=== PATIENT | female | born 1975 ===

== ENCOUNTER 2020-10-01 10:12 | Outpatient (REF) | payer OTHER, SELFPAY | END 2020-10-01 10:13 | disposition home or self-care (01) | LOC: HO.WFDLDS 10:12 | PROVIDERS: Visit Provider Internal Medicine | DX: Z20.828 Contact with and (suspected) exposure to other viral communicable diseases (principal) | CPT/HCPCS: C9803; U0003 ==

== ENCOUNTER 2021-05-14 11:57 | Outpatient (REF) | payer OTHER, SELFPAY ==
[2021-05-14 13:23] LABS: MANUAL DIFF FLAG NO
[2021-05-14 13:28] LABS: Basophils Percent Auto 0.4 % (0-2); Eosinophils Absolute Auto 0.3 X10*3/uL (0.0-0.4); Eosinophils Percent Auto 4.8 % (0-4); Hematocrit 35.1 % (37-47); Hemoglobin 10.9 g/dl (12.0-16.0); Imm Gran Abs Auto 0.02 X10*3/uL (0.00-0.03); Imm Gran Pct Auto 0.3 % (0.0-0.4); Lymphocytes Absolute Auto 1.6 X10*3/uL (1.2-4.9); Lymphocytes Percent Auto 23.1 % (20-40); Mean Corpuscular HGB Conc 31.1 g/dl (31.0-35.0); Mean Corpuscular Volume 80.5 fL (80-98); Monocytes Absolute Auto 0.6 X10*3/uL (0.1-1.2); Monocytes Percent Auto 8.6 % (2-11); Neutrophils Absolute Auto 4.3 X10*3/uL (2.0-8.3); Neutrophils Percent Auto 62.8 % (45-73); Platelet Count 307 X10*3/uL (160-400); Red Blood Count 4.36 X10*6/uL (4.20-5.50); White Blood Count 6.9 X10*3/uL (4.8-10.8)
[2021-05-14 13:56] LABS: Alanine Aminotransferase 11 U/L (0-31); Albumin Level 4.2 g/dL (3.5-5.0); Alkaline Phosphatase 82 U/L (39-117); Anion Gap 11 (12-20); Aspartate Amino Transferase 15 U/L (5-31); Bilirubin Total 0.9 mg/dL (0.0-1.0); Blood Urea Nitrogen 8 mg/dL (9-16); Calcium 9.6 mg/dL (8.4-10.2); Chloride 107 mmol/L (96-108); Cholesterol 176 mg/dL; Estimated Glomerular Filt Rate > 60; Glucose Fasting 98 mg/dL (60-99); HDL Cholesterol 42 mg/dL; LDL Cholesterol Calculated 112 mg/dl; Potassium 4.3 mmol/L (3.3-5.1); Sodium 140 mmol/L (135-145); Total Protein 7.5 g/dL (6.5-8.0); Triglycerides 111 mg/dL
[2021-05-14 14:06] LABS: Carbon Dioxide 26 mmol/L (22-29)
== END 2021-05-14 11:58 | disposition home or self-care (01) ==
LOC: HO.WFDLDS 11:57
PROVIDERS: Visit Provider Family Medicine
DX: Z12.31 Encounter for screening mammogram for malignant neoplasm of breast (principal)
CPT/HCPCS: 36415; 80053; 80061; 84443; 85025

== ENCOUNTER 2021-07-16 10:00 | Outpatient (REF) | payer OTHER, SELFPAY ==
[2021-07-20 12:12] LABS: TS Negative Control Passed; TS Panel A 2; TS Panel B 1; TS Positive Control Passed; TSpotTB Negative (SeeBelow)
== END 2021-07-16 10:01 | disposition home or self-care (01) ==
LOC: HO.WFDLDS 10:00
PROVIDERS: Visit Provider Family Medicine
DX: Z11.1 Encounter for screening for respiratory tuberculosis (principal)
CPT/HCPCS: 36415; 86481

== ENCOUNTER 2021-08-27 09:53 | Outpatient (REF) | payer OTHER, SELFPAY ==
[2021-08-27 11:37] LABS: MANUAL DIFF FLAG NO
[2021-08-27 11:51] LABS: Basophils Percent Auto 0.5 % (0-2); Eosinophils Absolute Auto 0.5 X10*3/uL (0.0-0.4); Eosinophils Percent Auto 5.8 % (0-4); Hematocrit 37.8 % (37-47); Hemoglobin 11.8 g/dl (12.0-16.0); Imm Gran Abs Auto 0.02 X10*3/uL (0.00-0.03); Imm Gran Pct Auto 0.2 % (0.0-0.4); Lymphocytes Absolute Auto 1.8 X10*3/uL (1.2-4.9); Lymphocytes Percent Auto 20.6 % (20-40); Mean Corpuscular HGB Conc 31.2 g/dl (31.0-35.0); Mean Corpuscular Volume 80.1 fL (80-98); Mean Platelet Volume 11.1 fL (9.4-12.3); Monocytes Absolute Auto 0.6 X10*3/uL (0.1-1.2); Monocytes Percent Auto 7.4 % (2-11); Neutrophils Absolute Auto 5.6 X10*3/uL (2.0-8.3); Neutrophils Percent Auto 65.5 % (45-73); Platelet Count 281 X10*3/uL (160-400); Red Blood Count 4.72 X10*6/uL (4.20-5.50); Red Cell Distribution Width 14.6 % (11.0-16.0); White Blood Count 8.5 X10*3/uL (4.8-10.8)
== END 2021-08-27 09:54 | disposition home or self-care (01) ==
LOC: HO.WFDLDS 09:53
PROVIDERS: Visit Provider Family Medicine
DX: Z00.00 Encounter for general adult medical examination without abnormal findings (principal)
CPT/HCPCS: 36415; 85025

== ENCOUNTER 2022-07-23 11:22 | Outpatient (REF) | payer OTHER, SELFPAY ==
[2022-07-23 14:33] LABS: Hematocrit 38.1 % (37.0-47.0); Hemoglobin 12.1 g/dl (12.0-16.0); Mean Corpuscular HGB Conc 31.8 g/dl (31.0-35.0); Mean Corpuscular Hemoglobin 26.3 pg (27.0-33.0); Mean Corpuscular Volume 82.8 fL (80.0-98.0); Mean Platelet Volume 11.2 fL (9.4-12.3); Platelet Count 283 X10*3/uL (160-400); Red Cell Distribution Width 15.6 % (11.0-16.0)
[2022-07-23 14:46] LABS: Alanine Aminotransferase 12 U/L (0-31); Albumin Level 4.2 g/dL (3.5-5.0); Alkaline Phosphatase 74 U/L (39-117); Anion Gap 13 (12-20); Aspartate Amino Transferase 16 U/L (5-31); Bilirubin Total 0.4 mg/dL (0.0-1.0); Blood Urea Nitrogen 9 mg/dL (9-16); Calcium 9.7 mg/dL (8.4-10.2); Carbon Dioxide 27 mmol/L (22-29); Chloride 106 mmol/L (96-108); Cholesterol 183 mg/dL; Estimated Glomerular Filt Rate > 60; Glucose Fasting 93 mg/dL (60-99); HDL Cholesterol 45 mg/dL; LDL Cholesterol Calculated 116 mg/dl; Potassium 4.7 mmol/L (3.3-5.1); Sodium 141 mmol/L (135-145); Total Protein 7.6 g/dL (6.5-8.0); Triglycerides 110 mg/dL
[2022-07-23 15:08] LABS: TSH reflex Free T4 1.16 uIU/mL (0.32-4.0)
== END 2022-07-23 11:23 | disposition home or self-care (01) ==
LOC: HO.WFDLDS 11:22
PROVIDERS: Visit Provider Hospitalist
DX: Z00.00 Encounter for general adult medical examination without abnormal findings (principal)
CPT/HCPCS: 36415; 80053; 80061; 84443; 85027

== ENCOUNTER 2023-03-04 10:46 | Outpatient (REF) | payer OTHER, SELFPAY ==
--- NOTE | ~2023-03-04 | MM_ITS ---
EXAMINATION: MM SCREENING DIGITAL BREAST TOMOSYNTHESIS, BILATERAL CLINICAL INFORMATION: Screening. Asymptomatic. The lifetime risk of breast cancer based on the Tyrer-Cuzick Model is 8%. COMPARISON: Mammography: None TECHNIQUE: Digital breast tomosynthesis is performed in both the craniocaudal and mediolateral oblique views along with computer-aided detection (CAD). Synthesized 2D images are generated from the tomosynthesis. FINDINGS: The breasts are heterogeneously dense, which may obscure small masses (ACR BI-RADS breast composition Category c). There are no significant masses, abnormal calcifications, or other abnormalities. MM/MM tomosynthesis screening BI IMPRESSION: No mammographic evidence of malignancy. ASSESSMENT: BI-RADS 1: Negative RECOMMENDATION: Routine annual mammography screening. This patient's information was entered into a reminder system with a target due date for their next mammogram.
[2023-03-04 12:12] LABS: Hematocrit 35.6 % (37.0-47.0); Mean Corpuscular HGB Conc 30.9 g/dl (31.0-35.0); Mean Corpuscular Hemoglobin 24.4 pg (27.0-33.0); Mean Corpuscular Volume 78.9 fL (80.0-98.0); Mean Platelet Volume 10.8 fL (9.4-12.3); Platelet Count 305 X10*3/uL (160-400); Red Blood Count 4.51 X10*6/uL (4.20-5.50); Red Cell Distribution Width 13.3 % (11.0-16.0); White Blood Count 7.4 X10*3/uL (4.8-10.8)
[2023-03-04 12:52] LABS: Appearance Urine Cloudy; Color Urine Yellow; Glucose Urine UA Negative (Negative); Leukocyte Esterase Urine Negative (Negative); Nitrite Urine Negative (Negative); Specific Gravity - Urine >= 1.030 (1.005-1.025); UMIC TRIGGER UA YES; Urine Blood Negative (Negative); Urine Ketones Trace mg/dL (Negative); Urine Protein 30 (1+) mg/dL (Neg-Trace)
[2023-03-04 13:00] LABS: Bacteria Urine None Seen (None Seen); Hyaline Casts Urine 0-2 /LPF (0-2); Squamous Epithelial Cell Urine >20 /HPF (0-2); WBC Urine 0-5 /HPF (0-5)
[2023-03-04 13:18] LABS: Alanine Aminotransferase 9 U/L (0-31); Alkaline Phosphatase 67 U/L (39-117); Anion Gap 11 (12-20); Aspartate Amino Transferase 14 U/L (5-31); Bilirubin Total 0.7 mg/dL (0.0-1.0); Blood Urea Nitrogen 13 mg/dL (9-16); Calcium 9.3 mg/dL (8.4-10.2); Carbon Dioxide 28 mmol/L (22-29); Chloride 107 mmol/L (96-108); Cholesterol 169 mg/dL; Estimated Glomerular Filt Rate > 60; Glucose Fasting 88 mg/dL (60-99); HDL Cholesterol 40 mg/dL; LDL Cholesterol Calculated 113 mg/dl; Potassium 4.5 mmol/L (3.3-5.1); Sodium 141 mmol/L (135-145); Total Protein 6.9 g/dL (6.5-8.0); Triglycerides 80 mg/dL
[2023-03-04 13:34] LABS: TSH reflex Free T4 1.84 uIU/mL (0.32-4.0)
== END 2023-03-04 10:47 | disposition home or self-care (01) ==
LOC: HO.MAMMO 10:46
PROVIDERS: PCP Hospitalist; Visit Provider Hospitalist
DX: Z12.31 Encounter for screening mammogram for malignant neoplasm of breast (principal); Z00.00 Encounter for general adult medical examination without abnormal findings
CPT/HCPCS: 36415; 77063; 77067; 80053; 80061; 81001; 84443; 85027

== ENCOUNTER 2023-03-05 11:36 | Outpatient (REF) | payer OTHER, SELFPAY ==
[2023-03-05 12:02] LABS: Appearance Urine Cloudy; Color Urine Yellow; Glucose Urine UA Negative (Negative); Leukocyte Esterase Urine Trace (Negative); Nitrite Urine Negative (Negative); Specific Gravity - Urine 1.025 (1.005-1.025); UMIC TRIGGER UA YES; Urine Blood Negative (Negative); Urine Ketones Trace mg/dL (Negative); Urine Protein Trace mg/dL (Neg-Trace)
[2023-03-05 13:09] LABS: Iron 27 mcg/dL (30-160); Percent Iron Saturation 9 % (15-50); Total Iron Binding Capacity 289 mcg/dL (228-428); Unsaturated Iron Binding 262 ug/dL
[2023-03-05 13:16] LABS: Bacteria Urine 1+ (None Seen); Hyaline Casts Urine 0-2 /LPF (0-2); Squamous Epithelial Cell Urine >20 /HPF (0-2); WBC Urine 0-5 /HPF (0-5)
[2023-03-05 13:22] LABS: Folate 15.6 ng/mL (> or = 4.0); Vitamin B12 460 pg/mL (200-900)
== END 2023-03-05 11:37 | disposition home or self-care (01) ==
LOC: HO.LAB 11:36
PROVIDERS: PCP Hospitalist; Visit Provider Hospitalist
DX: D64.9 Anemia, unspecified (principal)
CPT/HCPCS: 36415; 81001; 81003; 82607; 82746; 83540

== ENCOUNTER 2023-04-07 09:29 | Outpatient (REF) | payer OTHER, SELFPAY ==
[2023-04-07 11:20] LABS: MANUAL DIFF FLAG NO
[2023-04-07 11:40] LABS: Basophils Percent Auto 0.6 % (0-2); Eosinophils Absolute Auto 0.4 X10*3/uL (0.0-0.4); Eosinophils Percent Auto 5.2 % (0-4); Hematocrit 36.6 % (37.0-47.0); Hemoglobin 11.2 g/dl (12.0-16.0); Imm Gran Abs Auto 0.02 X10*3/uL (0.00-0.03); Imm Gran Pct Auto 0.3 % (0.0-0.4); Lymphocytes Absolute Auto 1.6 X10*3/uL (1.2-4.9); Lymphocytes Percent Auto 22.8 % (20-40); Mean Corpuscular HGB Conc 30.6 g/dl (31.0-35.0); Mean Corpuscular Hemoglobin 24.3 pg (27.0-33.0); Mean Corpuscular Volume 79.6 fL (80.0-98.0); Mean Platelet Volume 11.4 fL (9.4-12.3); Monocytes Absolute Auto 0.5 X10*3/uL (0.1-1.2); Monocytes Percent Auto 7.6 % (2-11); Neutrophils Absolute Auto 4.5 x10*3/uL (2.0-8.3); Neutrophils Percent Auto 63.5 % (45-73); Platelet Count 282 X10*3/uL (160-400); Red Cell Distribution Width 14.8 % (11.0-16.0); White Blood Count 7.1 X10*3/uL (4.8-10.8)
[2023-04-07 11:48] LABS: Iron 15 mcg/dL (30-160); Percent Iron Saturation 5 % (15-50); Total Iron Binding Capacity 294 mcg/dL (228-428); Unsaturated Iron Binding 279 ug/dL
[2023-04-10 02:03] LABS: TS Negative Control Passed; TS Panel A 12; TS Panel B 9; TS Positive Control Passed; TSpotTB Positive (Negative)
== END 2023-04-07 09:30 | disposition home or self-care (01) ==
LOC: HO.WFDLDS 09:29
PROVIDERS: Visit Provider Family Medicine
DX: Z00.00 Encounter for general adult medical examination without abnormal findings (principal); D64.9 Anemia, unspecified; Z11.1 Encounter for screening for respiratory tuberculosis
CPT/HCPCS: 36415; 83540; 85025; 86481

== ENCOUNTER 2023-04-16 11:22 | Outpatient (REF) | payer OTHER, SELFPAY ==
--- NOTE | ~2023-04-16 | XR_ITS ---
EXAMINATION: XR CHEST CLINICAL INFORMATION: Nonspecific reaction to tuberculin skin test. COMPARISON: None available. TECHNIQUE: 2 views of the chest were obtained. FINDINGS: No significant abnormality is noted involving the heart, lungs, mediastinum, bony thorax or soft tissues. XR/XR chest 2V IMPRESSION: Unremarkable chest examination.
== END 2023-04-16 11:23 | disposition home or self-care (01) ==
LOC: HO.XRAY 11:22
PROVIDERS: PCP Family Medicine; Visit Provider Family Medicine
DX: R76.11 Nonspecific reaction to tuberculin skin test without active tuberculosis (principal)
CPT/HCPCS: 71046

== ENCOUNTER 2023-04-28 14:29 | Outpatient (REF) | payer OTHER, SELFPAY ==
[2023-04-30 05:10] LABS: Syphilis Screen Nonreactive (Nonreactive)
[2023-04-30 05:53] LABS: HBS Num1 5.42 mIU/mL (0-7.99); HBsAGNum1 0.46 S/CO (0.00-0.99); HIV AB/AG Nonreactive (Nonreactive); HIV Num 1 0.08 S/CO (0.00-0.99); Hepatitis B Surface Antigen Negative (Negative); ~Hepatitis B Surface Antibody NONREACTIVE (Nonreactive); ~Hepatitis C Antibody Nonreactive (Nonreactive)
[2023-05-01 01:58] LABS: TS Negative Control Passed; TS Panel A 1; TS Panel B 2; TS Positive Control Passed; TSpotTB Negative (Negative)
== END 2023-04-28 14:30 | disposition home or self-care (01) ==
LOC: HO.LAB 14:29
PROVIDERS: PCP Family Medicine; Visit Provider Internal Medicine
DX: Z11.4 Encounter for screening for human immunodeficiency virus [HIV] (principal); R76.11 Nonspecific reaction to tuberculin skin test without active tuberculosis
CPT/HCPCS: 36415; 86481; 86706; 86780; 86803; 87340; 87389; 99202

== ENCOUNTER 2023-07-01 13:04 | Outpatient (REF) | payer OTHER, SELFPAY ==
[2023-07-01 13:24] LABS: MANUAL DIFF FLAG NO
[2023-07-01 13:56] LABS: Basophils Absolute Auto 0.1 X10*3/uL (0.0-0.2); Basophils Percent Auto 0.5 % (0-2); Eosinophils Absolute Auto 0.4 X10*3/uL (0.0-0.4); Hematocrit 36.5 % (37.0-47.0); Hemoglobin 11.4 g/dl (12.0-16.0); Imm Gran Abs Auto 0.03 X10*3/uL (0.00-0.03); Imm Gran Pct Auto 0.3 % (0.0-0.4); Lymphocytes Absolute Auto 1.9 X10*3/uL (1.2-4.9); Lymphocytes Percent Auto 20.3 % (20-40); Mean Corpuscular HGB Conc 31.2 g/dl (31.0-35.0); Mean Corpuscular Hemoglobin 24.5 pg (27.0-33.0); Mean Corpuscular Volume 78.3 fL (80.0-98.0); Mean Platelet Volume 10.7 fL (9.4-12.3); Monocytes Absolute Auto 0.7 X10*3/uL (0.1-1.2); Monocytes Percent Auto 7.4 % (2-11); Neutrophils Absolute Auto 6.3 x10*3/uL (2.0-8.3); Neutrophils Percent Auto 67.5 % (45-73); Platelet Count 315 X10*3/uL (160-400); Red Blood Count 4.66 X10*6/uL (4.20-5.50); Red Cell Distribution Width 14.5 % (11.0-16.0); White Blood Count 9.3 X10*3/uL (4.8-10.8)
[2023-07-01 15:17] LABS: Anion Gap 9 (12-20); Blood Urea Nitrogen 7 mg/dL (9-16); Calcium 9.9 mg/dL (8.4-10.2); Carbon Dioxide 25 mmol/L (22-29); Chloride 109 mmol/L (96-108); Estimated Glomerular Filt Rate > 60; Glucose Random 92 mg/dL (60-115); Iron 77 mcg/dL (30-160); Percent Iron Saturation 25 % (15-50); Potassium 4.6 mmol/L (3.3-5.1); Sodium 138 mmol/L (135-145); Total Iron Binding Capacity 309 mcg/dL (228-428); Unsaturated Iron Binding 232 ug/dL
== END 2023-07-01 13:05 | disposition home or self-care (01) ==
LOC: HO.LAB 13:04
PROVIDERS: PCP Family Medicine; Visit Provider Family Medicine
DX: Z00.00 Encounter for general adult medical examination without abnormal findings (principal); D64.9 Anemia, unspecified
CPT/HCPCS: 36415; 80048; 83540; 85025

== ENCOUNTER 2023-07-21 13:32 | Outpatient (AMB) | payer OTHER, SELFPAY ==
--- NOTE | 2023-07-21 13:43 | MHC.PC.OV ---
Vital Signs 07/21/23 13:44 Height 5 ft 3 in Weight 132 lb BMI 23.4 BP 106/64 Blood Pressure Location Rt brachial Position Sitting Respiration 14 Pulse 86 Pulse Source Pulse Oximeter Temp 97.8 F Temp Source Temporal Artery Scan Pulse Oximetry (%) 99 Oxygen Delivery Method Room Air Intake Visit Reasons: sinus pressure, headache, weakness Intake Note: Patient reports she has had sinus pressure, headache, and weakness for about 10-14 days. Patient reports she has tried many OTC medications and nothing has provided relief. Patient reports she believes she has a deviated septum and wonders if that correlates with her having so many sinus infections. 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 Accompanied by: Self / Same As Patient Allergies Seasonal Allergies Allergy (Mild, Verified 07/21/23 14:03) Itchy Eyes Medication List - Last Reconciled 07/21/23 by Sayra Taylor CNP cetirizine (Zyrtec) 10 mg PO DAILY PRN 90 days clindamycin phosphate 1% topical ferrous sulfate 325 mg PO DAILY 90 days fluticasone propionate 50 mcg/actuation 2 sprays intranasal DAILY 30 days metronidazole 0.75% 1 appl topical BID olopatadine 0.2% (Pataday Once Daily Relief) 1 drp ophthalmic (eye) DAILY PRN 30 days spironolactone 50 mg PO DAILY tretinoin 0.025% 1 appl topical BEDTIME Tobacco use date assessed: 02/24/23 Dental Screening Dental Screen Date: 07/21/23 Did you have a dental visit in the last 12 months?: Yes Did you have a dental problem in the last 6 months where you did not have access to dental care?: No Was dental information given to patient?: Patient has dentist HPI HPI Comments History of Present Illness Details 48-year-old female presents with complaints of sinus pressure, generalized headache, body aches and fatigue for the past 10-14 days. Her symptoms have been refractory to prescription [id number] regimen. She reports chills and subjective x 2 days last week. No current fever, chills, or weakness. She denies sick contacts. She thinks she may have left deviated septum from a fall on her nose at childhood. She has concerned that deviated septum may explain why she keeps having recurring sinus infections. [facility] Medical History Allergic sinusitis Bunion, left foot Bunion, right foot Mild anemia Surgical History History of bunionectomy No pertinent past surgical history Social History Housing: House Patient Tobacco Use Status: Never used Tobacco e-Cigarette/Vaping Use: Never Used service: No Current occupational status: employed Cognitive needs: No Hearing needs: No Vision needs: No Questionnaire Thrive Questionnaire Date Thrive assessed: 09/03/21 VIKTORIA-7 AMB Questionnaire VIKTORIA-7 Date VIKTORIA - 7 assessed: 09/03/21 Source: Developed by Drs. Randall Grant, Valencia Villareal, Richmond Farfan and colleagues, with an educational monika from [employer]. Review of Systems Const Details: Const Denies chills, Reports fatigue, Denies fever(s), Reports headache(s) and Denies weakness ENT Reports as per HPI Card Denies chest pain, Denies lightheadedness, Denies dyspnea and Denies other (Palpitations) Resp Denies cough, Denies dyspnea, Denies wheezing and Denies other ( shortness of breath) GI Denies abdominal pain, Denies melena, Denies hematochezia, Denies change in bowel habits, Denies dyspepsia and Denies nausea Denies hematuria and Denies dysuria Musc Denies abnormal gait, Denies myalgias, Denies arthralgias, Denies numbness and Denies tingling Skin/Breast Denies rash, Denies unusual bruising and Denies wounds Neuro Denies abnormal gait, Denies dizziness, Denies headache(s), Denies memory loss, Denies numbness, Denies Sensory deficit (Neuro), Denies tingling and Denies weakness Psych Denies anxiety, Denies depression, Denies memory loss Endo Denies cold intolerance, Reports fatigue, Denies heat intolerance, Denies polydipsia and Denies polyuria Aller/Immun Denies wheezing Physical exam (Primary Care) Vital Signs: Last Vital Signs Temp 97.8 F 07/21/23 13:44 Pulse 86 07/21/23 13:44 Resp 14 07/21/23 13:44 BP 106/64 07/21/23 13:44 Pulse Ox 99 07/21/23 13:44 Oxygen Delivery Method Room Air 07/21/23 13:44 BMI result Body Mass Index 23.4 Tobacco/Smoking Status: Tobacco use Status Tobacco use date assessed 02/24/23 07/21/23 13:50 Patient Tobacco Use Status Never used Tobacco 07/21/23 13:50 e-Cigarette/Vaping Use Never Used 07/21/23 13:50 Thrive Assessment: Date of Thrive Assessment Date Thrive assessed 09/03/21 07/21/23 13:50 Const Other: General: no acute distress and well developed Nutritional Appearance: well nourished Orientation/consciousness: patient oriented x3 HENMT Head is normocephalic Bilateral ear canal and TM are normal Nasal turbinates with moderate erythema Oropharynx is pink and moist Sinuses are tender to palpation No auricular or cervical lymphadenopathy Eyes General: appearance normal, both eyes and all related structures Pupils: Equal, round and reactive pupils present EOM: EOMs intact bilaterally Resp Effort & Inspection: normal respiratory effort Auscultation: clear to auscultation bilaterally Cardio Rate: regular rate Rhythm: regular rhythm Heart sounds: S1 normal heart sound present, S2 normal heart sound present, no gallops, no murmurs and no rubs GI Palpation (GI): No Abdominal aortic bruit present, Soft to palpation, nontender, No hepatosplenomegaly present and No Rebound tenderness present Auscultation: normal bowel sounds General: Yes no CVA tenderness Back/Spine/Pelvis Back: no CVA tenderness Cervical Spine: cervical ROM normal and No Cervical spine tenderness Thoracic/Lumbar Spine: thoraco-lumbar ROM normal, No pain with thoraco-lumbar ROM, No thoracic spinal tenderness and No lumbar spinal tenderness Extrem General: Yes normal to inspection, No edema and No calf tenderness Skin General: warm and dry. Normal skin color. Normal skin turgor Lesions: no lesions Rashes: no rashes Trauma: no lacerations or abrasions Wounds: no wounds Nails: normal Neuro General: patient oriented x3, gait normal and no focal neuro deficit Cranial nerves: Yes Equal, round and reactive pupils present Cognition (Neuro): normal cognition Gait exam (Neuro): Normal gait present Sensory Exam: No Sensory deficit (Neuro) Psych Appearance: grossly normal Affect: normal affect Attitude: cooperative Thought process: Normal thought process present Assessment and Plan Assessment & Plan (1) Acute sinus infection: Code(s): J01.90 - Acute sinusitis, unspecified Qualifiers: Sinusitis location: maxillary Recurrence: recurrent Qualified Code(s): J01.01 - Acute recurrent maxillary sinusitis Plan: 48-year-old female presents with complaints of sinus pressure, generalized headache, body aches and fatigue for the past 10-14 days. Frontal and maxillary sinuses tenderness to palpation Nasal turbinates with moderate erythema Vistaril and amoxicillin ordered. Take as prescribed Continue to use Flonase as prescribed Adequate hydration encouraged Referred to ENT Follow-up with worsening or new symptoms Verbalized understanding and agreed with treatment plan Orders: Referrals Ear/Nose/Throat Referral J01.90 - Acute sinusitis, unspecified Medications: New hydroxyzine pamoate (Vistaril) 25 mg PO BEDTIME 30 days 30 caps 0RF amoxicillin 875 mg PO Q12H 7 days 14 tabs 0RF Coding Level of Care Code Est Pt Level 3 (80048) Diagnoses Acute recurrent maxillary sinusitis J01.01 Sinusitis location: maxillary Recurrence: recurrent
[2023-07-21 13:44] VITALS: BP 106/64; PULSE 86; RESP 14; TEMP 36.6; O2SAT 99; BMI 23.4
== END 2023-07-21 14:20 | disposition home or self-care (01) ==
PROVIDERS: PCP Family Medicine; Visit Provider Nurse Practitioner Family
DX: J01.01 Acute recurrent maxillary sinusitis (principal)
CPT/HCPCS: 99213

== ENCOUNTER 2024-04-10 11:27 | Outpatient (AMB) | payer OTHER, SELFPAY ==
--- NOTE | 2024-04-10 11:52 | MHC.PC.OV ---
Vital Signs 04/10/24 12:01 Height 5 ft 3 in Weight 147 lb 6 oz BMI 26.1 BP 110/68 Blood Pressure Location Lt brachial Position Sitting Pulse 84 Pulse Source Pulse Oximeter Temp 98.8 F Temp Source Oral Pulse Oximetry (%) 99 Oxygen Delivery Method Room Air Intake Visit Reasons: CPE-NEEDS PHQ9 Intake Note: Physical. Allergies Seasonal Allergies Allergy (Mild, Verified 04/10/24 12:18) Itchy Eyes Medication List - Last Reconciled 04/10/24 by JASBIR Rodríguez-ELIAS azelastine intranasal cetirizine (Zyrtec) 10 mg PO DAILY PRN 90 days ferrous sulfate 325 mg PO DAILY 90 days fluticasone propionate 50 mcg/actuation 2 sprays intranasal DAILY 90 days olopatadine 0.2% (Pataday Once Daily Relief) 1 drp ophthalmic (eye) DAILY PRN 30 days tretinoin 0.025% 1 appl topical BEDTIME Tobacco use date assessed: 04/10/24 Dental Screening Dental Screen Date: 04/10/24 Did you have a dental visit in the last 12 months?: Yes Did you have a dental problem in the last 6 months where you did not have access to dental care?: No Was dental information given to patient?: Patient has dentist HPI HPI Comments History of Present Illness Details 49-year-old female with anemia, allergic rhinitis 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 Ok w/ cologaurd. Order placed Pap - overdue. Referred to [facility] [place] [facility]CONOMICS PROFESSOR DEXA - n/a still getting periods. Specialists: ENT Here today for CPE Never started hydroxyzine, was not sure what it was for. She admits trouble sleeping d/t sinus issues in the past This is now resolved s/p repair 02/2024 No longer needed Family stressors. Declines counseling. Declines meds. new onset sz and dog, too. Latent TB dx - false +. 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 1. Little interest or pleasure in doing things: several days 2. Feeling down, depressed, or hopeless: several days 3. Trouble falling or staying asleep, or sleeping too much: not at all 4. Feeling tired or having little energy: several days 5. Poor appetite or overeating: not at all 6. Feeling bad about yourself - or that you are a failure or have let yourself or your family down: not at all 7. Trouble concentrating on things, such as reading the newspaper or watching television: not at all 8. Moving or speaking so slowly that other people could have noticed. Or the opposite - being so fidgety or restless that you have been moving around a lot more than usual: not at all 9. Thoughts that you would be better off or of hurting yourself in some way: not at all Total score: 3 Depression Screening Interpretation: Negative Depression Screening Done: Yes 53768 - PHQ-9 Billing: Yes Source: Developed by Drs. Randall Grant, Valencia Villareal, Richmond Farfan and colleagues, with an educational monika from [employer]. Thrive Questionnaire Date Thrive assessed: 04/10/24 I am a: Patient What is your living situation today?: I have a steady place to live Within the past 12 months, did the food you bought not last and you didn't have the money to get more?: Never true Within the past 12 months, did you worry whether your food would run out before you got money to buy more?: Never true Do you have trouble paying for medicines?: No Do you have trouble getting transportation to medical appointments?: No Do you have trouble paying your heating and electricity bill?: No Do you have trouble taking care of your child, family member or friend?: No Do you have trouble with day-to-day activities such as bathing, preparing meals, shopping, managing finances, etc.?: No Are you currently unemployed and looking for a job?: No Please select the resources that you would like help with: None THRIVE Score: 0 AUDIT C Alcohol Use Questionnaire (AUDIT-C) 1. How often do you have a drink containing alcohol?: Never 3. How often do you have six or more drinks on one occasion?: Never Total Score: 0 Score Reviewed/Action Taken: Yes VIKTORIA-7 AMB Questionnaire VIKTORIA-7 Date VIKTORIA - 7 assessed: 04/10/24 Feeling nervous, anxious, or on edge: 0 = Not at all Not being able to stop or control worryin = Not at all Worrying too much about different things: 0 = Not at all Trouble relaxin = Several days Being so restless that it is hard to sit still: 0 = Not at all Becoming easily annoyed or irritable: 0 = Not at all Feeling afraid as if something awful might happen: 0 = Not at all Total VIKTORIA-7 score (0-4 normal; 5-9 mild; 10-14 moderate; 15-21 severe): 1 Source: Developed by Drs. Randall Grant, Valencia Villareal, Richmond Farfan and colleagues, with an educational monika from [employer]. VIKTORIA-7 Assessment Billing VIKTORIA-7 Assessment Tool: VIKTORIA-7 Assessment 74166 Review of Systems Const Details: Constitutional: Denies fever. Skin: Denies rash. Eye: Denies eye pain. ENMT: Denies sore throat and nasal congestion. Respiratory: Denies shortness of breath and cough. Gastrointestinal: Denies nausea, vomiting or abdominal pain. Cardiovascular: Denies chest pain and syncope. Genitourinary: Denies dysuria. Musculoskeletal: Denies back pain and extremity pain. Neurologic: Denies headaches, confusion, and weakness. Psychiatric: Denies suicidal thoughts and substance abuse. Allergy/ Immunologic: Denies impaired immunity. Physical exam (Primary Care) Vital Signs: Last Vital Signs Temp 98.8 F 04/10/24 12:01 Pulse 84 04/10/24 12:01 BP 110/68 04/10/24 12:01 Pulse Ox 99 04/10/24 12:01 Oxygen Delivery Method Room Air 04/10/24 12:01 BMI result Body Mass Index 26.1 BMI Assessment/Plan discussion: High BMI High, discussed plan: lifestyle Tobacco/Smoking Status: Tobacco use Status Tobacco use date assessed 04/10/24 04/10/24 12:03 Patient Tobacco Use Status Never used Tobacco 04/10/24 12:03 e-Cigarette/Vaping Use Never Used 04/10/24 12:03 PHQ-9: PHQ-9 Score PHQ-9: Total score 3 04/10/24 12:10 Depression Screening Interpretation: Negative Thrive Assessment: Date of Thrive Assessment Date Thrive assessed 04/10/24 04/10/24 12:10 Advance Care Planning discussion: Exists, not on file Date of discussion: 04/10/24 Who was present: Self Forms completed: Health Care Proxy and MOLST Actual minutes spent: 1 Const Other: General: Well developed, well nourished, in no acute distress. Appears stated age. Head: Normocephalic, atraumatic. Eyes: Pupils are equal, round and reactive to light and accommodation. Conjunctivae are clear. Vision grossly normal. Ears: TMs clear AU, EACS WNL Nose: Patent, without discharge. Mouth: There are no ulcers or lesions noted. No inflammation, no post nasal drip, no plaques nor exudates. Neck: Supple, no adenopathy or thyromegaly. Lungs: Clear to auscultation bilaterally. No rales, rhonchi or wheeze noted. Good air flow in all rooney. Heart: Regular rate and rhythm. No murmurs, click, rubs or gallops are noted. Abdomen: Bowel sounds present in all quadrants. The abdomen is soft, nontender, with no masses or organomegaly noted. No hernias are noted. Musculoskeletal: Joints are nontender, without swelling, redness, or effusions. Range of motion is observed to be normal. Pulses: Peripheral pulses are equal and palpable bilaterally. Extremities: No clubbing, cyanosis nor edema is noted. Neurologic: Gait and station normal. Cranial Nerves 2-12 intact. Motor strength grossly symmetrical and intact. No sensory loss. Balance normal. Skin: No rashes, ulcers, or lesions noted. Turgor is good. Skin color is good. Hair and nails are without abnormalities. Psych: Normal eye contact, affect and mood appropriate, and normal interactions. Patient is alert and appropriate to context. Assessment and Plan Assessment & Plan (1) Encounter for general adult medical examination without abnormal findings: Code(s): Z00.00 - Encounter for general adult medical examination without abnormal findings (2) Screening for cervical cancer: Comment: Refer to assembly machine tool setter for Pap smear. Code(s): Z12.4 - Encounter for screening for malignant neoplasm of cervix (3) Colonoscopy refused: Comment: Ordered Cologuard today. Code(s): Z53.20 - Procedure and treatment not carried out because of patient's decision for unspecified reasons (4) Anemia: Comment: Was on iron in the past. We will update labs today and restart only if needed. Code(s): D64.9 - Anemia, unspecified Qualifiers: Anemia type: iron deficiency Iron deficiency anemia type: inadequate dietary iron intake Qualified Code(s): D50.8 - Other iron deficiency anemias Orders: Orders Comprehensive Met. Panel Today Z00.00 - Encounter for general adult medical examination without abnormal findings IRON PROFILE Today Z00.00 - Encounter for general adult medical examination without abnormal findings LDL Cholesterol Direct Today Z00.00 - Encounter for general adult medical examination without abnormal findings TSH reflex Free T4 Today Z00.00 - Encounter for general adult medical examination without abnormal findings Vitamin D 1,25 dihydroxy Today Z00.00 - Encounter for general adult medical examination without abnormal findings Microalbumin, Random (w Creat) Today Z00.00 - Encounter for general adult medical examination without abnormal findings Vitamin B12 Today Z00.00 - Encounter for general adult medical examination without abnormal findings Hemoglobin A1c Today Z00.00 - Encounter for general adult medical examination without abnormal findings Complete Blood Count no Diff Today Z00.00 - Encounter for general adult medical examination without abnormal findings Referrals Cologuard Test Z12.11 - Encounter for screening for malignant neoplasm of colon, Z12.12 - Encounter for screening for malignant neoplasm of rectum DIRECTOR BUSINESS DEVELOPMENT Referral Z12.4 - Encounter for screening for malignant neoplasm of cervix Patient Instructions: Return to office in 1 year for complete physical exam, sooner as needed. Health screenings for women You should visit your health care provider from time to time, even if you are healthy. The purpose of these visits is to: Screen for medical issues Assess your risk for future medical problems Encourage a healthy lifestyle Update vaccinations and other preventive care services Help you get to know your provider in case of an illness Information Even if you feel fine, you should still see your provider for regular checkups. These visits can help you avoid problems in the future. For example, the only way to find out if you have high blood pressure is to have it checked regularly. High blood sugar and high cholesterol levels also may not have any symptoms in the early stages. A simple blood test can check for these conditions. There are specific times when you should see your provider or receive specific health screenings. The [place] Preventive Services Task Force publishes a list of recommended screenings. Below are screening guidelines for women ages 18 to 39. BLOOD PRESSURE SCREENING Your blood pressure should be checked at least once every 3 to 5 years if: Your blood pressure is in the normal range (top number less than 120 mm Hg and bottom number less than 80 mm Hg) You don't have risk factors for high blood pressure Ask your provider if you need your blood pressure checked more often if: The top number is 120 to 129 mm Hg or the bottom number is 70 to 79 mm Hg You have diabetes, heart disease, kidney problems, are overweight, or have certain other health conditions You have a first-degree relative with high blood pressure You are Black You had high blood pressure during a If the top number is 130 mm Hg or greater or the bottom number is 80 mm Hg or greater, this is considered stage 1 hypertension. Schedule an appointment with your provider to learn how you can reduce your blood pressure. Watch for blood pressure screenings in your area. Ask your provider if you can stop in to have your blood pressure checked. BREAST CANCER SCREENING Experts do not agree about the benefits of breast self-exams in finding breast cancer or saving lives. Talk to your provider about what is best for you. A screening mammogram is not recommended for most women under age 40. Your provider may discuss and recommend mammograms, MRI scans, or ultrasounds if you have an increased risk for breast cancer, such as: A mother or sister who had breast cancer at a young age (most often starting screening earlier than the age the close relative was diagnosed) You carry a high-risk genetic marker CERVICAL CANCER SCREENING Cervical cancer screening should start at age 21 years unless your provider advises otherwise. After the first test: Women ages 21 through 29 should have a Pap test every 3 years. Exoprts do not agree on whether HPV testing is recommended for this age group. Women ages 30 through 65 should be screened with either a Pap test every 3 years or the HPV test every 5 years or both tests every 5 years (called cotesting ). Women who have been treated for precancer (cervical dysplasia) should continue to have Pap tests for 20 years after treatment or until age 65, whichever is longer. If you have had your uterus and cervix removed (total hysterectomy), and you have not been diagnosed with cervical cancer or precancer (high grade cervical neoplasia), you do not need cervical cancer screening. CHOLESTEROL SCREENING Cholesterol screening should begin at: Age 45 for women with no known risk factors for coronary heart disease Age 20 for women with known risk factors for coronary heart disease Repeat cholesterol screening should take place: Every 5 years for women with normal cholesterol levels More often if changes occur in lifestyle (including weight gain and diet) More often if you have diabetes, heart disease, kidney problems, or certain other conditions DIABETES SCREENING You should be screened for diabetes starting at age 35 and then repeated every 3 years if you have no risk factors for diabetes. Screening may need to start earlier and be repeated more often if you have other risk factors for diabetes, such as: You have a first degree relative with diabetes. You are overweight or have obesity. You have high blood pressure, prediabetes, or a history of heart disease. Screening for diabetes should be done if you are planning to become and you are overweight and have other risk factors such as high blood pressure. DENTAL EXAM Go to the dentist once or twice every year for an exam and cleaning. Your dentist will evaluate if you need more frequent visits. EYE EXAM Have an eye exam every 5 to 10 years before age 40. If you have vision problems, have an eye exam every 2 years or more often if recommended by your provider. You should have an eye exam that includes an examination of your retina (back of your eye) at least every year if you have diabetes. IMMUNIZATIONS Commonly needed vaccines include: Flu shot: get one every year. COVID-19 vaccine: ask your provider what is best for you. Tetanus-diphtheria and acellular pertussis (Tdap) vaccine: have one at or after age 19 as one of your tetanus-diphtheria vaccines if you did not receive it as an adolescent. Tetanus-diphtheria: have a booster (or Tdap) every 10 years. Varicella vaccine: receive 2 doses if you never had chickenpox or the varicella vaccine. Hepatitis B vaccine: receive 2, 3, or 4 doses, depending on your exact circumstances. Measles, mumps, and rubella (MMR) vaccine: receive 1 to 2 doses if you are not already immune to MMR. Your provider can tell you if you are immune. Ask your provider about the human papillomavirus (HPV) vaccine if: You have not received the HPV vaccine in the past You have not completed the full vaccine series (you should catch up on this shot) Ask your provider if you should receive other immunizations if you have certain health problems that increase your risk for some diseases such as pneumonia. INFECTIOUS DISEASE SCREENING Women who are sexually active should be screened for chlamydia and gonorrhea up until age 25. Women 25 years and older should be screened for chlamydia and gonorrhea if at high risk. Screening for hepatitis C: All adults ages 18 to 79 should get a one-time test for hepatitis C. people should be screened at every . Screening for human immunodeficiency virus (HIV): All people ages 15 to 65 should get a one-time test for HIV. Depending on your lifestyle and medical history, you may also need to be screened for infections such as syphilis and HIV, as well as other infections. PHYSICAL EXAM All adults should visit their provider from time to time, even if they are healthy. The purpose of these visits is to: Screen for disease Assess your risk of future medical problems Encourage a healthy lifestyle Update your vaccinations and other preventive care services Maintain a relationship with a provider in case of an illness Your height, weight, and BMI should be checked at every exam. During your exam, your provider may ask you about: Depression and anxiety Diet and exercise Alcohol and tobacco use Safety issues, such as using seat belts, smoke detectors, and intimate partner violence Your medicines and risk for interactions SKIN SELF-EXAM Your provider may check your skin for signs of skin cancer, especially if you're at high risk, such as if you: Have had skin cancer before Have close relatives with skin cancer Have a weakened immune system OTHER SCREENING Talk with your provider about colon cancer screening if you have a strong family history of colon cancer or polyps, or if you have had inflammatory bowel disease or polyps yourself. Routine bone density screening of women under 40 is not recommended. Review Patient declined Mammogram: 04/10/24 Patient declined Colonoscopy: 04/10/24 Coding Level of Care Code Est Pt Prev Care 40-64y(11377) Diagnoses Encounter for general adult medical examination without abnormal findings Z00.00 Screening for cervical cancer Z12.4 Colonoscopy refused Z53.20 Iron deficiency anemia secondary to inadequate dietary iron intake D50.8 Anemia type: iron deficiency Iron deficiency anemia type: inadequate dietary iron intake Additional Codes VIKTORIA-7 Assessment Billing - VIKTORIA-7 Assessment Tool: VIKTORIA-7 Assessment 99355 ([id number]) Vital Signs *Quality* - Advance Care Planning discussion: Exists, not on file ([id number])
[2024-04-10 12:01] VITALS: BP 110/68; PULSE 84; TEMP 37.1; O2SAT 99; BMI 26.1
== END 2024-04-10 13:37 | disposition home or self-care (01) ==
PROVIDERS: PCP Family Medicine; Visit Provider Nurse Practitioner Family
DX: Z00.00 Encounter for general adult medical examination without abnormal findings (principal); Z12.4 Encounter for screening for malignant neoplasm of cervix; Z53.20 Procedure and treatment not carried out because of patient's decision for unspecified reasons; D50.8 Other iron deficiency anemias
CPT/HCPCS: 1123F; 99396

== ENCOUNTER 2024-04-10 12:34 | Outpatient (REF) | payer OTHER, SELFPAY ==
[2024-04-10 14:59] LABS: Hematocrit 29.6 % (37.0-47.0); Hemoglobin 8.6 g/dl (12.0-16.0); Mean Corpuscular HGB Conc 29.1 g/dl (31.0-35.0); Mean Corpuscular Hemoglobin 19.5 pg (27.0-33.0); Mean Corpuscular Volume 67.1 fL (80.0-98.0); Mean Platelet Volume 10.5 fL (9.4-12.3); Platelet Count 335 X10*3/uL (160-400); Red Blood Count 4.41 X10*6/uL (4.20-5.50); Red Cell Distribution Width 17.7 % (11.0-16.0); White Blood Count 7.5 X10*3/uL (4.8-10.8)
[2024-04-10 15:11] LABS: Estimated Average Glucose 111 mg/dL; Hemoglobin A1c % 5.5 % (<6.0)
[2024-04-10 15:15] LABS: Creatinine Urine 41.62 mg/dL; Microalbumin Urine < 5.0 mg/L
[2024-04-10 15:21] LABS: Alanine Aminotransferase 11 U/L (0-31); Albumin Level 4.1 g/dL (3.5-5.0); Alkaline Phosphatase 87 U/L (39-117); Anion Gap 11 (12-20); Aspartate Amino Transferase 16 U/L (5-31); Bilirubin Total 0.4 mg/dL (0.0-1.0); Blood Urea Nitrogen 6 mg/dL (9-16); Calcium 9.9 mg/dL (8.4-10.2); Carbon Dioxide 24 mmol/L (22-29); Chloride 108 mmol/L (96-108); Estimated Glomerular Filt Rate > 60; Glucose Random 88 mg/dL (60-115); Iron 12 mcg/dL (30-160); Percent Iron Saturation 4 % (15-50); Potassium 3.6 mmol/L (3.3-5.1); Sodium 139 mmol/L (135-145); Total Iron Binding Capacity 340 mcg/dL (228-428); Total Protein 7.8 g/dL (6.5-8.0); Unsaturated Iron Binding 328 ug/dL
[2024-04-10 15:34] LABS: Vitamin B12 396 pg/mL (200-900)
[2024-04-12 03:23] LABS: LDL Cholesterol Direct 101 mg/dL (<100)
[2024-04-15 17:34] LABS: VITAMIN D (1,25 OH) D3 60 pg/mL; Vit D (1,25-Dihydroxy) Total 60 pg/mL (18-72); Vitamin D (1,25 OH) D2 <8 pg/mL
== END 2024-04-10 12:35 | disposition home or self-care (01) ==
LOC: HO.WFDLDS 12:34
PROVIDERS: Visit Provider Nurse Practitioner Family
DX: Z00.00 Encounter for general adult medical examination without abnormal findings (principal)
CPT/HCPCS: 36415; 80053; 82043; 82570; 82607; 82652; 83036; 83540; 83721; 84443; 85027

== ENCOUNTER 2024-10-02 14:17 | Outpatient (AMB) | payer OTHER, SELFPAY ==
[2024-10-02 15:34] VITALS: BP 142/100; PULSE 60; O2SAT 100
--- NOTE | 2024-10-02 15:34 | MHC.OFFWIV ---
Intake Vital Signs 10/02/24 15:34 Weight 151 lb BP 142/100 H Blood Pressure Location Lt brachial Position Sitting Pulse 60 Pulse Source Pulse Oximeter Pulse Oximetry (%) 100 Oxygen Delivery Method Room Air Intake Visit Reasons: EP RT Knee/Side, headache, nausea Intake Note: Patient here because she [place] and [place] on her right knee and wrist, she now has back pain, headaches and nausea Patient Tobacco Use Status: Never used Tobacco Allergies Seasonal Allergies Allergy (Mild, Verified 04/10/24 12:18) Itchy Eyes HPI HPI Comments History of Present Illness Details This is a 49-year-old female with a past medical history of iron deficiency anemia presenting for evaluation of injuries sustained in a fall on Wednesday at an airport in [place]. Patient states that she slipped on liquid that was on the floor and fell forward onto her right knee and hands. Patient denies any head injury or loss of consciousness as a result however was seen in the emergency department down in [place] following her fall and states her imaging was not significant for any fractures or other acute findings. Patient was prescribed Naprosyn however she has not been taking this medication, ?because I do not like taking pills.? Patient states that she has pain in her right hand and right knee. Patient states that she will intermittently feel nauseous with a mild headache. Patient has not taken any additional medication for treatment of her symptoms and she denies having any visual changes, neck pain, vomiting, chest pain, shortness of breath or syncope since the time of her fall last Wednesday. 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 Current occupational exposures/hazards: No Cognitive needs: No Hearing needs: No Vision needs: No Review of Systems Const All systems reviewed & are unremarkable except as noted in HPI and below Reports headache(s) and Reports weakness Eyes Reports no additional complaints ENT Reports no additional complaints and Reports headache(s) Card Reports no additional complaints Resp Reports no additional complaints GI Reports no additional complaints, Reports nausea and Denies vomiting Reports no additional complaints Musc Reports arthralgias (right knee) and Reports other (right hand pain) Skin/Breast Reports system reviewed and no additional complaints, except as documented Neuro Reports no additional complaints, Reports headache(s) and Reports weakness Psych Reports no additional complaints Endo Reports no additional complaints Attila/Lymph Reports no additional complaints Physical Exam Const Other: Teary, anxious General: cooperative, healthy appearing, comfortable, no acute distress, well developed, alert, awake, anxious and well groomed; No lethargic Nutritional Appearance: average body habitus Orientation/consciousness: patient oriented x3 and No lethargic Limitations: no limitations HEENT Head: Yes normal to inspection and Yes normocephalic Ears: hearing grossly normal bilaterally and external ears normal General nose exam: Normal external nose present Face and sinus: Yes normal facial exam Mouth: Normal oral and palatal mucosa present Teeth and gingiva: dentition normal Throat: Yes posterior oropharynx normal Eyes General: appearance normal, both eyes and all related structures Visual Bruner: normal visual bruner by confrontation Alignment and Position: alignment normal Pupils: Equal, round and reactive pupils present EOM: EOMs intact bilaterally Direct Ophthalmoscopy: no photophobia Cardio Rate: regular rate Rhythm: regular rhythm Skin Other: No ecchymosis, edema, erythema or warmth to touch upon evaluation of the right knee or right hand, no C.spine tenderness of the vertebral bodies or paraspinal musculature Neuro General: patient oriented x3 Cranial nerves: Yes Equal, round and reactive pupils present Extrem Right upper extremity: Extremity exam: right hand (pain to palpation on the palmar surface of the right thenar eminence) Details: other (5/5 strength flexion/extension right 1st digit) Right lower extremity: normal to inspection, full ROM (passive ROM right knee intact) and knee Details: tenderness (right superior knee, no posterior knee pain), normal ROM and knee ligament exam normal; no swelling Psych Appearance: grossly normal Mental Status: mental status grossly normal Insight: Good insight present (Psych) Judgement: Good judgement present (Psych) Assessment & Plan Assessment & Plan (1) Right hand pain: Comment: Imaging reportedly negative in [place]; no further imaging warranted. Code(s): M79.641 - Pain in right hand Plan: Naprosyn BID as previously prescribed x 7-10 days. (2) Contusion of right knee: Comment: Work note given through 10.05.2024. Code(s): S80.01XA - Contusion of right knee, initial encounter Qualifiers: Encounter type: initial encounter Qualified Code(s): S80.01XA - Contusion of right knee, initial encounter Plan: Naprosyn BID as previously prescribed x 7-10 days. Follow-up with PCP within 10-14 days for further evaluation and care. Coding Level of Care Code Est Pt Level 3 (01441) Diagnoses Right hand pain M79.641 Contusion of right knee, initial encounter S80.01XA Encounter type: initial encounter Time Spent (min) 20
== END 2024-10-02 16:06 | disposition home or self-care (01) ==
PROVIDERS: PCP Family Medicine; Visit Provider Physician Assistant
DX: M79.641 Pain in right hand (principal); S80.01XA Contusion of right knee, initial encounter

== ENCOUNTER → 2024-10-02 14:17 | Outpatient (BNVA) | payer OTHER, SELFPAY | PROVIDERS: PCP Family Medicine; Visit Provider Physician Assistant | DX: M79.641 Pain in right hand (principal); S80.01XA Contusion of right knee, initial encounter | CPT/HCPCS: 99212 ==

== ENCOUNTER 2024-10-05 15:31 | Emergency (ER) | payer OTHER, SELFPAY ==
--- NOTE | ~2024-10-05 | CT_ITS ---
EXAMINATION: CT angio chest PE protocol CLINICAL INFORMATION: recent travel, cp, tachycardia, r/o PE COMPARISON: None TECHNIQUE: Prior to contrast administration, noncontrast localization images were obtained. Subsequently, multidetector volumetric imaging was performed from the thoracic inlet to below the diaphragms following the administration of 65 mL of Omnipaque 350 intravenous contrast. This was followed by multidetector acquisition of the abdomen and pelvis. No contrast reaction reported Sagittal, coronal, and MIP oblique sagittal reformatted images were obtained on the CT workstation, uploaded to PACS, and reviewed. Total exam dose-length product of 241 mGy-cm FINDINGS: QUALITY OF STUDY/CONTRAST BOLUS: Satisfactory. CHEST: CHEST WALL: Unremarkable. AXILLA: No lymphadenopathy. PULMONARY ARTERIES: No pulmonary embolism. MEDIASTINUM: Heart is normal in size. No mediastinal lymphadenopathy. No hilar lymphadenopathy. CORONARY ARTERY CALCIFICATION: No significant coronary artery calcification appreciated on this exam. PLEURA: There is no pleural effusion. LUNGS: No suspicious pulmonary nodule. UPPER ABDOMEN: Status post cholecystectomy. OSSEOUS STRUCTURES: Unremarkable. CT/CT angio chest PE protocol IMPRESSION: No evidence of pulmonary embolism. VTE: negative. Electronically signed by: Randall Triplett MD 10/05/2024 07:31 PM EST
--- NOTE | ~2024-10-05 | XR_ITS ---
EXAMINATION: XR HAND/WRIST, RIGHT CLINICAL INFORMATION: fall on 09/29, pain distal radius COMPARISON: None available. TECHNIQUE: PA, lateral, and oblique views of the right hand and wrist. FINDINGS: Severe degenerative changes of the first CMC joint. Mild degenerative changes of the remaining CMC joints. Degenerative changes at the first interphalangeal joint. Soft tissues are unremarkable. XR/XR hand wrist RT IMPRESSION: 1. No acute fracture or dislocation. 2. 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 Electronically signed by: Ryan Grant MD 10/05/2024 04:33 PM THANG
--- NOTE | ~2024-10-05 | XR_ITS ---
EXAMINATION: XR LUMBOSACRAL SPINE CLINICAL INFORMATION: Fall. Midline lumbar tenderness. COMPARISON: None available. TECHNIQUE: Three views of the lumbosacral spine. FINDINGS: Normal vertebral body alignment. The lumbar lordosis is maintained. No acute fracture or subluxation. No loss of vertebral body height. Mild multilevel loss of intervertebral disc. Tiny endplate osteophytes. No concerning lytic or blastic osseous lesion. Right upper quadrant surgical clips and left upper quadrant surgical sutures. XR/XR lumbar spine 2-3V IMPRESSION: 1. No acute fracture or subluxation. 2. Mild multilevel degenerative disc disease. Electronically signed by: Kevon Gonzalez MD 10/05/2024 04:57 PM EST
--- NOTE | ~2024-10-05 | CT_ITS ---
EXAMINATION: NONCONTRAST HEAD CT INDICATION INFORMATION: Fall with head strike COMPARISON: None TECHNIQUE: Noncontrast CT examinations of the head was performed. Coronal and sagittal images were created for each examination at the technologist workstation. This CT examination was performed using dose optimization techniques as appropriate, variously including the following: *Automated exposure control *Adjustment of mA and/or kV according to patient size (this includes techniques or standardized protocols for targeted exams where dose is matched to indication/reason for exam; i.e. extremities or head) *Use of iterative reconstruction technique DLP: 102 mGy-cm FINDINGS: Head: There is no evidence of acute intracranial hemorrhage or territorial infarction. No abnormal mass effect or midline shift is seen. Owen to white matter differentiation is well preserved. No extra-axial fluid collections are identified. No hydrocephalus. No significant volume loss. There is no abnormal attenuation within the brain parenchyma. No acute osseous or soft tissue abnormality. Small mucous retention cyst in the left maxillary sinus and right sphenoid sinus. CT/CT head/brain wo IV con IMPRESSION: No acute intracranial pathology. Electronically signed by: Randall Triplett MD 10/05/2024 07:26 PM EST
[2024-10-05 15:33] VITALS: BP 123/83; PULSE 103; RESP 18; TEMP 36.5; O2SAT 98; BMI 26.9
--- NOTE | 2024-10-05 15:33 | ED_ITS ---
HPI - General Adult General Chief complaint: Fall Stated complaint: fell 09/29 c/o headache dizziness,body pain Time Seen by Provider: 10/05/24 16:01 Source: patient Mode of arrival: ambulatory Limitations: no limitations History of Present Illness ED Provider: ROSA REINOSO PA-C HPI narrative: 49 year old female with pmhx significant for iron deficiency anemia presents tot he ED today for evaluation of injuries sustained [place]6 days ago). She was walking through the airport in [place] when she went to turn and fell to the ground. She states she does not recall falling however when she looked at the floor, she saw a spilled milkshake and believes she slipped on this. She is unsure if she struck her head. She is not on anticoagulation. Shortly after the fall, she began to have right knee pain, right wrist pain, low back pain, myalgias, headache, dizziness, nausea without vomiting. She also endorses chest heaviness, radiating down her right upper extremity. She does state that she recently returned from a long cruise and flew home from [place] that day. States she was evaluated that day at an ED in [place] with a unremarkable x-ray of her right knee and pelvis. She was discharged home with naproxen which she has been taking without relief. She has also since followed up with her primary care provider 3 days ago with unremarkable workup. She states that she was offered a muscle relaxer however she declined at that time. Is wondering this could help her symptoms. Denies known sick contacts. No hx of VTE. Denies fever, chills, palpitations, cough, hemoptysis, calf pain/ swelling. No recent tick or insect bites. Related Data Home Medications ?Medication ?Instructions ?Recorded ?Confirmed tretinoin 0.025 % topical cream 1 appl topical BEDTIME 09/03/21 04/10/24 azelastine 137 mcg (0.1 %) nasal intranasal 04/10/24 04/10/24 spray Previous Rx's ?Medication ?Instructions ?Recorded olopatadine 0.2 % eye drops 1 drp ophthalmic (eye) DAILY PRN 04/07/23 (Pataday Once Daily Relief) itching 30 days #2.5 mL ferrous sulfate 325 mg (65 mg 325 mg PO BID 90 days #180 tabs 04/10/24 iron) tablet cetirizine 10 mg tablet (Zyrtec) 10 mg PO DAILY PRN allergy 07/17/24 symptoms 90 days #90 tabs fluticasone propionate 50 2 spray intranasal DAILY 90 days 07/17/24 mcg/actuation nasal #16 grams spray,suspension cyclobenzaprine 5 mg tablet 5 mg PO Q8H PRN muscle pain #7 tabs 10/05/24 Allergies Allergy/AdvReac Type Severity Reaction Status Date / Time Seasonal Allergies Allergy Mild Itchy Eyes Verified 10/05/24 15:35 Review of Systems 2 Review of Systems: Constitutional: No fever, chills, fatigue, night sweats, weight changes ENT/Mouth: No ear pain, hearing loss, nasal congestion, sinus pain, rhinorrhea, sore throat Eyes: No eye pain, swelling, redness, vision changes, discharge Cardio: No chest pain, palpitations, LANZA, orthopnea, peripheral edema Pulm: No SOB, cough, sputum, wheezing, dyspnea, hemoptysis GI: No nausea, vomiting, hematemesis, abdominal pain, diarrhea, constipation, hematochezia, melena : No irregular bleeding, dysuria, frequency, urgency, hesitancy, hematuria, flank pain, urinary flow changes, urinary incontinence or retention MSK: No neck pain, joint pain, +right hand pain, +low back pain, +myalgias Skin: No lesions, rashes Neuro: No weakness, numbness, paresthesias, LOC, dizziness, +headache Psych: No anxiety/panic, depression, SI/HI, AH/VH All other systems reviewed and are negative. [facility] Past Medical History Attestation statement: The following information was validated with the patient. Source: old records reviewed and nursing notes reviewed Medical History Positive TB test Foot pain, bilateral Bunion, left foot Bunion, right foot Mild anemia Allergic sinusitis Surgical History History of bunionectomy No pertinent past surgical history Social History Social History Housing: House Patient Tobacco Use Status: Never used Tobacco Smoked in Last 30 Days: No e-Cigarette/Vaping Use: Never Used Use of substances other than those prescribed or required for medical reasons: No Advance Directives: No Advance Directives Information Provided: Yes Patient : No service: No Current occupational status: employed 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 Skin: Warm, dry, intact. No rashes or lesions. Head: Normocephalic, atraumatic. EENT: Hearing is intact b/l. Conjunctiva clear. PERRLA. EOM intact. Moist mucous membranes.? Neck: Supple without LAD Cardiac: Chest wall symmetric. RRR Lungs: Normal respiratory effort without accessory muscle use. CTA bilaterally Abdomen: Soft, non-tender, non-distended. No rebound tenderness or guarding. Positive BS x4. Back: +Tender to palpation along midline lumbar spine without step-off deformity. No lumbar paraspinal muscle tenderness. Ext: Upper and lower extremities atraumatic, without tenderness, deformity, swelling or erythema. Full ROM throughout. no calf tenderness b/l. Neuro: AOx3. Normal speech. Strength 5/5 intact throughout. No saddle anesthesia. Sensation intact to light touch. NV intact distally. Ambulating with steady gait. Psych: Appropriate mood and affect. Responds appropriately to questions. Course Course Course Narrative: This is a rapid medical exam performed by Mouna Zaman NP: Additional HPI, ROS, PE not included below will be deferred to primary provider. Patient is a 49-year-old female complaining of right knee pain, headache, burning sensation all over my body, nausea, right wrist pain. Unsure of head strike or LOC. Not anticoagulated. Fall occurred on 09/29 in [place]. Already evaluated in an ED in [place] after the fall. Plan: CT head, xray hand/wrist, will attempt to obtain records from ED in [place] Reevaluation(s) Reevaluation #1: 1710 -- CBC without leukocytosis or left shift. Normocytic anemia, H and H stable and improved when compared to priors. Chemistry without acute electrolyte abnormality requiring intervention. No SERGIO. Random glucose 134. Normal liver function. Troponin undetectable. ACS unlikely. EKG showing normal sinus rhythm with a rate of 76 beats per minute, QT 382, QTC 429, no acute ischemic changes or ST elevations. X-ray right hand/wrist without fracture. X-ray lumbar spine without fracture or subluxation, there is mild multilevel degenerative disc disease. UA without infection. > CT scans pending > viral swabs pending 2039 -- Patient tested negative for COVID, flu, RSV. CT head/brain without bleed or mass. No skull fracture. CT angio chest without evidence of pulmonary embolism, pneumonia, effusion. I discussed all workup results. She reports partial improvement in pain after receiving Toradol, Benadryl and Reglan. She is curious about trialing a muscle relaxer which I feel is reasonable. Will give a dose of Flexeril in ED and send her home with this. Advised to follow up with her PCP this week. She denies any known tick or insect bites and does not wish to be tested for Lyme disease today. Patient has remained stable throughout ED visit today. Discussed worrisome signs and symptoms and when to return to the ED. All questions answered at this time. Patient is agreeable with disposition and stable for discharge. Medications Administered Discontinued Medications Generic Name Dose Route Start Last Admin Trade Name Jose Juanq PRN Reason Stop Dose Admin Cyclobenzaprine HCl 5 mg 10/05/24 20:01 10/05/24 20:24 Cyclobenzaprine Hcl 5 Mg Tablet PO 10/05/24 20:02 5 mg ONCE ONE Administration Diphenhydramine HCl 50 mg 10/05/24 16:23 10/05/24 16:40 Diphenhydramine Hcl 50 Mg/Ml Vial IVPUSH 10/05/24 16:24 50 mg ONCE ONE Administration Ketorolac Tromethamine 15 mg 10/05/24 16:23 10/05/24 16:40 Ketorolac Tromethamine 15 Mg/Ml Vial IVPUSH 10/05/24 16:24 15 mg ONCE ONE Administration Metoclopramide HCl 10 mg 10/05/24 16:23 10/05/24 16:40 Metoclopramide Hcl 10 Mg/2 Ml Vial IVPUSH 10/05/24 16:24 10 mg ONCE ONE Administration Medical Decision Making Medical Decision Making [facility] Narrative: 49 year old female with pmhx significant for iron deficiency anemia presents tot he ED today for evaluation of injuries sustained during mechanical [place] fall [place] the airport [place] 09[place]24 (6 days ago). Patient tachycardic to 103, vitals otherwise WNL. Afebrile. Exam is nonfocal. PERRLA. Head is normocephalic, atraumatic. Cerebellum is intact. No midline cervical spinous tenderness to palpation. There is tenderness over thoracic spine without step-off deformity. Skin is warm, dry, intact. RRR. Lungs are clear to auscultation bilaterally. There is no tripoding or signs of respiratory distress. No calf tenderness bilaterally. No joint swelling, overlying erythema or edema. History without high risk features (not substernal, no exertional component, not relieved with rest).? Exam without evidence of volume overload. EKG without signs of active ischemia.? Given the timing of pain to ED presentation, plan to send single troponin to evaluate for NSTEMI. Plan to obtain CT head/brain to rule out mass/ bleed. Obtain CT angio chest to r/o PE given recent travel (PER[place]). Labs to check for anemia, electrolyte abnormality, dehydration. CPK to check for rhabdo. Urine to check for urinary tract infection, . Viral serology to check for viral infection. Patient declining Lyme testing at this time. Presentation not consistent with pneumothorax, thoracic aortic dissection, cardiac effusion or tamponade. Exam not consistent with CVA/TIA, cerebellar stroke. Differential Diagnosis Differential Diagnoses: The differential diagnosis associated with the presentation includes as above. Admission/Observation Consideration of admission/observation: Escalation of care including admission/observation considered Admission considered on presentation Lab Data [facility] Lab Attestation statement: I reviewed the patient's lab results. as above. 10/05/24 16:42 10/05/24 16:42 Labs: Lab Results 10/05/24 Range/Units 16:42 WBC 9.5 (4.8-10.8) X10*3/uL RBC 4.09 L (4.20-5.50) X10*6/uL Hgb 11.1 L D (12.0-16.0) g/dl Hct 33.2 L (37.0-47.0) % MCV 81.2 (80.0-98.0) fL MCH 27.1 (27.0-33.0) pg MCHC 33.4 (31.0-35.0) g/dl RDW 13.1 (11.0-16.0) % Plt Count 315 (160-400) X10*3/uL MPV 9.9 (9.4-12.3) fL Immature Gran % (Auto) 0.2 (0.0-0.4) % Neut % (Auto) 76.3 H (45-73) % Lymph % (Auto) 15.9 L (20-40) % Callahan % (Auto) 5.1 (2-11) % Eos % (Auto) 2.1 (0-4) % Baso % (Auto) 0.4 (0-2) % Lymph # (Auto) 1.5 (1.2-4.9) X10*3/uL Callahan # (Auto) 0.5 (0.1-1.2) X10*3/uL Eos # (Auto) 0.2 (0.0-0.4) X10*3/uL Baso # (Auto) 0.0 (0.0-0.2) X10*3/uL Abs Immat Gran (auto) 0.02 (0.00-0.03) X10*3/uL Absolute Neuts (auto) 7.3 (2.0-8.3) x10*3/uL Absolute Nucleated RBC 0.000 (0.0-0.012) X10*3/uL Nucleated RBC % (auto) 0.0 (0.0-0.2) /100WBC Sodium 140 (135-145) mmol/L Potassium 3.8 (3.3-5.1) mmol/L Chloride 106 (96-108) mmol/L Carbon Dioxide 23 (22-29) mmol/L Anion Gap 15 (12-20) BUN 12 (9-16) mg/dL Creatinine 0.78 (0.5-1.4) mg/dL Estim Creat Clear Calc 79.4 Estimated GFR > 60 Random Glucose 134 H (60-115) mg/dL Calcium 9.1 D (8.4-10.2) mg/dL Magnesium 1.8 (1.6-2.6) mg/dL Total Bilirubin 0.4 (0.0-1.0) mg/dL AST 22 (5-31) U/L ALT 23 (0-31) U/L Alkaline Phosphatase 97 (39-117) U/L Total Creatine Kinase 59 (26-140) U/L Troponin I High Sens < 2.7 (<3.5-17.0) ng/L Total Protein 7.5 (6.5-8.0) g/dL Albumin 3.9 (3.5-5.0) g/dL Urine Color Yellow Urine Appearance Clear Urine pH 6.0 (5.0-9.0) Ur Specific [place] >= 1.030 H (1.005-1.025) Urine Protein Negative (Neg-Trace) mg/dL Urine Glucose (UA) Negative (Negative) mg/dL Urine Ketones Negative (Negative) mg/dL Urine Blood Negative (Negative) Urine Nitrite Negative (Negative) Ur Leukocyte Esterase Negative (Negative) Urine Test NEGATIVE (NEGATIVE) Influenza Type A (PCR) NEGATIVE (Negative) Influenza Type B (PCR) NEGATIVE (Negative) RSV RNA Qual (PCR) NEGATIVE (Negative) SARS-CoV-2 RNA (RT-PCR) NEGATIVE (Negative) Independent Interpretation I performed an independent interpretation of an: EKG, Plain X-Ray and CT Scan Interpretation: CT head/brain without bleed or mass CT angio chest without VTE XR right hand/wrist without fracture EKG showing normal sinus rhythm with a rate of 76 beats per minute, QT 382, QTC 429, no acute ischemic changes or ST elevations Radiology Impression Discussion of test interpretation with radiology: I have reviewed the radiologist's reading. Radiologist Impression: EXAMINATION: NONCONTRAST HEAD CT INDICATION INFORMATION: Fall with head strike COMPARISON: None TECHNIQUE: Noncontrast CT examinations of the head was performed. Coronal and sagittal images were created for each examination at the technologist workstation. This CT examination was performed using dose optimization techniques as appropriate, variously including the following: *Automated exposure control *Adjustment of mA and/or kV according to patient size (this includes techniques or standardized protocols for targeted exams where dose is matched to indication/reason for exam; i.e. extremities or head) *Use of iterative reconstruction technique DLP: 102 mGy-cm FINDINGS: Head: There is no evidence of acute intracranial hemorrhage or territorial infarction. No abnormal mass effect or midline shift is seen. Owen to white matter differentiation is well preserved. No extra-axial fluid collections are identified. No hydrocephalus. No significant volume loss. There is no abnormal attenuation within the brain parenchyma. No acute osseous or soft tissue abnormality. Small mucous retention cyst in the left maxillary sinus and right sphenoid sinus. CT/CT head/brain wo IV con IMPRESSION: No acute intracranial pathology. Electronically signed by: Randall Triplett MD 10/05/2024 07:26 PM EST RP EXAMINATION: XR LUMBOSACRAL SPINE CLINICAL INFORMATION: Fall. Midline lumbar tenderness. COMPARISON: None available. TECHNIQUE: Three views of the lumbosacral spine. FINDINGS: Normal vertebral body alignment. The lumbar lordosis is maintained. No acute fracture or subluxation. No loss of vertebral body height. Mild multilevel loss of intervertebral disc. Tiny endplate osteophytes. No concerning lytic or blastic osseous lesion. Right upper quadrant surgical clips and left upper quadrant surgical sutures. XR/XR lumbar spine 2-3V IMPRESSION: 1. No acute fracture or subluxation. 2. Mild multilevel degenerative disc disease. Electronically signed by: Kevon Gonzalez MD 10/05/2024 04:57 PM EST RP EXAMINATION: CT angio chest PE protocol CLINICAL INFORMATION: recent travel, cp, tachycardia, r/o PE COMPARISON: None TECHNIQUE: Prior to contrast administration, noncontrast localization images were obtained. Subsequently, multidetector volumetric imaging was performed from the thoracic inlet to below the diaphragms following the administration of 65 mL of Omnipaque 350 intravenous contrast. This was followed by multidetector acquisition of the abdomen and pelvis. No contrast reaction reported Sagittal, coronal, and MIP oblique sagittal reformatted images were obtained on the CT workstation, uploaded to PACS, and reviewed. Total exam dose-length product of 241 mGy-cm FINDINGS: QUALITY OF STUDY/CONTRAST BOLUS: Satisfactory. CHEST: CHEST WALL: Unremarkable. AXILLA: No lymphadenopathy. PULMONARY ARTERIES: No pulmonary embolism. MEDIASTINUM: Heart is normal in size. No mediastinal lymphadenopathy. No hilar lymphadenopathy. CORONARY ARTERY CALCIFICATION: No significant coronary artery calcification appreciated on this exam. PLEURA: There is no pleural effusion. LUNGS: No suspicious pulmonary nodule. UPPER ABDOMEN: Status post cholecystectomy. OSSEOUS STRUCTURES: Unremarkable. CT/CT angio chest PE protocol IMPRESSION: No evidence of pulmonary embolism. VTE: negative. Electronically signed by: Randall Triplett MD 10/05/2024 07:31 PM EST RP EXAMINATION: XR HAND/WRIST, RIGHT CLINICAL INFORMATION: fall on 09/29, pain distal radius COMPARISON: None available. TECHNIQUE: PA, lateral, and oblique views of the right hand and wrist. FINDINGS: Severe degenerative changes of the first CMC joint. Mild degenerative changes of the remaining CMC joints. Degenerative changes at the first interphalangeal joint. Soft tissues are unremarkable. XR/XR hand wrist RT IMPRESSION: 1. No acute fracture or dislocation. 2. 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 Electronically signed by: Ryan Grant MD 10/05/2024 04:33 PM EST RP Independent Historian Clinical information obtained from an independent historian. History obtained from or confirmed by: Spouse External Record Review External record reviewed: Inpatient record Prescription Management I considered prescription management with: Other (flexeril) Social Determinants Patient?s care significantly limited by Social Determinants of Health including: Other Social Determinant of Health Critical Care Time Critical Care Time Critical Care Time: No Discharge Plan Discharge Clinical Impression: Headache, Myalgia Patient Disposition: Home, Self-Care Instructions: Musculoskeletal Pain (ED), General Headache (ED) Additional Instructions: Your workup today is reassuring. Your heart enzyme is normal. You tested negative for COVID, flu, RSV. Your urine is negative for infection. The CT scan of your chest does not demonstrate pneumonia, fluid or clot. The CT scan of your head does not demonstrate mass or bleed. The x-rays of your low back in your right hand are normal. Flexeril as a muscle relaxer that has been sent to your pharmacy for you to take as needed for muscle pain. You may also take Tylenol and ibuprofen at home as needed. As discussed, please follow-up with your primary care provider this week. Return with new or worsening symptoms. In the case of an emergency call 911. Prescriptions: New cyclobenzaprine 5 mg tablet 5 mg PO Q8H PRN (Reason: muscle pain) Qty: 7 0RF No Action ferrous sulfate 325 mg (65 mg iron) tablet 325 mg PO BID 90 Days Qty: 180 2RF cetirizine [Zyrtec] 10 mg tablet 10 mg PO DAILY PRN (Reason: allergy symptoms) 90 Days Qty: 90 0RF fluticasone propionate 50 mcg/actuation spray,suspension 2 spray intranasal DAILY 90 Days Qty: 16 0RF Rx Instructions: administer into each nostril tretinoin 0.025 % cream 1 appl topical BEDTIME olopatadine [Pataday Once Daily Relief] 0.2 % drops 1 drp ophthalmic (eye) DAILY PRN (Reason: itching) 30 Days Qty: 2.5 2RF azelastine 137 mcg (0.1 %) aerosol,spray intranasal Referrals: Johan Lane MD [Primary Care Provider] - Print Language: Romanian
--- NOTE | 2024-10-05 15:56 | PC.NURSE ---
xray being completed at this time.
--- NOTE | 2024-10-05 16:23 | ECG_ITS ---
Test Reason : CHEST PRESSURE Blood Pressure : / mmHG Vent. Rate : 076 BPM Atrial Rate : 076 BPM P-R Int : 162 ms QRS Dur : 092 ms QT Int : 382 ms P-R-T Axes : 058 072 037 degrees QTc Int : 429 ms Normal sinus rhythm Nonspecific ST abnormality Abnormal ECG No previous ECGs available Referred By: Lady Escobedo Electronically Signed By:DAVID VELA
[2024-10-05] MEDS: diphenhydrAMINE HCL 50 MG/ML VIAL IVPUSH (16:40)
[2024-10-05] MEDS: Metoclopramide HCl 10 MG/2 ML VIAL IVPUSH (16:40)
[2024-10-05] MEDS: Ketorolac Tromethamine 15 MG/ML VIAL IVPUSH (16:40)
--- NOTE | 2024-10-05 16:45 | PC.NURSE ---
20gIV placed to the left AC - labs obtained/sent to lab. 1:1 assist to ambulate to the restroom - UA obtained/sent to lab. ekg performed by tech. medication administered per provider order - effectiveness pending. pt to CT at this time. plan of care ongoing.
[2024-10-05 16:48] LABS: MANUAL DIFF FLAG NO
[2024-10-05 16:50] LABS: Appearance Urine Clear; Color Urine Yellow; Glucose Urine UA Negative (Negative); Leukocyte Esterase Urine Negative (Negative); Nitrite Urine Negative (Negative); Specific Gravity - Urine >= 1.030 (1.005-1.025); Urine Blood Negative (Negative); Urine Ketones Negative (Negative); Urine Protein Negative (Neg-Trace)
[2024-10-05 16:52] LABS: Basophils Percent Auto 0.4 % (0-2); Eosinophils Absolute Auto 0.2 X10*3/uL (0.0-0.4); Eosinophils Percent Auto 2.1 % (0-4); Hematocrit 33.2 % (37.0-47.0); Hemoglobin 11.1 g/dl (12.0-16.0); Imm Gran Abs Auto 0.02 X10*3/uL (0.00-0.03); Imm Gran Pct Auto 0.2 % (0.0-0.4); Lymphocytes Absolute Auto 1.5 X10*3/uL (1.2-4.9); Lymphocytes Percent Auto 15.9 % (20-40); Mean Corpuscular HGB Conc 33.4 g/dl (31.0-35.0); Mean Corpuscular Hemoglobin 27.1 pg (27.0-33.0); Mean Corpuscular Volume 81.2 fL (80.0-98.0); Mean Platelet Volume 9.9 fL (9.4-12.3); Monocytes Absolute Auto 0.5 X10*3/uL (0.1-1.2); Monocytes Percent Auto 5.1 % (2-11); Neutrophils Absolute Auto 7.3 x10*3/uL (2.0-8.3); Neutrophils Percent Auto 76.3 % (45-73); Platelet Count 315 X10*3/uL (160-400); Red Blood Count 4.09 X10*6/uL (4.20-5.50); Red Cell Distribution Width 13.1 % (11.0-16.0); White Blood Count 9.5 X10*3/uL (4.8-10.8)
[2024-10-05 17:02] LABS: Alanine Aminotransferase 23 U/L (0-31); Albumin Level 3.9 g/dL (3.5-5.0); Alkaline Phosphatase 97 U/L (39-117); Anion Gap 15 (12-20); Aspartate Amino Transferase 22 U/L (5-31); Bilirubin Total 0.4 mg/dL (0.0-1.0); Blood Urea Nitrogen 12 mg/dL (9-16); Calcium 9.1 mg/dL (8.4-10.2); Carbon Dioxide 23 mmol/L (22-29); Chloride 106 mmol/L (96-108); Creatinine Clr Calc Pharmacy 79.4; Estimated Glomerular Filt Rate > 60; Glucose Random 134 mg/dL (60-115); Magnesium 1.8 mg/dL (1.6-2.6); Potassium 3.8 mmol/L (3.3-5.1); Sodium 140 mmol/L (135-145); Total Protein 7.5 g/dL (6.5-8.0)
[2024-10-05 17:09] LABS: Troponin-I High Sensitivity < 2.7 ng/L (<3.5-17.0)
[2024-10-05 17:24] LABS: Influenza A PCR NEGATIVE (Negative); Influenza B PCR NEGATIVE (Negative); Resp Syncy Virus RNA Qual PCR NEGATIVE (Negative); SARS COV2 PCR INHOUSE NEGATIVE (Negative)
[2024-10-05 18:12] LABS: UPreg QC Valid YES; Urine Pregnancy NEGATIVE (NEGATIVE)
--- NOTE | 2024-10-05 18:13 | PC.NURSE ---
pt to CT at this time.
[2024-10-05 18:29] VITALS: BP 125/63; PULSE 73; RESP 16; TEMP 36.8; O2SAT 100
[2024-10-05 20:24] VITALS: BP 108/63; PULSE 67; RESP 14; TEMP 36.9; O2SAT 99
[2024-10-05] MEDS: Cyclobenzaprine HCl 5 MG TABLET PO (20:24)
[2024-10-05 21:04] VITALS: BP 129/69; PULSE 68; RESP 18; TEMP 36.7; O2SAT 100
== END 2024-10-05 21:04 | disposition home or self-care (01) ==
PROVIDERS: Physician Assistant Medical; Emergency Provider Emergency Medicine; PCP Family Medicine
DX: R51.9 Headache, unspecified (principal); M79.18 Myalgia, other site; R00.0 Tachycardia, unspecified; M25.531 Pain in right wrist; M25.561 Pain in right knee; Z91.81 History of falling; Z03.818 Encounter for observation for suspected exposure to other biological agents ruled out
CPT/HCPCS: 0241U; 70450; 71275; 72100; 73110; 73130; 80053; 81003; 81025; 82550; 83735; 84484; 85025; 93005; 96374; 96375; 99284; 99285; J1200; J1885; J2765

== ENCOUNTER → 2024-10-05 16:23 | Outpatient (BNV) | payer OTHER, SELFPAY | PROVIDERS: Emergency Provider Emergency Medicine; PCP Family Medicine; Visit Provider Internal Medicine | DX: R94.31 Abnormal electrocardiogram [ECG] [EKG] (principal) | CPT/HCPCS: 93010 ==

== ENCOUNTER 2024-12-19 15:33 | Outpatient (AMB) | payer OTHER, SELFPAY ==
--- NOTE | 2024-12-19 15:21 | MHC.PC.OV ---
Vital Signs 12/19/24 15:42 Height 5 ft 1.1 in Weight 150 lb 2 oz BMI 28.3 BP 124/76 Blood Pressure Location Rt brachial Position Sitting Respiration 12 Pulse 73 Pulse Source Pulse Oximeter Pulse Oximetry (%) 98 Oxygen Delivery Method Room Air Intake Visit Reasons: Est Care /headaches Intake Note: New patient visit Wet Washer Machine Required: No Allergies Seasonal Allergies Allergy (Mild, Verified 12/19/24 15:56) Itchy Eyes Medication List - Last Reconciled 12/19/24 by Khadijah John, [employer]- azelastine intranasal cetirizine (Zyrtec) 10 mg PO DAILY PRN 90 days cyclobenzaprine 5 mg PO Q8H PRN fluticasone propionate 50 mcg/actuation 2 sprays intranasal DAILY 90 days olopatadine 0.2% (Pataday Once Daily Relief) 1 drp ophthalmic (eye) DAILY PRN 30 days tretinoin 0.025% 1 appl topical BEDTIME Tobacco use date assessed: 12/19/24 Dental Screening Dental Screen Date: 12/19/24 Did you have a dental visit in the last 12 months?: Yes Did you have a dental problem in the last 6 months where you did not have access to dental care?: No Was dental information given to patient?: Patient has dentist HPI HPI Comments History of Present Illness Details 49-year-old female with anemia, allergic rhinitis s/p bunion surgery 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 Referred to [facility] [place] [place] [facility] - n/a still getting periods. Tdap Flu Specialists: ENT Neuro The patient is a 49-year-old female presenting with persistent headaches. The onset of the headaches followed a jvxk-ake-[id number] incident on September 29 2024. Since the fall, the patient has experienced severe headaches, described as pressure sensations particularly affecting the back of the head and extending behind the eyes, accompanied by occasional tenderness. These headaches are exacerbated by exposure to light and noise, which is consistent with photophobia and phonophobia, respectively. The patient also reports a constant ringing sensation in the ears (tinnitus) and postnasal drip, which she initially feared could be related to cerebrospinal fluid leakage. The headaches have been persistent, and mild nausea accompanies them. The patient's condition has forced her to reduce her working hours to part-time due to the severity of the symptoms, particularly the headaches and discomfort during the evening, which feels like her head is being squeezed tightly. The patient visited the emergency department where a CT scan and a CTA were performed on October 05, returning normal results. Despite these reassurances, the patient reported difficulty in securing timely follow-up appointments and experienced frustration with her previous care providers.. A referral to a neurologist @ [facility] was made, but appointments are unavailable until April. Meanwhile, the patient has expressed significant concern about mood changes, impaired sleep, and is undergoing physical therapy due to additional back and shoulder pain. Social History - Employment: Patient works in [employer] and is currently working part-time due to health reasons. - Family: with children; patient is the primary income earner due to her 's medical condition. - Lifestyle: Reports social withdrawal due to health issues, often stays in bed on days off. - Support: Limited due to family health dynamics. Physical Exam Awake alert NAD TM intact, clouding bilat R>L, hearing grossly normal nares, turbinates wnl PERRLA, EOMI, no photophobia Neck FROM WAGNER x 4 Other than slightly slow Alt rapid finger movements bilat, grossly normal neuro exam Mood flat, appropriate Results - Imaging: CT scan and CTA of the head on October 05 showed normal results. Discussion Notes During the visit, I discussed with the patient the likely diagnosis of post-concussion syndrome, which can cause significant symptoms like headaches, tinnitus, and light sensitivity owing to a form of neurological over-stimulation post-injury. I explained the role of brain rest and stress reduction in symptom management. Medications like trazodone were discussed, which might aid in managing mood disturbances and improving sleep without causing excessive sedation. I reassured the patient about using the smallest dose and the option to use it as needed. For headache pain control, long-acting anti-inflammatory medications such as meloxicam were recommended. We discussed the limited immediate availability of neurology appointments and options for further evaluation and management of symptoms, including the consideration of physiatry and possible additional imaging if indicated by a neurologist. Recommend eye exam. Plan For the management of post-concussion syndrome and associated symptoms, I am recommending the initiation of low-dose trazodone to assist with sleep and mood stabilization without causing significant daytime sedation. The patient is advised to trial this medication on non-working days initially to monitor for any adverse effects. For headache management, I have suggested starting meloxicam, a long-acting NSAID, to address both headache and musculoskeletal pain, particularly affecting the neck and back, with attention to avoid gastrointestinal side effects. Referral to a neurologist has been initiated, and we will attempt to expedite this if possible. Additionally, consideration of supplemental care through a rail car painter/sandblaster is suggested to help manage the post-concussive symptoms and associated functional limitations. Continued monitoring of symptoms and ongoing adherence to physical therapy is also advised for comprehensive symptom management and overall health maintenance. She has optho in [facility]. advised to call. if referral needed, send message on portal. Patient was informed and verbally consented to the use of an ambient scribe for clinic note documentation during this visit. Total time spent caring for the patient today was 45 minutes. This includes time spent before the visit reviewing the chart, time spent during the visit, and time spent after the visit on documentation, reviewing laboratory results, diagnostic imaging, medications, performing a medically necessary evaluation, counseling on diagnoses, care coordination, ordering appropriate tests, ordering appropriate medications, review of tests performed by other providers, reporting test results with the patient, communication with other healthcare providers. [facility] Medical History (Updated 12/19/24 @ 16:03 by [facility]) Allergic sinusitis Bunion, left foot Bunion, right foot Deviated septum Foot pain, bilateral Mild anemia Positive TB test Surgical History History of bunionectomy No pertinent past surgical history Social History (Updated 12/19/24 @ 15:41 by Tiffanie Grande CMA) Housing: House Alcohol intake: current Patient Tobacco Use Status: Never used Tobacco e-Cigarette/Vaping Use: Never Used Second Hand Smoke Exposure: No Use of substances other than those prescribed or required for medical reasons: No service: No Current occupational status: employed 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 Randall L. Valencia Grant, Richmond Farfan and colleagues, with an educational monika from [employer]. Physical exam (Primary Care) Vital Signs: Last Vital Signs Pulse 73 12/19/24 15:42 Resp 12 12/19/24 15:42 BP 124/76 12/19/24 15:42 Pulse Ox 98 12/19/24 15:42 Oxygen Delivery Method Room Air 12/19/24 15:42 BMI result Body Mass Index 28.3 Tobacco/Smoking Status: Tobacco use Status Tobacco use date assessed 12/19/24 12/19/24 15:44 Patient Tobacco Use Status Never used Tobacco 12/19/24 15:41 e-Cigarette/Vaping Use Never Used 12/19/24 15:41 Thrive Assessment: Date of Thrive Assessment Date Thrive assessed 04/10/24 12/19/24 15:23 Coding Level of Care Code Est Pt Level 5 (76026) Complex EM visit Add On G2211 Diagnoses Post concussion syndrome F07.81 Headaches due to old head injury G44.309; S09.90XS Assessment & Plan Assessment & Plan (1) Post concussion syndrome: Code(s): F07.81 - Postconcussional syndrome Category: Medical (2) Headaches due to old head injury: Code(s): G44.309 - Post-traumatic headache, unspecified, not intractable; S09.90XS - Unspecified injury of head, sequela Category: Medical Plan . Orders: Referrals Neurology Referral F07.81 - Postconcussional syndrome, G44.309 - Post-traumatic headache, unspecified, not intractable, S09.90XS - Unspecified injury of head, sequela Medications: New trazodone 25 mg (1/2 x 50 mg) PO BEDTIME PRN 45 tabs 0RF insomnia meloxicam 7.5 mg PO DAILY PRN 30 tabs 0RF pain Patient Instructions: Patient Instructions - Take prescribed medications as directed, using trazodone for mood and sleep aid, starting with a low dosage. - Use anti-inflammatory medication, meloxicam, once daily as needed for headache control. - Engage in brain rest activities such as lying down with eyes closed in a quiet environment when symptoms worsen. - Follow up with the neurological referral and consider additional specialists like a rail car painter/sandblaster for further management and support. Schedule optho appt. - Consult the typing office worker if additional assistance with appointments or care coordination is needed. - Sign up for portal to communicate w/ office
[2024-12-19 15:42] VITALS: BP 124/76; PULSE 73; RESP 12; O2SAT 98; BMI 28.3
--- OUTSIDE RECORDS SUMMARY | 2024-12-19 16:09 | XMS_ITS | Continuity of Care Document ---
Author Organization [place] [facility], Allergy Address [address] [address] Care Team Providers Care Load Out Person Name Role Phone HILARIO CAI Primary Care Provider Assessment Encounter Date Assessment Date Assessment LastModified by Organization Details LastModified Time 12/12/2024 12/12/2024 Visit With: Toyin Gurrola Use of Antihistamine s: No If yes: Vial Test Change in medications: No If yes ? ? ? Increase in asthma symptoms If yes, inhaler use: Reaction to last injections: No If yes: ? ? ? Allergy Symptoms: Other: ? ? ? Missed: 1 week Dose Repeated Aware of Vial Test Notes:? ? ? [email or web address] Not available 12/12/2024 13:28:16 Plan of Treatment Reminders Order Date Submit Date Provider Last Modified By Organization Details Last Modified Time Details Appointments [facility]- Allergy f-up 6mon 2024 02:30P M KYMBERLY BUSTAMANTE MD Not available Not available Not available Lab None recorded . Referral None recorded . Procedures None recorded . Surgeries None recorded . Imaging None recorded . Medication Orders None recorded . Patient TargetsNo targets recorded. Patient InstructionsNo instructions recorded. Reason for Referral None Reported. Results Created Date Observation Date Name Description Value Unit Range Abnormal Flag Note LastModifiedBy Organization Detail LastModifiedTime 12/01/1911/28/2024 MRI, brain + brain stem, w/wo contr ast [facility] [place] Access ion Number : [id number] Maddy jones Name: Bhargavi Frostbouchra jones Medica l Record Number : [id number] Date of : 1974 Date of Exam: 2024 Referr ing Physic devon: Meaghan Pastrana [facility] [place] [address], [address] [facility] [place] [facility] [place] [address] Exam: MR Brain (C-/C+ ) CPT 16217 Room Descri ption: [facility] 3.0T MRI of the brain withou t and with contra st. HISTOR Y: Headac hes. Extrem ity weakne ss. Bilate ral tinnit us. Nausea . Compar olinda: CT of head on 2023. FINDIN GS: The ventri cles, cister ns and sulci are normal . No hydroc ephalu s. There is no acute intrac ranial hemorr sarita, tumor or infarc t. Multip le puncta te areas of hyperi ntense T2/fla ir signal s are seen in the white matter s bilate rally, mostly in the fronta l white matter s. No abnorm al enhanc ement is seen after contra st. The findin gs are nonspe cific. Differ ential diagno sis are extens césar includ ing demyel inatin g diseas e, migrai deborah, vascul itis, chroni c small vessel ischem ic diseas e, infect ious or inflam matory proces ses or posttr aumati c change s. Please correl ate clinic ally. No abnorm al enhanc ement. No CP angle tumor is seen. Bilate ral 7th and 8th nerve comple xes are normal in calibe r and signal intens ities. No abnorm al enhanc ement is noted. There are normal flow-v oids within major intrac ranial vessel s. There is mild mucosa l thicke love within ethmoi d and spheno id sinuse s. A small mucus retent ion cyst is seen in the right maxill mook sinus and the right spheno id sinus. IMPRES JOELLE: No acute pathol ogy or abnorm al enhanc ement is seen in the brain. Mild bilate ral white matter diseas e is nonspe cific. Differ ential diagno sis is extens césar. Please correl ate clinic ally. Electr onical ly Signed By: Lavell Dickens MD [facility] ([facility]) [address], [place], [address], 12/01/2024 13:39:10 12/01/19 25 11/28/2024 MRI, brain , w/wo contr ast No observ ation record ed. nimesh Saavedra [facility]ri At [facility] [address] [place], [address], 12/01/2024 10:04:40 Result Notes None recorded. Problems Name Problem SNOMED Code Status Onset Date Resolution Date Notes Provider Name and Address Organization Details Recorded Time Hypertrop hy of nasal turbinate s 46875635 Active 2023 Hypertroph y of nasal turbinates ; Note: Date Diagnosed: 01/03/2016 8:40 AM (J34.3) Not Available [facility] 4 02:13:50 Chronic rhinitis 65990641 Active 2023 Chronic rhinitis; Note: Date Diagnosed: 11/22/2023 2:34 PM (J31.0) Not Available [facility] 4 02:13:06 Deviated nasal septum 939147986 Active 2023 Deviated nasal septum; Note: Date Diagnosed: 01/03/2016 8:40 AM (J34.2) Not Available [facility] 4 02:13:23 Disorder of smell 201691983 Active 2023 Other disturbanc es of smell and taste; Note: Date Diagnosed: 11/22/2023 2:34 PM (R43.8) Not Available [facility] 4 02:14:24 Disorder of taste 359439006 Active 2023 Other disturbanc es of smell and taste; Note: Date Diagnosed: 11/22/2023 2:34 PM (R43.8) Not Available [facility] 4 02:14:24 Perennial allergic rhinitis 055874215 Active 2023 ROSA ALDANA [facility] [address] [address], [facility] [place], [address] , [facility] - [facility] 4 16:17:43 Allergic rhinitis 79853122 Active 2023 KYMBERLY MCKEON MD [address], [place], [address] , [place] [facility] [place] 4 14:34:26 Chronic sinusitis 66469156 Active 2023 KYMBERLY MCKEON MD [address], [place], [address] , [place] [facility] [place] 4 14:35:04 Mild intermitt ent asthma 346040861 Active 2023 KYMBERLY MCKEON MD [address], [place], [address] , [place] [facility] [place] 4 14:13:34 Follow-up visit Active 2023 Encounter for follow-up examinatio n after completed treatment for conditions other than malignant neoplasm; Note: Date Diagnosed: 03/03/2024 11:19 AM (Z09) Not Available [facility] 4 02:14:15 Headache 12677296 Active 2023 Headache, unspecifie d; Note: Date Diagnosed: 03/20/2024 11:48 AM (R51.9) Not Available [facility] 4 02:14:40 Posterior rhinorrhe a 76987699 Active 2024 MEAGHAN PHILIPPE PA-C [address], [place], [address] , [facility] - [facility] 5 14:11:56 Paresthes ia 60948655 Active 2024 MEAGHAN PHILIPPE PA-C [address], [place], [address] , [place] - [facility] [place] 5 14:12:02 Problem Notes None recorded. Procedures Surgical History Date Name Laterality Status Provider Name and Address Organization Details Recorded Time 12/12/19 25 Allergy Immunotherapy Injections completed DENICE RIVERA [address], [place], [address], [place] [facility] [place] 12/12/2024 13:28:07 11/30/19 25 Allergy Immunotherapy Injections completed ROSA RAFATC, RMA [address], [place], [address], [place] [facility] [place] 11/30/2024 14:28:33 11/22/19 25 Allergy Immunotherapy Injections completed ROSA GUZMANZEC, RMA [address], [place], [address], [place] [facility] [place] 11/22/2024 13:40:26 11/15/19 25 Allergy Immunotherapy Injections completed ROSA GUZMANZEC, RMA [address], [place], [address], [place] [facility] [place] 11/15/2024 13:45:46 11/10/19 25 Allergy Immunotherapy Injections completed TOYIN GURROLA, RMA [address], [place], [address], [place] [facility] [place] 11/10/2024 15:15:34 11/02/20 24 Allergy Immunotherapy Injections completed MAVERICK TERRAZAS RN [address] [facility], [place], [address], [place] [facility] [place] 11/02/2024 10:42:32 10/25/20 24 Allergy Immunotherapy Injections completed MAVERICK TERRAZAS RN [address] [place] [address], [address], [place] [facility] [place] 10/25/2024 14:09:21 10/17/20 24 Allergy Immunotherapy Injections completed ROSA ALDANA, RMA [address], [place], [address], [place] [facility] [place] 10/17/2024 13:44:09 10/03/20 24 Allergy Immunotherapy Injections completed DENICE RIVERA [address], [place], [address], [place] [facility] [place] 10/03/2024 13:20:05 09/21/20 24 Allergy Immunotherapy Injections completed MAVERICK TERRAZAS RN [address], [place], [address], [place] [facility] [place] 09/21/2024 12:01:33 09/12/20 24 Allergy Immunotherapy Injections completed ROSA ALDANA, RMA [address], [place], [address], [place] [facility] [place] 09/12/2024 14:05:49 09/06/20 24 Allergy Immunotherapy Injections completed DENICE RIVERA [address], [place], [address], [place] [facility] [place] 09/06/2024 14:48:49 09/06/20 24 JMSNasal/Sinus Endoscopy-PRIOR surgical cavities completed KYMBERLY GARCIA MD [address] [facility], [place], [address], [place] [facility] [place] 09/06/2024 15:05:59 08/29/20 24 Allergy Immunotherapy Injections completed DENICE RIVERA [address] [place] [address], [address], [place] [facility] [place] 08/29/2024 14:50:02 08/23/20 24 Allergy Immunotherapy Injections completed MAVERICK TERRAZAS RN [address] [place],[address] [place] [address], [address], [place] [facility] [place] 08/23/2024 15:21:09 08/15/20 24 Allergy Immunotherapy Injections completed MAVERICK TERRAZAS RN [address] [place] [address], [address], [place] [facility] [place] 08/15/2024 14:14:05 08/10/20 24 Allergy Immunotherapy Injections completed DENICE RIVERA [address] [facility], [place], [address], [place] [facility] [place] 08/10/2024 14:00:51 08/04/20 24 Allergy Immunotherapy Injections completed DENICE RIVERA [address], [place], [address], [place] [facility] [place] 08/04/2024 15:31:25 07/25/20 24 Allergy Immunotherapy Injections completed ROSA ALDANA RMA [address], [place], [address], [place] [facility] [place] 07/25/2024 14:33:52 07/19/20 24 Allergy Immunotherapy Injections completed MAVERICK TERARZAS RN [address] [place] [address], [address], [place] [facility] [place] 07/19/2024 16:18:04 07/11/20 24 Allergy Immunotherapy Injections completed ROSA ALDANA, RMA [address], [place], [address], [place] [facility] [place] 07/11/2024 14:32:17 07/04/20 24 Allergy Immunotherapy Injections completed DENICE RIVERA [address] [place] [address], [address], [place] [facility] [place] 07/04/2024 14:03:37 06/28/20 24 Allergy Immunotherapy Injections completed MAVERICK TERRAZAS RN [address] [place],[address] [place] [address], [address], [place] [facility] [place] 06/28/2024 14:26:26 06/20/20 24 Allergy Immunotherapy Injections completed ROSA ALDANA A [address] [place] [address], [address], [place] [facility] [place] 06/20/2024 13:05:25 06/13/20 24 Allergy Immunotherapy Injections completed DENICE RIVERA [address] [place] [address], [address], [place] [facility] [place] 06/13/2024 15:52:47 06/06/20 24 Allergy Immunotherapy Injections completed MAVERICK TERRAZAS RN [address] [place] [address], [address], [place] [facility] [place] 06/06/2024 15:10:37 06/06/20 24 JMSNasal/Sinus Endoscopy-PRIOR surgical cavities completed KYMBERLY GARCIA MD [address] [place] [address], [address], [place] [facility] [place] 06/06/2024 14:10:04 06/01/20 24 Allergy Immunotherapy Injections completed MAVERICK TERRAZAS RN [address], [place], [address], [place] [facility] [place] 06/01/2024 15:38:20 05/23/20 24 Allergy Immunotherapy Injections completed DENICE RIVERA [address], [place], [address], [place] [facility] [place] 05/23/2024 14:44:44 05/17/20 24 Allergy Immunotherapy Injections completed ROSA ALDANA RMA [address], [place], [address], [place] [facility] [place] 05/17/2024 16:10:00 05/09/20 24 Allergy Immunotherapy Injections completed MAVERICK TERRAZAS RN [address] [place] [address], [address], [place] [facility] [place] 05/09/2024 15:06:52 05/02/20 24 Allergy Immunotherapy Injections completed DENICE RIVERA [address] [place] [address], [address], [place] [facility] [place] 05/02/2024 13:34:36 04/25/20 24 Allergy Immunotherapy Injections completed DENICE RIVERA [address] [place] [address], [address], [place] [facility] [place] 04/25/2024 14:45:44 04/21/20 24 Allergy Immunotherapy Injections completed DENICE RIVERA [address] [place] [address], [address], [place] [facility] [place] 04/21/2024 14:00:37 04/12/20 24 Allergy Immunotherapy Injections completed ROSA ALDANA RMA [address], [place], [address], [place] [facility] [place] 04/12/2024 16:04:03 04/05/20 24 JMSNasal/Sinus Endoscopy-PRIOR surgical cavities completed KYMBERLY GARCIA MD [address], [place], [address], [place] [facility] [place] 04/05/2024 14:34:46 04/05/20 24 Allergy Immunotherapy Injections completed DENICE RIVERA [address], [place], [address], [place] [facility] [place] 04/05/2024 13:35:01 03/29/20 24 Allergy Immunotherapy Injections completed ROSA ALDANA, RMA [address], [place], [address], [place] [facility] [place] 03/29/2024 16:18:09 02/29/20 24 functional endoscopic sinus surgery completed KYMBERLY GARCIA MD [address], [place], [address], [place] [facility] [place] 04/05/2024 14:33:51 02/29/20 24 Repair of nasal septum completed KYMBERLY GARCIA MD [address],[facility] [address], [place], [address], [place] [facility] [place] 04/05/2024 14:34:03 cholecystectomy completed Shyanne Escalante [place] - [facility] 11/15/2024 13:38:47 section completed Shyanne Escalante [place] [facility] 11/15/2024 13:38:52 Imaging Results None recorded. Procedure Notes None recorded. Medical Equipment None Reported. Allergies No known drug allergies Medications Name Sig Start Date Stop Date Status Note LastModified by Organization Details LastModified Time doxycycli ne hyclate 100 mg capsule by mouth 09/06 completed Medicati on ID: [id number] D uration Value: 10 Brand Name: doxycycl ine hyclate Send Method: E-Prescr ibed Sub s Allowed: subs OK Speci al Instruct ion: Take 1 po BID X 10 days Med icationG enericNa me: doxycycl ine hyclate Not Available Not Available Not Available Saline Mist 0.65 % nasal spray aerosol 2023 active Medicati on ID: [id number] D uration Value: 10 Brand Name: Saline Mist Sen d Method: E-Prescr ibed Sub s Allowed: subs OK Speci al Instruct ion: 2 sprays in both nostrils 4-6 times daily as needed M edicatio nGeneric Name: Saline Mist Not Available Not Available Not Available cetirizin e 10 mg tablet 11/22 completed Medicati on ID: [id number] B rand Name: cetirizi ne Send Method: E-Prescr ibed Sub s Allowed: subs OK Medic ationGen ericName : cetirizi ne Not Available Not Available Not Available acetamino phen 500 mg tablet Take 2 tablet by mouth every six hours 2023 active Medicati on ID: [id number] D uration Value: 10 Brand Name: acetamin ophen Se nd Method: E-Prescr ibed Sub s Allowed: subs OK Medic ationGen ericName : acetamin ophen Not Available Not Available Not Available azelastin e 137 mcg (0.1 %) nasal spray USE 2 SPRAYS NASALLY TWICE A DAY DIRECTED 2024 active Not Available Not Available Not Avai lable epinephri ne 0.3 mg/0.3 mL injection , auto-inje ctor Inject 1 pen injector single dose as needed 2023 active Medicati on ID: [id number] D uration Value: 180 Brand Name: epinephr ine Send Method: E-Prescr ibed Sub s Allowed: subs OK Medic ationGen ericName : epinephr ine Not Available Not Available Not Available ibuprofen 600 mg tablet Take 1 tablet by mouth every six hours 2023 active Medicati on ID: [id number] D uration Value: 10 Brand Name: ibuprofe n Send Method: E-Prescr ibed Sub s Allowed: subs OK Medic ationGen ericName : ibuprofe n Not Available Not Available Not Available albuterol sulfate HFA 90 mcg/actua tion aerosol inhaler Inhale 2 puffs every 6 hours by inhalati on route as needed. 2023 active Not Available Not Available Not Avai lable fluticaso ne propionat e 50 mcg/actua tion nasal spray,theresa pension active Medicati on ID: [id number] B rand Name: fluticas one propiona te Send Method: E-Prescr ibed Sub s Allowed: subs OK Medic ationGen ericName : fluticas one propiona te Not Available Not Available Not Available ipratropi um bromide 21 mcg (0.03 %) nasal spray 2 sprays each nostril 1-3 times daily 2024 active Not Available Not Available Not Avai lable Alaway 0.025 % (0.035 %) eye drops INSTILL 1 DROP INTO AFFECTED EYE(S) TWICE A DAY 2023 active Not Available Not Available Not Avai lable Astepro Allergy 205.5 mcg (0.15 %) nasal spray SPRAY 1 SPRAY BY INTRANAS AL ROUTE TWICE A DAY 2023 active Not Available Not Available Not Avai lable Vitals None Recorded Social History None recorded. Functional Status None recorded. Mental Status None recorded. Family History Nothing Reported. Medical History Condition Response Nasal or Sinus Problems Y Allergies/Hayfever Y Gynecological HistoryNo gynecological history recorded. Obstetrics History GPAL:G 0 P 0 0 0 0 Past Encounters Encounter ID Performer Location Encounter Start Date Encounter Closed Date Diagnosis/Indication Diagnosis SNOMED-CT Code Diagnosis ICD10 Code Diagnosis Note [id number] KYMBERLY MCKEON MD [facility] [address] [address] 11/15/2024 13:20:55 11/15/2024 14:02:44 Headache 25708651 R51.9 Posterior rhinorrhea 758 72413 R09.82 Paresthesia 98541398 R20 .2 [id number] [facility] [address] [place] [address] 11/15/2024 13:20:30 11/15/2024 13:46:31 Perennial allergic rhinitis 595411226 J30.89 [id number] [facility] [address] [place] [address] 11/22/2024 13:05:27 11/22/2024 13:40:57 Perennial allergic rhinitis 965533210 J30.89 [id number] [facility] [address] [place] [address] 11/30/2024 14:18:17 11/30/2024 14:28:59 Perennial allergic rhinitis 256442044 J30.89 [id number] TOYIN [address]UR[address]OLA [address] [address] 12/12/2024 13:07:57 12/12/2024 13:28:31 Perennial allergic rhinitis 357740899 J30.89 Health Concerns Section Related Observation LastModified by Organization Detai ls LastModified Time None Recorded Concern Status LastModified by Organization Details LastModified Time None Recorded Payers Encounter Date Sequence Insurance Name Policy Number Policy Maya Covered Member ID Maya Member ID Guarantor Name 12/12/2024 1 [facility] NET PLAN (MEDICAID HMO) YESENIA Hoffmann [id number] Naina Hoffmann OBGyn Episode No OBEpisode recorded.
--- OUTSIDE RECORDS SUMMARY | 2024-12-19 16:11 | XMS_ITS | Data Portability ---
Author Organization [place] - [facility], Allergy Address [address] [address] Care Team Providers Care Nanny/Household Manager Name Role Phone HILARIO CAI Primary Care Provider Assessment Encounter Date Assessment Date Assessment LastModified by Organization Details LastModified Time 11/15/2024 11/15/2024 49-year-old female presents for evaluation of headache and nasal drainage since a fall in September. Cranial nerves are grossly intact and normal shoulder shrug and hand strength. Extraocular muscles intact as well. Negative reservoir test. Low suspicion for CSF leak but if she feels there is enough to collect for sampling she will call and this will be arranged. She has not receiving benefit from Flonase and azelastine. Recommended a trial of Atrovent for postnasal drip. More than likely her persistent headaches are related to postconcussive syndrome. However, given arm and hand numbness would recommend an MRI and referral to neurology. This will be arranged. Follow-up here as needed. [email or web address] Not available 11/15/2024 14:12:21 11/15/2024 11/15/2024 Visit With: Amarilys Gurrola Use of Antihistamines: No If yes: Vial Test Change in medications: No If yes ?? Increase in asthma symptoms If yes, inhaler use: Reaction to last injections: No If yes: ?? Allergy Symptoms: Other: ?? Missed: Dose Aware of Vial Test Notes:?? [email or web address] Not available 11/15/2024 13:46:10 11/22/2024 11/22/2024 Visit With: DENICE Kee Use of Antihistamines: No If yes: Vial Test Change in medications: No If yes ?? Increase in asthma symptoms If yes, inhaler use: Reaction to last injections: No If yes: ?? Allergy Symptoms: Other: ?? Missed: Dose Aware of Vial Test Notes:?? [email or web address] Not available 11/22/2024 13:40:40 11/30/2024 11/30/2024 Visit With: DENICE Kee Use of Antihistamines: No If yes: Vial Test Change in medications: No If yes ?? Increase in asthma symptoms If yes, inhaler use: Reaction to last injections: No If yes: ?? Allergy Symptoms: Other: ?? Missed: Dose Aware of Vial Test Notes:?? brandon Not available 11/30/2024 14:28:39 12/12/2024 12/12/2024 Visit With: Amarilys Gurrola Use of Antihistamines: No If yes: Vial Test Change in medications: No If yes ?? Increase in asthma symptoms If yes, inhaler use: Reaction to last injections: No If yes: ?? Allergy Symptoms: Other: ?? Missed: 1 week Dose Repeated Aware of Vial Test Notes:?? [email or web address] Not available 12/12/2024 13:28:16 Plan of Treatment Reminders Order Date Submit Date Provider Last Modified By Organization Details Last Modified Time Details Appointments Establish ed- Allergy f-up 6mon 2024 02:30P M KYMBERLY BUSTAMANTE MD Not available Not available Not available Lab None recorded. Referral neurologi st referral 2024 025 [email or web address] [facility] Neurology Scheduling, [address] [place], [address], 12/14/2024 14:56:30 Procedures None recorded. Surgeries None recorded. Imaging MRI, brain, w/wo contrast 2024 025 [email or web address] [facility] ([facility]), [address] [place], [address], 12/12/2024 14:09:47 Medication Orders ipratropi um bromide 21 mcg (0.03 %) nasal spray 2024 025 [facility] #[id number], [address] [place], [address], 11/15/2024 14:12:43 Patient TargetsNo targets recorded. Patient InstructionsNo instructions recorded. Reason for Referral Neurologist Referral for Par esthesia Referring Physician: Meaghan Reeves, Otolaryngology, Encounter Date: 11/15/2024 Results Created Date Observation Date Name Description Value Unit Range Abnormal Flag Note LastModifiedBy Organization Detail LastModifiedTime 12/01/1911/28/2024 MRI, brain + brain stem, w/wo contr ast [facility] Access ion Number : [id number] [address] t Name: Brigid Frosta vince Record Number : [id number] Date of : 1974 Date of Exam: 2024 Referr ing Physic devon: Meaghan Pastrana [facility] d [address], [address] [facility], [place] [facility] [address] Exam: MR Brain (C-/C+ ) [facility] [address] Room Descri ption: [facility] Verio 3.0T MRI of the brain withou t [...] onical ly Signed By: Lavell Dickens MD [facility] ([facility]) [address] [facility], [place], [address], 12/01/2024 13:39:10 12/01/19 25 11/28/2024 MRI, brain , w/wo contr ast No observ ation record ed. [email or web address] [facility] [address] [facility], [place], [address], 12/01/2024 10:04:40 Result Notes None recorded. Problems Name Problem SNOMED Code Status Onset Date Resolution Date Notes Provider Name and Address Organization Details Recorded Time Hypertrop hy of nasal turbinate s 45233073 Active 2023 Hypertroph y of nasal turbinates ; Note: Date Diagnosed: 01/03/2016 8:40 AM (J34.3) Not Available [facility] 4 02:13:50 Chronic rhinitis 04464433 Active 2023 Chronic rhinitis; Note: Date Diagnosed: 11/22/2023 2:34 PM (J31.0) Not Available [facility] 4 02:13:06 Deviated nasal septum 946352700 Active 2023 Deviated nasal septum; Note: Date Diagnosed: 01/03/2016 8:40 AM (J34.2) Not Available [facility] 4 02:13:23 Disorder of smell 899223555 Active 2023 Other disturbanc es of smell and taste; Note: Date Diagnosed: 11/22/2023 2:34 PM (R43.8) Not Available [facility] 4 02:14:24 Disorder of taste 229423711 Active 2023 Other disturbanc es of smell and taste; Note: Date Diagnosed: 11/22/2023 2:34 PM (R43.8) Not Available [facility] 4 02:14:24 Perennial allergic rhinitis 979919425 Active 2023 ROSA DOUGLASS, [facility] [address], [place], [address] , [place] [facility] 4 16:17:43 Allergic rhinitis 85490942 Active 2023 KYMBERLY MCKEON MD [address], [place], [address] , [place] [facility] 4 14:34:26 Chronic sinusitis 97779203 Active 2023 KYMBERLY MCKEON MD [address], [place], [address] , [place] [facility] 4 14:35:04 Mild intermitt ent asthma 153392908 Active 2023 KYMBERLY MCKEON MD [address], [place], [address] , [place] [facility] 4 14:13:34 Follow-up visit Active 2023 Encounter for follow-up examinatio n after completed treatment for conditions other than malignant neoplasm; Note: Date Diagnosed: 03/03/2024 11:19 AM (Z09) Not Available [facility] 4 02:14:15 Headache 69409868 Active 2023 Headache, unspecifie d; Note: Date Diagnosed: 03/20/2024 11:48 AM (R51.9) Not Available [facility] 4 02:14:40 Posterior rhinorrhe a 77287405 Active 2024 MEAGHAN REEVES PA-C [address], [place], [address] , [place] [facility] 14:11:56 Parmaryam la 35693538 Active 2024 MEAGHAN REEVES PA-C [address], [place], [address] , [place] [facility] 14:12:02 Problem Notes None recorded. Procedures Surgical History Date Name Laterality Status Provider Name and Address Organization Details Recorded Time 12/12/19 25 Allergy Immunotherapy Injections completed MAKAYLA GURROLA RMA [address], [place], [address], [place] [facility] 12/12/2024 13:28:07 11/30/19 25 Allergy Immunotherapy Injections completed ROSA ALDANA, RMA [address] [facility], [place], [address], [place] [facility] 11/30/2024 14:28:33 11/22/19 25 Allergy Immunotherapy Injections completed ROSA DOUGLASSC, RMA [address] [facility], [place], [address], [place] [facility] 11/22/2024 13:40:26 11/15/19 25 Allergy Immunotherapy Injections completed ROSA ALDANA, RMA [address], [place], [address], [place] [facility] 11/15/2024 13:45:46 11/10/19 25 Allergy Immunotherapy Injections completed MAKAYLA GURROLA RMA [address], [place], [address], [place] [facility] 11/10/2024 15:15:34 11/02/20 24 Allergy Immunotherapy Injections completed MAVERICK TERRAZAS RN [address] [place] [address], [address], [place] [facility] 11/02/2024 10:42:32 10/25/20 24 Allergy Immunotherapy Injections completed MAVERICK TERRAZAS RN [address], [place], [address], [place] [facility] 10/25/2024 14:09:21 10/17/20 24 Allergy Immunotherapy Injections completed DENICE KEE [address] [place] [address], [address], [place] [facility] 10/17/2024 13:44:09 10/03/20 24 Allergy Immunotherapy Injections completed DENICE RIVERA [address] [place] [address], [address], [place] [facility] 10/03/2024 13:20:05 09/21/20 24 Allergy Immunotherapy Injections completed MAVERICK TERRAZAS RN 100 [facility],[address] [place] [address], [address], [place] [facility] 09/21/2024 12:01:33 09/12/20 24 Allergy Immunotherapy Injections completed ROSA ALDANA RMReji [address] [place] [address], [address], [place] [facility] 09/12/2024 14:05:49 09/06/20 24 Allergy Immunotherapy Injections completed DENICE RIVERA [address] [place] [address], [address], [place] [facility] 09/06/2024 14:48:49 09/06/20 24 JMSNasal/Sinus Endoscopy-PRIOR surgical cavities completed KYMBERLY GARCIA MD [address] [facility],[address], [address], [place] [facility] 09/06/2024 15:05:59 08/29/20 24 Allergy Immunotherapy Injections completed DENICE RIVERA [address] [place] [address], [address], [place] [facility] 08/29/2024 14:50:02 08/23/20 24 Allergy Immunotherapy Injections completed MAVERICK TERRAZAS RN [address] [place] [address], [address], [place] [facility] 08/23/2024 15:21:09 08/15/20 24 Allergy Immunotherapy Injections completed MAVERICK TERRAZAS RN [address], [place], [address], [place] [facility] 08/15/2024 14:14:05 08/10/20 24 Allergy Immunotherapy Injections completed DENICE RIVERA [address], [place], [address], [place] [facility] 08/10/2024 14:00:51 08/04/20 24 Allergy Immunotherapy Injections completed DENICE RIVERA [address], [place], [address], [place] [facility] 08/04/2024 15:31:25 07/25/20 24 Allergy Immunotherapy Injections completed DENICE KEE [address] [facility],[address] [place] [address], [address], [place] [facility] 07/25/2024 14:33:52 07/19/20 24 Allergy Immunotherapy Injections completed MAVERICK TERRAZAS RN 100 [facility],[address] [place] [address], [address], [place] [facility] 07/19/2024 16:18:04 07/11/20 24 Allergy Immunotherapy Injections completed DENICE KEE [address] [place] [address], [address], [place] [facility] 07/11/2024 14:32:17 07/04/20 24 Allergy Immunotherapy Injections completed DENICE RIVERA [address] [facility],[address] [place] [address], [address], [place] [facility] 07/04/2024 14:03:37 06/28/20 24 Allergy Immunotherapy Injections completed MAVERICK TERRAZAS RN [address] [place] [address], [address], [place] [facility] 06/28/2024 14:26:26 06/20/20 24 Allergy Immunotherapy Injections completed DENICE KEE [address], [place], [address], [place] [facility] 06/20/2024 13:05:25 06/13/20 24 Allergy Immunotherapy Injections completed DENICE RIVERA [address] [place] [address], [address], [place] [facility] 06/13/2024 15:52:47 06/06/20 24 Allergy Immunotherapy Injections completed MAVERICK TERRAZAS RN [address] [place] [address], [address], [place] [facility] 06/06/2024 15:10:37 06/06/20 24 JMSNasal/Sinus Endoscopy-PRIOR surgical cavities completed KYMBERLY GARCIA MD 100 [facility],[place] [place] [address], [address], [place] [facility] 06/06/2024 14:10:04 06/01/20 24 Allergy Immunotherapy Injections completed MAVERICK TERRAZAS RN 100 [facility],[place] [address] [place] [address], [address], [place] [facility] 06/01/2024 15:38:20 05/23/20 24 Allergy Immunotherapy Injections completed DENICE RIVERA [address] [facility],[place] [place] [address], [address], [place] [facility] 05/23/2024 14:44:44 05/17/20 24 Allergy Immunotherapy Injections completed DENICE KEE [address] [facility],[address] [place] [address], [address], [place] [facility] 05/17/2024 16:10:00 05/09/20 24 Allergy Immunotherapy Injections completed MAVERICK TERRAZAS RN 100 [facility],[address], [address], [place] [facility] 05/09/2024 15:06:52 05/02/20 24 Allergy Immunotherapy Injections completed DENICE RIVERA [address] [facility],[address] [place] [address], [address], [place] [facility] 05/02/2024 13:34:36 04/25/20 24 Allergy Immunotherapy Injections completed DENICE RIVERA [address] [facility],[place] [place] [address], [address], [place] [facility] 04/25/2024 14:45:44 04/21/20 24 Allergy Immunotherapy Injections completed DENICE RIVERA [address] [facility], [place], [address], [place] [facility] 04/21/2024 14:00:37 04/12/20 24 Allergy Immunotherapy Injections completed ROSA ALDANA, RMA [address], [place], [address], [place] [facility] 04/12/2024 16:04:03 04/05/20 24 JMSNasal/Sinus Endoscopy-PRIOR surgical cavities completed KYMBERLY GARCIA MD [address] [facility], [place], [address], [place] [facility] 04/05/2024 14:34:46 04/05/20 24 Allergy Immunotherapy Injections completed DENICE RIVERA [address] [facility],[address] [facility], [place], [address], [place] [facility] 04/05/2024 13:35:01 03/29/20 24 Allergy Immunotherapy Injections completed ROSA ALDANA A [address], [place], [address], [place] [facility] 03/29/2024 16:18:09 02/29/20 24 functional endoscopic sinus surgery completed KYMBERLY GARCIA MD [address] [facility], [place], [address], [place] [facility] 04/05/2024 14:33:51 02/29/20 24 Repair of nasal septum completed KYMBERLY GARCIA MD [address] [facility], [place], [address], [place] [facility] 04/05/2024 14:34:03 cholecystectomy completed Shyanne Escalante [place] - [facility] 11/15/2024 13:38:47 section completed Shyanne Escalante [place] - [facility] 11/15/2024 13:38:52 Imaging Results Imaging Date Name Status LastModified by Organiz ation Details LastModified Time 11/28/2024 MRI, brain + brain stem, w/wo contrast completed [email or web address] [facility] ([facility]) [address], [place], [address], 12/01/2024 13:39:10 11/28/2024 MRI, brain, w/wo contrast completed [address] [facility] [address] [place], [address], 12/01/2024 10:04:40 Procedure Notes None recorded. Medical Equipment None Reported. Allergies No known drug allergies Medications Name Sig Start Date Stop Date Status Note LastModified by Organization Details LastModified Time doxycycli ne hyclate 100 mg capsule by mouth 09/06 completed Medicati on ID: [id number] D uration Value: 10 Brand Name: doxycycl ine hyclate Send Method: E-Prescr ibed Sub s Allowed: subs OK Speci al Instruct ion: Take 1 po BID X 10 days Med icationG enericNa me: doxycycl ine hyclate Not Available Not Available Not Available Saline Mist 0.65 % nasal spray aerosol 2023 active Medicati on ID: [id number] D uration Value: 10 Brand Name: Saline Mist Sen d Method: E-Prescr ibed Sub s Allowed: subs OK Speci al Instruct ion: 2 sprays in both nostrils 4-6 times daily as needed M edicatio nGeneric Name: Saline Mist Not Available Not Available Not Available cetirizin e 10 mg tablet 11/22 completed Medicati on ID: [id number] B rand Name: cetirizi ne Send Method: E-Prescr ibed Sub s Allowed: subs OK Medic ationGen ericName : cetirizi ne Not Available Not Available Not Available acetamino phen 500 mg tablet Take 2 tablet by mouth every six hours 2023 active Medicati on ID: [id number] D uration Value: 10 Brand Name: acetamin [...] as needed 2023 active Medicati on ID: [id number] D uration Value: 180 Brand Name: epinephr ine Send Method: E-Prescr ibed Sub s Allowed: subs OK Medic ationGen ericName : epinephr ine Not Available Not Available Not Available ibuprofen 600 mg tablet Take 1 tablet by mouth every six hours 2023 active Medicati on ID: [id number] D uration Value: 10 Brand Name: ibuprofe [...] nasal spray,theresa pension active Medicati on ID: [id number] B rand Name: fluticas one propiona te [...] Available Not Available Not Avai lable Vitals Date Recorded Body height Body weight Provider Name and Address Organization Details Last Updated DateTime 11/15/2024 157.48 cm 04666.63 g Shyanne Escalante [place] - [facility] 11/15/2024 13:38:01 Social History None recorded. Functional Status None recorded. Mental Status None recorded. Family History Nothing Reported. Medical History Condition Response Nasal or Sinus Problems Y Allergies/Hayfever Y Gynecological HistoryNo gynecological history recorded. Obstetrics History GPAL:G 0 P 0 0 0 0 Past Encounters Encounter ID Performer Location Encounter Start Date Encounter Closed Date Diagnosis/Indication Diagnosis SNOMED-CT Code Diagnosis ICD10 Code Diagnosis Note [id number] KYMBERLY MCKEON MD Allergy [address] [place] [address],[place] [address] [facility] [place] [address] 03/29/2024 15:44:26 03/29/2024 16:42:23 Perennial allergic rhinitis 478213516 J30.89 [id number] MAKAYLA GURROLA [facility] Allergy [address] [place] [address], [address] [place] [address] 04/05/2024 13:34:19 04/05/2024 15:04:24 Perennial allergic rhinitis 332894216 J30.89 [id number] KYMBERLY MCKEON MD [facility] [address] [place] [address] 04/05/2024 14:08:28 04/05/2024 14:37:29 Allergic rhinitis 80244912 J30.9 Chronic sinusitis 334511 00 J32.8 [id number] [facility], [facility] Allergy [address] [place] [address], [address] [place] [address] 04/12/2024 15:55:43 04/12/2024 16:05:09 Perennial allergic rhinitis 968610596 J30.89 [id number] MAKAYLA GURROLA A Allergy [address] [place] [address],[address] [place] [address] 04/21/2024 13:59:32 04/21/2024 15:24:17 Perennial allergic rhinitis 484656916 J30.89 [id number] MAKAYLA GURROLA A Allergy [address] [place] [address],[address] [place] [address] 04/25/2024 14:32:30 04/25/2024 14:54:24 Perennial allergic rhinitis 123517799 J30.89 [id number] MAKAYLA GURROLA A Allergy 100 [facility],[place] [address] [place] [address] 05/02/2024 13:33:44 05/02/2024 14:50:02 Perennial allergic rhinitis 881458460 J30.89 [id number] MAVERICK TERRAZAS RN Allergy [address] [place] [address], [place] [address] 05/09/2024 14:14:28 05/09/2024 15:11:12 Perennial allergic rhinitis 362094781 J30.89 [id number] [facility], [facility] Allergy [address] [place] [address], [place] [address] 05/17/2024 15:44:53 05/17/2024 16:19:07 Perennial allergic rhinitis 307640184 J30.89 [id number] MAKAYLA GURROLA [facility] Allergy [address] [place] [address], [place] [address] 05/23/2024 11:44:15 05/24/2024 13:06:20 Perennial allergic rhinitis 670892064 J30.89 [id number] MAVERICK TERRAZAS RN Allergy [address] [place] [address], [place] [address] 06/01/2024 15:27:09 06/01/2024 15:39:04 Perennial allergic rhinitis 594602297 J30.89 [id number] KYMBERLY MCKEON MD [facility] [address] [place] [address] 06/06/2024 12:56:12 06/06/2024 14:19:47 Mild intermittent asthma 566364769 J45.20 Allergic rhinitis 829371 04 J30.9 History of neoplasm 2759 28081 Z86.018 no recurrent polyps [id number] MAVERICK TERRAZAS RN Allergy [address] [place], [place] [address] [address] [place] [address], [place] [address] 06/06/2024 12:56:12 06/06/2024 14:19:47 Perennial allergic rhinitis [id number] J30.89 [id number] MAKAYLA GURROLA [facility] Allergy [address] [place], [place] [address] 100 [facility] [place] [address] 06/13/2024 14:52:19 06/13/2024 16:15:52 Perennial allergic rhinitis [id number] J30.89 [id number] [facility], RMA Allergy 100 [facility],[place] [place] [address] 06/20/2024 12:36:44 06/20/2024 14:51:01 Perennial allergic rhinitis [id number] J30.89 [id number] MAVERICK TERRAZAS fender finisher [address] [place] [address],[place] [place] [address] 06/28/2024 14:13:13 06/28/2024 14:27:01 Perennial allergic rhinitis [id number] J30.89 [id number] MAKAYLA GURROLA, [facility] Allergy [address] [place] [address],[address] [place] [address] 07/04/2024 13:38:01 07/04/2024 15:01:06 Perennial allergic rhinitis [id number] J30.89 [id number] [facility], A Allergy [address] [place] [address],[place] [place] [address] 07/11/2024 14:17:18 07/11/2024 15:03:52 Perennial allergic rhinitis [id number] J30.89 [id number] MAVERICK TERRAZAS RN Allergy [address] [place] [address],[address] [place] [address] 07/19/2024 16:17:22 07/19/2024 16:18:41 Perennial allergic rhinitis 411456466 J30.89 [id number] [facility], A Allergy 100 [facility],[place] [place] [address] 07/25/2024 14:15:32 07/25/2024 14:34:25 Perennial allergic rhinitis [id number] J30.89 [id number] MAKAYLA GURROLA A Allergy [address] [place] [address],[address] [place] [address] 08/04/2024 15:30:21 08/14/2024 18:40:41 Perennial allergic rhinitis [id number] J30.89 [id number] MAKAYLA GURROLA A Allergy 100 [facility],[place] [address] [place] [address] 08/10/2024 13:46:10 08/10/2024 14:54:08 Perennial allergic rhinitis 855749890 J30.89 [id number] MAVERICK TERRAZAS RN Allergy [address] [place] [address],[place] [place] [address] 08/15/2024 14:05:14 08/15/2024 14:33:28 Perennial allergic rhinitis [id number] J30.89 [id number] MAVERICK TERRAZAS RN Allergy [address] [place] [address], [address] [place] [address] 08/23/2024 14:54:58 08/23/2024 15:21:41 Perennial allergic rhinitis [id number] J30.89 [id number] MAKAYLA GURROLA [facility] [address] [place] [address], [address] [facility] [place] [address] 08/29/2024 14:25:52 08/29/2024 14:50:37 Perennial allergic rhinitis [id number] J30.89 [id number] KYMEBRLY MCKEON MD [facility] [address] [place] [address] 09/06/2024 14:38:29 09/06/2024 15:10:27 Allergic rhinitis [id number] J30.9 continue SCIT She will use Astepro 1 spray each nostril twice daily and fluticason e 1 spray each nostril twice daily Headache [id number] R51.9 Chronic sinusitis [id number] J32.8 51283 DENICE RIVERA [facility] [address] [place] [address], [address] [facility] [place] [address] 09/06/2024 14:39:04 09/06/2024 15:03:17 Perennial allergic rhinitis [id number] J30.89 [id number] [facility] Allergy [address] [place] [address], [address] [place] [address] 09/12/2024 13:57:30 09/12/2024 14:06:16 Perennial allergic rhinitis [id number] J30.89 [id number] MAVERICK TERRAZAS RN Allergy [address] [place] [address],[place] [address] [place] [address] 09/21/2024 11:00:05 09/21/2024 12:02:02 Perennial allergic rhinitis [id number] J30.89 [id number] DENICE RIVERA Allergy 100 [facility],[place] [address] [place] [address] 10/03/2024 12:48:54 10/03/2024 13:25:49 Perennial allergic rhinitis [id number] J30.89 [id number] ROSA DOUGLASS, RMA Allergy 100 [facility],[place] [address] [place] [address] 10/17/2024 12:45:37 10/17/2024 13:44:38 Perennial allergic rhinitis [id number] J30.89 83849 MAVERICK TERRAZAS RN Allergy [address] [place] [address],[place] [place] [address] 10/25/2024 14:08:37 10/25/2024 14:09:51 Perennial allergic rhinitis [id number] J30.89 [id number] MAVERICK TERRAZAS RN Allergy [address] [place] [address], [address] [place] [address] 11/02/2024 10:36:26 11/02/2024 10:42:57 Perennial allergic rhinitis [id number] J30.89 16057 MAKAYLA GALILEO A Allergy [address] [place] [address],[place] [place] [address] 11/10/2024 10:31:04 11/10/2024 15:18:31 Perennial allergic rhinitis [id number] J30.89 [id number] KYMBERLY MCKEON MD [facility] [place] 100 [facility] [place] [address] 11/15/2024 13:20:55 11/15/2024 14:02:44 Headache [id number] R51.9 Posterior rhinorrhea [id number] R09.82 Paresthesia [id number] R20 .2 [id number] ROSA DOUGLASS, A Allergy 100 [facility],[address] [address] [place] [address] 11/15/2024 13:20:30 11/15/2024 13:46:31 Perennial allergic rhinitis [id number] J30.89 [id number] ROSA DOUGLASS, A Allergy 100 [facility],[address] [place] [address] 11/22/2024 13:05:27 11/22/2024 13:40:57 Perennial allergic rhinitis [id number] J30.89 [id number] ROSA ALDANA, RMA Allergy 100 [facility],[place] [place] [address] 11/30/2024 14:18:17 11/30/2024 14:28:59 Perennial allergic rhinitis [id number] J30.89 87788 MAKAYLA GURROLA A Allergy 100 [facility],[address] [place] [address] 12/12/2024 13:07:57 12/12/2024 13:28:31 Perennial allergic rhinitis [id number] J30.89 Health Concerns Section Related Observation LastModified by Organization Detai ls LastModified Time None Recorded Concern Status LastModified by Organization Details LastModified Time None Recorded Advance Directives Directive None Recorded Payers Encounter Date Sequence Insurance Name Policy Number Policy Maya Covered Member ID Maya Member ID Guarantor Name 11/15/2024 1 [facility] NET PLAN (MEDICAID HMO) YESENIA Hoffmann [id number] Naina Hoffmann 11/15/2024 1 [facility] PLAN (MEDICAID HMO) YESENIA Hoffmann [id number] Naina Hoffmann 11/22/2024 1 [facility] NET PLAN (MEDICAID HMO) YESENIA Hoffmann [id number] Naina Hoffmann 11/30/2024 1 [facility] PLAN (MEDICAID HMO) YESENIA Hoffmann [id number] Naina Hoffmann 12/12/2024 1 [facility] PLAN (MEDICAID HMO) YESENIA Hoffmann [id number] Naina Hoffmann Notes Date Note Type Note Provider Name and Address Organization Details Recorded Time 11/15/2024 text/html 49-year-old female presents for evaluation of headaches and nasal drainage since she had a fall. The fall occurred in September. She was initially evaluated at the ER and has been several times since for persistent headache. Has had imaging negative for stroke and brain bleed. She describes the headaches as pressure in the back of her head that radiates down her arm and causes some numbness in her fingers. She also has dripping from her nose that is somewhat positional. Has seasonal allergies and gets allergy shots weekly. Currently taking Flonase and azelastine. KYMBERLY GARCIA MD [address] [place] [address], [place], [address], [facility] 11/15/2024 17:00:17 OBGyn Episode No OBEpisode recorded.
--- OUTSIDE RECORDS SUMMARY | 2024-12-19 16:11 | XMS_ITS | Continuity of Care Document ---
Author Organization [facility] [place] [address] [facility], [address] [place] [address]- Care Team Providers Care Mother Baby Rn Name Role Phone Johan Lane MD Primary Care Physician Encounter 11/30/24 - 12/07/24 [facility] [place] [address] [facility], [address] [place] [address]- Attending Physician: Dejan Barfield Jr, DO Admitting Physician: Dejan Barfield Jr, DO Referring Physician: Dejan Barfield Jr, DO Encounter Type: OutPatient One Time Allergies, Adverse Reactions, Alerts No Known Allergies Immunizations Given and Recorded Vaccine Date Status Refusal Reason tetanus/diphtheria/pertussis, acel(Tdap) 1 04/22/12 Given 1Admin Note: VIS given 12/01/2011 Medications Astepro Allergy 205.5 mcg/inh (0.15%) nasal spray 2 sprays, Nares, Both, 2 times a day, 0 Refills, Maintenance, 02/24/24 5:28:00 PM EDT, Partial fill upon patient request if the prescription is for a schedule II opioid drug. Start Date: 02/24/24 Status: Ordered Repeat number: 1 Ativan 0.5 mg oral tablet 1 tablet = 0.5 mg, By Mouth, 2 times a day, PRN for anxiety, # 12 tablet, 0 Refills, Maintenance, 11/04/24 8:08:00 PM EST, Tablet, [id number], Partial fill upon patient request if the prescription is for a schedule II opioid drug., 160, cm, 11/04/24 17:01:00 EST, Height, 68.1, kg, 11/04/24 1 7:01:00 EST, Dry Weight Start Date: 11/04/24 Status: Ordered Quantity: 12.0 Unit: tablet Repeat number: 1 Cetirizine = 10 mg, By Mouth, Daily, PRN Other, for allergies, 0 Refills, Maintenance, 02/24/24 5:23:00 PM EDT,Partial fill upon patient request if the prescription is for a schedule II opioid drug. Start Date: 02/24/24 Status: Ordered Repeat number: 1 Flonase 1 spray, Nares, Both, 2 times a day, 0 Refills, Maintenance, 02/24/24 5:25:00 PM EDT, Partial fill upon patient request if the prescription is for a schedule II opioid drug. Start Date: 02/24/24 Status: Ordered Repeat number: 1 ibuprofen 600 mg oral tablet 600 mg, 1, tablet, By Mouth, Every 6 hours, not to exceed 3200 mg/day with food or milk, # 30 tablet, Refills 0, Tot. Refills 0, Maintenance, 11/04/24 8:08:00 PM EST, Route to Pharmacy Electronically, [facility]/pharmacy #[id number], Partial fill upon patient request if the prescription is for a schedule II opioid drug., 160, cm, 11/04/24 17:01:00 EST, Height, 68.1, kg, 11/04/24 17:01:00 EST, Dry Weight Start Date: 11/04/24 Status: Ordered Quantity: 30.0 Unit: tablet Repeat number: 1 Problem List Condition Confirmation Course Effective Dates Status [facility] Informant heart disorder Confirmed Active Confirmed Active Results Radiology Reports * Exam Date Time Procedure Performing Provider Status 11/30/24 10:41 AM Cervical Spine 4 or 5 Views Adelfo Tam; Auth (Verified) Notes: (Cervical Spine 4 or 5 Views) Reason For Exam: radiculopathy RESULT: Cervical Spine 4 or 5 Views Cervical Spine 4 or 5 Views Reason: radiculopathy COMPARISON: CT 11/04/2024 FINDINGS: No bone lesions or fractures. Normal odontoid and C1/2 relationship. Unchanged moderate to severe degenerative disc space narrowing and marginal hypertrophy. Bilateral moderate bony foraminal stenosis at C6-7 secondary to uncovertebral hypertrophy. Normal prevertebral soft tissues and clear lung apices. IMPRESSION: Degenerative changes and bilateral C6-7 bony foraminal stenosis. WSN: [id number] Ordering Physician: Dejan Barfield Jr Dictated By: Rick John MD Dictated Date/Time: 11/30/24 11:22 a Reviewed By: Rick John MD Signed By: Rick John MD Signed Date/Time: 11/30/24 11:22 am Transcribed By: SARA Transcribed Date/Time: 11/30/24 11:18 am Patient Care team information Care Team Personnel Name: Johan Lane MD Position: [facility] Outreach Member Role: PCP Address: [address] [place] [address] Telecom: Care Team Related Persons Name: KINA DE LA CRUZ Name: BRAYDON HUNTER Insurance Providers Guarantor name: FRANCOISE SPARKS Health Plan Information #: 1 Payer: [employer] Member Number: [id number] Policy Number: NA Group Number: HELENE Health Plan Information #: 2 Payer: [employer] Member Number: [id number] Policy Number: NA Group Number: NA
--- OUTSIDE RECORDS SUMMARY | 2024-12-19 16:11 | XMS_ITS | Continuity of Care Document ---
Author Organization [facility] ter Address [address] [place] [address]- Care Team Providers [facility] Name Role Phone Ariana MCRAE, Johan Green Primary Care Physician [phone] Encounter 11/28/24 - 11/29/[address] [address]- Attending Physician: Not on Staff, Attending MD Referring Physician: Not on Staff, Referring MD Encounter Type: [facility] Allergies, Adverse Reactions, Alerts No Known Allergies [...] Refills, Maintenance, 11/04/24 8:08:00 PM EST, Tablet, [facility]/pharmacy #[id number], Partial fill upon patient request if the [...] 8:08:00 PM EST, Route to Pharmacy Electronically, [facility]/pharmacy #[id number], Partial fill upon patient request if the prescription is for a schedule II opioid drug., 160, cm, 11/04/24 17:01:00 EST, Height, 68.1, kg, 11/04/24 17:01:00 EST, Dry Weight Start Date: 11/04/24 Status: Ordered Quantity: 30.0 Unit: tablet Repeat number: 1 Problem List Condition Confirmation Course Effective Dates Status [facility] atus Informant heart disorder Confirmed Active Confirmed Active Patient Care team information Care Team Personnel Name: Johan Lane MD Position: S Outreach Member Role: PCP Address: [address] [place] [address] Telecom: Care Team Related Persons Name: KINA DE LA CRUZ Name: BRAYDON HUNTER Insurance Providers Guarantor name: HELENE Health Plan Information #: 1 Payer: [employer] Member Number: HELENE Policy Number: HELENE Group Number: [id number]
== END 2024-12-19 16:31 | disposition home or self-care (01) ==
PROVIDERS: PCP Nurse Practitioner Family; Visit Provider Nurse Practitioner Family
DX: G44.309 Post-traumatic headache, unspecified, not intractable (principal); F07.81 Postconcussional syndrome; S09.90XS Unspecified injury of head, sequela

== ENCOUNTER → 2024-12-19 15:33 | Outpatient (BNVA) | payer OTHER, SELFPAY | PROVIDERS: PCP Nurse Practitioner Family; Visit Provider Nurse Practitioner Family | DX: F07.81 Postconcussional syndrome (principal); G44.309 Post-traumatic headache, unspecified, not intractable; S09.90XS Unspecified injury of head, sequela | CPT/HCPCS: 99212 ==

== ENCOUNTER 2025-02-23 08:26 | Outpatient (AMB) | payer OTHER, SELFPAY ==
--- NOTE | 2025-02-23 08:37 | A.OFFVIS_ITS ---
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 Required: No Accompanied by: Self / Same As Patient Allergies Seasonal Allergies Allergy (Mild, Verified 02/23/25 08:39) Itchy Eyes Medication List - Last Reconciled 02/23/25 by JASBIR Rodriguez azelastine intranasal cetirizine (Zyrtec) 10 mg PO DAILY PRN 90 days cyclobenzaprine 5 mg PO Q8H PRN fluticasone propionate 50 mcg/actuation 2 sprays intranasal DAILY 90 days meloxicam 7.5 mg PO DAILY PRN olopatadine 0.2% (Pataday Once Daily Relief) 1 drp ophthalmic (eye) DAILY PRN 30 days trazodone 25 mg (1/2 x 50 mg) PO BEDTIME PRN tretinoin 0.025% 1 appl topical BEDTIME HPI Comments Details: Right-handed 49-yr-old female presents for new pt evaluation of headache disorder. Pt reports she had a slip and fall in Sep 29, 2024- she slipped on a wet floor while walking. She states she does not remember actually falling- but was told she hit her right knee and then fell backwards. She did have immediate headache, neck pain, and back pain.. Since, she has had back/neck pain, RUE/RLS weakness and numbness/tingling, and headaches, eye discomfort, nose dripping, brain fog, word finding difficulties, difficulty sleeping, depressed mood- as she is not able to work/do as much as she previously could. She is followed by ENT- who checked brain MRI and her nasal drainage for CSF- both of which was negative. ENT suggested that she see a neurologist. She did PT- helped briefly, but effect waned. Seeing PS&[facility]- they are considering cervical/back injections for RUE/RLE pain, numbness, tingling. Now using meloxicam for the body pain. She tried trazodone once for sleep- caused morning grogginess. Interval workup includes, 10/05/[address] with contrast which was unremarkable. Pt reports the headache has improved slightly- the throbbing has resolved- more so in the last 3 weeks. PMH and ROS are notable for:? General: Denies weight loss. States generally prior to this accident she felt overall healthy for her age. HEENT: seasonal/environmental allergies, some pets- receives allergy shots.f/b ENT. s/p deviated septum repair- prior to repair would have bifrontal sinus headaches. Musculoskeletal disorders or injury: Denies h/o neck or back injuries. History of concussion/head injury: denies Mood d/o: h/o depression r/t loss of her parents 5 yrs ago. Respiratory d/o: denies asthma. CV disease: denies Clotting or hematology d/o: Endorses a history of anemia. Endocrine or metabolic d/o: denies History of seizure: denies. 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 weekends- since geena accident- stays in bed all day. Sleep difficulties: difficulty falling asleep and staying asleep, tosses and turns- due to the pain, difficult to sleep on her right side, right leg cramps, - has tried different pillows, nocturia- denies these issues before the accident. states snoring, Excessive daytime sleepiness, fatigue. Denies bruxism. Caffeine use: 1 cups per day Substance use: denies Exercise:?has not been walking as much. 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 Prior to the accidnet she worked 40+ hrs. Family planning: none- has 4 children. Headache questionnaire:? Age/time of onset: September 2024 Preceding causes: September 2024 slip and fall Previous work-up: Brain MRI w/wo, neck/back MRI w/o was done at [place] Typical headache characteristics: Prodrome symptoms: denies Aura: denies Pain intensity: moderate-severe Location, quality, characteristics: Bilateral occipital, mostly right sided pressure, heaviness, achiness- almost like someone is holding her head down. Pulsating right retroorbital pain that would travel to right ear a/w as a pulsating pain a/w tinnitus and feeling like air was coming out . Also may have a sharp traveling pain in back of right head. Associated symptoms: watery eyes, runny nose, photophobia, phonophobia, nausea initially, not right in space dizziness, fatigue, cognitive difficulties, activity intolerance.. Postdrome: unsure- constant Aggravating factors: stands for too long, increased activity Denies headcahe exacerbated by valsalava, lifting. Time of day: Nighttime when trying to rest Duration and Frequency: constant How does headache impact your life? making it difficult to do day to day activities. Current acute medication use/interventions: states she is not a pill person Current preventative medication use: none Current non-pharmacological interventions: rest [facility] Medical History (Updated 02/23/25 @ 18:01 by JASBIR Rodriguez) Mild anemia Deviated septum Positive TB test Foot pain, bilateral Bunion, left foot Bunion, right foot Allergic sinusitis Surgical History History of bunionectomy No pertinent past surgical history Social History Housing: House Alcohol intake: current Patient Tobacco Use Status: Never used Tobacco e-Cigarette/Vaping Use: Never Used Second Hand Smoke Exposure: No service: No Current occupational status: employed Current occupation: [employer] Current occupational exposures/hazards: No Cognitive needs: No Hearing needs: No Vision needs: No Physical Exam Vital Signs: Last Vital Signs Pulse 75 02/23/25 08:38 BP 120/76 02/23/25 08:38 Pulse Ox 100 02/23/25 08:38 Oxygen Delivery Method Room Air 02/23/25 08:38 BMI result Body Mass Index 28.0 Const Orientation/consciousness: patient oriented x3 Resp Effort & Inspection: normal respiratory effort and able to speak in complete sentences Neuro Other: No palpable scalp tenderness. Bilateral posterior cervical and upper trap tightness. Cervical ROM: slightly limited- more in in prakash rotation and extension Bilateral Spurling: elcits pain in base of neck and upper traps Tandem gait- slightly unsteady. General: patient oriented x3 Cranial nerves: Yes CN's II-XII intact bilaterally Cognition (Neuro): normal cognition Gait exam (Neuro): Normal gait present Motor exam (neuro): 5/5 motor strength present throughout Deep tendon reflexes (DTR's): Right triceps reflex intensity grade: 2+, Left triceps reflex intensity grade: 2+, Rt Biceps (C5, C6): 2+, Left biceps reflex intensity grade: 2+, Right brachioradialis reflex intensity grade: 2+, Left brachioradialis reflex intensity grade: 2+, Right patellar reflex intensity grade: 2+ and Left patellar reflex intensity grade: 2+ Coordination: [id number] test normal and Romberg test negative Pupils: Normal pupillary reactivity/response: bilateral Psych Appearance: grossly normal Mental Status: mental status grossly normal Speech and movement: Normal speech and movement present Affect: normal affect Attitude: cooperative Thought process: Normal thought process present Results Reviewed Results Reviewed: 10/05/2024, at [facility] [place], CT/CT head/brain wo IV con * No acute intracranial pathology. 10/05/2024, , at [facility] [place], XR/XR lumbar spine 2-3V * No acute fracture or subluxation. * Mild multilevel degenerative disc disease. 11/04/2024, at [facility] CT angio head and neck * No proximal occlusion or high grade stenosis in the major arteries of the head and neck. 11/28/2024, at [facility], brain MRI with and without contrast, MRI of the brain without and with contrast. HISTORY: Headaches. Extremity weakness. Bilateral tinnitus. Nausea. Comparison: CT of head on 11/04/2024. FINDINGS: The ventricles, cisterns and sulci are normal. No hydrocephalus. There is no acute intracranial hemorrhage, tumor or infarct. Multiple punctate areas of hyperintense T2/flair signals are seen in the white matters bilaterally, mostly in the frontal white matters. No abnormal enhancement is seen after contrast. The findings are nonspecific. Differential diagnosis are extensive including demyelinating disease, migraines, vasculitis, chronic small vessel ischemic disease, infectious or inflammatory processes or posttraumatic changes. Please correlate clinically. No abnormal enhancement. No CP angle tumor is seen. Bilateral 7th and 8th nerve complexes are normal in caliber and signal intensities. No abnormal enhancement is noted. There are normal flow-voids within major intracranial vessels. There is mild mucosal thickening within ethmoid and sphenoid sinuses. A small mucus retention cyst is seen in the right maxillary sinus and the right sphenoid sinus. IMPRESSION: No acute pathology or abnormal enhancement is seen in the brain. Mild bilateral white matter disease is nonspecific. Differential diagnosis is extensive. Please correlate clinically. 01/26/2025, thoracic spine MRI without contrast Referring Physician: [facility] [address] [place] [id number] Exam: MR Thoracic Spine (C-) CPT 77317 Room Description: [facility] [employer] [facility] 3.0T INDICATION: Right-sided mid back pain and possible radicular pain around lower ribs on the right. TECHNIQUE: Multiplanar multisequence MRI of the thoracic spine was performed without IV contrast COMPARISON: No prior. Cervical spine MRI of 7 01/07/2025. FINDINGS: The thoracic spine alignment is preserved. Vertebral body heights are normal. Only seen in the localizers, there are multilevel disc herniations at C3-C4, C4- C5, C5-C6, and C6-C7. Please refer to MRI cervical spine performed on 01/07/2025 for additional details. The bone marrow signal is unremarkable. The thoracic cord is unremarkable. There is a T2 hyperintense subcentimeter lesion in the left kidney probably a benign cysts. Prominent vessels in the left retroperitoneum are noted. Correlation with a CT abdomen and pelvis would be helpful. The paraspinal soft tissues are unremarkable. At T5-T6, there is a minimal disc bulge without spinal canal or foraminal stenosis. At T7-T8, there is a minimal right paracentral disc protrusion without spinal canal or foraminal stenosis. At L1-L2, there is a mild disc bulge with a superimposed left extraforaminal disc protrusion as well as ligamentum flavum and facet joint arthropathy without significant spinal canal or foraminal stenosis. Otherwise, there is no spinal canal or foraminal stenosis in the thoracic spine at the other levels. The discs are preserved at these levels. IMPRESSION: No significant spinal canal or foraminal stenosis. No nerve root impingement. Electronically Signed By: Coreen Valencia MD 01-07-2025, C-spine MRI without contrast Referring Physician: [facility] [address] [place] [id number] Exam: MR Cervical Spine (C-) CPT 40325 Room Description: [facility] [employer] 3T MRI of the cervical spine without contrast. HISTORY: Neck pain. Right arm pain and paresthesia. Right arm weakness. COMPARISON: None. FINDINGS: The cervical cord appears normal in caliber and signal intensities. The cervical spine shows a mildly reversed lordosis. No vertebral body fracture is seen. The bone marrow signals are within normal limits. Disc desiccation is seen diffusely. C3-C4 to C6-C7 levels have mild anterior osteophytes and mild degenerative endplate changes. C2-C3 level has no disc herniation, stenosis or neural foramen narrowing. Bilateral facet joints are mildly degenerative. C3-C4 level has a mild disc bulge effacing the ventral subarachnoid space. No cord compression. There are mild uncovertebral joint osteophytes bilaterally. Minimal bilateral neural foramen narrowing. C4-C5 level has a mild disc bulge effacing the ventral subarachnoid space. No cord compression. There are mild uncovertebral joint osteophytes bilaterally causing mild neuroforamen narrowing. C5-C6 level has a broad-based right paracentral osteophyte/disc protrusion. The right ventral subarachnoid space is effaced. No cord compression. There are mild uncovertebral joint osteophytes bilaterally, more on the right. Moderate right and no left neuroforaminal narrowing. C6-C7 level has a moderate broad-based central disc protrusion. The ventral subarachnoid space is effaced without cord compression. There are moderate uncovertebral joint osteophytes causing moderate to severe bilateral neural foramen narrowing. C7-T1 level has a tiny central annulus tear. No stenosis or neural foraminal narrowing. The major vascular flow voids are intact. The prevertebral and paravertebral soft tissues are within normal limits. IMPRESSION: The cervical cord is normal. Multiple levels of cervical spondylosis as described above. Electronically Signed By: Lavell Dickens MD Assessment & Plan Assessment & Plan (1) Post concussion syndrome: Code(s): F07.81 - Postconcussional syndrome Category: Medical (2) Posttraumatic headache: Comment: Status post slip and fall in September of 2024. Headache has migraine features. Likely there is a cervicogenic component to this as well. Code(s): G44.309 - Post-traumatic headache, unspecified, not intractable Category: Medical (3) Cervical spondylosis: Comment: Followed by [facility]. Code(s): M47.812 - Spondylosis without myelopathy or radiculopathy, cervical region Category: Medical (4) Paresthesia of right upper and lower extremity: Comment: Status post slip and fall in September of 2024. Followed by [facility] Code(s): R20.2 - Paresthesia of skin Category: Medical Plan Discussed with patient the diagnosis, symptoms, and normal trajectory of postconcussive syndrome, which may be impacted by her cervical and thoracic lumbar symptoms. Reassured patient that her headache symptoms have already started to improve, which is reassuring that they will continue to improve with time. However, we can provide support, symptomatic relief, and therapies to help her be an active participant in her continued recovery. Expressed understanding the patient does not like to take many prescription medications, thus we will start with conservative treatments as below. Patient is in agreement with plan. After visit was complete, was able to obtain MRI report from [facility]: Reviewed MRI brain w/wwo, MRI C-spine, MRI T-spine reports: Brain MRI shows mild puncture it nonspecific supratentorial white matter changes, which were nonenhancing. Could consider follow-up imaging in 6-12 months to assess status, as patient does not have significant risk factors for intracerebral white matter changes. C-spine and T-spine MRI reveal multilevel spondylosis, including upper lumbar region captured in T-spine MRI. Regarding mentioned of probable left kidneys cyst and prominent left vessels in retroperitoneum, which radial just suggested correlating with the CT of abdomen/pelvis- I will defer this to patient's PCP. We will request notes from [facility] Pt advised to: Follow-up with [facility] scheduled. Start OT eval and treat for postconcussive cognitive difficulties- in hopes this will help mood and motivation as well. Check labs for common etiologies of fatigue and cognitive difficulties. Future considerations: RUE/RLE EMG/NCS. For overall headache management: * Optimize good self-care, including but not limited to maintaining a healthy diet, adequate fluid intake, adequate sleep, and engaging in regular physical activity. * Try to maintain a more consistent sleep-wake schedule. * Track headaches, especially after any treatment regimen changes. Migraine [employer] is one of many headache tracking apps. * Information shared on non-pharmacological interventions which may help to alleviate headache attack burden. * For light sensitivity: You may benefit from trying blue light filtering glasses, green glasses, green light therapy. Avoid wearing sunglasses inside. * For sound sensitivity: Patent may benefit from trying noise cancellation ear plugs. For acute headache treatment: Discussed importance of taking acute medications at the first sign of headache, however stressed importance of avoiding acute medication overuse (especially with combined headache medications). Continue meloxicam 7.5 mg daily as needed. May try Tylenol 650-a 1000 mg every 4-6 hours as needed. Previous acute migraine medication trials: Naproxen- ineffective. Cyclobenzaprine- felt it was ineffective. Acute migraine medication contraindications: None at this time For headache prevention medication: Preventative medications should be taken routinely as prescribed for best effect, it may take several weeks for full effect to take effect. Start Riboflavin 400mg daily in the morning Start Magnesium 400mg daily at bedtime Retrial cyclobenzaprine 5 mg daily at bedtime, this also may take few weeks to s ee full effect in reducing muscle tightness and tenderness, to May reduce headache frequency. Previous migraine prevention medication trials: None other Migraine prevention medication contraindications: None at this time Future considerations: Gabapentin/amitriptyline. Pt to follow-up in 3 months or sooner prn. Orders: Orders OT Evaluation and Treatment Today D50.9 - Iron deficiency anemia, unspecified, D64.9 - Anemia, unspecified, F07.81 - Postconcussional syndrome, R41.89 - Other symptoms and signs involving cognitive functions and awareness Vitamin D 25-OH (D2 and D3) Today D50.9 - Iron deficiency anemia, unspecified, D64.9 - Anemia, unspecified, F07.81 - Postconcussional syndrome, R41.89 - Other symptoms and signs involving cognitive functions and awareness Ferritin Today D50.9 - Iron deficiency anemia, unspecified, D64.9 - Anemia, unspecified, F07.81 - Postconcussional syndrome, R41.89 - Other symptoms and signs involving cognitive functions and awareness IRON PROFILE Today D50.9 - Iron deficiency anemia, unspecified, D64.9 - Anemia, unspecified, F07.81 - Postconcussional syndrome, R41.89 - Other symptoms and signs involving cognitive functions and awareness TSH reflex Free T4 Today D50.9 - Iron deficiency anemia, unspecified, D64.9 - Anemia, unspecified, F07.81 - Postconcussional syndrome, R41.89 - Other symptoms and signs involving cognitive functions and awareness Vitamin B12 and Folate Today D50.9 - Iron deficiency anemia, unspecified, D64.9 - Anemia, unspecified, F07.81 - Postconcussional syndrome, R41.89 - Other symp toms and signs involving cognitive functions and awareness Complete Blood Count Auto Diff Today D50.9 - Iron deficiency anemia, unspecified, D64.9 - Anemia, unspecified, F07.81 - Postconcussional syndrome, R41.89 - Other symptoms and signs involving cognitive functions and awareness Comprehensive Met. Panel Today D50.9 - Iron deficiency anemia, unspecified, D64.9 - Anemia, unspecified, F07.81 - Postconcussional syndrome, R41.89 - Other symptoms and signs involving cognitive functions and awareness Medications: New riboflavin (vitamin B2) 400 mg PO DAILY 30 tabs 6RF 30 days magnesium oxide may hold for loose stools 400 mg PO BEDTIME 30 tabs 6RF 30 days Changed From cyclobenzaprine 5 mg PO Q8H PRN 7 tabs 0RF muscle pain To cyclobenzaprine 5 mg PO BEDTIME 30 tabs 1RF muscle pain 30 days Coding Level of Care Code New Pt Level 4 (58377) Diagnoses Post concussion syndrome F07.81 Posttraumatic headache G44.309 Cervical spondylosis M47.812 Paresthesia of right upper and lower extremity R20.2
[2025-02-23 08:38] VITALS: BP 120/76; PULSE 75; O2SAT 100; BMI 28.0
--- OUTSIDE RECORDS SUMMARY | 2025-02-23 08:48 | XMS_ITS | Data Portability ---
Author Organization [place] [facility], Allergy Address [address] [place] [phone] Care Team Providers Care Core Stripper Name Role Phone HILARIO CAI Primary Care Provider Assessment Encounter Date Assessment Date Assessment LastModified by Organization Details LastModified Time 01/17/2025 01/17/2025 Visit With: DENICE Kee Use of Antihistamine s: No If yes: Vial Test Change in medications: No If yes ? ? ? Increase in asthma symptoms If yes, inhaler use: Reaction to last injections: No If yes: ? ? ? Allergy Symptoms: Other: ? ? ? Missed: Dose Aware of Vial Test Notes:? ? ? [email or web address] Not available 01/17/2025 11:50:36 01/24/2025 01/24/2025 Visit With: Toyin Gurrola Use of Antihistamine s: No If yes: Vial Test Change in medications: No If yes ? ? ? Increase in asthma symptoms If yes, inhaler use: Reaction to last injections: Yes If yes: ? ? ?10mm and 5mm right and left arm Allergy Symptoms: Other: ? ? ? Missed: Dose Decreased Aware of Vial Test Notes:? ? ? [email or web address] Not available 01/24/2025 10:32:14 01/31/2025 01/31/2025 Visit With: Toyin Gurrola Use of Antihistamine s: No If yes: Vial Test Change in medications: Yes If yes ? ? ?meloxicam Increase in asthma symptoms If yes, inhaler use: Reaction to last injections: No If yes: ? ? ? Allergy Symptoms: Other: ? ? ? Missed: Dose Aware of Vial Test Notes:? ? ? [email or web address] Not available 01/31/2025 14:14:58 02/07/2025 02/07/2025 Visit With: Toyin Gurrola Use of Antihistamine s: Yes If yes: Vial Test Change in medications: No If yes ? ? ? Increase in asthma symptoms If yes, inhaler use: Reaction to last injections: No If yes: ? ? ? Allergy Symptoms: Other: ? ? ? Missed: Dose Aware of Vial Test Notes:? ? ? [email or web address] Not available 02/07/2025 15:34:29 02/14/2025 02/14/2025 Visit With: Maverick Terrazas RN Use of Antihistamine s: No If yes: Vial Test Change in medications: No If yes ? ? ? Increase in asthma symptoms No Asthma Hx If yes, inhaler use: Reaction to last injections: No If yes: ? ? ? Allergy Symptoms: Other: ? ? ? Missed: Dose Aware of Vial Test Notes:? ? ? [email or web address] Not available 02/14/2025 13:47:22 Plan of Treatment Reminders Order Date Submit Date Provider Last Modified By Organization Details Last Modified Time Details Appointments [facility]- Allergy f-up 6mon 2024 02:30P M KYMBERLY BUSTAMANTE MD Not available Not available Not available Lab None recorded . Referral None recorded . Procedures None recorded . Surgeries None recorded . Imaging None recorded . Medication Orders None recorded . Patient TargetsNo targets recorded. Patient InstructionsNo instructions recorded. Reason for Referral None Reported. Problems Name Problem SNOMED Code Status Onset Date Resolution Date Notes Provider Name and Address Organization Details Recorded Time Hypertrop hy of nasal turbinate s 71410362 Active 2023 Hypertroph y of nasal turbinates ; Note: Date Diagnosed: 01/03/2016 8:40 AM (J34.3) Not Available [facility] 4 02:13:50 Chronic rhinitis 96924643 Active 2023 Chronic rhinitis; Note: Date Diagnosed: 11/22/2023 2:34 PM (J31.0) Not Available [facility] 4 02:13:06 Deviated nasal septum 684899997 Active 2023 Deviated nasal septum; Note: Date Diagnosed: 01/03/2016 8:40 AM (J34.2) Not Available [facility] 4 02:13:23 Disorder of smell 449600439 Active 2023 Other disturbanc es of smell and taste; Note: Date Diagnosed: 11/22/2023 2:34 PM (R43.8) Not Available [facility] 4 02:14:24 Disorder of taste 676815906 Active 2023 Other disturbanc es of smell and taste; Note: Date Diagnosed: 11/22/2023 2:34 PM (R43.8) Not Available [facility] 4 02:14:24 Perennial allergic rhinitis 642413181 Active 2023 ROSA ALDANA, [facility] [address] [place],[address], [place], [address] , [facility] - [facility] 4 16:17:43 Allergic rhinitis 83605757 Active 2023 KYMBERLY MCKEON MD [address] [facility],[place] [address], [place], [address] , [facility] - [facility] [place] 4 14:34:26 Chronic sinusitis 10393218 Active 2023 KYMBERLY MCKEON MD [address] [facility] [place] [address], [place], [address] , [facility] - [facility] 4 14:35:04 Mild intermitt ent asthma 131347239 Active 2023 KYMBERLY MCKEON MD [address] [facility],[place] [address], [place], [address] , [facility] - [facility] 4 14:13:34 Follow-up visit Active 2023 Encounter for follow-up examinatio n after completed treatment for conditions other than malignant neoplasm; Note: Date Diagnosed: 03/03/2024 11:19 AM (Z09) Not Available [facility] 4 02:14:15 Headache 04584131 Active 2023 Headache, unspecifie d; Note: Date Diagnosed: 03/20/2024 11:48 AM (R51.9) Not Available [facility] 4 02:14:40 Posterior rhinorrhe a 11785643 Active 2024 MEAGHAN PHILIPPE PA-C [address] [place],[address] [facility], [facility] [place], [address] , [facility] - [facility] [place] 5 14:11:56 Paresthes ia 64388491 Active 2024 MEAGHAN PHILIPPE PA-C [address] [facility] [place],[address], [place], [address] , [place] [facility] 5 14:12:02 Problem Notes None recorded. Procedures Surgical History Date Name Laterality Status Provider Name and Address Organization Details Recorded Time 02/15/20 25 Allergy Immunotherapy Injections completed MAVERICK TERRAZAS RN [address] [facility] [place],[address] [place] [address], [phone], [facility] - [facility] [place] 02/14/2025 13:47:08 02/08/20 25 Allergy Immunotherapy Injections completed DENICE KEE [address] [facility] [place],[address] [place] [address], [address], [place] [facility] [place] 02/07/2025 15:34:14 02/01/20 25 Allergy Immunotherapy Injections completed DENICE RIVERA [address] [facility] [place],[address] [place] [address], [phone], [facility] - [facility] [place] 01/31/2025 14:14:19 01/25/20 25 Allergy Immunotherapy Injections completed DENICE RIVERA [address] [facility] [place],[address], [address], [place] [facility] [place] 01/24/2025 10:31:45 01/18/20 25 Allergy Immunotherapy Injections completed DENICE RIVERA [address] [facility] [place],[address] [place] [address], [address], [place] [facility] 01/17/2025 11:50:20 01/12/20 25 Allergy Immunotherapy Injections completed MAVERICK TERRAZAS RN [address] [facility] [address] [place] [address], [address], [place] [facility] [place] 01/11/2025 10:38:17 01/03/20 25 Allergy Immunotherapy Injections completed MAVERICK TERRAZAS RN [address], [place], [address], [place] [facility] [place] 01/03/2025 13:48:45 12/29/19 25 Allergy Immunotherapy Injections completed MAVERICK TERRAZAS RN [address], [place], [address], [place] [facility] [place] 12/29/2024 10:36:58 12/20/19 25 Allergy Immunotherapy Injections completed MAVERICK TERRAZAS RN [address] [facility] [address], [place], [address], [place] [facility] [place] 12/20/2024 15:44:53 12/12/19 25 Allergy Immunotherapy Injections completed DENICE RIVERA [address] [facility] [address], [place], [address], [place] [facility] [place] 12/12/2024 13:28:07 11/30/19 25 Allergy Immunotherapy Injections completed ROSA ALDANA RMReji [address], [place], [address], [place] [facility] [place] 11/30/2024 14:28:33 11/22/19 25 Allergy Immunotherapy Injections completed ROSA ALDANA RMA [address], [place], [address], [place] [facility] 11/22/2024 13:40:26 11/15/19 25 Allergy Immunotherapy Injections completed ROSA ALDANA RMReji [address] [facility] [address], [place], [address], [place] [facility] 11/15/2024 13:45:46 11/10/19 25 Allergy Immunotherapy Injections completed DENICE RIVERA [address], [place], [address], [place] [facility] 11/10/2024 15:15:34 11/02/20 24 Allergy Immunotherapy Injections completed MAVERICK TERRAZAS RN [address], [place], [address], [place] [facility] [place] 11/02/2024 10:42:32 10/25/20 24 Allergy Immunotherapy Injections completed MAVERICK TERRAZAS RN [address] [facility] [address] [facility], [place], [address], [place] [facility] [place] 10/25/2024 14:09:21 10/17/20 24 Allergy Immunotherapy Injections completed ROSA ALDANA RMA [address], [place], [address], [place] [facility] 10/17/2024 13:44:09 10/03/20 24 Allergy Immunotherapy Injections completed DENICE RIVERA [address] [facility] [address], [place], [address], [place] [facility] [place] 10/03/2024 13:20:05 09/21/20 24 Allergy Immunotherapy Injections completed MAVERICK TERRAZAS RN [address] [facility] [address] [place] [address], [address], [place] [facility] 09/21/2024 12:01:33 09/12/20 24 Allergy Immunotherapy Injections completed ROSA ALDANA A [address] [facility] [address] [place] [address], [address], [place] [facility] 09/12/2024 14:05:49 09/06/20 24 Allergy Immunotherapy Injections completed DENICE RIVERA [address] [facility] [address] [place] [address], [address], [place] [facility] 09/06/2024 14:48:49 09/06/20 24 JMSNasal/Sinus Endoscopy-PRIOR surgical cavities completed KYMBERLY GARCIA MD [address] [facility] [address] [place] [address], [address], [place] [facility] [place] 09/06/2024 15:05:59 08/29/20 24 Allergy Immunotherapy Injections completed DENICE RIVERA [address] [facility] [address] [place] [address], [address], [place] [facility] 08/29/2024 14:50:02 08/23/20 24 Allergy Immunotherapy Injections completed MAVERICK TERRAZAS RN [address] [facility] [place],[address] [place] [address], [address], [place] [facility] 08/23/2024 15:21:09 08/15/20 24 Allergy Immunotherapy Injections completed MAVERICK TERRAZAS RN [address], [place], [address], [place] [facility] 08/15/2024 14:14:05 08/10/20 24 Allergy Immunotherapy Injections completed RUBINA RIVERAA [address], [place], [address], [place] [facility] 08/10/2024 14:00:51 08/04/20 24 Allergy Immunotherapy Injections completed DENICE RIVERA [address], [place], [address], [place] [facility] 08/04/2024 15:31:25 07/25/20 24 Allergy Immunotherapy Injections completed DENICE KEE [address] [place] [address], [address], [place] [facility] 07/25/2024 14:33:52 07/19/20 24 Allergy Immunotherapy Injections completed MAVERICK TERRAZAS RN [address] [place] [address], [address], [place] [facility] 07/19/2024 16:18:04 07/11/20 24 Allergy Immunotherapy Injections completed ROSA ALDANA RMA [address], [place], [address], [place] [facility] 07/11/2024 14:32:17 07/04/20 24 Allergy Immunotherapy Injections completed DENICE RIVERA [address], [place], [address], [place] [facility] 07/04/2024 14:03:37 06/28/20 24 Allergy Immunotherapy Injections completed MAVERICK TERRAZAS RN [address], [place], [address], [place] [facility] 06/28/2024 14:26:26 06/20/20 24 Allergy Immunotherapy Injections completed ROSA ALDANA RMA [address], [place], [address], [place] [facility] 06/20/2024 13:05:25 06/13/20 24 Allergy Immunotherapy Injections completed DENICE RIVERA [address] [place] [address], [address], [place] [facility] [place] 06/13/2024 15:52:47 06/06/20 24 Allergy Immunotherapy Injections completed MAVERICK TERRAZAS RN [address] [facility] [address], [place], [address], [place] [facility] 06/06/2024 15:10:37 06/06/20 24 JMSNasal/Sinus Endoscopy-PRIOR surgical cavities completed KYMBERLY GARCIA MD [address] [facility] [address] [place] [address], [address], [place] [facility] 06/06/2024 14:10:04 06/01/20 24 Allergy Immunotherapy Injections completed MAVERICK TERRAZAS RN [address] [facility] [place],[address] [place] [address], [address], [place] [facility] 06/01/2024 15:38:20 05/23/20 24 Allergy Immunotherapy Injections completed DENICE RIVERA [address] [facility] [address],[place] [place] [address], [address], [place] [facility] [place] 05/23/2024 14:44:44 05/17/20 24 Allergy Immunotherapy Injections completed DENICE KEE [address] [place] [address], [address], [place] [facility] 05/17/2024 16:10:00 05/09/20 24 Allergy Immunotherapy Injections completed MAVERICK TERRAZAS RN [address] [facility] [address] [place] [address], [address], [place] [facility] 05/09/2024 15:06:52 05/02/20 24 Allergy Immunotherapy Injections completed DENICE RIVERA [address] [facility] [address] [place] [address], [address], [place] [facility] 05/02/2024 13:34:36 04/25/20 24 Allergy Immunotherapy Injections completed DENICE RIVERA [address] [facility] [address], [address], [facility] - [facility] [place] 04/25/2024 14:45:44 04/21/20 24 Allergy Immunotherapy Injections completed DENICE RIVERA [address] [facility] [place],[address] [address] [place] [address], [address], [facility] - [facility] 04/21/2024 14:00:37 04/12/20 24 Allergy Immunotherapy Injections completed DENICE KEE [address] [facility] [place],[address] [place] [address], [address], [facility] - [facility] [place] 04/12/2024 16:04:03 04/05/20 24 JMSNasal/Sinus Endoscopy-PRIOR surgical cavities completed KYMBERLY GARCIA MD [address] [facility] [place],[address], [address], [facility] - [facility] 04/05/2024 14:34:46 04/05/20 24 Allergy Immunotherapy Injections completed DENICE RIVERA [address] [facility] [place],[address], [address], [facility] - [facility] 04/05/2024 13:35:01 03/29/20 24 Allergy Immunotherapy Injections completed ROSA ALDANA Reji [address] [facility] [place],[address], [address], [facility] - [facility] 03/29/2024 16:18:09 02/29/20 24 functional endoscopic sinus surgery completed KYMBERLY GARCIA MD [address] [facility] [place],[address], [address], [facility] - [facility] 04/05/2024 14:33:51 02/29/20 24 Repair of nasal septum completed KYMBERLY GARCIA MD [address] [facility] [place],[address] [place] [address], [address], [facility] - [facility] 04/05/2024 14:34:03 cholecystectomy completed Shyanne Escalante [place] - [facility] 11/15/2024 13:38:47 section completed Shyanne Escalante [place] [facility] 11/15/2024 13:38:52 Imaging Results None recorded. Procedure Notes None recorded. Medical Equipment None Reported. Allergies No known drug allergies Medications Name Sig Start Date Stop Date Status Note LastModified by Organization Details LastModified Time tretinoin 0.1 % topical cream APPLY TO THE AFFECTED AREAS ON THE FACE/NEC K NIGHTLY. active Not Available Not Available No t Available amoxicill in 500 mg capsule TAKE 1 CAPSULE 3 TIMES A DAY UNTIL GONE active Not Available Not Available No t Available doxycycli ne hyclate 100 mg capsule by mouth 09/06 completed Medicati on ID: [id number] D uration Value: 10 Brand Name: doxycycl ine hyclate Send Method: E-Prescr ibed Sub s Allowed: subs OK Speci al Instruct ion: Take 1 po BID X 10 days Med icationG enericNa me: doxycycl ine hyclate Not Available Not Available Not Available trazodone 50 mg tablet TAKE 1/2 TABLET ORALLY BEDTIME NEEDED FOR INSOMNIA active Not Available Not Available No t Available cetirizin e 10 mg tablet TAKE 1 TABLET ORALLY DAILY NEEDED FOR ALLERGY SYMPTOMS FOR 90 DAYS active Not Available Not Available No t Available ibuprofen 800 mg tablet TAKE 1 TABLET BY MOUTH EVERY 8 HOURS active Not Available Not Available No t Available ketotifen 0.025 % (0.035 %) eye drops INSTILL 1 DROP INTO AFFECTED EYE(S) TWICE A DAY active Not Available Not Available No t Available acetamino phen 500 mg tablet TAKE 2 TABLET BY MOUTH EVERY SIX HOURS active Not Available Not Available No t Available meloxicam 7.5 mg tablet TAKE 1 TABLET BY MOUTH EVERY DAY NEEDED FOR PAIN active Not Available Not Available No t Available lorazepam 0.5 mg tablet TAKE 1 TABLET BY MOUTH 2 TIMES A DAY NEEDED FOR ANXIETY active Not Available Not Available No t Available ferrous sulfate 325 mg (65 mg iron) tablet TAKE 1 TABLET BY MOUTH TWICE A DAY active Not Available Not Available No t Available metronida zole 0.75 % topical cream APPLY THIN LAYER TO AFFECTED AREAS ON FACE ONCE DAILY IN THE MORNING active Not Available Not Available No t Available azelastin e 137 mcg (0.1 %) nasal spray USE 2 SPRAYS NASALLY TWICE A DAY DIRECTED active Not Available Not Available No t Available epinephri ne 0.3 mg/0.3 mL injection , auto-inje ctor Inject 1 pen injector single dose as needed 2023 active Medicati on ID: [id number] D uration Value: 180 Brand Name: mery [place] Send Method: E-Prescr ibed Sub s Allowed: subs OK Medic ationGen ericName : mery [place] Not Available Not Available Not Available ibuprofen 600 mg tablet TAKE 1 TABLET BY MOUTH EVERY 6 HOURS,IN STR:NOT TO EXCEED 3200 MG/DAY WITH FOOD OR MILK active Not Available Not Available No t Available fluticaso ne propionat e 50 mcg/actua tion nasal spray,theresa pension SPRAY 2 SPRAYS INTO EACH NOSTRIL EVERY DAY *FOR 90 DAYS* active Not Available Not Available No t Available ipratropi um bromide 21 mcg (0.03 %) nasal spray 2 SPRAYS EACH NOSTRIL 1-3 TIMES DAILY active Not Available Not Available No t Available naproxen 500 mg tablet TAKE 1 TABLET BY MOUTH 2 TIMES A DAY NEEDED FOR PAIN UP TO 7 DAYS active Not Available Not Available No t Available Ventolin HFA 90 mcg/actua tion aerosol inhaler INHALE 2 PUFFS INTO THE LUNGS EVERY 6 HOURS NEEDED active Not Available Not Available No t Available hydroxyzi ne pamoate 25 mg capsule TAKE 1 CAPSULE BY MOUTH EVERY DAY AT BEDTIME FOR 30 DAYS active Not Available Not Available No t Available clindamyc in 1 % lotion APPLY THIN LAYER TO THE FACE 1-2X DAILY active Not Available Not Available No t Available Saline Nasal 0.65 % spray aerosol NASL 2 SPRAYS IN BOTH NOSTRILS 4-6 TIMES DAILY NEEDED active Not Available Not Available No t Available cyclobenz aprine 5 mg tablet TAKE 1 TABLET (5 MG) ORALLY EVERY 8 HOURS NEEDED FOR MUSCLE PAIN active Not Available Not Available No t Available meloxicam active Not Available Not Jocelyne ilable Not Available Astepro Allergy 205.5 mcg (0.15 %) nasal spray SPRAY 1 SPRAY BY INTRANAS AL ROUTE TWICE A DAY 2023 active Not Available Not Available Not Avai lable Vitals None Recorded Social History None recorded. Functional Status None recorded. Mental Status None recorded. Family History Nothing Reported. Medical History Condition Response Allergies/Hayfever Y Nasal or Sinus Problems Y Gynecological HistoryNo gynecological history recorded. Obstetrics History GPAL:G 0 P 0 0 0 0 Past Encounters Encounter ID Performer Location Encounter Start Date Encounter Closed Date Diagnosis/Indication Diagnosis SNOMED-CT Code Diagnosis ICD10 Code Diagnosis Note [id number] KYMBERLY MCKEON MD Allergy [address] [facility],[address] [place] [address] 03/29/2024 15:44:26 03/29/2024 16:42:23 Perennial allergic rhinitis [id number] J30.89 [id number] TOYIN GURROLA [facility] Allergy [address] [facility],[address] [place] [address] 04/05/2024 13:34:19 04/05/2024 15:04:24 Perennial allergic rhinitis [id number] J30.89 [id number] KYMBERLY MCKEON MD [facility] [place] [facility] [place] [address] [facility] [place] [address] 04/05/2024 14:08:28 04/05/2024 14:37:29 Allergic rhinitis 43280756 J30.9 Chronic sinusitis 983512 [id number] [facility] [facility], [facility] Allergy [address] [facility],[address] [place] [address] 04/12/2024 15:55:43 04/12/2024 16:05:09 Perennial allergic rhinitis [id number] J30.89 [id number] TOYIN GURROLA [facility] Allergy [address] [facility],[address] [place] [address] 04/21/2024 13:59:32 04/21/2024 15:24:17 Perennial allergic rhinitis [id number] J30.89 [id number] TOYIN GURROLA [facility] Allergy [address] [place] [address],[address] [place] [address] 04/25/2024 14:32:30 04/25/2024 14:54:24 Perennial allergic rhinitis [id number] J30.89 [id number] TOYIN GURROLA [facility] Allergy [address] [facility],[address] [place] [address] 05/02/2024 13:33:44 05/02/2024 14:50:02 Perennial allergic rhinitis [id number] J30.89 [id number] MAVERICK TERARZAS RN Allergy [address] [facility],[address] [place] [address] 05/09/2024 14:14:28 05/09/2024 15:11:12 Perennial allergic rhinitis [id number] J30.89 [id number] [facility] Allergy [address] [facility],[address] [place] [address] 05/17/2024 15:44:53 05/17/2024 16:19:07 Perennial allergic rhinitis [id number] J30.89 [id number] TOYIN GURROLA [facility] Allergy [address] [place] [address], [address] [place] [address] 05/23/2024 11:44:15 05/24/2024 13:06:20 Perennial allergic rhinitis [id number] J30.89 [id number] MAVERICK TERRAZAS RN Allergy [address] [place] [address], ite [facility] [place] [address] 06/01/2024 15:27:09 06/01/2024 15:39:04 Perennial allergic rhinitis [id number] J30.89 9685 KYMBERLY MCKEON MD [facility] [address] [place] [address] 06/06/2024 12:56:12 06/06/2024 14:19:47 Mild intermittent asthma [id number] J45.20 Allergic rhinitis 692062 04 J30.9 History of neoplasm 2759 75672 Z86.018 no recurrent polyps 13021 MAVERICK TERRAZAS RN Allergy [address] [place] [address], [address] [place] [address] 06/06/2024 12:56:12 06/06/2024 14:19:47 Perennial allergic rhinitis [id number] J30.89 [id number] TOYIN GURROLA [facility] Allergy [address] [place] [address], [address] [place] [address] 06/13/2024 14:52:19 06/13/2024 16:15:52 Perennial allergic rhinitis [id number] J30.89 25760 [facility] RAFAT, A Allergy 100 [facility],[place] [address] [place] [address] 06/20/2024 12:36:44 06/20/2024 14:51:01 Perennial allergic rhinitis [id number] J30.89 [id number] MAVERICK TERRAZAS RN Allergy [address] [place] [address],[place] [address] [place] [address] 06/28/2024 14:13:13 06/28/2024 14:27:01 Perennial allergic rhinitis [id number] J30.89 84420 TOYIN GURROLA, [facility] Allergy [address] [place] [address],[place] [address] [place] [address] 07/04/2024 13:38:01 07/04/2024 15:01:06 Perennial allergic rhinitis [id number] J30.[address] [facility], [facility] Allergy [address] [place] [address],[place] [address] [place] [address] 07/11/2024 14:17:18 07/11/2024 15:03:52 Perennial allergic rhinitis [id number] J30.89 55799 MAVERICK TERRAZAS RN Allergy [address] [place] [address] [address] [place] [address] 07/19/2024 16:17:22 07/19/2024 16:18:41 Perennial allergic rhinitis [id number] J30.[address] [facility], [facility] Allergy [address] [place] [address],[place] [address] [place] [address] 07/25/2024 14:15:32 07/25/2024 14:34:25 Perennial allergic rhinitis [id number] J30.89 22974 TOYIN GURROLA, [facility] Allergy [address] [place] [address],[place] [address] [place] [address] 08/04/2024 15:30:21 08/14/2024 18:40:41 Perennial allergic rhinitis [id number] J30.89 30950 TOYIN GURROLA, [facility] Allergy [address] [place] [address],[place] [address] [place] [address] 08/10/2024 13:46:10 08/10/2024 14:54:08 Perennial allergic rhinitis [id number] J30.89 75937 MAVERICK TERRAZAS RN Allergy [address] [place] [address],[place] [address] [place] [address] 08/15/2024 14:05:14 08/15/2024 14:33:28 Perennial allergic rhinitis [id number] J30.89 80454 MAVERICK TERRAZAS RN Allergy [address] [place], [place] [address]e 100 [place] [address] 08/23/2024 14:54:58 08/23/2024 15:21:41 Perennial allergic rhinitis [id number] J30.89 27522 TOYIN GURROLA [facility] Allergy [address] [place], [place] [address]e 100 [place] [address] 08/29/2024 14:25:52 08/29/2024 14:50:37 Perennial allergic rhinitis [id number] J30.89 [id number] KYMBERLY MCKEON MD [facility] 100 [place] [address] 09/06/2024 14:38:29 09/06/2024 15:10:27 Allergic rhinitis 88953224 J30.9 continue SCIT She will use Astepro 1 spray each nostril twice daily and fluticason e 1 spray each nostril twice daily Headache [id number] R51.9 Chronic sinusitis 064089 00 J32.8 29155 TOYIN GURROLA [facility] Allergy [address] [place], [place] [address]e 100 [place] [address] 09/06/2024 14:39:04 09/06/2024 15:03:17 Perennial allergic rhinitis [id number] J30.[address] [facility], [facility] Allergy [address] [place] [address], [place] [address] 09/12/2024 13:57:30 09/12/2024 14:06:16 Perennial allergic rhinitis [id number] J30.89 83282 MAVERICK TERRAZAS RN Allergy [address] [place], [place] [address]e 100 [place] [address] 09/21/2024 11:00:05 09/21/2024 12:02:02 Perennial allergic rhinitis [id number] J30.89 85499 TOYIN GURROLA [facility] Allergy [address] [place] [address] ite 100 [place] [address] 10/03/2024 12:48:54 10/03/2024 13:25:49 Perennial allergic rhinitis [id number] J30.89 17489 ROSA DOUGLASSC, RMA Allergy [address] [place] [address] [address] [place] [address] 10/17/2024 12:45:37 10/17/2024 13:44:38 Perennial allergic rhinitis 051643822 J30.89 00157 MAVERICK TERRAZAS RN Allergy [address] [place] [address], [address] [place] [address] 10/25/2024 14:08:37 10/25/2024 14:09:51 Perennial allergic rhinitis [id number] J30.89 02911 MAVERICK TERRAZAS RN Allergy [address] [place] [address], [address] [place] [address] 11/02/2024 10:36:26 11/02/2024 10:42:57 Perennial allergic rhinitis [id number] J30.89 95249 TOYIN GURROLA, [facility] Allergy [address] [place] [address], [address] [place] [address] 11/10/2024 10:31:04 11/10/2024 15:18:31 Perennial allergic rhinitis [id number] J30.89 53520 KYMBERLY MCKEON MD [facility] of [facility] [place] - [place] 100 [facility] [place] [address] 11/15/2024 13:20:55 11/15/2024 14:02:44 Headache 12680408 R51.9 Posterior rhinorrhea 758 65583 R09.82 Paresthesia 31476944 R20 .2 70931 [facility] Allergy [address] [place] [address], [address] [place] [address] 11/15/2024 13:20:30 11/15/2024 13:46:31 Perennial allergic rhinitis [id number] J30.89 26238 [facility], A Allergy [address] [place] [address],[place] [address] [place] [address] 11/22/2024 13:05:27 11/22/2024 13:40:57 Perennial allergic rhinitis [id number] J30.89 80578 [facility] Allergy [address] [place] [address],[place] [address] [place] [address] 11/30/2024 14:18:17 11/30/2024 14:28:59 Perennial allergic rhinitis [id number] J30.89 17559 TOYIN GURROLA [facility] Allergy [address] [place] [address],[place] [address] [place] [address] 12/12/2024 13:07:57 12/12/2024 13:28:31 Perennial allergic rhinitis 841466775 J30.89 80649 MAVERICK TERRAZAS RN Allergy [address] [place] [address],[place] [address] [place] [address] 12/20/2024 13:50:01 12/20/2024 15:45:53 Perennial allergic rhinitis 480412513 J30.89 87456 MAVERICK TERRAZAS RN Allergy [address] [place] [address],[place] [address] [place] [address] 12/29/2024 10:35:03 12/29/2024 10:37:15 Perennial allergic rhinitis [id number] J30.89 74174 MAVERICK TERRAZAS RN Allergy [address] [place] [address] [address] [place] [address] 01/03/2025 13:35:33 01/03/2025 13:49:13 Perennial allergic rhinitis [id number] J30.89 78527 MAVERICK TERRAZAS RN Allergy [address] [place] [address], [address] [place] [address] 01/11/2025 09:47:20 01/11/2025 10:38:35 Perennial allergic rhinitis [id number] J30.89 70469 [facility] Allergy [address] [place] [address],[place] [address] [place] [address] 01/17/2025 09:55:01 01/17/2025 11:51:57 Perennial allergic rhinitis [id number] J30.89 27559 TOYIN GURROLA [facility] Allergy [address] [place] [address],[place] [address] [place] [address] 01/24/2025 09:44:25 01/24/2025 10:32:43 Perennial allergic rhinitis [id number] J30.89 13756 TOYIN GURROLA [facility] Allergy [address] [place] [address],[place] [place] [address] 01/31/2025 13:53:35 01/31/2025 14:34:55 Perennial allergic rhinitis [id number] J30.89 68739 ROSA ALDANA, RMA Allergy 100 [facility], [address] [place] [address] 02/07/2025 14:21:08 02/07/2025 15:34:52 Perennial allergic rhinitis [id number] J30.89 79823 MAVERICK TERRAZAS RN Allergy 100 [facility], [address] [place] [address] 02/14/2025 13:37:09 02/14/2025 13:47:46 Perennial allergic rhinitis 419223941 J30.89 Health Concerns Section Related Observation LastModified by Organization Detai ls LastModified Time None Recorded Concern Status LastModified by Organization Details LastModified Time None Recorded Advance Directives Directive None Recorded Payers Encounter Date Sequence Insurance Name Policy Number Policy Maya Covered Member ID Maya Member ID Guarantor Name 01/17/2025 1 [facility] [employer] (MEDICAID HMO) YESENIA Hoffmann [id number] Naina Hoffmann 01/24/2025 1 [facility] [employer] (MEDICAID HMO) YESENIA Hoffmann [id number] Naina Hoffmann 01/31/2025 1 [facility] [employer] (MEDICAID HMO) YESENIA Hoffmann [id number] Naina Hoffmann 02/07/2025 1 [facility] [employer] (MEDICAID HMO) YESENIA Hoffmann [id number] Naina Hoffmann 02/14/2025 1 [facility] [employer] (MEDICAID HMO) YESNEIA Hoffmann [id number] Naina Hoffmann OBGyn Episode No OBEpisode recorded.
== END 2025-02-23 09:55 | disposition home or self-care (01) ==
LOC: HO.HSMS 08:27
PROVIDERS: PCP Nurse Practitioner Family; Visit Provider Nurse Practitioner Family
DX: M47.812 Spondylosis without myelopathy or radiculopathy, cervical region (principal); F07.81 Postconcussional syndrome; G44.309 Post-traumatic headache, unspecified, not intractable; R20.2 Paresthesia of skin
CPT/HCPCS: 99204

== ENCOUNTER → 2025-02-23 08:26 | Outpatient (BNVA) | payer OTHER, SELFPAY | PROVIDERS: PCP Nurse Practitioner Family; Visit Provider Nurse Practitioner Family | DX: G44.309 Post-traumatic headache, unspecified, not intractable (principal); M47.812 Spondylosis without myelopathy or radiculopathy, cervical region; R20.2 Paresthesia of skin; F07.81 Postconcussional syndrome | CPT/HCPCS: 99202 ==

== ENCOUNTER 2025-03-02 10:06 | Outpatient (REF) | payer OTHER, SELFPAY ==
[2025-03-02 10:21] LABS: MANUAL DIFF FLAG NO
--- OUTSIDE RECORDS SUMMARY | 2025-03-02 10:32 | XMS_ITS | Continuity of Care Document ---
Author Organization [place] [facility], Allergy Address [address] [address] Care Team Providers Care Appellate Court Judge Name Role Phone HILARIO CAI Primary Care Provider Assessment Encounter Date Assessment Date Assessment LastModified by Organization Details LastModified Time 03/02/2025 03/02/2025 Visit With: Toyin Valencia Use of Antihistamine s: No If yes: Vial Test Change in medications: No If yes ? ? ? Increase in asthma symptoms If yes, inhaler use: Reaction to last injections: No If yes: ? ? ? Allergy Symptoms: Other: ? ? ? Missed: Dose Aware of Vial Test Notes:? ? ? [email or web address] Not available 03/02/2025 09:22:24 Plan of Treatment Reminders Order Date Submit Date Provider Last Modified By Organization Details Last Modified Time Details Appointments Allergy Shot 2024 09:15A [facility] Not available Not available Not available Establis hed- Allergy f-up 6mon 2024 02:30P M KYMBERLY [...] Time Hypertrop hy of nasal turbinate s [id number] Active 2023 Hypertroph y of nasal turbinates ; Note: Date Diagnosed: 01/03/2016 8:40 AM (J34.3) Not Available [facility] 02:13:50 Chronic rhinitis 34422055 Active 2023 Chronic rhinitis; Note: Date Diagnosed: 11/22/2023 2:34 PM (J31.0) Not Available [facility] 4 02:13:06 Deviated nasal septum 757041900 Active 2023 Deviated nasal septum; Note: Date Diagnosed: 01/03/2016 8:40 AM (J34.2) Not Available [facility] 4 02:13:23 Disorder of smell 800016016 Active 2023 Other disturbanc es of smell and taste; Note: Date Diagnosed: 11/22/2023 2:34 PM (R43.8) Not Available [facility] 02:14:24 Disorder of taste 695212610 Active 2023 Other disturbanc es of smell and taste; Note: Date Diagnosed: 11/22/2023 2:34 PM (R43.8) Not Available [facility] 4 02:14:24 Perennial allergic rhinitis 918988381 Active 2023 ROSA DOUGLASS [facility] [address] [facility], [place], [address] , [place] [facility] 4 16:17:43 Allergic rhinitis 83267037 Active 2023 KYMBERLY MCKEON MD [address] [facility],[address], [place], [address] , [place] [facility] 4 14:34:26 Chronic sinusitis 21952655 Active 2023 KYMBERLY MCKEON MD [address], [place], [address] , [place] J[place] - [facility] 4 14:35:04 Mild intermitt ent asthma 594680729 Active 2023 KYMBERLY MCKEON MD [address], [place], [address] , [place] [facility] 4 14:13:34 Follow-up visit Active 2023 Encounter for follow-up examinatio n after completed treatment for conditions other than malignant neoplasm; Note: Date Diagnosed: 03/03/2024 11:19 AM (Z09) Not Available [facility] 4 02:14:15 Headache 75198998 Active 2023 Headache, unspecifie d; Note: Date Diagnosed: 03/20/2024 11:48 AM (R51.9) Not Available [facility] 4 02:14:40 Posterior rhinorrhe a 94050474 Active 2024 MEAGHAN PHILIPPE PA-C [address], [place], [address] , [place] [facility] 14:11:56 Paresthes ia 65628601 Active 2024 MEAGHAN PHILIPPE PA-C [address], [place], [address] , [place] [facility] 14:12:02 Problem Notes None recorded. Procedures Surgical History Date Name Laterality Status Provider Name and Address Organization Details Recorded Time 03/02/20 25 Allergy Immunotherapy Injections completed DENICE RIVERA [address] [facility], [place], [address], [place] [facility] 03/02/2025 09:22:17 02/24/20 25 Allergy Immunotherapy Injections completed DENICE RIVERA [address] [facility], [place], [address], [place] [facility] 02/23/2025 10:37:57 02/15/20 25 Allergy Immunotherapy Injections completed MAVERICK TERRAZAS RN [address], [place], [address], [place] [facility] 02/14/2025 13:47:08 02/08/20 25 Allergy Immunotherapy Injections completed DENICE MARIA [address], [place], [address], [place] [facility] 02/07/2025 15:34:14 02/01/20 25 Allergy Immunotherapy Injections completed DENICE RIVERA [address], [place], [address], [place] [facility] 01/31/2025 14:14:19 01/25/20 25 Allergy Immunotherapy Injections completed DENICE RIVERA [address] [place] [address], [address], [place] [facility] 01/24/2025 10:31:45 01/18/20 25 Allergy Immunotherapy Injections completed DENICE RIVERA [address] [facility],[address], [place], [address], [place] [facility] 01/17/2025 11:50:20 01/12/20 25 Allergy Immunotherapy Injections completed MAVERICK TERRAZAS RN [address] [facility],[address] [place] [address], [address], [place] [facility] 01/11/2025 10:38:17 01/03/20 25 Allergy Immunotherapy Injections completed MAVERICK TERRAZAS RN [address] [facility],[address], [address], [place] [facility] 01/03/2025 13:48:45 12/29/19 25 Allergy Immunotherapy Injections completed MAVERICK TERRAZAS RN [address] [facility],[address], [address], [place] [facility] 12/29/2024 10:36:58 12/20/19 25 Allergy Immunotherapy Injections completed MAVERICK TERRAZAS RN [address] [facility],[address], [address], [place] [facility] 12/20/2024 15:44:53 12/12/19 25 Allergy Immunotherapy Injections completed DENICE RIVERA [address] [place] [address], [address], [place] [facility] 12/12/2024 13:28:07 11/30/19 25 Allergy Immunotherapy Injections completed ROSA ALDANA RMReji [address], [place], [address], [place] [facility] 11/30/2024 14:28:33 11/22/19 25 Allergy Immunotherapy Injections completed ROSA KORZEC, RMA [address], [place], [address], [place] [facility] 11/22/2024 13:40:26 11/15/19 25 Allergy Immunotherapy Injections completed DENICE MARIA [address], [place], [address], [place] [facility] 11/15/2024 13:45:46 11/10/19 25 Allergy Immunotherapy Injections completed DENICE RIVERA [address], [place], [address], [place] [facility] 11/10/2024 15:15:34 11/02/20 24 Allergy Immunotherapy Injections completed MAVERICK TERRAZAS RN [address] [facility],[address] [place] [address], [address], [place] [facility] 11/02/2024 10:42:32 10/25/20 24 Allergy Immunotherapy Injections completed MAVERICK TERRAZAS RN [address] [facility],[address] [place] [address], [address], [place] [facility] 10/25/2024 14:09:21 10/17/20 24 Allergy Immunotherapy Injections completed ROSA ALDANA RMA [address] [place] [address], [address], [place] [facility] 10/17/2024 13:44:09 10/03/20 24 Allergy Immunotherapy Injections completed DENICE RIVERA [address] [facility],[address] [place] [address], [address], [place] [facility] 10/03/2024 13:20:05 09/21/20 24 Allergy Immunotherapy Injections completed MAVERICK TERRAZAS RN [address] [place] [address], [address], [place] [facility] 09/21/2024 12:01:33 09/12/20 24 Allergy Immunotherapy Injections completed ROSA ALDANA RMReji [address], [place], [address], [place] [facility] 09/12/2024 14:05:49 09/06/20 24 Allergy Immunotherapy Injections completed DENICE RIVERA [address] [facility], [place], [address], [place] [facility] 09/06/2024 14:48:49 09/06/20 24 JMSNasal/Sinus Endoscopy-PRIOR surgical cavities completed KYMBERLY GARCIA MD [address] [place] [address], [address], [place] [facility] 09/06/2024 15:05:59 08/29/20 24 Allergy Immunotherapy Injections completed DENICE RIVERA [address], [place], [address], [place] [facility] 08/29/2024 14:50:02 08/23/20 24 Allergy Immunotherapy Injections completed MAVERICK TERARZAS RN [address] [facility] [address] [place] [address], [address], [place] [facility] 08/23/2024 15:21:09 08/15/20 24 Allergy Immunotherapy Injections completed MAVERICK TERRAZAS RN [address] [facility] [address] [place] [address], [address], [place] [facility] 08/15/2024 14:14:05 08/10/20 24 Allergy Immunotherapy Injections completed DENICE RIVERA [address] [facility] [address] [place] [address], [address], [place] [facility] 08/10/2024 14:00:51 08/04/20 24 Allergy Immunotherapy Injections completed DENICE RIVERA [address] [facility],[address] [place] [address], [address], [place] [facility] 08/04/2024 15:31:25 07/25/20 24 Allergy Immunotherapy Injections completed DENICE MARIA [address] [place] [address], [address], [place] [facility] 07/25/2024 14:33:52 07/19/20 24 Allergy Immunotherapy Injections completed MAVERICK TERRAZAS RN [address], [place], [address], [place] [facility] 07/19/2024 16:18:04 07/11/20 24 Allergy Immunotherapy Injections completed ROSA ALDANA, RMA [address] [place] [address], [address], [place] [facility] 07/11/2024 14:32:17 07/04/20 24 Allergy Immunotherapy Injections completed DENICE RIVERA [address], [place], [address], [place] [facility] 07/04/2024 14:03:37 06/28/20 24 Allergy Immunotherapy Injections completed MAVERICK TERRAZAS RN [address] [facility],[address], [place], [address], [place] [facility] 06/28/2024 14:26:26 06/20/20 24 Allergy Immunotherapy Injections completed ROSA ALDANA, Reji [address], [place], [address], [place] [facility] 06/20/2024 13:05:25 06/13/20 24 Allergy Immunotherapy Injections completed DENICE RIVERA [address] [facility],[address] [place] [address], [address], [place] [facility] 06/13/2024 15:52:47 06/06/20 24 Allergy Immunotherapy Injections completed MAVERICK TERRAZAS RN [address] [facility],[address] [place] [address], [address], [place] [facility] 06/06/2024 15:10:37 06/06/20 24 JMSNasal/Sinus Endoscopy-PRIOR surgical cavities completed KYMBERLY GARCIA MD [address] [place] [address], [address], [place] [facility] 06/06/2024 14:10:04 06/01/20 24 Allergy Immunotherapy Injections completed MAVERICK TERRAZAS RN [address] [facility],[address] [place] [address], [address], [place] [facility] 06/01/2024 15:38:20 05/23/20 24 Allergy Immunotherapy Injections completed DENICE RIVERA [address] [facility],[address] [place] [address], [address], [place] [facility] 05/23/2024 14:44:44 05/17/20 24 Allergy Immunotherapy Injections completed ROSA ALDANA RMA [address], [place], [address], [place] [facility] 05/17/2024 16:10:00 05/09/20 24 Allergy Immunotherapy Injections completed MAVERICK TERRAZAS RN [address], [place], [address], [place] [facility] 05/09/2024 15:06:52 05/02/20 24 Allergy Immunotherapy Injections completed DENICE RIVERA [address], [place], [address], [place] [facility] 05/02/2024 13:34:36 04/25/20 24 Allergy Immunotherapy Injections completed DENICE RIVERA [address] [facility], [place], [address], [place] [facility] 04/25/2024 14:45:44 04/21/20 24 Allergy Immunotherapy Injections completed DENICE RIVERA [address] [facility], [place], [address], [place] [facility] 04/21/2024 14:00:37 04/12/20 24 Allergy Immunotherapy Injections completed ROSA ALDANA RMA [address], [place], [address], [place] [facility] 04/12/2024 16:04:03 04/05/20 24 JMSNasal/Sinus Endoscopy-PRIOR surgical cavities completed KYMBERLY GARCIA MD [address], [place], [address], [place] [facility] 04/05/2024 14:34:46 04/05/20 24 Allergy Immunotherapy Injections completed DENICE RIVERA [address], [place], [address], [place] [facility] 04/05/2024 13:35:01 03/29/20 24 Allergy Immunotherapy Injections completed ROSA ALDANA RMA [address], [place], [address], [place] [facility] 03/29/2024 16:18:09 02/29/20 24 functional endoscopic sinus surgery completed KYMBERLY GARCIA MD 100 [facility],[place] [address], [place], [address], [facility] 04/05/2024 14:33:51 02/29/20 24 Repair of nasal septum completed KYMBERLY GARCIA MD 100 [facility] [address], [place], [address], [place] [facility] 04/05/2024 14:34:03 cholecystectomy completed Shyanne Escalante [place] [facility] 11/15/2024 13:38:47 section completed Shyanne Escalante [place] [facility] 11/15/2024 13:38:52 Imaging Results None recorded. Procedure [...] by mouth 09/06 completed Medicati on ID: [id number] D uration Value: 10 Brand Name: doxycycl [...] as needed 2023 active Medicati on ID: [id number] D uration Value: 180 Brand Name: carlos manuelmitra jaylen Send Method: E-Prescr ibed Sub s Allowed: subs OK Medic ationGen ericName : mery jaylen Not Available Not Available Not Available ibuprofen [...] SNOMED-CT Code Diagnosis ICD10 Code Diagnosis Note [id number] DENICE RIVERA Allergy [address] [place] [address] 100 [facility] [address] 01/31/2025 13:53:35 01/31/2025 14:34:55 Perennial allergic rhinitis [id number] J30.89 [id number] [facility] Allergy [address] [place] [address] 100 [facility] [address] 02/07/2025 14:21:08 02/07/2025 15:34:52 Perennial allergic rhinitis [id number] J30.89 [id number] MAVERICK TERRAZAS RN Allergy [address] [place] [address] 100 [facility] [address] 02/14/2025 13:37:09 02/14/2025 13:47:46 Perennial allergic rhinitis [id number] J30.89 12832 TOYIN VALENCIA Reji Allergy [address] [place] [address] 100 [facility] [address] 02/23/2025 10:34:29 02/23/2025 10:38:49 Perennial allergic rhinitis [id number] J30.89 [id number] TOYIN VALENCIA Reji Allergy [address] [place] [address] 100 [facility] [address] 03/02/2025 09:05:32 03/02/2025 09:22:44 Perennial allergic rhinitis [id number] J30.89 Health Concerns Section Related Observation LastModified by Organization Detai ls LastModified Time None Recorded Concern Status LastModified by Organization Details LastModified Time None Recorded Payers Encounter Date Sequence Insurance Name Policy Number Policy Maya Covered Member ID Maya Member ID Guarantor Name 03/02/2025 1 [facility] NET PLAN (MEDICAID HMO) YESENIA Hoffmann [id number] Naina Hoffmann OBGyn Episode No OBEpisode recorded.
[2025-03-02 10:52] LABS: Basophils Absolute Auto 0.1 X10*3/uL (0.0-0.2); Basophils Percent Auto 0.8 % (0-2); Eosinophils Absolute Auto 0.3 X10*3/uL (0.0-0.4); Eosinophils Percent Auto 5.4 % (0-4); Hematocrit 31.7 % (37.0-47.0); Hemoglobin 9.5 g/dl (12.0-16.0); Imm Gran Abs Auto 0.07 X10*3/uL (0.00-0.03); Imm Gran Pct Auto 1.1 % (0.0-0.4); Lymphocytes Absolute Auto 1.8 X10*3/uL (1.2-4.9); Lymphocytes Percent Auto 28.6 % (20-40); Mean Corpuscular Hemoglobin 20.8 pg (27.0-33.0); Mean Corpuscular Volume 69.5 fL (80.0-98.0); Mean Platelet Volume 10.6 fL (9.4-12.3); Monocytes Absolute Auto 0.6 X10*3/uL (0.1-1.2); Monocytes Percent Auto 9.3 % (2-11); Neutrophils Absolute Auto 3.4 x10*3/uL (2.0-8.3); Neutrophils Percent Auto 54.8 % (45-73); Platelet Count 330 X10*3/uL (160-400); Red Blood Count 4.56 X10*6/uL (4.20-5.50); Red Cell Distribution Width 15.3 % (11.0-16.0); White Blood Count 6.2 X10*3/uL (4.8-10.8)
[2025-03-02 11:18] LABS: Alanine Aminotransferase 11 U/L (0-31); Albumin Level 4.2 g/dL (3.5-5.0); Alkaline Phosphatase 94 U/L (39-117); Anion Gap 7 (12-20); Aspartate Amino Transferase 20 U/L (5-31); Bilirubin Total 0.5 mg/dL (0.0-1.0); Blood Urea Nitrogen 9 mg/dL (9-16); Calcium 9.5 mg/dL (8.4-10.2); Carbon Dioxide 27 mmol/L (22-29); Chloride 109 mmol/L (96-108); Estimated Glomerular Filt Rate > 60; Glucose Random 98 mg/dL (60-115); Iron 16 mcg/dL (30-160); Percent Iron Saturation 5 % (15-50); Potassium 4.4 mmol/L (3.3-5.1); Sodium 139 mmol/L (135-145); Total Iron Binding Capacity 320 mcg/dL (228-428); Total Protein 7.7 g/dL (6.5-8.0); Unsaturated Iron Binding 304 ug/dL
[2025-03-02 11:21] LABS: Alanine Aminotransferase 12 U/L (0-31); Albumin Level 4.2 g/dL (3.5-5.0); Alkaline Phosphatase 96 U/L (39-117); Anion Gap 9 (12-20); Aspartate Amino Transferase 22 U/L (5-31); Bilirubin Total 0.5 mg/dL (0.0-1.0); Blood Urea Nitrogen 9 mg/dL (9-16); Calcium 9.6 mg/dL (8.4-10.2); Carbon Dioxide 27 mmol/L (22-29); Chloride 108 mmol/L (96-108); Estimated Glomerular Filt Rate > 60; Ferritin 3 ng/mL (10-250); Glucose Random 98 mg/dL (60-115); Iron 17 mcg/dL (30-160); Percent Iron Saturation 5 % (15-50); Potassium 4.3 mmol/L (3.3-5.1); Sodium 140 mmol/L (135-145); TSH reflex Free T4 1.49 uIU/mL (0.32-4.0); Total Iron Binding Capacity 321 mcg/dL (228-428); Total Protein 7.7 g/dL (6.5-8.0); Unsaturated Iron Binding 304 ug/dL
[2025-03-02 11:37] LABS: Folate 7.4 ng/mL (> or = 4.0); Vitamin B12 391 pg/mL (200-900)
[2025-03-07 12:14] LABS: Vitamin D 25-OH, D2 <4 ng/mL; Vitamin D 25-OH, D3 31 ng/mL; Vitamin D 25-OH, Total 31 ng/mL (30-100)
== END 2025-03-02 10:07 | disposition home or self-care (01) ==
LOC: HO.LAB 10:06
PROVIDERS: Absent Provider Nurse Practitioner Family; PCP Nurse Practitioner Family; Visit Provider Nurse Practitioner Family
DX: F07.81 Postconcussional syndrome (principal); D50.9 Iron deficiency anemia, unspecified; R41.89 Other symptoms and signs involving cognitive functions and awareness; D64.9 Anemia, unspecified
CPT/HCPCS: 36415; 80053; 82306; 82607; 82728; 82746; 83540; 84443; 85025

== ENCOUNTER 2025-03-16 13:04 | Outpatient (REF) | payer OTHER, SELFPAY ==
--- NOTE | 2025-03-16 13:06 | EMG_ITS ---
Chief complaint: Recent fall 2023, complaining of weakness and paresthesias right upper and lower extremities, posterior headaches Reason for referral: Evaluate for radiculopathy Referred by: Prisca Mai NP Procedure done: Right upper and lower extremity NCS/EMG Precautions and/or limitations: None The limb temperature was monitored continuously and remained between 32-36 degrees C during the performance of the NCS. Nerve Conduction Studies Anti Sensory Summary Table ?Stim Site NR Onset (ms) Norm Onset (ms) Peak (ms) Norm Peak (ms) O-P Amp (?V) Norm O-P Amp Site1 Site2 Delta-0 (ms) Dist (cm) Tk (m/s) Norm Tk (m/s) Right Median Anti Sensory (2nd Digit) Wrist ? 2.9 3.9 <3.6 41.3 >10 Wrist 2nd Digit 2.9 14.0 48 Right Radial Anti Sensory (Thumb) Forearm ? 1.6 2.0 <3.1 35.9 Forearm Thumb 1.6 0.0 Right Sural Anti Sensory (Lat Mall) Calf ? 2.9 3.8 <4.0 8.4 >5.0 Calf Lat Mall 2.9 14.0 48 Right Ulnar Anti Sensory (5th Digit) Wrist ? 2.1 2.9 <3.7 49.9 >15.0 Wrist 5th Digit 2.1 14.0 67 Motor Summary Table ?Stim Site NR Onset (ms) Norm Onset (ms) O-P Amp (mV) Norm O-P Amp iAmp (mV) Amp (1st) (%) Site1 Site2 Delta-0 (ms) Dist (cm) Tk (m/s) Norm Tk (m/s) Right Median Motor (Abd Poll Brev) Wrist ? 4.1 <3.9 8.2 >4.5 9.4 100.0 Elbow Wrist 3.4 19.0 56 >45 Elbow ? 7.5 8.3 9.8 101.2 Right Peroneal Motor (Ext Dig Brev) Ankle ? 3.5 <4.0 6.3 >2.5 8.1 100.0 Ankle Ext Dig Brev 3.5 0.0 B Fib ? 9.2 6.1 7.9 96.8 B Fib Ankle 5.7 29.0 51 >40 Poplt ? 10.1 6.1 7.9 96.8 Poplt B Fib 0.9 5.5 61 >40 Right Tibial Motor (Abd Pal Brev) Ankle ? 3.8 <5 11.9 >2.5 17.1 100.0 Ankle Abd Pal Brev 3.8 0.0 Knee ? 10.8 9.4 13.8 79.0 Knee Ankle 7.0 34.0 49 >40 Right Ulnar Motor (Abd Dig Minimi) Wrist ? 2.5 <3.0 8.9 >5 11.0 100.0 B Elbow Wrist 3.0 18.0 60 >45 B Elbow ? 5.5 8.3 10.4 93.3 A Elbow B Elbow 1.2 10.0 83 >45 A Elbow ? 6.7 8.2 10.3 92.1 EMG ?Side Muscle Nerve Root Ins Act Fibs Psw Amp Dur Poly Recrt Int Pat Comment Right 1stDorInt Ulnar C8-T1 Nml Nml Nml Nml Nml 0 Nml Complete Right FlexCarRad Median C6-7 Nml Nml Nml Nml Nml 0 Nml Complete Right Biceps Musculocut C5-6 Nml Nml Nml Nml Nml 0 Nml Complete Right Triceps Radial C6-7-8 Nml Nml Nml Nml Nml 0 Nml Complete Right Deltoid Axillary C5-6 Nml Nml Nml Nml Nml 0 Nml Complete Right AbdHallucis MedPlantar S1-2 Nml Nml Nml Nml Nml 0 Nml Complete Right AntTibialis Dp Br Peron L4-5 Nml Nml Nml Nml Nml 0 Nml Complete Right PostTibialis Tibial L5, S1 Nml Nml Nml Nml Nml 0 Nml Complete Right MedGastroc Tibial S1-2 Nml Nml Nml Nml Nml 0 Nml Complete Right VastusMed Femoral L2-4 Nml Nml Nml Nml Nml 0 Nml Complete Paraspinal EMG ?Side Muscle Nerve Root Ins Act Fibs Psw Comment Right Cervical Upper Rami Nml Nml Nml Right Cervical Mid Rami Nml Nml Nml Right Cervical Lower Rami Nml Nml Nml Right Lumbar Upper Rami Nml Nml Nml Right Lumbar Mid Rami Nml Nml Nml Right Lumbar Lower Rami Nml Nml Nml FINDINGS: Right median motor nerve showed prolonged distal latency, normal amplitude and normal conduction velocity. Right median sensory nerve showed prolonged peak latency. All other nerves tested were within normal. Concentric needle EMG was performed in selected muscles of the right upper and lower extremities, cervical and lumbar paraspinals. Study did not reveal signs of electric abnormalities as shown in the table above. IMPRESSION: 1. This is an abnormal study. 2. There is electrodiagnostic evidence for right moderate-severe median neuropathy at the wrist, consistent with Carpal Tunnel Syndrome. 3. There is no electrodiagnostic evidence for ulnar neuropathy, brachial plexopathy, cervical radiculopathy, peroneal neuropathy, tibial neuropathy, lumbosacral plexopathy, lumbar radiculopathy, or peripheral neuropathy. Thank you for your kind referral. Raynn Gomez MD, KIRA Board Certified, [place] [employer] and [employer] (ABPMR) Board Certified, [place] [employer] Electrodiagnostic [employer] (ABEM) CODIN 61390 x2 MTDD
--- OUTSIDE RECORDS SUMMARY | 2025-03-16 13:06 | XMS_ITS | Data Portability ---
Author Organization [place] [facility], Allergy Address [address] [place] [phone] Care Team Providers Care Director Of Quality Control Name Role Phone HILARIO CAI Primary Care Provider [phone] Assessment Encounter Date Assessment Date Assessment LastModified by Organization Details LastModified Time 02/23/2025 02/23/2025 Visit With: Toyin Gurrola Use of Antihistamines: No If yes: Vial Test Change in medications: No If yes ? ? ? Increase in asthma symptoms If yes, inhaler use: Reaction to last injections: No If yes: ? ? ? Allergy Symptoms: Other: ? ? ? Missed: Dose Aware of Vial Test Notes:? ? ? [email or web address] Not available 02/23/2025 10:38:14 03/02/2025 03/02/2025 Visit With: Toyin Gurrola Use of Antihistamines: No If yes: Vial Test Change in medications: No If yes ? ? ? Increase in asthma symptoms If yes, inhaler use: Reaction to last injections: No If yes: ? ? ? Allergy Symptoms: Other: ? ? ? Missed: Dose Aware of Vial Test Notes:? ? ? [email or web address] Not available 03/02/2025 09:22:24 03/07/2025 03/07/2025 Patient with history of allergic rhinitis status post septoplasty and turbinate reduction. She was concerned that her nasal drainage symptoms returned after her fall. She googled the symptoms and was concerned about CSF rhinorrhea. MRI scan showed scattered sinus disease but nothing to suggest any encephalocele. The drainage has improved and she just has a little bit of postnasal drip. I have suggested she try some saline spray and an oral antihistamine for the allergies. If she can collect the fluid we can certainly try to test for CSF but I think that would be unlikely. Feels drainage has for the post part resolved david Not available 03/07/2025 14:40:26 03/07/2025 03/07/2025 Visit With: Toyin Gurrola Use of Antihistamines: No If yes: Vial Test Change in medications: No If yes ? ? ? Increase in asthma symptoms If yes, inhaler use: Reaction to last injections: Yes If yes: ? ? ?5 mm all arms Allergy Symptoms: Other: ? ? ? Missed: Dose Repeated Aware of Vial Test Notes:? ? ? [email or web address] Not available 03/07/2025 14:18:40 03/15/2025 03/15/2025 Visit With: DENICE Kee Use of Antihistamines: Yes If yes: Vial Test Change in medications: No If yes ? ? ? Increase in asthma symptoms If yes, inhaler use: Reaction to last injections: No If yes: ? ? ? Allergy Symptoms: Other: ? ? ? Missed: Dose Aware of Vial Test Notes:? ? ? [email or web address] Not available 03/15/2025 13:24:10 Plan of Treatment Reminders Order Date Submit Date Provider Last Modified By Organization Details Last Modified Time Details Appointments [facility]- Allergy f-up 6mon 2024 09:30A M KYMBERLY BUSTAMANTE MD Not available Not [...] Time Hypertrop hy of nasal turbinate s [id number] Active 2023 Hypertroph y of nasal turbinates ; Note: Date Diagnosed: 01/03/2016 8:40 AM (J34.3) Not Available [facility] 4 02:13:50 Chronic rhinitis 29235802 Active 2023 Chronic rhinitis; Note: Date Diagnosed: 11/22/2023 2:34 PM (J31.0) Not Available [facility] 4 02:13:06 Deviated nasal septum 933241340 Active 2023 Deviated nasal septum; Note: Date Diagnosed: 01/03/2016 8:40 AM (J34.2) Not Available [facility] 4 02:13:23 Disorder of smell 199270685 Active 2023 Other disturbanc es of smell and taste; Note: Date Diagnosed: 11/22/2023 2:34 PM (R43.8) Not Available [facility] 4 02:14:24 Disorder of taste 891685937 Active 2023 Other disturbanc es of smell and taste; Note: Date Diagnosed: 11/22/2023 2:34 PM (R43.8) Not Available [facility] 4 02:14:24 Perennial allergic rhinitis 795649781 Active 2023 KYMBERLY MCKEON MD 100 [facility] [address], [place], [address] , [place] [facility] 5 14:39:51 Allergic rhinitis 09876422 Active 2023 KYMBERLY MCKEON MD 100 [facility] [address], [place], [address] , [place] [facility] 4 14:34:26 Chronic sinusitis 82805143 Active 2023 KYMBERLY MCKEON MD 100 [facility] [address], [place], [address] , [place] [facility] 4 14:35:04 Mild intermitt ent asthma 366402783 Active 2023 KYMBERLY MCKEON MD 100 [facility] [address], [place], [address] , [place] [facility] 4 14:13:34 Follow-up visit Active 2023 Encounter for follow-up examinatio n after completed treatment for conditions other than malignant neoplasm; Note: Date Diagnosed: 03/03/2024 11:19 AM (Z09) Not Available [facility] 4 02:14:15 Headache 33967992 Active 2023 Headache, unspecifie d; Note: Date Diagnosed: 03/20/2024 11:48 AM (R51.9) Not Available [facility] 4 02:14:40 Posterior rhinorrhe a 24370823 Active 2024 KYMBERLY MCKEON MD [address], [place], [address] , [place] [facility] 14:40:01 Paresthes ia 32060672 Active 2024 MEAGHAN PHILIPPE PA-C [address] [facility] [address], [place], [address] , [place] [facility] 14:12:02 Postconcu ssion syndrome 03105917 Active 2024 KYMBERLY MCKEON MD 100 [facility] [address], [place], [address] , [place] [facility] 14:40:07 Problem Notes None recorded. Procedures Surgical History Date Name Laterality Status Provider Name and Address Organization Details Recorded Time 03/15/20 25 Allergy Immunotherapy Injections completed DENICE KEE [address] [facility] [address] [facility], [place], [address], [place] [facility] 03/15/2025 13:24:02 03/07/20 25 Allergy Immunotherapy Injections completed DENICE RIVERA 100 [facility] [address] [facility], [place], [address], [place] [facility] 03/07/2025 14:17:42 03/02/20 25 Allergy Immunotherapy Injections completed DENICE RIVERA 100 [facility] [address] [place] [address], [address], [place] [facility] 03/02/2025 09:22:17 02/24/20 25 Allergy Immunotherapy Injections completed DENICE RIVERA 100 [facility] [address] [place] [address], [address], [place] [facility] 02/23/2025 10:37:57 02/15/20 25 Allergy Immunotherapy Injections completed MAVERICK TERRAZAS RN [address], [place], [address], [place] [facility] 02/14/2025 13:47:08 02/08/20 25 Allergy Immunotherapy Injections completed ROSA ALDANA, RMA [address], [place], [address], [place] [facility] 02/07/2025 15:34:14 02/01/20 25 Allergy Immunotherapy Injections completed TOYIN GURROLA A 100 [facility] [address], [place], [address], [place] [facility] 01/31/2025 14:14:19 01/25/20 25 Allergy Immunotherapy Injections completed DENICE RIVERA 100 [facility] [address], [place], [address], [place] [facility] 01/24/2025 10:31:45 01/18/20 25 Allergy Immunotherapy Injections completed TOYIN GURROLA A 100 [facility] [address] [place] [address], [address], [place] [facility] 01/17/2025 11:50:20 01/12/20 25 Allergy Immunotherapy Injections completed MAVERICK TERRAZAS RN 100 [facility] [address] [place] [address], [address], [place] [facility] 01/11/2025 10:38:17 01/03/20 25 Allergy Immunotherapy Injections completed MAVERICK TERRAZAS RN 100 [facility] [address] [place],[address] [place] [address], [address], [place] [facility] 01/03/2025 13:48:45 12/29/19 25 Allergy Immunotherapy Injections completed MAVERICK TERRAZAS RN 100 [facility] [address] [place],[address] [place] [address], [address], [place] [facility] 12/29/2024 10:36:58 12/20/19 25 Allergy Immunotherapy Injections completed MAVERICK TERRAZAS RN 100 [facility] [address] [place] [address], [address], [place] [facility] 12/20/2024 15:44:53 12/12/19 25 Allergy Immunotherapy Injections completed TOYIN GURROLA RMA [address], [place], [address], [place] [facility] 12/12/2024 13:28:07 11/30/19 25 Allergy Immunotherapy Injections completed ROSA ALDANA, RMA [address], [place], [address], [place] [facility] 11/30/2024 14:28:33 11/22/19 25 Allergy Immunotherapy Injections completed ROSA DOUGLASSC, RMA [address], [place], [address], [place] [facility] 11/22/2024 13:40:26 11/15/19 25 Allergy Immunotherapy Injections completed ROSA ALDANA, RMA [address], [place], [address], [place] [facility] 11/15/2024 13:45:46 11/10/19 25 Allergy Immunotherapy Injections completed TOYIN GURROLA RMA [address], [place], [address], [place] [facility] 11/10/2024 15:15:34 11/02/20 24 Allergy Immunotherapy Injections completed MAVERICK TERRAZAS RN 100 [facility] [address] [place] [address], [address], [place] [facility] 11/02/2024 10:42:32 10/25/20 24 Allergy Immunotherapy Injections completed MAVERICK TERRAZAS RN 100 [facility] [address] [place] [address], [address], [place] [facility] 10/25/2024 14:09:21 10/17/20 24 Allergy Immunotherapy Injections completed ROSA ALDANA, RMA [address], [place], [address], [place] [facility] 10/17/2024 13:44:09 10/03/20 24 Allergy Immunotherapy Injections completed TOYIN GURROLA RMA [address], [address], [place] [facility] 10/03/2024 13:20:05 09/21/20 24 Allergy Immunotherapy Injections completed MAVERICK TERRAZAS RN 100 [facility] [address] [facility], [place], [address], [place] [facility] 09/21/2024 12:01:33 09/12/20 24 Allergy Immunotherapy Injections completed ROSA ALDANA RMA [address], [place], [address], [place] [facility] 09/12/2024 14:05:49 09/06/20 24 Allergy Immunotherapy Injections completed DENICE RIVERA 100 [facility] [address], [place], [address], [place] [facility] 09/06/2024 14:48:49 09/06/20 24 JMSNasal/Sinus Endoscopy-PRIOR surgical cavities completed KYMBERLY GARCIA MD 100 [facility] [address] [facility], [place], [address], [place] [facility] 09/06/2024 15:05:59 08/29/20 24 Allergy Immunotherapy Injections completed DENICE RIVERA 100 [facility] [address] [place] [address], [address], [place] [facility] 08/29/2024 14:50:02 08/23/20 24 Allergy Immunotherapy Injections completed MAVERICK TERRAZAS RN 100 [facility] [address] [place] [address], [address], [place] [facility] 08/23/2024 15:21:09 08/15/20 24 Allergy Immunotherapy Injections completed MAVERICK TERRAZAS RN 100 [facility] [address] [place] [address], [address], [place] [facility] 08/15/2024 14:14:05 08/10/20 24 Allergy Immunotherapy Injections completed DENICE RIVERA 100 [facility] [address], [place], [address], [place] [facility] 08/10/2024 14:00:51 08/04/20 24 Allergy Immunotherapy Injections completed DENICE RIVERA 100 [facility] [address], [place], [address], [place] [facility] 08/04/2024 15:31:25 07/25/20 24 Allergy Immunotherapy Injections completed ROSA ALDANA, RMA [address], [place], [address], [place] [facility] 07/25/2024 14:33:52 07/19/20 24 Allergy Immunotherapy Injections completed MAVERICK TERRAZAS RN [address], [place], [address], [place] [facility] 07/19/2024 16:18:04 07/11/20 24 Allergy Immunotherapy Injections completed ROSA ALDANA, RMA 100 [facility] [address], [place], [address], [place] [facility] 07/11/2024 14:32:17 07/04/20 24 Allergy Immunotherapy Injections completed DENICE RIVERA [address] [facility], [place], [address], [place] [facility] 07/04/2024 14:03:37 06/28/20 24 Allergy Immunotherapy Injections completed MAVERICK TERRAZAS RN 100 [facility] [address] [facility], [place], [address], [place] [facility] 06/28/2024 14:26:26 06/20/20 24 Allergy Immunotherapy Injections completed ROSA ALDANA, RMA 100 [facility] [address] [place] [address], [address], [place] [facility] 06/20/2024 13:05:25 06/13/20 24 Allergy Immunotherapy Injections completed DENICE RIVERA 100 [facility] [address], [place], [address], [place] [facility] 06/13/2024 15:52:47 06/06/20 24 Allergy Immunotherapy Injections completed MAVERICK TERRAZAS RN 100 [facility] [address] [place] [address], [address], [place] [facility] 06/06/2024 15:10:37 06/06/20 24 JMSNasal/Sinus Endoscopy-PRIOR surgical cavities completed KYMBERLY GARCIA MD [address], [place], [address], [place] [facility] 06/06/2024 14:10:04 06/01/20 24 Allergy Immunotherapy Injections completed MAVERICK TERRAZAS RN 100 [facility] [address] [place],[address] [place] [address], [address], [place] [facility] 06/01/2024 15:38:20 05/23/20 24 Allergy Immunotherapy Injections completed DENICE RIVERA 100 [facility] [address] [place],[address], [place], [address], [place] [facility] 05/23/2024 14:44:44 05/17/20 24 Allergy Immunotherapy Injections completed DENICE KEE 100 [facility] [address] [place],[address] [place] [address], [address], [place] [facility] 05/17/2024 16:10:00 05/09/20 24 Allergy Immunotherapy Injections completed MAVERICK TERRAZAS RN 100 [facility] [address] [place],[address], [address], [place] [facility] 05/09/2024 15:06:52 05/02/20 24 Allergy Immunotherapy Injections completed DENICE RIVERA 100 [facility] [address] [place],[address] [place] [address], [address], [place] [facility] 05/02/2024 13:34:36 04/25/20 24 Allergy Immunotherapy Injections completed DENICE RIVERA 100 [facility] [address] [place],[address] [place] [address], [address], [place] [facility] 04/25/2024 14:45:44 04/21/20 24 Allergy Immunotherapy Injections completed DENICE RIVERA 100 [facility] [address] [place] [address], [address], [place] [facility] 04/21/2024 14:00:37 04/12/20 24 Allergy Immunotherapy Injections completed ROSA ALDANA RMReji 100 [facility] [address], [place], [address], [place] [facility] 04/12/2024 16:04:03 04/05/20 24 JMSNasal/Sinus Endoscopy-PRIOR surgical cavities completed KYMBERLY GARCIA MD 100 [facility] [address] [place],[address] [place] [address], [address], [place] [facility] 04/05/2024 14:34:46 04/05/20 24 Allergy Immunotherapy Injections completed TOYIN GURROLA, [facility] 100 [facility] [address], [address], [place] [facility] 04/05/2024 13:35:01 03/29/20 24 Allergy Immunotherapy Injections completed ROSA ALDANA, [facility] 100 [facility] [address], [place], [address], [place] [facility] 03/29/2024 16:18:09 02/29/20 24 functional endoscopic sinus surgery completed KYMBERLY GARCIA MD 100 [facility] [address] [place],[address], [address], [place] [facility] 04/05/2024 14:33:51 02/29/20 24 Repair of nasal septum completed KYMBERLY GARCIA MD 100 [facility],[address], [address], [place] [facility] 04/05/2024 14:34:03 cholecystectomy completed Shyanne Escalante [place] - [facility] 11/15/2024 13:38:47 section completed Shyanne Escalante [place] - [facility] 11/15/2024 13:38:52 Imaging Results None recorded. Procedure [...] CAPSULE 3 TIMES A DAY UNTIL GONE 03/07 completed Not Available Not Available Not Available doxycycli ne hyclate 100 mg capsule by mouth 09/06 completed Medicati on ID: [id number] D uration Value: 10 Brand Name: doxycycl ine hyclate Send Method: E-Prescr ibed Sub s Allowed: subs OK Speci al Instruct ion: Take 1 po BID X 10 days Med icationG enericNa me: doxycycl ine hyclate Not Available Not Available Not Available trazodone 50 mg tablet TAKE 1/2 TABLET ORALLY BEDTIME NEEDED FOR INSOMNIA 03/07 completed Not Available Not Available Not Available cetirizin e 10 mg tablet TAKE 1 TABLET ORALLY DAILY NEEDED FOR ALLERGY SYMPTOMS FOR 90 DAYS active Not Available Not Available No t Available ibuprofen 800 mg tablet TAKE 1 TABLET BY MOUTH EVERY 8 HOURS 03/07 completed Not Available Not Available Not Available ketotifen 0.025 % (0.035 %) eye drops INSTILL 1 DROP INTO AFFECTED EYE(S) TWICE A DAY active Not Available Not Available No t Available acetamino phen 500 mg tablet TAKE 2 TABLET BY MOUTH EVERY SIX HOURS 03/07 completed Not Available Not Available Not Available meloxicam 7.5 mg tablet TAKE 1 TABLET BY MOUTH EVERY DAY NEEDED FOR PAIN active Not Available Not Available No t Available magnesium oxide 400 mg (241.3 mg magnesium ) tablet TAKE 1 TABLET BY MOUTH BEDTIME FOR 30 DAYS MAY HOLD FOR LOOSE STOOLS active Not Available Not Available No t Available lorazepam 0.5 mg tablet TAKE 1 TABLET BY MOUTH 2 TIMES A DAY NEEDED FOR ANXIETY 03/07 completed Not Available Not Available Not Available ferrous sulfate 325 mg (65 mg [...] as needed 2023 active Medicati on ID: [id number] D uration Value: 180 Brand Name: mery [place] Send Method: E-Prescr ibed Sub s Allowed: subs OK Medic ationGen ericName : mery york Not Available Not Available Not Available ibuprofen 600 mg tablet TAKE 1 TABLET BY MOUTH EVERY 6 HOURS,IN STR:NOT TO EXCEED 3200 MG/DAY WITH FOOD OR MILK 03/07 completed Not Available Not Available Not Available fluticaso ne propionat e 50 mcg/actua [...] NEEDED FOR PAIN UP TO 7 DAYS 03/07 completed Not Available Not Available Not Available Ventolin HFA 90 mcg/actua tion aerosol inhaler INHALE 2 PUFFS INTO THE LUNGS EVERY 6 HOURS NEEDED active Not Available Not Available No t Available hydroxyzi ne pamoate 25 mg capsule TAKE 1 CAPSULE BY MOUTH EVERY DAY AT BEDTIME FOR 30 DAYS 03/07 completed Not Available Not Available Not Available clindamyc in 1 % lotion APPLY THIN LAYER TO THE FACE 1-2X DAILY active Not Available Not Available No t Available Saline Nasal 0.65 % spray aerosol NASL 2 SPRAYS IN BOTH NOSTRILS 4-6 TIMES DAILY NEEDED active Not Available Not Available No t Available cyclobenz aprine 5 mg tablet TAKE 1 TABLET BY MOUTH BEDTIME FOR MUSCLE PAIN FOR 30 DAYS active Not Available Not Available No t Available meloxicam 03/07 completed Not Available Not Available Not Available riboflavi n (vitamin B2) 400 mg tablet TAKE 1 TABLET BY MOUTH EVERY DAY active Not Available Not Available No t Available Astepro Allergy 205.5 mcg (0.15 %) nasal spray SPRAY 1 SPRAY BY INTRANAS AL ROUTE TWICE A DAY 2023 active Not Available Not Available Not Avai lable Vitals Date Recorded Body height Body mass index (BMI) Body weight Systolic blood pressure Diastolic blood pressure Provider Name and Address Organization Details Last Updated DateTime 03/07/2025 157.48 cm 27.2 kg/m2 73833.47 g 130 mm[Hg] 72 mm[Hg] Kavya Leija [place] - [facility] 14:20:15 Social History None recorded. Functional Status None recorded. Mental Status None recorded. Family History Nothing Reported. Medical History Condition Response Allergies/Hayfever Y Nasal or Sinus Problems Y Gynecological HistoryNo gynecological history recorded. Obstetrics History GPAL:G 0 P 0 0 0 0 Past Encounters Encounter ID Performer Location Encounter Start Date Encounter Closed Date Diagnosis/Indication Diagnosis SNOMED-CT Code Diagnosis ICD10 Code Diagnosis Note [id number] TOYIN GURROLA A Allergy 100 [facility],[address] [place] [address] 03/29/2024 15:44:26 03/29/2024 16:42:23 Perennial allergic rhinitis 010249972 J30.89 [id number] TOYIN GURROLA A Allergy 100 [facility],[address] [place] [address] 04/05/2024 13:34:19 04/05/2024 15:04:24 Perennial allergic rhinitis [id number] J30.89 [id number] KYMBERLY MCKEON MD [facility] [place] [address] [facility] [place] [address] 04/05/2024 14:08:28 04/05/2024 14:37:29 Allergic rhinitis 71380101 J30.9 Chronic sinusitis 252643 00 J32.8 [id number] [facility], A Allergy [address] [place] [address], [address] [place] [address] 04/12/2024 15:55:43 04/12/2024 16:05:09 Perennial allergic rhinitis [id number] J30.89 [id number] TOYIN GURROLA A Allergy [address] [place] [address], [address] [place] [address] 04/21/2024 13:59:32 04/21/2024 15:24:17 Perennial allergic rhinitis [id number] J30.89 [id number] TOYIN GURROLA A Allergy [address] [place] [address],[address] [place] [address] 04/25/2024 14:32:30 04/25/2024 14:54:24 Perennial allergic rhinitis [id number] J30.89 5510 TOYIN GURROLA A Allergy 100 [facility],[address] [place] [address] 05/02/2024 13:33:44 05/02/2024 14:50:02 Perennial allergic rhinitis [id number] J30.89 6373 MAVERICK TERRAZAS RN Allergy 100 [facility],[address] [place] [address] 05/09/2024 14:14:28 05/09/2024 15:11:12 Perennial allergic rhinitis [id number] J30.89 7352 [facility] RAFAT, A Allergy [address] [place] [address],[address] [place] [address] 05/17/2024 15:44:53 05/17/2024 16:19:07 Perennial allergic rhinitis [id number] J30.89 8103 TOYIN GURROLA [facility] Allergy [address] [place] [address],[place] [place] [address] 05/23/2024 11:44:15 05/24/2024 13:06:20 Perennial allergic rhinitis [id number] J30.89 9593 MAVERICK TERRAZAS RN Allergy [address] [place] [address], [address] [place] [address] 06/01/2024 15:27:09 06/01/2024 15:39:04 Perennial allergic rhinitis [id number] J30.89 9685 KYMBERLY MCKEON MD [facility] [place] [address] [place] [address] 06/06/2024 12:56:12 06/06/2024 14:19:47 Mild intermittent asthma 088685242 J45.20 Allergic rhinitis 462587 04 J30.9 History of neoplasm 2759 39169 Z86.018 no recurrent polyps 72393 [facility] Allergy 100 [facility],[address] [place] [address] 06/06/2024 12:56:12 06/06/2024 14:19:47 Perennial allergic rhinitis [id number] J30.89 28787 TOYIN GURROLA [facility] Allergy [address] [place] [address],[place] [place] [address] 06/13/2024 14:52:19 06/13/2024 16:15:52 Perennial allergic rhinitis [id number] J30.89 72542 ROSA RAFAT, A Allergy 100 [facility],[address] [place] [address] 06/20/2024 12:36:44 06/20/2024 14:51:01 Perennial allergic rhinitis [id number] J30.89 79790 MAVERICK TERRAZAS RN Allergy 100 [facility],[address] [place] [address] 06/28/2024 14:13:13 06/28/2024 14:27:01 Perennial allergic rhinitis [id number] J30.89 10494 TOYIN GURROLA, A Allergy 100 [facility],[address] [place] [address] 07/04/2024 13:38:01 07/04/2024 15:01:06 Perennial allergic rhinitis [id number] J30.89 12533 [facility], A Allergy 100 [facility],[address] [place] [address] 07/11/2024 14:17:18 07/11/2024 15:03:52 Perennial allergic rhinitis [id number] J30.89 48995 TOYIN GURROLA, [facility] Allergy 100 [facility],[address] [place] [address] 07/19/2024 16:17:22 07/19/2024 16:18:41 Perennial allergic rhinitis [id number] J30.89 52276 TOYIN GURROLA, [facility] Allergy [address] [place] [address],[address] [place] [address] 07/25/2024 14:15:32 07/25/2024 14:34:25 Perennial allergic rhinitis [id number] J30.89 16461 TOYIN GURROLA, [facility] Allergy 100 [facility],[address] [place] [address] 08/04/2024 15:30:21 08/14/2024 18:40:41 Perennial allergic rhinitis [id number] J30.89 63074 TOYIN GURROLA A Allergy 100 [facility],[address] [place] [address] 08/10/2024 13:46:10 08/10/2024 14:54:08 Perennial allergic rhinitis [id number] J30.89 16653 MAVERICK TERRAZAS RN Allergy 100 [facility],[address] [place] [address] 08/15/2024 14:05:14 08/15/2024 14:33:28 Perennial allergic rhinitis 439906048 J30.89 53177 MAVERICK TERRAZAS RN Allergy 100 [facility],[address] [place] [address] 08/23/2024 14:54:58 08/23/2024 15:21:41 Perennial allergic rhinitis [id number] J30.89 94315 TOYIN GURROLA [facility] Allergy 100 [facility],[address] [place] [address] 08/29/2024 14:25:52 08/29/2024 14:50:37 Perennial allergic rhinitis [id number] J30.89 [id number] KYMBERLY MCKEON MD [facility] [place] [address] 09/06/2024 14:38:29 09/06/2024 15:10:27 Allergic rhinitis 34149874 J30.9 continue SCIT She will use Astepro 1 spray each nostril twice daily and fluticason e 1 spray each nostril twice daily Headache 92662691 R51.9 Chronic sinusitis 139783 00 J32.8 20098 TOYIN GURROLA [facility] Allergy [address] [place] [address],[address] [place] [address] 09/06/2024 14:39:04 09/06/2024 15:03:17 Perennial allergic rhinitis [id number] J30.89 40619 [facility] Allergy 100 [facility],[address] [place] [address] 09/12/2024 13:57:30 09/12/2024 14:06:16 Perennial allergic rhinitis [id number] J30.89 20706 [facility] Allergy [address] [place] [address],[address] [place] [address] 09/21/2024 11:00:05 09/21/2024 12:02:02 Perennial allergic rhinitis [id number] J30.89 07054 TOYIN GURROLA [facility] Allergy 100 [facility],[address] [place] [address] 10/03/2024 12:48:54 10/03/2024 13:25:49 Perennial allergic rhinitis [id number] J30.89 61293 TOYIN GURROLA A Allergy 100 [facility],[address] [place] [address] 10/17/2024 12:45:37 10/17/2024 13:44:38 Perennial allergic rhinitis [id number] J30.89 17246 TOYIN GURROLA [facility] Allergy 100 [facility],[address] [place] [address] 10/25/2024 14:08:37 10/25/2024 14:09:51 Perennial allergic rhinitis 224062226 J30.89 97149 MAVERICK TERRAZAS RN Allergy 100 [facility], [address] [place] [address] 11/02/2024 10:36:26 11/02/2024 10:42:57 Perennial allergic rhinitis [id number] J30.89 08107 TOYIN GURROLA [facility] Allergy 100 [facility],[address] [place] [address] 11/10/2024 10:31:04 11/10/2024 15:18:31 Perennial allergic rhinitis [id number] J30.89 32261 MEAGHAN PHILIPPE PA-C [facility] [place] 100 [facility] [address] 11/15/2024 13:20:55 11/15/2024 14:02:44 Headache 88350632 R51.9 Posterior rhinorrhea 758 64456 R09.82 Paresthesia 03967274 R20 .2 04293 TOYIN GURROLA [facility] Allergy 100 [facility],[address] [place] [address] 11/15/2024 13:20:30 11/15/2024 13:46:31 Perennial allergic rhinitis [id number] J30.89 05936 [facility] A Allergy 100 [facility],[address] [place] [address] 11/22/2024 13:05:27 11/22/2024 13:40:57 Perennial allergic rhinitis 149018105 J30.89 39368 [facility] A Allergy 100 [facility],[address] [place] [address] 11/30/2024 14:18:17 11/30/2024 14:28:59 Perennial allergic rhinitis 552323054 J30.89 60483 TOYIN GURROLA [facility] Allergy [address] [place] [address],[address] [place] [address] 12/12/2024 13:07:57 12/12/2024 13:28:31 Perennial allergic rhinitis [id number] J30.89 89630 [facility], [facility] Allergy [address] [place] [address],[address] [place] [address] 12/20/2024 13:50:01 12/20/2024 15:45:53 Perennial allergic rhinitis [id number] J30.89 24944 MAVERICK TERRAZAS RN Allergy [address] [place] [address],[address] [place] [address] 12/29/2024 10:35:03 12/29/2024 10:37:15 Perennial allergic rhinitis [id number] J30.89 15466 MAVERICK TERRAZAS RN Allergy [address] [place] [address] [address] [place] [address] 01/03/2025 13:35:33 01/03/2025 13:49:13 Perennial allergic rhinitis 366384528 J30.89 34702 MAVERICK TERRAZAS RN Allergy [address] [place] [address], [address] [place] [address] 01/11/2025 09:47:20 01/11/2025 10:38:35 Perennial allergic rhinitis 798628221 J30.89 [id number] [facility] Allergy [address] [place] [address], [address] [place] [address] 01/17/2025 09:55:01 01/17/2025 11:51:57 Perennial allergic rhinitis 153967450 J30.89 56282 TOYIN GURROLA [facility] Allergy [address] [place] [address],[address] [place] [address] 01/24/2025 09:44:25 01/24/2025 10:32:43 Perennial allergic rhinitis 876585656 J30.89 38744 TOYIN GURROLA [facility] Allergy [address] [place] [address],[address] [place] [address] 01/31/2025 13:53:35 01/31/2025 14:34:55 Perennial allergic rhinitis 177957513 J30.89 02475 TOYIN GURROLA [address] [place] [address] 02/07/2025 14:21:08 02/07/2025 15:34:52 Perennial allergic rhinitis 918961225 J30.89 14659 MAVERICK TERRAZAS RN Allergy [address] [place] [address], [place] [address] 02/14/2025 13:37:09 02/14/2025 13:47:46 Perennial allergic rhinitis 689347410 J30.89 40240 TOYIN GURROLA [facility] Allergy [address] [place] [address], [place] [address] 02/23/2025 10:34:29 02/23/2025 10:38:49 Perennial allergic rhinitis 604249419 J30.89 73252 TOYIN GURROLA [address] [place] [address] 03/02/2025 09:05:32 03/02/2025 09:22:44 Perennial allergic rhinitis 828993148 J30.89 26578 KYMBERLY MCKEON MD [facility] [address] [place] [address] 03/07/2025 14:04:55 03/07/2025 14:52:04 Perennial allergic rhinitis 268012805 J30.89 Posterior rhinorrhea 758 91417 J34.89 Postconcus johnny syndrome 50395537 F07.81 10246 TOYIN GURROLA [facility] Allergy [address] [place] [address], [place] [address] 03/07/2025 14:05:21 03/07/2025 14:33:31 Perennial allergic rhinitis 555559539 J30.89 99854 ROSA DOUGLASS, [facility] Allergy [address] [place] [address],[facility] 100 [facility] [place] [address] 03/15/2025 13:11:44 03/15/2025 13:24:24 Perennial allergic rhinitis 516218553 J30.89 Health Concerns Section Related Observation LastModified by Organization Detai ls LastModified Time None Recorded Concern Status LastModified by Organization Details LastModified Time None Recorded Advance Directives Directive None Recorded Payers Insurance Date Sequence Insurance Name Policy Number Policy Maya Covered Member ID Maya Member ID Guarantor Name 03/15/2025 1 [facility] NET PLAN (MEDICAID HMO) ISAURARAVENKwabena Naina Hoffmann [id number] Naina Hoffmann Notes Date Note Type Note Provider Name and Address Organization Details Recorded Time 03/07/2025 text/html Hx of trauma and tinnitus. MRI was negative no further nasal drainage. She still has some postnasal drip. Significant history of allergy No recent INS or antihistamines. She is following up with neurology for postconcussion syndrome and arm weakness. KYMBERLY GARCIA MD [address] [place] [address], [id number], [facility] 03/07/2025 14:41:02 OBGyn Episode No OBEpisode recorded.
--- OUTSIDE RECORDS SUMMARY | 2025-03-16 13:07 | XMS_ITS | Continuity of Care Document ---
Author Organization [place] [facility], Allergy Address [address] [address] Care Team Providers Care Audit Intern Name Role Phone HILARIO CAI Primary Care Provider Assessment Encounter Date Assessment Date Assessment LastModified by Organization Details LastModified Time 03/15/2025 03/15/2025 Visit With: DENICE Kee Use of Antihistamine s: Yes If yes: [...] Organization Details Last Modified Time Details Appointments [facility]- Allergy f-up 6mon 2024 09:30A M KYMBERLY [...] Time Hypertrop hy of nasal turbinate s [id number] Active 2023 Hypertroph y of nasal turbinates ; Note: Date Diagnosed: 01/03/2016 8:40 AM (J34.3) Not Available [facility] 02:13:50 Chronic rhinitis 51678765 Active 2023 Chronic rhinitis; Note: Date Diagnosed: 11/22/2023 2:34 PM (J31.0) Not Available [facility] 4 02:13:06 Deviated nasal septum 217362890 Active 2023 Deviated nasal septum; Note: Date Diagnosed: 01/03/2016 8:40 AM (J34.2) Not Available [facility] 4 02:13:23 Disorder of smell 607240449 Active 2023 Other disturbanc es of smell and taste; Note: Date Diagnosed: 11/22/2023 2:34 PM (R43.8) Not Available [facility] 4 02:14:24 Disorder of taste 226473195 Active 2023 Other disturbanc es of smell and taste; Note: Date Diagnosed: 11/22/2023 2:34 PM (R43.8) Not Available [facility] 4 02:14:24 Perennial allergic rhinitis 936839339 Active 2023 KYMBERLY MCKEON MD [address] [place] [address],[place] [address], [place], [address] , [facility] 5 14:39:51 Allergic rhinitis 48074350 Active 2023 KYMBERLY MCKEON MD [address] [place] [address],[place] [address], [place], [address] , [facility] 4 14:34:26 Chronic sinusitis 99737717 Active 2023 KYMBERLY MCKEON MD [address] [place] [address],[place] [address], [address] , [facility] 4 14:35:04 Mild intermitt ent asthma 590063371 Active 2023 KYMBERLY MCKEON MD [address] [place] [address],[place] [address], [place], [address] , [facility] 4 14:13:34 Follow-up visit Active 2023 Encounter for follow-up examinatio n after completed treatment for conditions other than malignant neoplasm; Note: Date Diagnosed: 03/03/2024 11:19 AM (Z09) Not Available [facility] 4 02:14:15 Headache 35110806 Active 2023 Headache, unspecifie d; Note: Date Diagnosed: 03/20/2024 11:48 AM (R51.9) Not Available [facility] 4 02:14:40 Posterior rhinorrhe a 43255249 Active 2024 KYMBERLY MCKEON MD [address] [facility],[place] [facility], [facility] [place] [place], [address] , [facility] 5 14:40:01 Paresthes ia 53929723 Active 2024 MEAGHAN PHILIPPE PA-C [address] [facility],[place] [address], [facility] [place] [place], [address] , [place] [facility] 5 14:12:02 Postconcu ssion syndrome 68404660 Active 2024 KYMBERLY MCKEON MD [address] [facility] [place] [address], [facility] [place], [address] , [place] [facility] 5 14:40:07 Problem Notes None recorded. Procedures Surgical History Date Name Laterality Status Provider Name and Address Organization Details Recorded Time 03/15/20 25 Allergy Immunotherapy Injections completed ROSA ALDANA Reji [address] [facility],[place] [address] [place] [address], [address], [place] [facility] 03/15/2025 13:24:02 03/07/20 25 Allergy Immunotherapy Injections completed DENICE RIVERA [address] [facility] [place] [address] [place] [address], [address], [place] [facility] 03/07/2025 14:17:42 03/02/20 25 Allergy Immunotherapy Injections completed DENICE RIVERA [address] [facility],[place] [address] [place] [address], [address], [place] [facility] 03/02/2025 09:22:17 02/24/20 25 Allergy Immunotherapy Injections completed DENICE RIVERA [address] [facility] [place] [address] [place] [address], [address], [place] [facility] 02/23/2025 10:37:57 02/15/20 25 Allergy Immunotherapy Injections completed MAVERICK TERRAZAS RN [address] [facility],[place] [address] [place] [address], [address], [place] [facility] 02/14/2025 13:47:08 02/08/20 25 Allergy Immunotherapy Injections completed ROSA ALDANA Reji [address] [facility],[place] [address], [place], [address], [place] [facility] 02/07/2025 15:34:14 02/01/20 25 Allergy Immunotherapy Injections completed DENICE RIVERA [address] [facility] [place],[address], [address], [place] [facility] 01/31/2025 14:14:19 01/25/20 25 Allergy Immunotherapy Injections completed DENICE RIVERA [address] [facility] [place],[address], [address], [place] [facility] 01/24/2025 10:31:45 01/18/20 25 Allergy Immunotherapy Injections completed DENICE RIVERA [address] [facility] [place] [address] [place] [address], [address], [place] [facility] 01/17/2025 11:50:20 01/12/20 25 Allergy Immunotherapy Injections completed MAVERICK TERRAZAS RN [address] [facility] [place],[address], [address], [place] [facility] 01/11/2025 10:38:17 01/03/20 25 Allergy Immunotherapy Injections completed MAVERICK TERRAZAS RN [address] [facility],[place] [address] [place] [address], [address], [place] [facility] 01/03/2025 13:48:45 12/29/19 25 Allergy Immunotherapy Injections completed MAVERICK TERRAZAS RN [address] [facility],[place] [address] [place] [address], [address], [place] [facility] 12/29/2024 10:36:58 12/20/19 25 Allergy Immunotherapy Injections completed MAVERICK TERRAZAS RN [address] [facility],[place] [address] [place] [address], [address], [place] [facility] 12/20/2024 15:44:53 12/12/19 25 Allergy Immunotherapy Injections completed DENICE RIVERA [address],[place] [address], [place], [address], [place] [facility] 12/12/2024 13:28:07 11/30/19 25 Allergy Immunotherapy Injections completed ROSA ALDANA RMA [address],[place] [address], [place], [address], [place] [facility] 11/30/2024 14:28:33 11/22/19 25 Allergy Immunotherapy Injections completed ROSA ALDANA RMA [address],[place] [address], [place], [address], [place] [facility] 11/22/2024 13:40:26 11/15/19 25 Allergy Immunotherapy Injections completed ROSA ALDANA RMA [address],[place] [address] [place] [address], [address], [place] [facility] 11/15/2024 13:45:46 11/10/19 25 Allergy Immunotherapy Injections completed DENICE RIVERA [address],[place] [address] [place] [address], [address], [place] [facility] 11/10/2024 15:15:34 11/02/20 24 Allergy Immunotherapy Injections completed MAVERICK TERRAZAS RN [address],[place] [address] [place] [address], [address], [place] [facility] 11/02/2024 10:42:32 10/25/20 24 Allergy Immunotherapy Injections completed MAVERICK TERRAZAS RN [address] [facility],[place] [address], [place], [address], [place] [facility] 10/25/2024 14:09:21 10/17/20 24 Allergy Immunotherapy Injections completed ROSA ALDANA RMA [address],[place] [address], [place], [address], [place] [facility] 10/17/2024 13:44:09 10/03/20 24 Allergy Immunotherapy Injections completed DENICE RIVERA [address] [address], [place], [address], [place] [facility] 10/03/2024 13:20:05 09/21/20 24 Allergy Immunotherapy Injections completed MAVERICK TERRAZAS RN [address] [facility] [place] [address] [place] [address], [address], [place] [facility] 09/21/2024 12:01:33 09/12/20 24 Allergy Immunotherapy Injections completed ROSA ALDANA Reji [address] [facility] [place] [address] [place] [address], [address], [place] [facility] 09/12/2024 14:05:49 09/06/20 24 Allergy Immunotherapy Injections completed DENICE RIVERA [address] [facility] [place] [address] [place] [address], [address], [place] [facility] 09/06/2024 14:48:49 09/06/20 24 JMSNasal/Sinus Endoscopy-PRIOR surgical cavities completed KYMBERLY GARCIA MD 100 [facility],[address], [address], [place] [facility] 09/06/2024 15:05:59 08/29/20 24 Allergy Immunotherapy Injections completed DENICE RIVERA [address] [facility] [place],[address], [address], [place] [facility] 08/29/2024 14:50:02 08/23/20 24 Allergy Immunotherapy Injections completed MAVERICK TERRAZAS RN 100 [facility],[address], [address], [place] [facility] 08/23/2024 15:21:09 08/15/20 24 Allergy Immunotherapy Injections completed MAVERICK TERRAZAS RN [address] [facility] [place],[address], [address], [place] [facility] 08/15/2024 14:14:05 08/10/20 24 Allergy Immunotherapy Injections completed DENICE RIVERA [address] [facility] [place] [address] [place] [address], [address], [place] [facility] 08/10/2024 14:00:51 08/04/20 24 Allergy Immunotherapy Injections completed DENICE RIVERA [address] [address], [place], [address], [place] [facility] 08/04/2024 15:31:25 07/25/20 24 Allergy Immunotherapy Injections completed ROSA ALDANA RMA [address] [address], [place], [address], [place] [facility] 07/25/2024 14:33:52 07/19/20 24 Allergy Immunotherapy Injections completed MAVERICK TERRAZAS RN [address] [facility] [address], [place], [address], [place] [facility] 07/19/2024 16:18:04 07/11/20 24 Allergy Immunotherapy Injections completed DENICE KEE [address] [facility] [address], [place], [address], [place] [facility] 07/11/2024 14:32:17 07/04/20 24 Allergy Immunotherapy Injections completed DENICE RIVERA [address] [facility] [address], [place], [address], [place] [facility] 07/04/2024 14:03:37 06/28/20 24 Allergy Immunotherapy Injections completed MAVERICK TERRAZAS RN [address] [facility] [facility] [address],[place] [address], [place], [address], [place] [facility] 06/28/2024 14:26:26 06/20/20 24 Allergy Immunotherapy Injections completed DENICE KEE [address] [facility] [address], [place], [address], [place] [facility] 06/20/2024 13:05:25 06/13/20 24 Allergy Immunotherapy Injections completed DENICE RIVERA [address] [facility] [facility] [address] [address], [place], [address], [place] [facility] 06/13/2024 15:52:47 06/06/20 24 Allergy Immunotherapy Injections completed MAVERICK TERRAZAS RN [address] [facility] [address], [place], [address], [place] [facility] 06/06/2024 15:10:37 06/06/20 24 JMSNasal/Sinus Endoscopy-PRIOR surgical cavities completed KYMBERLY GARCIA MD [address],[place] [address] [place] [address], [address], [place] [facility] 06/06/2024 14:10:04 06/01/20 24 Allergy Immunotherapy Injections completed MAVERICK TERRAZAS RN [address],[place] [facility], [place], [address], [place] [facility] 06/01/2024 15:38:20 05/23/20 24 Allergy Immunotherapy Injections completed DENICE RIVERA [address] [address], [place], [address], [place] [facility] 05/23/2024 14:44:44 05/17/20 24 Allergy Immunotherapy Injections completed DENICE KEE [address],[place] [address] [place] [address], [address], [place] [facility] 05/17/2024 16:10:00 05/09/20 24 Allergy Immunotherapy Injections completed MAVERICK TERRAZAS RN [address] [facility],[place] [address] [place] [address], [address], [place] [facility] 05/09/2024 15:06:52 05/02/20 24 Allergy Immunotherapy Injections completed DENICE RIVERA [address],[place] [address] [place] [address], [address], [place] [facility] 05/02/2024 13:34:36 04/25/20 24 Allergy Immunotherapy Injections completed DENICE RIVERA [address] [facility] [facility] [address],[place] [address] [place] [address], [address], [place] [facility] 04/25/2024 14:45:44 04/21/20 24 Allergy Immunotherapy Injections completed DENICE RIVERA [address] [facility] [facility] [address],[place] [address], [place], [address], [place] [facility] 04/21/2024 14:00:37 04/12/20 24 Allergy Immunotherapy Injections completed ROSA ALDANA RMA [address],[place] [address], [place], [address], [place] [facility] 04/12/2024 16:04:03 04/05/20 24 JMSNasal/Sinus Endoscopy-PRIOR surgical cavities completed KYMBERLY GARCIA MD [address] [facility] [address] [place] [address], [address], [facility] 04/05/2024 14:34:46 04/05/20 24 Allergy Immunotherapy Injections completed MAKAYLA GURROLA, [facility] [address] [facility], [address], [facility] 04/05/2024 13:35:01 03/29/20 24 Allergy Immunotherapy Injections completed ROSA ALDANA, [facility] [address] [facility],[place] [address] [place] [address], [address], [facility] 03/29/2024 16:18:09 02/29/20 24 functional endoscopic sinus surgery completed KYMBERLY GARCIA MD [address] [facility] [place],[address], [address], [facility] 04/05/2024 14:33:51 02/29/20 24 Repair of nasal septum completed KYMBERLY GARCIA MD [address] [facility] [place],[address], [address], [facility] 04/05/2024 14:34:03 cholecystectomy completed Shyanne Escalante [place] [facility] 11/15/2024 13:38:47 section completed Shyanne Escalante [place] [facility] 11/15/2024 13:38:52 Imaging Results None recorded. Procedure [...] by mouth 09/06 completed Medicati on ID: [id number] D uration Value: 10 Brand Name: doxycycl [...] as needed 2023 active Medicati on ID: [id number] D uration Value: 180 Brand Name: mery york Send Method: E-Prescr ibed Sub s Allowed: subs [place] Medic ationGen ericName : carlos manuelr jaylen Not Available Not Available Not Available [...] SNOMED-CT Code Diagnosis ICD10 Code Diagnosis Note [id number] MAVERICK TERRAZAS RN Allergy 100 [facility], [address] 100 [place] [address] 02/14/2025 13:37:09 02/14/2025 13:47:46 Perennial allergic rhinitis [id number] J30.89 [id number] MAKAYLA GURROLA A Allergy 100 [facility],[place] [address] [address] [place] [address] 02/23/2025 10:34:29 02/23/2025 10:38:49 Perennial allergic rhinitis 286369449 J30.89 13733 MAKAYLA GURROLA A Allergy 100 [facility],[place] [address] [place] [address] 03/02/2025 09:05:32 03/02/2025 09:22:44 Perennial allergic rhinitis [id number] J30.89 [id number] KYMBERLY MCKEON MD [facility] - [place] [address] [facility] [place] [address] 03/07/2025 14:04:55 03/07/2025 14:52:04 Perennial allergic rhinitis 431152774 J30.89 Posterior rhinorrhea 758 99439 J34.89 Postconcus johnny syndrome 36432335 F07.81 [id number] MAKAYLA GURROLA A Allergy 100 [facility],[place] [address] [place] [address] 03/07/2025 14:05:21 03/07/2025 14:33:31 Perennial allergic rhinitis [id number] J30.89 [id number] ROSA ALDANA, RMA Allergy 100 [facility],[place] [address] [place] [address] 03/15/2025 13:11:44 03/15/2025 13:24:24 Perennial allergic rhinitis [id number] J30.89 Health Concerns Section Related Observation LastModified by Organization Detai ls LastModified Time None Recorded Concern Status LastModified by Organization Details LastModified Time None Recorded Payers Encounter Date Sequence Insurance Name Policy Number Policy Maya Covered Member ID Maya Member ID Guarantor Name 03/15/2025 1 [employer] - HEALTH NET PLAN (MEDICAID HMO) YESENIA Hoffmann [id number] Naina Hoffmann OBGyn Episode No OBEpisode recorded.
== END 2025-03-16 13:05 | disposition home or self-care (01) ==
LOC: HO.NEURO 13:04
PROVIDERS: PCP Nurse Practitioner Family; Visit Provider Nurse Practitioner Family
DX: R20.2 Paresthesia of skin (principal); M47.812 Spondylosis without myelopathy or radiculopathy, cervical region
CPT/HCPCS: 95886; 95910

== ENCOUNTER → 2025-03-16 13:06 | Outpatient (BNV) | payer OTHER, SELFPAY | PROVIDERS: PCP Nurse Practitioner Family; Visit Provider Physical Medicine & Rehabilitation | DX: G56.01 Carpal tunnel syndrome, right upper limb (principal); R20.0 Anesthesia of skin; R20.2 Paresthesia of skin | CPT/HCPCS: 95886; 95910 ==

== ENCOUNTER 2025-03-21 12:24 | Outpatient (AMB) | payer OTHER, SELFPAY ==
--- NOTE | 2025-03-21 12:53 | MHC.OFFVIS ---
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 At the time of the injury, she has swelling, pain, Seen in [place] ED where xrays were taken and no fracture was confirmed. When she returned to [place] she was seen at [facility] where she was told this was inflammation and a possible strain. Currently states her she CTS constant through out the day. She believes this started after her fall. Also mentioned she is having radiating pain from her head down her shoulder and down her arm. EMG done IMPRESSION: 1. This is an abnormal study. 2. There is electrodiagnostic evidence for right moderate-severe median neuropathy at the wrist, consistent with Carpal Tunnel Syndrome. 3. There is no electrodiagnostic evidence for ulnar neuropathy, brachial plexopathy, cervical radiculopathy, peroneal neuropathy, tibial neuropathy, lumbosacral plexopathy, lumbar radiculopathy, or peripheral neuropathy. 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 She complains of numbness in her right median nerve distribution. Symptoms intermittent, but daily, and becoming more freqent. She also feels numbness radiating to her mid-forearm. She says this began after a fall on 09/29/24, while in [place]. She had swelling & pain at the time, but no fractures were seen on radiographs. She complains of pain that radiates from her head, down into her right shoulder, arm, and hand. She says she has post-concussion syndrome and multiple herniated discs in her C-spine. She received a steroid injection in her neck ~2 weeks ago, at [facility]. She denies any locking or catching. She denies any prior treatment options. 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 Current occupational exposures/hazards: No Cognitive needs: No Hearing needs: No Vision needs: No Review of Systems Const All systems reviewed & are unremarkable except as noted in HPI and below Physical Exam Vital Signs: BMI result Body Mass Index 28.0 Const General: cooperative, healthy appearing and no acute distress Orientation/consciousness: patient oriented x3 HEENT Head: Yes normocephalic and Yes atraumatic Eyes EOM: EOMs intact bilaterally Resp Effort & Inspection: normal respiratory effort and able to speak in complete sentences Cardio Jugular venous distension: no JVD Skin General skin exam: turgor normal Rashes: no rashes Neuro General: patient oriented x3 Extrem Other: Evaluation of Right Upper Extremity: The patient is alert, oriented, and in no acute distress Neuro: With dense numbness in the median nerve distribution. Normal sensation tot he ulnar nerve distribution No thenar or intrinsic wasting Good APB muscle belly firing and good finger cross Vascular: Cap refill brisk ROM: She can make a fist and extend all her digits No locking or catching Skin: No lacerations or abrasions. General: No Ecchymosis. No Erythema or evidence of infection. Nerve Conduction Study: Right-side only IMPRESSION: 1. This is an abnormal study. 2. There is electrodiagnostic evidence for right moderate-severe median neuropathy at the wrist, consistent with Carpal Tunnel Syndrome. 3. There is no electrodiagnostic evidence for ulnar neuropathy, brachial plexopathy, cervical radiculopathy, peroneal neuropathy, tibial neuropathy, lumbosacral plexopathy, lumbar radiculopathy, or peripheral neuropathy. Ryann Gomez MD, KIRA 03/16/25 Psych Appearance: grossly normal Affect: normal affect Attitude: cooperative Assessment & Plan Assessment & Plan (1) Right carpal tunnel syndrome: Code(s): G56.01 - Carpal tunnel syndrome, right upper limb Category: Medical (2) Paresthesia of right upper and lower extremity: Comment: Status post slip and fall in September of 2024. Followed by [facility] Code(s): R20.2 - Paresthesia of skin Category: Medical Plan Assessment & Plan: 1. Right carpal tunnel syndrome, moderate-severe With dense numbness, worse at night I educated her about this condition I discussed operative and non-operative treatment options The patient would like to proceed with surgery The risks and benefits of operative treatment were discussed with the patient and the patient wishes to proceed with surgery. These risks include, but are not limited to risk of damage to blood vessels, nerves, tendons, infection, recurrence, incomplete relief of preoperative symptoms, persistent pain, possible need for further surgery and the risks associated with regional blocks and anesthesia. I explained the risks of her sensation not returning, but that surgery is important to maintain muscle function and preserve any sensation possible. She expressed understanding The plan is to take the patient to the operating room sometime in the next few weeks for the following procedures: 1. Right carpal tunnel release, under local All of the preoperative paperwork including the consent was reviewed today. All the patient's questions were answered. The patient understands that they will be contacted by our cyber systems engineer soon to schedule this procedure She denies Diabetes, blood thinners, asthma, heart, lung, kidney issues 2. Pain in the right neck and shoulder radiating down the right upper extremity This is apparently being managed in a pain clinic in [place], and she recently had injections. There is report of possible herniated disc Scribed for Linda Redman MD by Gibson Green, center medical and lab director, on 03/21/25 at 1:10 PM, EST. Coding Level of Care Code New Pt Level 4 (34333) Diagnoses Right carpal tunnel syndrome G56.01 Paresthesia of right upper and lower extremity R20.2
--- OUTSIDE RECORDS SUMMARY | 2025-03-21 12:53 | XMS_ITS | Data Portability ---
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 ? ? [email or web address] Not available 02/23/2025 10:38:14 03/02/2025 03/02/2025 Visit With: Toyin Gurrola Use of Antihistamines: No If yes: Vial Test Change in medications: No If yes ? ? ? Increase in asthma symptoms If yes, inhaler use: Reaction to last injections: No If yes: ? ? ? Allergy Symptoms: Other: ? ? ? Missed: Dose Aware of Vial Test Notes:? ? ? [email or web address] Not available 03/02/2025 09:22:24 03/07/2025 03/07/2025 Patient [...] Aware of Vial Test Notes:? ? ? [email or web address] Not available 03/07/2025 14:18:40 03/15/2025 03/15/2025 Visit [...] Organization Details Last Modified Time Details Appointments [facility]- Allergy f-up 6mon 2024 09:30A M [...] Time Hypertrop hy of nasal turbinate s 60717473 Active 2023 Hypertroph y of nasal turbinates ; Note: Date Diagnosed: 01/03/2016 8:40 AM (J34.3) Not Available [facility] 4 02:13:50 Chronic rhinitis 73233601 Active 2023 Chronic rhinitis; Note: Date Diagnosed: 11/22/2023 2:34 PM (J31.0) Not Available [facility] 4 02:13:06 Deviated nasal septum 308764971 Active 2023 Deviated nasal septum; Note: Date Diagnosed: 01/03/2016 8:40 AM (J34.2) Not Available [facility] 4 02:13:23 Disorder of smell 872890180 Active 2023 Other disturbanc es of smell and taste; Note: Date Diagnosed: 11/22/2023 2:34 PM (R43.8) Not Available [facility] 4 02:14:24 Disorder of taste 505403057 Active 2023 Other disturbanc es of smell and taste; Note: Date Diagnosed: 11/22/2023 2:34 PM (R43.8) Not Available [facility] 4 02:14:24 Perennial allergic rhinitis 527144467 Active 2023 KYMBERLY MCKEON MD [address], [place], [address] , [place] [facility] 5 14:39:51 Allergic rhinitis 30569412 Active 2023 KYMBERLY MCKEON MD [address], [place], [address] , [place] [facility] [place] 4 14:34:26 Chronic sinusitis 41563548 Active 2023 KYMBERLY MCKEON MD [address], [place], [address] , [place] [facility] 4 14:35:04 Mild intermitt ent asthma 164448964 Active 2023 KYMBERLY MCKEON MD [address], [place], [address] , [place] [facility] 4 14:13:34 Follow-up visit Active 2023 Encounter for follow-up examinatio n after completed treatment for conditions other than malignant neoplasm; Note: Date Diagnosed: 03/03/2024 11:19 AM (Z09) Not Available [facility] 4 02:14:15 Headache 58663795 Active 2023 Headache, unspecifie d; Note: Date Diagnosed: 03/20/2024 11:48 AM (R51.9) Not Available [facility] 4 02:14:40 Posterior rhinorrhe a 09718811 Active 2024 KYMBERLY MCKEON MD [address], [place], [address] , [place] [facility] [place] 14:40:01 Paresthes ia 48661445 Active 2024 MEAGHAN PHILIPPE PA-C [address], [place], [address] , [place] [facility] 14:12:02 Postconcu ssion syndrome 73897647 Active 2024 KYMBERLY MCKEON MD [address], [place], [address] , [place] [facility] 14:40:07 Problem Notes None recorded. Procedures Surgical History Date Name Laterality Status Provider Name and Address Organization Details Recorded Time 03/15/20 25 Allergy Immunotherapy Injections completed DENICE KEE [address] [facility], [place], [address], [place] [facility] 03/15/2025 13:24:02 03/07/20 25 Allergy Immunotherapy Injections completed DENICE RIVERA [address] [facility], [place], [address], [place] [facility] [place] 03/07/2025 14:17:42 03/02/20 25 Allergy Immunotherapy Injections completed DENICE RIVERA [address] [place] [address], [address], [place] [facility] 03/02/2025 09:22:17 02/24/20 25 Allergy Immunotherapy Injections completed DENICE RIVERA [address] [place] [address], [address], [place] [facility] 02/23/2025 10:37:57 02/15/20 25 Allergy Immunotherapy Injections completed MAVERICK TERRAZAS RN [address], [place], [address], [place] [facility] 02/14/2025 13:47:08 02/08/20 25 Allergy Immunotherapy Injections completed ROSA ALDANA, RMA [address], [place], [address], [place] [facility] 02/07/2025 15:34:14 02/01/20 25 Allergy Immunotherapy Injections completed TOYIN GURROLA A [address], [place], [address], [place] [facility] 01/31/2025 14:14:19 01/25/20 25 Allergy Immunotherapy Injections completed DENICE RIVERA [address], [place], [address], [place] [facility] 01/24/2025 10:31:45 01/18/20 25 Allergy Immunotherapy Injections completed TOYIN GURROLA A [address] [place] [address], [address], [place] [facility] 01/17/2025 11:50:20 01/12/20 25 Allergy Immunotherapy Injections completed MAVERICK TERRAZAS RN [address] [place] [address], [address], [place] [facility] 01/11/2025 10:38:17 01/03/20 25 Allergy Immunotherapy Injections completed MAVERICK TERRAZAS RN [address] [facility] [place],[address] [place] [address], [address], [place] [facility] 01/03/2025 13:48:45 12/29/19 25 Allergy Immunotherapy Injections completed MAVERICK TERRAZAS RN [address] [facility] [address] [place],[address] [place] [address], [address], [place] [facility] 12/29/2024 10:36:58 12/20/19 25 Allergy Immunotherapy Injections completed MAVERICK TERRAZAS RN [address] [place] [address], [address], [place] [facility] 12/20/2024 15:44:53 12/12/19 25 Allergy Immunotherapy Injections completed TOYIN GURROLA RMA [address], [place], [address], [place] [facility] 12/12/2024 13:28:07 11/30/19 25 Allergy Immunotherapy Injections completed ROSA ALDANA, RMA [address], [place], [address], [place] [facility] 11/30/2024 14:28:33 11/22/19 25 Allergy Immunotherapy Injections completed ROSA DOUGLASSC, RMA [address], [place], [address], [place] [facility] 11/22/2024 13:40:26 11/15/19 25 Allergy Immunotherapy Injections completed ROSA ALDANA, RMA [address], [place], [address], [place] [facility] 11/15/2024 13:45:46 11/10/19 25 Allergy Immunotherapy Injections completed TOYIN GURROLA RMA [address], [place], [address], [place] [facility] 11/10/2024 15:15:34 11/02/20 24 Allergy Immunotherapy Injections completed MAVERICK TERRAZAS RN [address] [place] [address], [address], [place] [facility] 11/02/2024 10:42:32 10/25/20 24 Allergy Immunotherapy Injections completed MAVERICK TERRAZAS RN [address] [place] [address], [address], [place] [facility] 10/25/2024 14:09:21 10/17/20 24 Allergy Immunotherapy Injections completed ROSA ALDANA, RMA [address], [place], [address], [place] [facility] 10/17/2024 13:44:09 10/03/20 24 Allergy Immunotherapy Injections completed TOYIN GURROLA RMA [address], [place], [address], [place] [facility] 10/03/2024 13:20:05 09/21/20 24 Allergy Immunotherapy Injections completed MAVERICK TERRAZAS RN [address] [facility], [place], [address], [place] [facility] 09/21/2024 12:01:33 09/12/20 24 Allergy Immunotherapy Injections completed ROSA ALDANA RMA [address], [place], [address], [place] [facility] 09/12/2024 14:05:49 09/06/20 24 Allergy Immunotherapy Injections completed DENICE RIVERA [address], [place], [address], [place] [facility] 09/06/2024 14:48:49 09/06/20 24 JMSNasal/Sinus Endoscopy-PRIOR surgical cavities completed KYMBERLY GARCIA MD [address] [facility], [place], [address], [place] [facility] 09/06/2024 15:05:59 08/29/20 24 Allergy Immunotherapy Injections completed DENICE RIVERA [address] [place] [address], [address], [place] [facility] 08/29/2024 14:50:02 08/23/20 24 Allergy Immunotherapy Injections completed MAVERICK TERRAZAS RN [address] [place] [address], [address], [place] [facility] 08/23/2024 15:21:09 08/15/20 24 Allergy Immunotherapy Injections completed MAVERICK TERRAZAS RN [address] [place] [address], [address], [place] [facility] 08/15/2024 14:14:05 08/10/20 24 Allergy Immunotherapy Injections completed DENICE RIVERA [address], [place], [address], [place] [facility] 08/10/2024 14:00:51 08/04/20 24 Allergy Immunotherapy Injections completed DENICE RIVERA [address], [address], [place] [facility] 08/04/2024 15:31:25 07/25/20 24 Allergy Immunotherapy Injections completed ROSA ALDANA, RMA [address], [place], [address], [place] [facility] 07/25/2024 14:33:52 07/19/20 24 Allergy Immunotherapy Injections completed MAVERICK TERRAZAS RN [address], [place], [address], [place] [facility] 07/19/2024 16:18:04 07/11/20 24 Allergy Immunotherapy Injections completed ROSA ALDANA, RMA [address], [place], [address], [place] [facility] 07/11/2024 14:32:17 07/04/20 24 Allergy Immunotherapy Injections completed DENICE RIVERA [address] [facility], [place], [address], [place] [facility] 07/04/2024 14:03:37 06/28/20 24 Allergy Immunotherapy Injections completed MAVERICK TERRAZAS RN [address] [facility], [place], [address], [place] [facility] 06/28/2024 14:26:26 06/20/20 24 Allergy Immunotherapy Injections completed ROSA ALDANA, RMA [address] [place] [address], [address], [place] [facility] 06/20/2024 13:05:25 06/13/20 24 Allergy Immunotherapy Injections completed DENICE RIVERA [address], [place], [address], [place] [facility] 06/13/2024 15:52:47 06/06/20 24 Allergy Immunotherapy Injections completed MAVERICK TERRAZAS RN [address] [place] [address], [address], [place] [facility] 06/06/2024 15:10:37 06/06/20 24 JMSNasal/Sinus Endoscopy-PRIOR surgical cavities completed KYMBERLY GARCIA MD [address], [place], [address], [place] [facility] 06/06/2024 14:10:04 06/01/20 24 Allergy Immunotherapy Injections completed MAVERICK TERRAZAS RN [address] [facility] [facility] [address] [place],[address] [place] [address], [address], [place] [facility] 06/01/2024 15:38:20 05/23/20 24 Allergy Immunotherapy Injections completed DENICE RIVERA [address] [facility] [place],[address], [place], [address], [place] [facility] 05/23/2024 14:44:44 05/17/20 24 Allergy Immunotherapy Injections completed DENICE KEE [address] [facility] [place],[address] [place] [address], [address], [place] [facility] 05/17/2024 16:10:00 05/09/20 24 Allergy Immunotherapy Injections completed MAVERICK TERRAZAS RN [address] [facility] [place],[address], [address], [place] [facility] 05/09/2024 15:06:52 05/02/20 24 Allergy Immunotherapy Injections completed DENICE RIVERA [address] [facility] [place],[address] [place] [address], [address], [place] [facility] 05/02/2024 13:34:36 04/25/20 24 Allergy Immunotherapy Injections completed DENICE RIVERA [address] [facility] [place],[address] [place] [address], [address], [place] [facility] 04/25/2024 14:45:44 04/21/20 24 Allergy Immunotherapy Injections completed DENICE RIVERA [address] [place] [address], [address], [place] [facility] 04/21/2024 14:00:37 04/12/20 24 Allergy Immunotherapy Injections completed ROSA ALDANA RMReji [address], [place], [address], [place] [facility] 04/12/2024 16:04:03 04/05/20 24 JMSNasal/Sinus Endoscopy-PRIOR surgical cavities completed KYMBERLY GARCIA MD [address] [facility] [place],[address] [place] [address], [address], [place] [facility] 04/05/2024 14:34:46 04/05/20 24 Allergy Immunotherapy Injections completed TOYIN GURROLA, [facility] [address], [address], [place] [facility] 04/05/2024 13:35:01 03/29/20 24 Allergy Immunotherapy Injections completed RSOA ALDANA, [facility] [address], [place], [address], [place] [facility] 03/29/2024 16:18:09 02/29/20 24 functional endoscopic sinus surgery completed KYMBERLY GARCIA MD [address] [facility] [facility] [place],[address], [address], [place] [facility] 04/05/2024 14:33:51 02/29/20 24 Repair of nasal septum completed KYMBERLY GARCIA MD [address] [facility],[address], [address], [place] [facility] 04/05/2024 14:34:03 cholecystectomy completed Shyanne Escalante [place] - [facility] 11/15/2024 13:38:47 section completed Shyanne Escalante [place] - [facility] 11/15/2024 13:38:52 Imaging Results None recorded. Procedure [...] by mouth 09/06 completed Medicati on ID: [id number] D uration Value: 10 Brand Name: doxycycl [...] as needed 2023 active Medicati on ID: [id number] D uration Value: 180 Brand Name: mery [...] Updated DateTime 03/07/2025 157.48 cm 27.2 kg/m2 07416.47 g 130 mm[Hg] 72 mm[Hg] Kavya Leija [place] - [facility] 14:20:15 Social History None recorded. Functional Status [...] Note 1216 TOYIN GURROLA A Allergy [address] [facility],[address] [place] [address] 03/29/2024 15:44:26 03/29/2024 16:42:23 Perennial allergic rhinitis [id number] J30.89 1874 TOYIN GURROLA A Allergy [address] [facility],[address] [place] [address] 04/05/2024 13:34:19 04/05/2024 15:04:24 Perennial allergic rhinitis [id number] J30.89 1885 KYMBERLY MCKEON MD [facility] [place] [address] [facility] [place] [address] 04/05/2024 14:08:28 04/05/2024 14:37:29 Allergic rhinitis 69422994 J30.9 Chronic sinusitis 125545 00 J32.8 2927 [place], A Allergy [address] [place] [address], [address] [place] [address] 04/12/2024 15:55:43 04/12/2024 16:05:09 Perennial allergic rhinitis [id number] J30.89 [id number] TOYIN GURROLA A Allergy [address] [place] [address], [address] [place] [address] 04/21/2024 13:59:32 04/21/2024 15:24:17 Perennial allergic rhinitis [id number] J30.89 4568 TOYIN GURROLA A Allergy [address] [place] [address],[address] [place] [address] 04/25/2024 14:32:30 04/25/2024 14:54:24 Perennial allergic rhinitis [id number] J30.89 [id number] TOYIN GURROLA A Allergy [address] [facility],[address] [place] [address] 05/02/2024 13:33:44 05/02/2024 14:50:02 Perennial allergic rhinitis 570063778 J30.89 [id number] MAVERICK TERRAZAS RN Allergy [address] [facility],[address] [place] [address] 05/09/2024 14:14:28 05/09/2024 15:11:12 Perennial allergic rhinitis 165309103 J30.89 7352 [facility], A Allergy [address] [place] [address],[address] [place] [address] 05/17/2024 15:44:53 05/17/2024 16:19:07 Perennial allergic rhinitis 378744644 J30.89 8103 TOYIN GURROLA [facility] Allergy [address] [place] [address],[address] [place] [address] 05/23/2024 11:44:15 05/24/2024 13:06:20 Perennial allergic rhinitis 140951216 J30.89 [id number] MAVERICK TERRAZAS RN Allergy [address] [place] [address], [address] [place] [address] 06/01/2024 15:27:09 06/01/2024 15:39:04 Perennial allergic rhinitis [id number] J30.89 [id number] KYMBERLY MCKEON MD [facility] [place] [address] [facility] [place] [address] 06/06/2024 12:56:12 06/06/2024 14:19:47 Mild intermittent asthma 766854628 J45.20 Allergic rhinitis 343529 04 J30.9 History of neoplasm 2759 26874 Z86.018 no recurrent polyps [id number] [facility] Allergy [address] [facility],[address] [place] [address] 06/06/2024 12:56:12 06/06/2024 14:19:47 Perennial allergic rhinitis 798822494 J30.89 [id number] TOYIN GURROLA [facility] Allergy [address] [place] [address],[address] [place] [address] 06/13/2024 14:52:19 06/13/2024 16:15:52 Perennial allergic rhinitis 142655244 J30.89 [id number] [facility] [place], A Allergy [address] [facility],[address] [place] [address] 06/20/2024 12:36:44 06/20/2024 14:51:01 Perennial allergic rhinitis 053461442 J30.89 [id number] MAVERICK TERRAZAS RN Allergy [address] [facility],[address] [place] [address] 06/28/2024 14:13:13 06/28/2024 14:27:01 Perennial allergic rhinitis [id number] J30.89 [id number] TOYIN GURROLA, A Allergy [address] [facility],[address] [place] [address] 07/04/2024 13:38:01 07/04/2024 15:01:06 Perennial allergic rhinitis [id number] J30.89 [id number] [place], A Allergy [address] [facility],[address] [place] [address] 07/11/2024 14:17:18 07/11/2024 15:03:52 Perennial allergic rhinitis 607773168 J30.89 [id number] TOYIN GURROLA, [facility] Allergy [address] [facility],[address] [place] [address] 07/19/2024 16:17:22 07/19/2024 16:18:41 Perennial allergic rhinitis 793482305 J30.89 [id number] TOYIN GURROLA, [facility] Allergy [address] [place] [address],[address] [place] [address] 07/25/2024 14:15:32 07/25/2024 14:34:25 Perennial allergic rhinitis 673460334 J30.89 [id number] TOYIN GURROLA, [facility] Allergy [address] [facility],[address] [place] [address] 08/04/2024 15:30:21 08/14/2024 18:40:41 Perennial allergic rhinitis 198941234 J30.89 [id number] TOYIN GURROLA A Allergy 100 [facility],[address] [place] [address] 08/10/2024 13:46:10 08/10/2024 14:54:08 Perennial allergic rhinitis [id number] J30.89 [id number] MAVERICK TERRAZAS RN Allergy [address] [facility],[address] [place] [address] 08/15/2024 14:05:14 08/15/2024 14:33:28 Perennial allergic rhinitis 527584388 J30.89 11174 MAVERICK TERRAZAS RN Allergy 100 [facility],[address] [place] [address] 08/23/2024 14:54:58 08/23/2024 15:21:41 Perennial allergic rhinitis 263395202 J30.89 [id number] TOYIN GURROLA [facility] Allergy [address] [facility],[address] [place] [address] 08/29/2024 14:25:52 08/29/2024 14:50:37 Perennial allergic rhinitis [id number] J30.89 [id number] KYMBERLY MCKEON MD [facility] 100 [facility] [place] [address] 09/06/2024 14:38:29 09/06/2024 15:10:27 Allergic rhinitis 26679078 J30.9 continue SCIT She will use Astepro 1 spray each nostril twice daily and fluticason e 1 spray each nostril twice daily Headache 33596090 R51.9 Chronic sinusitis 496414 00 J32.8 33875 TOYIN GURROLA [facility] Allergy [address] [place] [address],[address] [place] [address] 09/06/2024 14:39:04 09/06/2024 15:03:17 Perennial allergic rhinitis 154231817 J30.89 [id number] [facility] Allergy 100 [facility],[address] [place] [address] 09/12/2024 13:57:30 09/12/2024 14:06:16 Perennial allergic rhinitis 969565061 J30.89 [id number] [facility] Allergy [address] [place] [address],[address] [place] [address] 09/21/2024 11:00:05 09/21/2024 12:02:02 Perennial allergic rhinitis [id number] J30.89 [id number] TOYIN GURROLA [facility] Allergy 100 [facility],[address] [place] [address] 10/03/2024 12:48:54 10/03/2024 13:25:49 Perennial allergic rhinitis 297414962 J30.89 [id number] TOYIN GURROLA A Allergy 100 [facility],[address] [place] [address] 10/17/2024 12:45:37 10/17/2024 13:44:38 Perennial allergic rhinitis [id number] J30.89 [id number] TOYIN GURROLA [facility] Allergy 100 [facility],[address] [place] [address] 10/25/2024 14:08:37 10/25/2024 14:09:51 Perennial allergic rhinitis 544381054 J30.89 [id number] MAVERICK TERRAZAS RN Allergy 100 [facility], [address] [place] [address] 11/02/2024 10:36:26 11/02/2024 10:42:57 Perennial allergic rhinitis 794730140 J30.89 [id number] TOYIN GURROLA [facility] Allergy 100 [facility],[address] [place] [address] 11/10/2024 10:31:04 11/10/2024 15:18:31 Perennial allergic rhinitis 759199742 J30.89 [id number] MEAGHAN PHILIPPE PA-C [facility] [place] [address] [facility] [place] [address] 11/15/2024 13:20:55 11/15/2024 14:02:44 Headache 25446124 R51.9 Posterior rhinorrhea 758 26556 R09.82 Paresthesia 60419013 R20 .2 [id number] TOYIN GURROLA [facility] Allergy [address] [facility],[address] [place] [address] 11/15/2024 13:20:30 11/15/2024 13:46:31 Perennial allergic rhinitis [id number] J30.89 [id number] [facility] [address] [facility],[address] [place], [place] [address] 11/22/2024 13:05:27 11/22/2024 13:40:57 Perennial allergic rhinitis [id number] J30.89 [id number] [facility] [address] [facility],[address] [place] [address] 11/30/2024 14:18:17 11/30/2024 14:28:59 Perennial allergic rhinitis [id number] J30.89 [id number] TOYIN GURROLA [facility] Allergy [address] [place] [address],[address] [place] [address] 12/12/2024 13:07:57 12/12/2024 13:28:31 Perennial allergic rhinitis [id number] J30.89 13529 [place], [facility] Allergy [address] [place] [address],[address] [place] [address] 12/20/2024 13:50:01 12/20/2024 15:45:53 Perennial allergic rhinitis [id number] J30.89 10152 MAVERICK TERRAZAS RN Allergy [address] [place] [address],[address] [place] [address] 12/29/2024 10:35:03 12/29/2024 10:37:15 Perennial allergic rhinitis [id number] J30.89 [id number] MAVERICK TERRAZAS RN Allergy [address] [place] [address] [address] [place] [address] 01/03/2025 13:35:33 01/03/2025 13:49:13 Perennial allergic rhinitis [id number] J30.89 [id number] MAVERICK TERRAZAS RN Allergy [address] [place] [address], [address] [place] [address] 01/11/2025 09:47:20 01/11/2025 10:38:35 Perennial allergic rhinitis [id number] J30.89 [id number] [facility] Allergy [address] [place] [address], [address] [place] [address] 01/17/2025 09:55:01 01/17/2025 11:51:57 Perennial allergic rhinitis [id number] J30.89 [id number] TOYIN GURROLA [facility] Allergy [address] [place] [address],[address] [place] [address] 01/24/2025 09:44:25 01/24/2025 10:32:43 Perennial allergic rhinitis [id number] J30.89 53605 TOYIN GURROLA [facility] Allergy [address] [place] [address],[address] [place] [address] 01/31/2025 13:53:35 01/31/2025 14:34:55 Perennial allergic rhinitis [id number] J30.89 54023 TOYIN GURROLA [address] [place] [address] 02/07/2025 14:21:08 02/07/2025 15:34:52 Perennial allergic rhinitis [id number] J30.89 14303 MAVERICK TERRAZAS RN Allergy [address] [place] [address], [place] [address] 02/14/2025 13:37:09 02/14/2025 13:47:46 Perennial allergic rhinitis [id number] J30.89 [id number] TOYIN GURROLA [facility] Allergy [address] [place] [address], [place] [address] 02/23/2025 10:34:29 02/23/2025 10:38:49 Perennial allergic rhinitis [id number] J30.89 56598 TOYIN GURROLA [address] [place] [address] 03/02/2025 09:05:32 03/02/2025 09:22:44 Perennial allergic rhinitis [id number] J30.89 [id number] KYMBERLY MCKEON [facility] [address] [place] [address] 03/07/2025 14:04:55 03/07/2025 14:52:04 Perennial allergic rhinitis [id number] J30.89 Posterior rhinorrhea [id number] J34.89 Postconcus johnny syndrome [id number] F07.81 52481 TOYIN GURROLA [facility] Allergy [address] [place] [address], [place] [address] 03/07/2025 14:05:21 03/07/2025 14:33:31 Perennial allergic rhinitis [id number] J30.89 [id number] ROSA DOU[place], [facility] Allergy [address] [place] [address],[facility] [address] [place] [address] 03/15/2025 13:11:44 03/15/2025 13:24:24 Perennial allergic rhinitis [id number] J30.89 Health Concerns Section Related Observation LastModified by Organization Detai ls LastModified Time None Recorded Concern Status LastModified by Organization Details LastModified Time None Recorded Advance Directives Directive None Recorded Payers Insurance Date Sequence Insurance Name Policy Number Policy Maya Covered Member ID Maya Member ID Guarantor Name 03/15/2025 1 [facility] - HEALTH NET PLAN (MEDICAID HMO) ISAURARAVENKwabena Naina Hoffmann [id number] Naina Hoffmann Notes Date Note Type Note Provider Name and Address Organization Details Recorded Time 03/07/2025 text/html Hx of trauma and tinnitus. MRI was negative no further nasal drainage. She still has some postnasal drip. Significant history of allergy No recent INS or antihistamines. She is following up with neurology for postconcussion syndrome and arm weakness. KYMBERLY GARCIA MD [address] [place] [address], [phone], [facility] - [facility] 03/07/2025 14:41:02 OBGyn Episode No OBEpisode recorded.
[2025-03-21 13:04] VITALS: BMI 28.0
== END 2025-03-21 13:38 | disposition home or self-care (01) ==
LOC: HO.HOS 12:24
PROVIDERS: PCP Nurse Practitioner Family; Visit Provider Orthopaedic Surgery
DX: G56.01 Carpal tunnel syndrome, right upper limb (principal); R20.2 Paresthesia of skin
CPT/HCPCS: 99204

== ENCOUNTER → 2025-03-21 12:24 | Outpatient (BNVA) | payer OTHER, SELFPAY | PROVIDERS: PCP Nurse Practitioner Family; Visit Provider Orthopaedic Surgery | DX: G56.01 Carpal tunnel syndrome, right upper limb (principal); R20.2 Paresthesia of skin | CPT/HCPCS: 99202 ==

== ENCOUNTER 2025-03-22 13:44 | Outpatient (RCR) | payer OTHER, SELFPAY ==
--- NOTE | 2025-03-22 15:04 | MHC.OT.EP ---
[address] [phone] Occupational Therapy Plan of Care Patient Name: Naina Hoffmann Date of Evaluation: 03/22/25 Diagnosis: Post-concussion syndrome Pain Location: Headaches; starting at the base of the spine and can radiate to bilateral temporal lobes, worse on the R>L Current: 3-4/10 achy Worst: 10/10 Aggravating Factors: Bright lights, loud noises, sinus pressure Alleviating Factors: Rest Will occasionally take medication although reports she does not like taking pills Recently trialed steroid injection Assessment: Naina is a 49-year-old female referred to OT for evaluation and treatment of post-concussion syndrome following a slip and fall on 09/29/24. She presents with persistent symptoms including headaches with migraine and likely cervicogenic features, neck/back pain, occasional dizziness, photophobia/phonophobia, and reduced tolerance to physical and cognitive activity. Cognitive complaints include brain fog, word-finding difficulty, and decreased mental stamina. On the [place] Post-Concussion Symptoms Questionnaire, client identified sleep disturbance, fatigue, irritability/depressed mood/frustration, and restlessness as severe problem areas, indicating a significant impact on quality of life and daily function. She scored a 26/30 on the MOCA, indicating normal cognition. When discussing treatment, pt. is hesitant to commit to therapy as she is working, caring for her children and , and has a carpal tunnel surgery scheduled this week. Skilled OT is recommended 1-2x/wk for 6 weeks to address noted barriers and improve self regulation. Frequency and Duration: The patient will be seen 1-2x/wk for 6 weeks Short Term Goals: Decrease headache frequency/intensity by 50% Pt will be educated in and trial sleep hygiene strategies Trial EFT and breathing techniques for stress management Halfway Goals: IND with knowledge of ADAMS triggers and reduction strategies IND with sleep hygiene strategies reporting >5 hours of consecutive sleep IND with stress management techniques Report a decrease in severity of fatigue, sleep disturbance, and irritability on the [place] scale by at least 1?2 levels Treatment Plan: Other (see comments) Cognitive therapy, stress management, memory/attention/concentration, sleep hygiene, headache management Electronically Signed By: Kavya Ospina MS OTR/L Please Sign and return to therapist. Thank you once again for your referral.
--- NOTE | 2025-05-01 07:47 | MHC.OT.DC ---
[address] [phone] F: [phone] Occupational Therapy Discharge Note Patient Name: Naina Hoffmann Provider: Prisca Mai Diagnosis: Post-concussion syndrome Date of Evaluation: 03/22/25 Date of Discharge: 05/01/25 Treatments to Date: 1 Discharge Status: Visit Non-compliance Discharge Summary: Naina is a 49-year-old female referred to OT for evaluation and treatment of post-concussion syndrome following a slip and fall on 09/29/24. She presents with persistent symptoms including headaches with migraine and likely cervicogenic features, neck/back pain, occasional dizziness, photophobia/phonophobia, and reduced tolerance to physical and cognitive activity. Cognitive complaints include brain fog, word-finding difficulty, and decreased mental stamina. On the [place] Post-Concussion Symptoms Questionnaire, client identified sleep disturbance, fatigue, irritability/depressed mood/frustration, and restlessness as severe problem areas, indicating a significant impact on quality of life and daily function. She scored a 26/30 on the MOCA, indicating normal cognition. When discussing treatment, pt. is hesitant to commit to therapy as she is working, caring for her children and , and has a carpal tunnel surgery scheduled this week. Skilled OT is recommended 1-2x/wk for 6 weeks to address noted barriers and improve self regulation. 05/01/25 - Pt did not follow up with making OT appointments. At this time, pt is discharged from OT services. She has a follow up with neurology in Aug. Electronically Signed By: Kavya Ospina MS OTR/L Reviewed/agree with student documentation: Therapist: Please Sign and return to therapist, thank you for your referral.
== END 2025-05-01 08:05 | disposition home or self-care (01) ==
LOC: HO.OTS 13:44
PROVIDERS: PCP Nurse Practitioner Family; Visit Provider Nurse Practitioner Family
DX: R41.89 Other symptoms and signs involving cognitive functions and awareness (principal); F07.81 Postconcussional syndrome; D50.9 Iron deficiency anemia, unspecified
CPT/HCPCS: 97165

== ENCOUNTER 2025-03-28 08:10 | Day surgery (SDC) | payer OTHER, SELFPAY ==
--- OUTSIDE RECORDS SUMMARY | 2025-03-21 14:42 | XMS_ITS | Continuity of Care Document ---
Author Organization [place] [facility], Allergy Address [address] [address] Care Team Providers Care Head Grinder Name Role Phone HILARIO CAI Primary Care Provider [phone] Assessment Encounter Date Assessment Date Assessment LastModified by Organization Details LastModified Time 03/21/2025 03/21/2025 Visit With: Maverick Terrazas RN Use of Antihistamine s: No If yes: Vial Test Change in medications: No If yes ? ? ? Increase in asthma symptoms No Asthma Hx If yes, inhaler use: Reaction to last injections: No If yes: ? ? ? Allergy Symptoms: Other: ? ? ? Missed: Dose Aware of Vial Test Notes:? ? ? [email or web address] Not available 03/21/2025 14:32:35 Plan of Treatment Reminders Order Date Submit Date Provider Last Modified By Organization Details Last Modified Time Details Appointments Allergy Shot 2024 01:40P M [facility] Not available Not available Not available Estabs hed- Allergy f-up 6mon 2024 09:30A M KYMBERLY [...] Time Hypertrop hy of nasal turbinate s [id number] Active 2023 Hypertroph y of nasal turbinates ; Note: Date Diagnosed: 01/03/2016 8:40 AM (J34.3) Not Available [facility] 4 02:13:50 Chronic rhinitis 94209525 Active 2023 Chronic rhinitis; Note: Date Diagnosed: 11/22/2023 2:34 PM (J31.0) Not Available [facility] 4 02:13:06 Deviated nasal septum 371350586 Active 2023 Deviated nasal septum; Note: Date Diagnosed: 01/03/2016 8:40 AM (J34.2) Not Available [facility] 4 02:13:23 Disorder of smell 665489808 Active 2023 Other disturbanc es of smell and taste; Note: Date Diagnosed: 11/22/2023 2:34 PM (R43.8) Not Available [facility] 4 02:14:24 Disorder of taste 962254995 Active 2023 Other disturbanc es of smell and taste; Note: Date Diagnosed: 11/22/2023 2:34 PM (R43.8) Not Available [facility] 4 02:14:24 Perennial allergic rhinitis 494701898 Active 2023 KYMBERLY MCKEON MD [address] [facility], [place], [address] , [place] [facility] 5 14:39:51 Allergic rhinitis 08032791 Active 2023 KYMBERLY MCKEON MD [address] [facility] [address], [place], [address] , [place] [facility] 4 14:34:26 Chronic sinusitis 36655902 Active 2023 KYMBERLY MCKEON MD 100 [facility],[address], [place], [address] , [place] [facility] 4 14:35:04 Mild intermitt ent asthma 328052428 Active 2023 KYMBERLY MCKEON MD [address] [facility] [address], [place], [address] , [place] [facility] 4 14:13:34 Follow-up visit Active 2023 Encounter for follow-up examinatio n after completed treatment for conditions other than malignant neoplasm; Note: Date Diagnosed: 03/03/2024 11:19 AM (Z09) Not Available [facility] 4 02:14:15 Headache 16449324 Active 2023 Headache, unspecifie d; Note: Date Diagnosed: 03/20/2024 11:48 AM (R51.9) Not Available [facility] 4 02:14:40 Posterior rhinorrhe a 15453005 Active 2024 KYMBERLY MCKEON MD [address] [facility] [address],[place] [facility], [place], [address] , [place] [facility] 5 14:40:01 Paresthsheng smith 70384424 Active 2024 MEAGHAN PHILIPPE PA-C [address] [facility],[place] [address], [place], [address] , [place] [facility] 5 14:12:02 Postconcu ssion syndrome 99493969 Active 2024 KYMBERLY MCKEON MD [address] [facility] [address],[facility], [place], [address] , [place] [facility] 14:40:07 Problem Notes None recorded. Procedures Surgical History Date Name Laterality Status Provider Name and Address Organization Details Recorded Time 03/21/20 25 Allergy Immunotherapy Injections completed MAVERICK TERRAZAS RN 100 [facility],[place] [address], [place], [address], [place] [facility] 03/21/2025 14:32:25 03/15/20 25 Allergy Immunotherapy Injections completed ROSA ALDANA [facility] [address] [facility] [address], [address], [place] [facility] 03/15/2025 13:24:02 03/07/20 25 Allergy Immunotherapy Injections completed DENICE RIVERA [address],[place] [facility], [place], [address], [place] [facility] 03/07/2025 14:17:42 03/02/20 25 Allergy Immunotherapy Injections completed MAKAYLA GURROLA RMA [address], [place], [address], [place] [facility] 03/02/2025 09:22:17 02/24/20 25 Allergy Immunotherapy Injections completed MAKAYLA GURROLA RMA [address], [place], [address], [place] [facility] 02/23/2025 10:37:57 02/15/20 25 Allergy Immunotherapy Injections completed MAVERICK TERRAZAS RN [address], [place], [address], [place] [facility] 02/14/2025 13:47:08 02/08/20 25 Allergy Immunotherapy Injections completed ROSA ALDANA RMA [address], [place], [address], [place] [facility] 02/07/2025 15:34:14 02/01/20 25 Allergy Immunotherapy Injections completed RUBINA RIVERAA [address], [place], [address], [place] [facility] 01/31/2025 14:14:19 01/25/20 25 Allergy Immunotherapy Injections completed RUBINA RIVERAA [address],[place] [address], [place], [address], [place] [facility] 01/24/2025 10:31:45 01/18/20 25 Allergy Immunotherapy Injections completed RUBINA RIVERAA [address],[place] [address], [place], [address], [place] [facility] 01/17/2025 11:50:20 01/12/20 25 Allergy Immunotherapy Injections completed MAVERICK TERRAZAS RN [address], [place], [address], [place] [facility] 01/11/2025 10:38:17 01/03/20 25 Allergy Immunotherapy Injections completed MAVERICK TERRAZAS RN [address], [place], [address], [place] [facility] 01/03/2025 13:48:45 12/29/19 25 Allergy Immunotherapy Injections completed MAVERICK TERRAZAS RN [address], [place], [address], [place] [facility] 12/29/2024 10:36:58 12/20/19 25 Allergy Immunotherapy Injections completed MAVERICK TERRAZAS RN [address], [place], [address], [place] [facility] 12/20/2024 15:44:53 12/12/19 25 Allergy Immunotherapy Injections completed DENICE RIVERA [address], [place], [address], [place] [facility] 12/12/2024 13:28:07 11/30/19 25 Allergy Immunotherapy Injections completed ROSA ALDANA RMA [address], [place], [address], [place] [facility] 11/30/2024 14:28:33 11/22/19 25 Allergy Immunotherapy Injections completed ROSA ALDANA, RMA [address], [place], [address], [place] [facility] 11/22/2024 13:40:26 11/15/19 25 Allergy Immunotherapy Injections completed ROSA ALDANA RMA [address], [place], [address], [place] [facility] 11/15/2024 13:45:46 11/10/19 25 Allergy Immunotherapy Injections completed DENICE RIVERA [address], [place], [address], [place] [facility] 11/10/2024 15:15:34 11/02/20 24 Allergy Immunotherapy Injections completed MAVERICK TERRAZAS RN [address], [place], [address], [place] [facility] 11/02/2024 10:42:32 10/25/20 24 Allergy Immunotherapy Injections completed MAVERICK TERRAZAS RN [address], [place], [address], [place] [facility] 10/25/2024 14:09:21 10/17/20 24 Allergy Immunotherapy Injections completed ROSA ALDANA, RMA [address] [place] [address], [address], [place] [facility] 10/17/2024 13:44:09 10/03/20 24 Allergy Immunotherapy Injections completed DENICE RIVERA [address],[place] [address] [place] [address], [address], [place] [facility] 10/03/2024 13:20:05 09/21/20 24 Allergy Immunotherapy Injections completed MAVERICK TERRAZAS RN [address] [address] [place] [address], [address], [place] [facility] 09/21/2024 12:01:33 09/12/20 24 Allergy Immunotherapy Injections completed ROSA ALDANA RMA [address] [address] [place] [address], [address], [place] [facility] 09/12/2024 14:05:49 09/06/20 24 Allergy Immunotherapy Injections completed DENICE RIVERA [address],[place] [address] [place] [address], [address], [place] [facility] 09/06/2024 14:48:49 09/06/20 24 JMSNasal/Sinus Endoscopy-PRIOR surgical cavities completed KYMBERLY GARCIA MD [address],[place] [address] [place] [address], [address], [place] [facility] 09/06/2024 15:05:59 08/29/20 24 Allergy Immunotherapy Injections completed DENICE RIVERA [address],[place] [address] [place] [address], [address], [place] [facility] 08/29/2024 14:50:02 08/23/20 24 Allergy Immunotherapy Injections completed MAVERICK TERRAZAS RN [address] [facility] [address],[place] [address] [place] [address], [address], [place] [facility] 08/23/2024 15:21:09 08/15/20 24 Allergy Immunotherapy Injections completed MAVERICK TERRAZAS RN [address] [facility] [address] [address] [place] [address], [address], [place] [facility] 08/15/2024 14:14:05 08/10/20 24 Allergy Immunotherapy Injections completed DENICE RIVERA [address],[place] [address], [place], [address], [place] [facility] 08/10/2024 14:00:51 08/04/20 24 Allergy Immunotherapy Injections completed DENICE RIVERA [address],[place] [address], [place], [address], [place] [facility] 08/04/2024 15:31:25 07/25/20 24 Allergy Immunotherapy Injections completed ROSA ALDANA RMA [address],[place] [address], [place], [address], [place] [facility] 07/25/2024 14:33:52 07/19/20 24 Allergy Immunotherapy Injections completed MAVERICK TERRAZAS RN [address] [place] [address], [address], [place] [facility] 07/19/2024 16:18:04 07/11/20 24 Allergy Immunotherapy Injections completed ROSA ALDANA RMA [address],[place] [address] [place] [address], [address], [place] [facility] 07/11/2024 14:32:17 07/04/20 24 Allergy Immunotherapy Injections completed DENICE RIVERA [address],[place] [address], [place], [address], [place] [facility] 07/04/2024 14:03:37 06/28/20 24 Allergy Immunotherapy Injections completed MAVERICK TERRAZAS RN [address],[place] [address], [place], [address], [place] [facility] 06/28/2024 14:26:26 06/20/20 24 Allergy Immunotherapy Injections completed ROSA ALDANA RMA [address],[place] [address], [place], [address], [place] [facility] 06/20/2024 13:05:25 06/13/20 24 Allergy Immunotherapy Injections completed DENICE RIVERA [address],[place] [address], [place], [address], [place] [facility] 06/13/2024 15:52:47 06/06/20 24 Allergy Immunotherapy Injections completed MAVERICK TERRAZAS RN [address] [facility] [address],[place] [address] [place] [address], [address], [place] [facility] 06/06/2024 15:10:37 06/06/20 24 JMSNasal/Sinus Endoscopy-PRIOR surgical cavities completed KYMBERLY GARCIA MD [address],[place] [address], [place], [address], [place] [facility] 06/06/2024 14:10:04 06/01/20 24 Allergy Immunotherapy Injections completed MAVERICK TERRAZAS RN [address] [facility] [address],[place] [address] [place] [address], [address], [place] [facility] 06/01/2024 15:38:20 05/23/20 24 Allergy Immunotherapy Injections completed DENICE RIVERA [address],[place] [address] [place] [address], [address], [place] [facility] 05/23/2024 14:44:44 05/17/20 24 Allergy Immunotherapy Injections completed DENICE MARIA [address],[place] [address] [place] [address], [address], [place] [facility] 05/17/2024 16:10:00 05/09/20 24 Allergy Immunotherapy Injections completed MAVERICK TERRAZAS RN [address],[place] [address] [place] [address], [address], [place] [facility] 05/09/2024 15:06:52 05/02/20 24 Allergy Immunotherapy Injections completed DENICE RIVERA [address],[place] [address], [place], [address], [place] [facility] 05/02/2024 13:34:36 04/25/20 24 Allergy Immunotherapy Injections completed DENICE RIVERA [address],[place] [address], [place], [address], [place] [facility] 04/25/2024 14:45:44 04/21/20 24 Allergy Immunotherapy Injections completed DENICE RIVERA [address], [place], [address], [facility] 04/21/2024 14:00:37 04/12/20 24 Allergy Immunotherapy Injections completed ROSA ALDANA [facility] [address] [facility] [address],[place] [address] [place] [address], [address], [facility] - [facility] 04/12/2024 16:04:03 04/05/20 24 JMSNasal/Sinus Endoscopy-PRIOR surgical cavities completed KYMBERLY GARCIA MD [address] [facility] [address],[place] [address] [place] [address], [address], [facility] - [facility] 04/05/2024 14:34:46 04/05/20 24 Allergy Immunotherapy Injections completed MAKAYLA GURROLA [facility] [address] [facility] [address],[place] [address] [place] [address], [address], [facility] - [facility] 04/05/2024 13:35:01 03/29/20 24 Allergy Immunotherapy Injections completed ROSA ALDANA [facility] [address] [facility] [address], [address], [facility] - [facility] 03/29/2024 16:18:09 02/29/20 24 functional endoscopic sinus surgery completed KYMBERLY GARCIA MD [address] [facility] [address], [address], [facility] - [facility] 04/05/2024 14:33:51 02/29/20 24 Repair of nasal septum completed KYMBERLY GARCIA MD 100 [facility],[address], [address], [facility] - [facility] 04/05/2024 14:34:03 cholecystectomy completed Shyanne Escalante [place] - [facility] 11/15/2024 13:38:47 section completed Shyanne Escalante [place] - [facility] 11/15/2024 13:38:52 Imaging Results None recorded. [...] by mouth 09/06 completed Medicati on ID: [id number] D uration Value: 10 Brand Name: doxycycl [...] as needed 2023 active Medicati on ID: [id number] D uration Value: 180 Brand Name: mery [...] SNOMED-CT Code Diagnosis ICD10 Code Diagnosis Note [id number] RUBINA RIVERAA Allergy 100 [facility] 100 [place] [address] 02/23/2025 10:34:29 02/23/2025 10:38:49 Perennial allergic rhinitis [id number] J30.89 [id number] MAKAYLA GURROLA A Allergy [address] [place] [address], [place] [address] 03/02/2025 09:05:32 03/02/2025 09:22:44 Perennial allergic rhinitis [id number] J30.89 [id number] KYMBERLY MCKEON MD [facility] [address] [address] 03/07/2025 14:04:55 03/07/2025 14:52:04 Perennial allergic rhinitis 200824129 J30.89 Posterior rhinorrhea 758 76687 J34.89 Postconcus johnny syndrome 76297035 F07.81 [id number] MAKAYLA GURROLA A Allergy 100 [facility] 100 [place] [address] 03/07/2025 14:05:21 03/07/2025 14:33:31 Perennial allergic rhinitis [id number] J30.89 [id number] ROSA RAFAT, [facility] Allergy [address] [place] [address], [place] [address] 03/15/2025 13:11:44 03/15/2025 13:24:24 Perennial allergic rhinitis [id number] J30.89 [id number] MAVERICK TERRAZAS RN Allergy [address] [place] [address], [place] [address] 03/21/2025 13:55:08 03/21/2025 14:32:51 Perennial allergic rhinitis [id number] J30.89 Health Concerns Section Related Observation LastModified by Organization Detai ls LastModified Time None Recorded Concern Status LastModified by Organization Details LastModified Time None Recorded Payers Encounter Date Sequence Insurance Name Policy Number Policy Maya Covered Member ID Maya Member ID Guarantor Name 03/21/2025 1 [facility] NET PLAN (MEDICAID HMO) YESENIA Hoffmann [id number] Naina Hoffmann OBGyn Episode No OBEpisode recorded.
[2025-03-28 08:54] VITALS: BMI 26.2
[2025-03-28 08:55] VITALS: BP 120/74; PULSE 85; RESP 16; TEMP 36.6; O2SAT 100
--- NOTE | 2025-03-28 09:13 | MHC.SHP ---
Pre-Procedural Eval Section A - 24 Hr Update-Section A only Date of Service: 03/28/25 The patient is an INPATIENT: No Changes since office visit: No Cold of Flu in the past 2 weeks, No New Medical Problems, No Changes in Medication and No Patient answered all questions The patient has been examined within 24 hours of the surgical procedure. The History & Physical has been completed within 30 days and I have reviewed it.: Yes Section B - Complete if H&P > 30 days Chief Complaint: Carpal tunnel syndrome, right upper limb Allergies: Allergies Allergy/AdvReac Type Severity Reaction Status Date / Time Seasonal Allergies Allergy Mild Itchy Eyes Verified 03/21/25 13:03 Plan Diagnosis/Plan: Unchanged I have reviewed the history and physical and performed a pertinent physical examination on my patient. No changes have occurred unless specified. Time Spent With Patient Time: Total time managing care of this patient today ____ minutes.
--- NOTE | 2025-03-28 09:13 | W.PM.OPN ---
Operative Note Operative Note Date of Service: 03/28/25 Narrative: Preop diagnosis: 1. Right Carpal tunnel syndrome Postop diagnosis: same Procedure: 1. Right Carpal tunnel release Surgeon: Linda Redman MD Liner Checker: Charlie ALFONSO Anesthesia: local block using 1% lidocaine with epinephrine Findings: Thickened transverse carpal ligament. EBL: Less than 5 mL Specimens: None Complications: None Disposition: Brought to recovery room in stable condition Plan: Follow-up for 10-14 days for wound check and suture removal Indications: The patient is 50 years old, with right carpal tunnel syndrome that has been unresponsive to nonoperative management. The risks and benefits of operative treatment including but not limited to risk of damage to blood vessels, nerves, tendons, infection, persistent pain, persistent symptoms, or possible need for additional surgery were discussed with the patient and the patient wishes to proceed with surgery. Procedure: Once consent was obtained a local block was performed using a combination of 1% lidocaine with epinephrine. The patient was then brought back to the operating suite and placed on the operative table in supine position. The right upper extremity was prepped and draped in a standard surgical fashion. Once assured that we had a good block, a 2.0 cm longitudinal incision was made centered over the carpal tunnel. The incision was made through the skin to the subcutaneous tissues using a #15 blade. Dissection was made down to the level of the transverse carpal ligament with care being taken to protect the palmar cutaneous nerve. Once the transverse carpal ligament was clearly visualized, a longitudinal incision was made in the transverse carpal ligament 1st using a #15 blade, then using tenotomy scissors under direct visualization. Care was taken to look for and protect the motor branch of the median nerve when seen in this area. Once satisfied with our carpal tunnel release the wound was copiously irrigated with normal saline and hemostasis was obtained with a brief period of local pressure. The skin edges were reapproximated with some 5.0 nylon suture material and a sterile dressing was applied. The patient appears to have tolerated the procedure well and with no complications. All digits were well vascularized at the conclusion of the case.
[2025-03-28 11:14] VITALS: BP 130/67; PULSE 73; RESP 18; O2SAT 100
== END 2025-03-28 11:15 | disposition home or self-care (01) ==
PROVIDERS: PCP Nurse Practitioner Family; Visit Provider Orthopaedic Surgery
PROC: (CPT 64721; principal; 2025-03-28 10:30)
DX: G56.01 Carpal tunnel syndrome, right upper limb (principal); R20.2 Paresthesia of skin; Z91.81 History of falling; D64.9 Anemia, unspecified; J30.2 Other seasonal allergic rhinitis; J30.9 Allergic rhinitis, unspecified; Z98.890 Other specified postprocedural states; Z56.0 Unemployment, unspecified
CPT/HCPCS: 64721; J0171; J2003

== ENCOUNTER → 2025-03-28 08:10 | Outpatient (BNV) | payer OTHER, SELFPAY | PROVIDERS: PCP Nurse Practitioner Family; Visit Provider Orthopaedic Surgery | DX: G56.01 Carpal tunnel syndrome, right upper limb (principal) | CPT/HCPCS: 64721 ==

== ENCOUNTER 2025-04-06 13:12 | Outpatient (AMB) | payer OTHER, SELFPAY ==
--- NOTE | 2025-04-06 13:04 | A.OFFPC_ITS ---
Intake Visit Reasons: review incidental finding on MRI Allergies Seasonal Allergies Allergy (Mild, Verified 04/06/25 15:37) Itchy Eyes Medication List - Last Reconciled 04/06/25 by JASBIR Rodríguez- ascorbic acid (vitamin C) 500 mg PO DAILY 30 days azelastine intranasal cetirizine (Zyrtec) 10 mg PO DAILY PRN 90 days cyclobenzaprine 5 mg PO BEDTIME 30 days ferrous gluconate 324 mg PO DAILY 30 days fluticasone propionate 50 mcg/actuation 2 sprays intranasal DAILY 90 days magnesium glycinate 400 mg orally QHS; 30 days meloxicam 7.5 mg PO DAILY PRN olopatadine 0.2% (Pataday Once Daily Relief) 1 drp ophthalmic (eye) DAILY PRN 30 days riboflavin (vitamin B2) 400 mg PO DAILY 30 days tretinoin 0.025% 1 appl topical BEDTIME Tobacco use date assessed: 04/06/25 Dental Screening Dental Screen Date: 04/06/25 Did you have a dental visit in the last 12 months?: Yes Did you have a dental problem in the last 6 months where you did not have access to dental care?: No Was dental information given to patient?: Patient has dentist HPI HPI Comments 2 History of Present Illness0 Details 50-year-old female with anemia, allergic rhinitis s/p bunion surgery, s/p CTS release 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 Referred to [facility] - n/a still getting periods. Tdap Flu Specialists: ENT Neuro [facility] History of Present Illness - The patient is a 50-year-old female pr esenting to discuss incidental finding on MRI done to eval her spine by [facility] - MRI shows prominent abdominal vessels & a benign cyst in the left kidney. - No abdominal pain reported. - Right carpal tunnel syndrome for which recent surgery has been carried out, initial complaint involved arm weakness. - Postoperative condition shows reduced inflammation, persistent achy symptoms, occasional headaches. Assessment and Plan 1. Cyst on the left kidney - Asymptomatic, benign nature. No furthe r action needed. 2. Prominent abdominal vessels - Plan for abdominal CT scan with contra st to investigate vascular prominence once insurance authorizes. Await results for further steps. 3. Carpal tunnel syndrome, right side - Post-surgery status; ongoing monitorin g. Maintain medication regimen. Plan orthopedic consult if symptoms remain. Due for CPE in April, message sent to office staff to arrange will review CT scan results once avail. Telehealth Attestation This visit was conducted via a telehealth platform with both visual and auditory interaction, maintaining confidentiality and accuracy of clinical assessment and documentation. The patient has been explained that this is an interactive (audio/video) telehealth encounter and what that consists of. The patient understands and wishes to proceed. Cloakroom platform was used. Total time spent caring for the patient today was 21 minutes. This includes time spent before the visit reviewing the chart, time spent during the visit, and time spent after the visit on documentation, reviewing laboratory results, diagnostic imaging, medications, performing a medically necessary evaluation, counseling on diagnoses, care coordination, ordering appropriate tests, ordering appropriate medications, review of tests performed by other providers, reporting test results with the patient, communication with other healthcare providers. [facility] Medical History (Updated 04/06/25 @ 15:52 by Khadijah John, JASBIR-ELIAS) Allergic sinusitis Bunion, left foot Bunion, right foot Deviated septum Deviated septum Foot pain, bilateral Mild anemia Surgical History (Updated 04/06/25 @ 15:40 by JASBIR Rodríguez-ELIAS) History of bunionectomy S/P carpal tunnel release (~03/2025) Social History (Updated 04/06/25 @ 13:08 by Priyanka Good MA) Housing: House Alcohol intake: current Patient Tobacco Use Status: Never used Tobacco e-Cigarette/Vaping Use: Never Used Second Hand Smoke Exposure: No service: No Current occupational status: employed 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 Randall Grant, Valencia Villareal, Richmond Farfan and colleagues, with an educational monika from [employer]. Physical exam (Primary Care) Tobacco/Smoking Status: Tobacco use Status Tobacco use date assessed 04/06/25 04/06/25 13:09 Patient Tobacco Use Status Never used Tobacco 04/06/25 13:09 e-Cigarette/Vaping Use Never Used 04/06/25 13:09 Thrive Assessment: Date of Thrive Assessment Date Thrive assessed 12/19/24 04/06/25 13:09 Telehealth Telehealth Telehealth Platform: [facility] Location of provider rendering services: practice address Location of patient: address on file Patient Identification confirmed using: Name, : Yes Telehealth method: voice only Patient verbally consented to treatment: Yes Patient verbally consented to billing insurance company: Yes Patient informed of any privacy concerns related to visit: Yes Minutes spent on Phone/Video with Pt.: 14 Results Reviewed Results Reviewed: Coding Level of Care Code Tele Est Pt Level 3 (88314) Complex EM visit Add On G2211 Diagnoses Renal cyst, left N28.1 Vascular abnormalities of stomach K31.819 Assessment & Plan Assessment & Plan (1) Renal cyst, left: Comment: benign noted on MRI T spine 2024 Code(s): N28.1 - Cyst of kidney, acquired Category: Medical (2) Vascular abnormalities of stomach: Code(s): K31.819 - Angiodysplasia of stomach and duodenum without bleeding Category: Medical Plan . Orders: Orders 2 CT abdomen pelvis w IV con Today K31.819 - Angiodysplasia of stomach and duodenum without bleeding, N28.1 - Cyst of kidney, acquired
--- OUTSIDE RECORDS SUMMARY | 2025-04-06 13:22 | XMS_ITS | Continuity of Care Document ---
Author Organization [place] [facility], Allergy Address [address] [address] Care Team Providers Care Microbiology Lab Technician Name Role Phone HILARIO CAI Primary Care Provider Assessment Encounter Date Assessment Date Assessment LastModified by Organization Details LastModified Time 04/04/2025 04/04/2025 Visit With: DENICE Kee Use of Antihistamine s: No If yes: Vial Test Change in medications: No If yes Increase in asthma symptoms If yes, inhaler use: Reaction to last injections: No If yes: Allergy Symptoms: Other: Missed: 1 week Dose Repeated Aware of Vial Test Notes: [email or web address] Not available 04/04/2025 14:14:59 Plan of Treatment Reminders Order Date Submit Date Provider Last Modified By Organization Details Last Modified Time Details Appointments [facility]- Allergy f-up 6mon 2024 09:30A M KYMBERLY [...] Time Hypertrop hy of nasal turbinate s [id number] Active 2023 Hypertroph y of nasal turbinates ; Note: Date Diagnosed: 01/03/2016 8:40 AM (J34.3) Not Available [facility] 02:13:50 Chronic rhinitis 63341920 Active 2023 Chronic rhinitis; Note: Date Diagnosed: 11/22/2023 2:34 PM (J31.0) Not Available [facility] 4 02:13:06 Deviated nasal septum 540816716 Active 2023 Deviated nasal septum; Note: Date Diagnosed: 01/03/2016 8:40 AM (J34.2) Not Available [facility] 4 02:13:23 Disorder of smell 172682535 Active 2023 Other disturbanc es of smell and taste; Note: Date Diagnosed: 11/22/2023 2:34 PM (R43.8) Not Available [facility] 4 02:14:24 Disorder of taste 297283369 Active 2023 Other disturbanc es of smell and taste; Note: Date Diagnosed: 11/22/2023 2:34 PM (R43.8) Not Available [facility] 4 02:14:24 Perennial allergic rhinitis 023767106 Active 2023 KYMBERLY MCKEON MD [address] [place] [address],[place] [address], [place], [address] , [place] - [facility] 5 14:39:51 Allergic rhinitis 10867636 Active 2023 KYMBERLY MKCEON MD [address] [place] [address],[place] [address], [address] , [place] - [facility] [place] 4 14:34:26 Chronic sinusitis 87345384 Active 2023 KYMBERLY MCKEON MD [address] [place] [address],[place] [address], [address] , [place] - [facility] [place] 4 14:35:04 Mild intermitt ent asthma 806054653 Active 2023 KYMBERLY MCKEON MD [address] [place] [address],[place] [address], [address] , [place] - [facility] 4 14:13:34 Follow-up visit Active 2023 Encounter for follow-up examinatio n after completed treatment for conditions other than malignant neoplasm; Note: Date Diagnosed: 03/03/2024 11:19 AM (Z09) Not Available [facility] 4 02:14:15 Headache 18109706 Active 2023 Headache, unspecifie d; Note: Date Diagnosed: 03/20/2024 11:48 AM (R51.9) Not Available [facility] 4 02:14:40 Posterior rhinorrhe a 65244915 Active 2024 KYMBERLY MCKEON MD [address] [facility],[place] [address], [place], [address] , [facility] [place] 5 14:40:01 Paresthes ia 28854712 Active 2024 MEAGHAN PHILIPPE PA-C [address] [facility],[place] [address], [place], [address] , [facility] - [facility] [place] 5 14:12:02 Postconcu ssion syndrome 90279971 Active 2024 KYMBERLY MCKEON MD [address] [facility],[place] [address], [place], [address] , [facility] - [facility] [place] 14:40:07 Problem Notes None recorded. Procedures Surgical History Date Name Laterality Status Provider Name and Address Organization Details Recorded Time 04/04/20 25 Allergy Immunotherapy Injections completed DENICE KEE [address] [facility],[address], [address], [facility] - [facility] [place] 04/04/2025 14:14:25 03/21/20 25 Allergy Immunotherapy Injections completed MAVERICK TERRAZAS RN 100 [facility],[address], [address], [facility] - [facility] [place] 03/21/2025 14:32:25 03/15/20 25 Allergy Immunotherapy Injections completed DENICE KEE [address] [facility],[address], [address], [facility] - [facility] [place] 03/15/2025 13:24:02 03/07/20 25 Allergy Immunotherapy Injections completed DENICE RIVERA 100 [facility],[address], [address], [place] [facility] [place] 03/07/2025 14:17:42 03/02/20 25 Allergy Immunotherapy Injections completed MAKAYLA GURROLA RMA [address],[place] [address], [place], [address], [place] [facility] [place] 03/02/2025 09:22:17 02/24/20 25 Allergy Immunotherapy Injections completed MAKAYLA GURROLA RMA [address],[place] [address], [place], [address], [place] [facility] [place] 02/23/2025 10:37:57 02/15/20 25 Allergy Immunotherapy Injections completed MAVERICK TERRAZAS RN [address] [facility],[place] [address] [place] [address], [address], [place] [facility] [place] 02/14/2025 13:47:08 02/08/20 25 Allergy Immunotherapy Injections completed ROSA ALDANA RMA [address],[place] [address] [place] [address], [address], [place] [facility] [place] 02/07/2025 15:34:14 02/01/20 25 Allergy Immunotherapy Injections completed MAKAYLA GURROLA RMA [address],[place] [address] [place] [address], [address], [place] [facility] [place] 01/31/2025 14:14:19 01/25/20 25 Allergy Immunotherapy Injections completed MAKAYLA GURROLA RMA [address],[place] [address] [place] [address], [address], [place] [facility] [place] 01/24/2025 10:31:45 01/18/20 25 Allergy Immunotherapy Injections completed MAKAYLA GURROLA RMA [address],[place] [address], [place], [address], [place] [facility] [place] 01/17/2025 11:50:20 01/12/20 25 Allergy Immunotherapy Injections completed MAVERICK TERRAZAS RN [address],[place] [address] [place] [address], [address], [place] [facility] [place] 01/11/2025 10:38:17 01/03/20 25 Allergy Immunotherapy Injections completed MAVERICK TERRAZAS RN [address] [facility],[place] [address] [place] [address], [address], [place] [facility] [place] 01/03/2025 13:48:45 12/29/19 25 Allergy Immunotherapy Injections completed MAVERICK TERRAZAS RN [address],[place] [address] [place] [address], [address], [place] [facility] [place] 12/29/2024 10:36:58 12/20/19 25 Allergy Immunotherapy Injections completed MAVERICK TERRAZAS RN [address],[place] [address], [place], [address], [place] [facility] [place] 12/20/2024 15:44:53 12/12/19 25 Allergy Immunotherapy Injections completed MAKAYLA GURROLA RMA [address],[place] [address] [place] [address], [address], [place] [facility] [place] 12/12/2024 13:28:07 11/30/19 25 Allergy Immunotherapy Injections completed ROSA ALDANA, RMA [address],[place] [address], [place], [address], [place] [facility] [place] 11/30/2024 14:28:33 11/22/19 25 Allergy Immunotherapy Injections completed ROSA DOUGLASSC, RMA [address],[place] [address] [place] [address], [address], [place] [facility] [place] 11/22/2024 13:40:26 11/15/19 25 Allergy Immunotherapy Injections completed ROSA ALDANA, RMA [address],[place] [address] [place] [address], [address], [place] [facility] [place] 11/15/2024 13:45:46 11/10/19 25 Allergy Immunotherapy Injections completed MAKAYLA GURROLA RMA [address],[place] [address], [place], [address], [place] [facility] [place] 11/10/2024 15:15:34 11/02/20 24 Allergy Immunotherapy Injections completed MAVERICK TERRAZAS RN [address],[place] [address], [place], [address], [place] [facility] [place] 11/02/2024 10:42:32 10/25/20 24 Allergy Immunotherapy Injections completed MAVERICK TERRAZAS RN [address], [place], [address], [place] [facility] [place] 10/25/2024 14:09:21 10/17/20 24 Allergy Immunotherapy Injections completed DENICE KEE [address] [facility],[place] [address] [place] [address], [address], [place] [facility] [place] [facility] 10/17/2024 13:44:09 10/03/20 24 Allergy Immunotherapy Injections completed DENICE RIVERA [address] [facility],[place] [address] [place] [address], [address], [place] [facility] [place] 10/03/2024 13:20:05 09/21/20 24 Allergy Immunotherapy Injections completed MAVERICK TERARZAS RN 100 [facility],[address], [address], [place] [facility] [place] 09/21/2024 12:01:33 09/12/20 24 Allergy Immunotherapy Injections completed ROSA ALDANA RMReji [address] [facility],[address], [address], [place] [facility] [place] 09/12/2024 14:05:49 09/06/20 24 Allergy Immunotherapy Injections completed DENICE RIVERA 100 [facility],[address], [address], [place] [facility] [place] 09/06/2024 14:48:49 09/06/20 24 JMSNasal/Sinus Endoscopy-PRIOR surgical cavities completed KYMBERLY GARCIA MD 100 [facility],[address], [address], [place] [facility] [place] 09/06/2024 15:05:59 08/29/20 24 Allergy Immunotherapy Injections completed DENICE RIVERA [address] [facility],[place] [address] [place] [address], [address], [place] [facility] [place] 08/29/2024 14:50:02 08/23/20 24 Allergy Immunotherapy Injections completed MAVERICK TERRAZAS RN 100 [facility],[place] [address] [place] [address], [address], [place] [facility] [place] 08/23/2024 15:21:09 08/15/20 24 Allergy Immunotherapy Injections completed MAVERICK TERRAZAS RN [address],[place] [address], [place], [address], [place] [facility] [place] 08/15/2024 14:14:05 08/10/20 24 Allergy Immunotherapy Injections completed DENICE RIVERA [address],[place] [address], [place], [address], [place] [facility] [place] 08/10/2024 14:00:51 08/04/20 24 Allergy Immunotherapy Injections completed DENICE RIVERA [address],[place] [address], [place], [address], [place] [facility] [place] 08/04/2024 15:31:25 07/25/20 24 Allergy Immunotherapy Injections completed DENICE KEE [address],[place] [address], [place], [address], [place] [facility] [place] 07/25/2024 14:33:52 07/19/20 24 Allergy Immunotherapy Injections completed MAVERICK TERRAZAS RN [address] [facility],[place] [address] [place] [address], [address], [place] [facility] [place] 07/19/2024 16:18:04 07/11/20 24 Allergy Immunotherapy Injections completed DENICE KEE [address],[place] [address] [place] [address], [address], [place] [facility] [place] 07/11/2024 14:32:17 07/04/20 24 Allergy Immunotherapy Injections completed DENICE RIVERA [address],[place] [address] [place] [address], [address], [place] [facility] [place] 07/04/2024 14:03:37 06/28/20 24 Allergy Immunotherapy Injections completed MAVERICK TERRAZAS RN [address],[place] [address], [place], [address], [place] [facility] [place] 06/28/2024 14:26:26 06/20/20 24 Allergy Immunotherapy Injections completed DENICE KEE [address],[place] [address], [place], [address], [place] [facility] [place] 06/20/2024 13:05:25 06/13/20 24 Allergy Immunotherapy Injections completed DENICE RIVERA [address], [place], [address], [place] [facility] [place] 06/13/2024 15:52:47 06/06/20 24 Allergy Immunotherapy Injections completed MAVERICK TERRAZAS RN [address], [place], [address], [place] [facility] [place] 06/06/2024 15:10:37 06/06/20 24 JMSNasal/Sinus Endoscopy-PRIOR surgical cavities completed KYMBERLY GARCIA MD [address],[place] [address] [place] [address], [address], [place] [facility] [place] 06/06/2024 14:10:04 06/01/20 24 Allergy Immunotherapy Injections completed MAVERICK TERRAZAS RN [address],[place] [address] [place] [address], [address], [place] [facility] [place] 06/01/2024 15:38:20 05/23/20 24 Allergy Immunotherapy Injections completed DENICE RIVERA [address],[place] [address] [place] [address], [address], [place] [facility] [place] 05/23/2024 14:44:44 05/17/20 24 Allergy Immunotherapy Injections completed DENICE KEE [address],[place] [address] [place] [address], [address], [place] [facility] [place] 05/17/2024 16:10:00 05/09/20 24 Allergy Immunotherapy Injections completed MAVERICK TERRAZAS RN [address] [facility],[place] [address] [place] [address], [address], [place] [facility] [place] 05/09/2024 15:06:52 05/02/20 24 Allergy Immunotherapy Injections completed DENICE RIVERA [address],[place] [address] [place] [address], [address], [place] [facility] [place] 05/02/2024 13:34:36 04/25/20 24 Allergy Immunotherapy Injections completed DENICE RIVERA [address],[place] [address], [place], [address], [place] [facility] [place] 04/25/2024 14:45:44 04/21/20 24 Allergy Immunotherapy Injections completed MAKAYLA GURROLA RMA [address], [place], [address], [place] [facility] [place] 04/21/2024 14:00:37 04/12/20 24 Allergy Immunotherapy Injections completed ROSA ALDANA, RMA [address], [place], [address], [place] [facility] [place] 04/12/2024 16:04:03 04/05/20 24 JMSNasal/Sinus Endoscopy-PRIOR surgical cavities completed KYMBERLY GARCIA MD [address],[place] [facility], [place], [address], [place] [facility] [place] 04/05/2024 14:34:46 04/05/20 24 Allergy Immunotherapy Injections completed DENICE RIVERA [address],[place] [address] [place] [address], [address], [place] [facility] 04/05/2024 13:35:01 03/29/20 24 Allergy Immunotherapy Injections completed ROSA ALDANA, RMA [address],[place] [address] [place] [address], [address], [place] [facility] 03/29/2024 16:18:09 02/29/20 24 functional endoscopic sinus surgery completed KYMBERLY GARCIA MD [address],[place] [address] [place] [address], [address], [place] [facility] 04/05/2024 14:33:51 02/29/20 24 Repair of nasal septum completed KYMBERLY GARCIA MD [address],[place] [address], [place], [address], [place] [facility] 04/05/2024 14:34:03 cholecystectomy completed Shyanne Escalante [place] - [facility] 11/15/2024 13:38:47 section completed Shyanne Escalante [place] - [facility] 11/15/2024 13:38:52 Imaging Results None recorded. [...] by mouth 09/06 completed Medicati on ID: [id number] D uration Value: 10 Brand Name: doxycycl [...] as needed 2023 active Medicati on ID: [id number] D uration Value: 180 Brand Name: mery [...] SNOMED-CT Code Diagnosis ICD10 Code Diagnosis Note [id number] KYMBERLY MCKEON MD [facility] [address] [address] 03/07/2025 14:04:55 03/07/2025 14:52:04 Perennial allergic rhinitis [id number] J30.89 Posterior rhinorrhea 758 48821 J34.89 Postconcus johnny syndrome 65822801 F07.81 [id number] MAKAYLA GUR[address]A [address] [address] 03/07/2025 14:05:21 03/07/2025 14:33:31 Perennial allergic rhinitis 694874269 J30.89 [id number] ROSA DOUGLASS [facility] Allergy [address] [place] [address] 03/15/2025 13:11:44 03/15/2025 13:24:24 Perennial allergic rhinitis 488920889 J30.89 [id number] MAVERICK TERRAZAS RN Allergy [address] [place] [address] 03/21/2025 13:55:08 03/21/2025 14:32:51 Perennial allergic rhinitis 691892454 J30.89 [id number] ROSA DOUGLASS [facility] Allergy [address] [place] [address] 04/04/2025 14:03:29 04/04/2025 14:15:19 Perennial allergic rhinitis [id number] J30.89 Health Concerns Section Related Observation LastModified by Organization Detai ls LastModified Time None Recorded Concern Status LastModified by Organization Details LastModified Time None Recorded Payers Encounter Date Sequence Insurance Name Policy Number Policy Maya Covered Member ID Maya Member ID Guarantor Name 04/04/2025 1 [facility] HEALTH NET PLAN (MEDICAID HMO) YESENIA Hoffmann [id number] Sureina Shun OBGyn Episode No OBEpisode recorded.
== END 2025-04-06 15:53 | disposition home or self-care (01) ==
LOC: HO.HMCFM 13:12
PROVIDERS: PCP Nurse Practitioner Family; Visit Provider Nurse Practitioner Family
DX: N28.1 Cyst of kidney, acquired (principal); K31.819 Angiodysplasia of stomach and duodenum without bleeding

== ENCOUNTER → 2025-04-06 13:12 | Outpatient (BNVA) | payer OTHER, SELFPAY | PROVIDERS: PCP Nurse Practitioner Family; Visit Provider Nurse Practitioner Family | DX: Z13.89 Encounter for screening for other disorder (principal) ==

== ENCOUNTER 2025-04-11 08:03 | Outpatient (AMB) | payer OTHER, SELFPAY ==
--- NOTE | 2025-04-11 08:07 | A.OFFPC_ITS ---
Vital Signs 04/11/25 08:13 Height 5 ft 3 in Weight 144 lb 4 oz BMI 25.5 BP 102/68 Blood Pressure Location Lt brachial Position Sitting Respiration 12 Pulse 68 Pulse Source Pulse Oximeter Temp 97.2 F Temp Source Oral Pulse Oximetry (%) 99 Oxygen Delivery Method Room Air Intake Visit Reasons: CPE in april Intake Note: CPE Health Education Director Required: No Allergies Seasonal Allergies Allergy (Mild, Verified 04/11/25 08:21) Itchy Eyes Medication List - Last Reconciled 04/11/25 by JASBIR Rodríguez-BC ascorbic acid (vitamin C) 500 mg PO DAILY 30 days azelastine intranasal cetirizine (Zyrtec) 10 mg PO DAILY PRN 90 days cyclobenzaprine 5 mg PO BEDTIME 30 days ferrous gluconate 324 mg PO DAILY 30 days fluticasone propionate 50 mcg/actuation 2 sprays intranasal DAILY 90 days magnesium glycinate 400 mg orally QHS; 30 days meloxicam 7.5 mg PO DAILY PRN olopatadine 0.2% (Pataday Once Daily Relief) 1 drp ophthalmic (eye) DAILY PRN 30 days riboflavin (vitamin B2) 400 mg PO DAILY 30 days tretinoin 0.025% 1 appl topical BEDTIME Tobacco use date assessed: 04/11/25 Dental Screening Dental Screen Date: 04/11/25 Did you have a dental visit in the last 12 months?: Yes Did you have a dental problem in the last 6 months where you did not have access to dental care?: No Was dental information given to patient?: Patient has dentist HPI HPI Comments History of Present Illness Details 50-year-old female with anemia, allergic rhinitis, L renal cyst benign s/p bunion surgery, s/p CTS release R 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 Pap - declined DEXA - n/a still getting periods. Tdap declined Specialists: ENT Neuro [facility] appt today Ortho Optho had recent exam Skin no issues History of Present Illness - The patient is a 50-year-old female pr esenting for an annual physical examination. - Managed environmental allergies with z yrtec, Flonase, azesteline nasal spray, and ophthalmic drops. - Iron deficiency anemia previous lab co nfirmed; maintained on supplements. - Complains of back pain and burning sen sations from neck downwards; considering surgical intervention, active w [facility],appt today. 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 - Declined mammogram this year, previous ly completed in February 2023. - Engaged in colon cancer screening via [employer]; not completed. Review of Systems - ENT/Allergies: Reports environmental a llergies - Respiratory: Denies symptoms - Cardiovascular: Denies symptoms - Gastrointestinal: Reports uterine spot ting, craving ice - Musculoskeletal: Reports back pain, de scribed as burning - Neurological: Reports dizziness, previ ous falls - Eyes: Reports pain post-fall, resolved - Other: Denies new medication allergies , no changes in vision Physical Exam General: Well developed, well nourished, in no acute distress. Appears stated age. Head: Normocephalic, atraumatic. Eyes: Pupils are equal, round and reactive to light and accommodation. Conjunctivae are clear. Vision grossly normal. Ears: TMs with congestion R>L AU, EACS WNL.. Nose: Patent, without discharge. Neck: Supple, no adenopathy or thyromegaly. No pain or tenderness upon examination. No carotid bruit bilat Breast: Edu on SBE. Lungs: Clear to auscultation bilaterally. No rales, rhonchi or wheeze noted. Good air flow in all rooney. Heart: Regular rate and rhythm. No murmurs, click, rubs or gallops are noted. Abdomen: Bowel sounds present in all quadrants. The abdomen is soft, nontender, with no masses or organomegaly noted. No hernias are noted. Patient reports a tiny bit of tenderness in the left lower quadrant, possibly related to menstrual cycle. : Deferred. 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 Pulses: Peripheral pulses are equal and palpable bilaterally. Extremities: No clubbing, cyanosis nor edema is noted. Neurologic: Gait and station normal. Cranial Nerves 2-12 intact. Motor strength grossly symmetrical and intact. No sensory loss. Balance normal. Patient reports previous carpal tunnel release on the right hand. Skin: No rashes, ulcers, or lesions noted. Turgor is good. Skin color is good. Hair and nails are without abnormalities. Psych: Normal eye contact, affect and mood appropriate, and normal interactions. Patient is alert and appropriate to context. Results see below Discussion Notes I discussed with the patient the ongoing management of her environmental allergies, which she continues to manage with medications as needed. We reviewed her iron deficiency anemia plan, ensuring she continues her supplements, as recent labs revealed low levels. Concerning her back pain and potential consult for surgical intervention, I advised that consultations from other specialists should be shared with me to monitor her care. Health maintenance topics included declined mammogram screening, colon, Tdap and Pap. I emphasized the importance of regular follow-ups and asked the patient to provide updates if any new symptoms or concerns arise. Assessment and Plan 1. Environmental Allergies - Continue meds; as needed. 2. Iron Deficiency Anemia - Continue supplements; monitor iron/cras vings. 3. Back Pain - Await [facility] eval and tx. Patient Instructions - Keep using allergy medications as need ed. - Continue taking iron supplements and v itamin C.. - Check in with any changes in symptoms. - Follow-up with specialists and update me on their notes. - RTO 1 year CPE, sooner PRN -- CT scan ordered and pending, will arr ana maria fu once results are avail. Consent Patient was informed and verbally consented to the use of an ambient scribe for clinic note documentation during this visit. An additional 15 minutes was spent addressing the problem(s) noted at todays visit. This includes time spent before the visit reviewing the chart, time spent during the visit, and time spent after the visit on documentation reviewing laboratory results, diagnostic imaging, medications, performing a medically necessary evaluation, counseling on diagnoses, care coordination, ordering appropriate tests, ordering appropriate medications, review of tests performed by other providers, reporting test results with the patient, communication with other healthcare providers. [facility] Medical History (Updated 04/11/25 @ 08:43 by Khadijah Jonh, JASBIR-ELIAS) Allergic sinusitis Bunion, left foot Bunion, right foot Deviated septum Deviated septum Foot pain, bilateral Mild anemia Surgical History (Updated 04/11/25 @ 08:25 by Khadijah John, JASBIR-ELIAS) History of bunionectomy S/P carpal tunnel release (~03/2025) Social History (Updated 04/06/25 @ 13:08 by Priyanka Good MA) Housing: House Alcohol intake: current Patient Tobacco Use Status: Never used Tobacco e-Cigarette/Vaping Use: Never Used Second Hand Smoke Exposure: No service: No Current occupational status: employed 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 1. Little interest or pleasure in doing things: not at all 2. Feeling down, depressed, or hopeless: not at all 3. Trouble falling or staying asleep, or sleeping too much: not at all 4. Feeling tired or having little energy: not at all 5. Poor appetite or overeating: not at all 6. Feeling bad about yourself - or that you are a failure or have let yourself or your family down: not at all 7. Trouble concentrating on things, such as reading the newspaper or watching television: not at all 8. Moving or speaking so slowly that other people could have noticed. Or the opposite - being so fidgety or restless that you have been moving around a lot more than usual: not at all 9. Thoughts that you would be better off or of hurting yourself in some way: not at all Total score: 0 Depression Screening Interpretation: Negative Depression Screening Done: Yes 86814 - PHQ-9 Billing: Yes Source: Developed by Drs. Randall Grant, Valencai Villareal, Richmond Farfan and colleagues, with an educational monika from [employer]. Thrive Questionnaire Date Thrive assessed: 04/11/25 I am a: Patient What is your living situation today?: I have a steady place to live Within the past 12 months, did the food you bought not last and you didn't have the money to get more?: Never true Within the past 12 months, did you worry whether your food would run out before you got money to buy more?: Never true Do you have trouble paying for medicines?: No Do you have trouble getting transportation to medical appointments?: No Do you have trouble paying your heating and electricity bill?: No Do you have trouble taking care of your child, family member or friend?: No Do you have trouble with day-to-day activities such as bathing, preparing meals, shopping, managing finances, etc.?: Yes Are you currently unemployed and looking for a job?: No Are you interested in more education?: No Please select the resources that you would like help with: None Currently or been in a relationship where the following occur: No concerns reported THRIVE Score: 0 AUDIT C Alcohol Use Questionnaire (AUDIT-C) 1. How often do you have a drink containing alcohol?: Never 3. How often do you have six or more drinks on one occasion?: Never Total Score: 0 Score Reviewed/Action Taken: Yes VIKTORIA-7 AMB Questionnaire VIKTORIA-7 Date VIKTORIA - 7 assessed: 04/11/25 Feeling nervous, anxious, or on edge: 0 = Not at all Not being able to stop or control worryin = Not at all Worrying too much about different things: 0 = Not at all Trouble relaxin = Not at all Being so restless that it is hard to sit still: 0 = Not at all Becoming easily annoyed or irritable: 0 = Not at all Feeling afraid as if something awful might happen: 0 = Not at all Total VIKTORIA-7 score (0-4 normal; 5-9 mild; 10-14 moderate; 15-21 severe): 0 Source: Developed by Drs. Randall Grant, Valencia Villareal, Richmond Farfan and colleagues, with an educational monika from [employer]. VIKTORIA-7 Assessment Billing VIKTORIA-7 Assessment Tool: VIKTORIA-7 Assessment 76491 Physical exam (Primary Care) Vital Signs: Last Vital Signs Temp 97.2 F 04/11/25 08:13 Pulse 68 04/11/25 08:13 Resp 12 04/11/25 08:13 BP 102/68 04/11/25 08:13 Pulse Ox 99 04/11/25 08:13 Oxygen Delivery Method Room Air 04/11/25 08:13 BMI result Body Mass Index 25.5 BMI Assessment/Plan discussion: High BMI High, discussed plan: lifestyle Tobacco/Smoking Status: Tobacco use Status Tobacco use date assessed 04/11/25 04/11/25 08:12 Patient Tobacco Use Status Never used Tobacco 04/11/25 08:12 e-Cigarette/Vaping Use Never Used 04/11/25 08:12 PHQ-9: PHQ-9 Score PHQ-9: Total score 0 04/11/25 08:12 Depression Screening Interpretation: Negative Thrive Assessment: Date of Thrive Assessment Date Thrive assessed 04/11/25 04/11/25 08:12 Currently or been in a relationship where the following occur: No concerns reported Advance Care Planning discussion: Exists, not on file Date of discussion: 04/10/24 Who was present: Self Forms completed: Health Care Proxy and MOLST Actual minutes spent: 1 Results Reviewed Results Reviewed: RUN: 04/11/2527 PAGE 1 [facility] [address] [place] [id number] Api Product Manager: Johan Corral M.D. Specimen Inquiry Name: Naina Hoffmann Age/Sex: 49/F : 1975 Unit#: [id number] Attend Dr: Prisca Mai Re03/02/25 Status: DEP [facility] Disch: SPEC : [id number] JORGE LUIS: 03/02/25 STATUS: COMP REQ : [id number] RECD: 03/02/[address]: Prisca Mai COMP: 03/02/25 ENTERED: 03/02/[address]: Khadijah John [facility]- ORDERED: CBC Auto Diff Test Result Flag Reference WBC 6.2 4.8-10.8 X10*3/uL RBC 4.56 4.20-5.50 X10*6/uL HGB 9.5 L 12.0-16.0 g/dl HCT 31.7 L 37.0-47.0 % MCV 69.5 L 80.0-98.0 fL MCH 20.8 L 27.0-33.0 pg MCHC 30.0 L 31.0-35.0 g/dl RDW 15.3 11.0-16.0 % PLT 330 160-400 X10*3/uL MPV 10.6 9.4-12.3 fL Neut Pct Auto 54.8 45-73 % ImGran Pct Auto 1.1 H 0.0-0.4 % Lymp Pct Auto 28.6 20-40 % [place] Pct Auto 9.3 2-11 % Eos Pct Auto 5.4 H 0-4 % Baso Pct Auto 0.8 0-2 % NRBC Pct Auto 0.0 0.0-0.2 /100WBC ANC Neut Abs # 3.4 2.0-8.3 x10*3/uL ImGran Abs Auto 0.07 H 0.00-0.03 X10*3/uL Lymph Abs Auto 1.8 1.2-4.9 X10*3/uL [place] Abs Auto 0.6 0.1-1.2 X10*3/uL Eos Abs Auto 0.3 0.0-0.4 X10*3/uL Baso Abs Auto 0.1 0.0-0.2 X10*3/uL NRBC Abs Auto 0.000 0.0-0.012 X10*3/uL RUN: 04/11/25 0828 PAGE 1 [facility] [address] [place] [phone] Api Product Manager: Johan Corral M.D. 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-BC COMP: 03/02/258 ENTERED: 03/02/25-[address]: Prisca Mai TELEGRAPHIC TYPEWRITER INSTALLER ORDERED: CMP, IRON PROF Test Result Flag Reference Sodium 139 135-145 mmol/L Potassium 4.4 3.3-5.1 mmol/L CL 109 H 96-108 mmol/L CO2 27 22-29 mmol/L Gap 7 L 12-20 BUN 9 9-16 mg/dL Creat 0.56 0.5-1.4 mg/dL eGFR > 60 Chronic Kidney Disease: Estimated GFR < 60 mL/min/1.73m2 Severe Kidney Disease: Estimated GFR < 15 mL/min/1.73m2 Glucose, Random 98 60-115 mg/dL CA 9.5 8.4-10.2 mg/dL Iron 16 L 30-160 mcg/dL TIBC 320 228-428 mcg/dL Saturation 5 L 15-50 % UIBC 304 ug/dL Total Bili 0.5 0.0-1.0 mg/dL AST (GOT) 20 5-31 U/L ALT (GPT) 11 0-31 U/L Protein, Total 7.7 6.5-8.0 g/dL Alb 4.2 3.5-5.0 g/dL Alk Phos 94 39-117 U/L Coding Level of Care Code Est Pt Level 2 (76788) Est Pt Prev Care 40-64y(49303) Diagnoses Encounter for general adult medical examination without abnormal findings Z00.00 Iron deficiency anemia due to chronic blood loss D50.0 Iron deficiency anemia type: chronic blood loss Mild anemia D64.9 Renal cyst, left N28.1 Cervical spondylosis M47.812 Mammogram declined Z53.20 Colon cancer screening declined Z53.20 Papanicolaou smear declined Z53.20 Tetanus, diphtheria, and acellular pertussis (Tdap) vaccination declined Z28.21 Additional Codes VIKTORIA-7 Assessment Billing - VIKTORIA-7 Assessment Tool: VIKTORIA-7 Assessment 96979 ([id number]) PHQ-9 - 36215 - PHQ-9 Billing: Yes ([id number]) Vital Signs *Quality* - Advance Care Planning discussion: Exists, not on file ([id number]) Assessment & Plan Assessment & Plan (1) Encounter for general adult medical examination without abnormal findings: Onset Date: ~04/11/25 Code(s): Z00.00 - Encounter for general adult medical examination without abnormal findings Category: Medical (2) Iron deficiency anemia: Code(s): D50.9 - Iron deficiency anemia, unspecified Category: Medical Qualifiers: Iron deficiency anemia type: chronic blood loss Qualified Code(s): D50.0 - Iron deficiency anemia secondary to blood loss (chronic) (3) Mild anemia: Code(s): D64.9 - Anemia, unspecified Category: Medical (4) Renal cyst, left: Comment: benign noted on MRI T spine 2024 Code(s): N28.1 - Cyst of kidney, acquired Category: Medical (5) Cervical spondylosis: Comment: Followed by [facility]. Code(s): M47.812 - Spondylosis without myelopathy or radiculopathy, cervical region Category: Medical (6) Mammogram declined: Code(s): Z53.20 - Procedure and treatment not carried out because of patient's decision for unspecified reasons Category: Medical (7) Colon cancer screening declined: Code(s): Z53.20 - Procedure and treatment not carried out because of patient's decision for unspecified reasons Category: Medical (8) Papanicolaou smear declined: Code(s): Z53.20 - Procedure and treatment not carried out because of patient's decision for unspecified reasons Category: Medical (9) Tetanus, diphtheria, and acellular pertussis (Tdap) vaccination declined: Code(s): Z28.21 - Immunization not carried out because of patient refusal Category: Medical Plan . Patient Instructions: Health screenings for women You should visit your health care provider from time to time, even if you are healthy. The purpose of these visits is to: Screen for medical issues Assess your risk for future medical problems Encourage a healthy lifestyle Update vaccinations and other preventive care services Help you get to know your provider in case of an illness Information Even if you feel fine, you should still see your provider for regular checkups. These visits can help you avoid problems in the future. For example, the only way to find out if you have high blood pressure is to have it checked regularly. High blood sugar and high cholesterol levels also may not have any symptoms in the early stages. A simple blood test can check for these conditions. There are specific times when you should see your provider or receive specific health screenings. The [place] Preventive Services Task Force publishes a list of recommended screenings. Below are screening guidelines for women ages 18 to 39. BLOOD PRESSURE SCREENING Your blood pressure should be checked at least once every 3 to 5 years if: Your blood pressure is in the normal range (top number less than 120 mm Hg and bottom number less than 80 mm Hg) You don't have risk factors for high blood pressure Ask your provider if you need your blood pressure checked more often if: The top number is 120 to 129 mm Hg or the bottom number is 70 to 79 mm Hg You have diabetes, heart disease, kidney problems, are overweight, or have certain other health conditions You have a first-degree relative with high blood pressure You are Black You had high blood pressure during a If the top number is 130 mm Hg or greater or the bottom number is 80 mm Hg or greater, this is considered stage 1 hypertension. Schedule an appointment with your provider to learn how you can reduce your blood pressure. Watch for blood pressure screenings in your area. Ask your provider if you can stop in to have your blood pressure checked. BREAST CANCER SCREENING Experts do not agree about the benefits of breast self-exams in finding breast cancer or saving lives. Talk to your provider about what is best for you. A screening mammogram is not recommended for most women under age 40. Your provider may discuss and recommend mammograms, MRI scans, or ultrasounds if you have an increased risk for breast cancer, such as: A mother or sister who had breast cancer at a young age (most often starting screening earlier than the age the close relative was diagnosed) You carry a high-risk genetic marker CERVICAL CANCER SCREENING Cervical cancer screening should start at age 21 years unless your provider advises otherwise. After the first test: Women ages 21 through 29 should have a Pap test every 3 years. Exoprts do not agree on whether HPV testing is recommended for this age group. Women ages 30 through 65 should be screened with either a Pap test every 3 years or the HPV test every 5 years or both tests every 5 years (called cotesting ). Women who have been treated for precancer (cervical dysplasia) should continue to have Pap tests for 20 years after treatment or until age 65, whichever is longer. If you have had your uterus and cervix removed (total hysterectomy), and you have not been diagnosed with cervical cancer or precancer (high grade cervical neoplasia), you do not need cervical cancer screening. CHOLESTEROL SCREENING Cholesterol screening should begin at: Age 45 for women with no known risk factors for coronary heart disease Age 20 for women with known risk factors for coronary heart disease Repeat cholesterol screening should take place: Every 5 years for women with normal cholesterol levels More often if changes occur in lifestyle (including weight gain and diet) More often if you have diabetes, heart disease, kidney problems, or certain other conditions DIABETES SCREENING You should be screened for diabetes starting at age 35 and then repeated every 3 years if you have no risk factors for diabetes. Screening may need to start earlier and be repeated more often if you have other risk factors for diabetes, such as: You have a first degree relative with diabetes. You are overweight or have obesity. You have high blood pressure, prediabetes, or a history of heart disease. Screening for diabetes should be done if you are planning to become and you are overweight and have other risk factors such as high blood pressure. DENTAL EXAM Go to the dentist once or twice every year for an exam and cleaning. Your dentist will evaluate if you need more frequent visits. EYE EXAM Have an eye exam every 5 to 10 years before age 40. If you have vision problems, have an eye exam every 2 years or more often if recommended by your provider. You should have an eye exam that includes an examination of your retina (back of your eye) at least every year if you have diabetes. IMMUNIZATIONS Commonly needed vaccines include: Flu shot: get one every year. COVID-19 vaccine: ask your provider what is best for you. Tetanus-diphtheria and acellular pertussis (Tdap) vaccine: have one at or after age 19 as one of your tetanus-diphtheria vaccines if you did not receive it as an adolescent. Tetanus-diphtheria: have a booster (or Tdap) every 10 years. Varicella vaccine: receive 2 doses if you never had chickenpox or the varicella vaccine. Hepatitis B vaccine: receive 2, 3, or 4 doses, depending on your exact circumstances. Measles, mumps, and rubella (MMR) vaccine: receive 1 to 2 doses if you are not already immune to MMR. Your provider can tell you if you are immune. Ask your provider about the human papillomavirus (HPV) vaccine if: You have not received the HPV vaccine in the past You have not completed the full vaccine series (you should catch up on this shot) Ask your provider if you should receive other immunizations if you have certain health problems that increase your risk for some diseases such as pneumonia. INFECTIOUS DISEASE SCREENING Women who are sexually active should be screened for chlamydia and gonorrhea up until age 25. Women 25 years and older should be screened for chlamydia and gonorrhea if at high risk. Screening for hepatitis C: All adults ages 18 to 79 should get a one-time test for hepatitis C. people should be screened at every . Screening for human immunodeficiency virus (HIV): All people ages 15 to 65 should get a one-time test for HIV. Depending on your lifestyle and medical history, you may also need to be screened for infections such as syphilis and HIV, as well as other infections. PHYSICAL EXAM All adults should visit their provider from time to time, even if they are healthy. The purpose of these visits is to: Screen for disease Assess your risk of future medical problems Encourage a healthy lifestyle Update your vaccinations and other preventive care services Maintain a relationship with a provider in case of an illness Your height, weight, and BMI should be checked at every exam. During your exam, your provider may ask you about: Depression and anxiety Diet and exercise Alcohol and tobacco use Safety issues, such as using seat belts, smoke detectors, and intimate partner violence Your medicines and risk for interactions SKIN SELF-EXAM Your provider may check your skin for signs of skin cancer, especially if you're at high risk, such as if you: Have had skin cancer before Have close relatives with skin cancer Have a weakened immune system OTHER SCREENING Talk with your provider about colon cancer screening if you have a strong family history of colon cancer or polyps, or if you have had inflammatory bowel disease or polyps yourself. Routine bone density screening of women under 40 is not recommended.
--- OUTSIDE RECORDS SUMMARY | 2025-04-11 08:08 | XMS_ITS | Data Portability ---
Author Organization [place] - [facility], Allergy Address [address] [address] Care Team Providers Care Cmv Driver Name Role Phone HILARIO CAI Primary Care Provider [phone] Assessment Encounter Date Assessment Date Assessment LastModified by Organization Details LastModified Time 03/07/2025 03/07/2025 Patient with history of allergic [...] Reaction to last injections: Yes If yes: 5 mm all arms Allergy Symptoms: Other: Missed: Dose Repeated Aware of Vial Test Notes: [email or web address] Not available 03/07/2025 14:18:40 03/15/2025 03/15/2025 Visit With: DENICE Kee Use of Antihistamines: Yes If yes: Vial Test Change in medications: No If yes Increase in asthma symptoms If yes, inhaler use: Reaction to last injections: No If yes: Allergy Symptoms: Other: Missed: Dose Aware of Vial Test Notes: [email or web address] Not available 03/15/2025 13:24:10 03/21/2025 03/21/2025 Visit With: Maverick Terrazas RN Use of Antihistamines: No If yes: Vial Test Change in medications: No If yes Increase in asthma symptoms No Asthma Hx If yes, inhaler use: Reaction to last injections: No If yes: Allergy Symptoms: Other: Missed: Dose Aware of Vial Test Notes: [email or web address] Not available 03/21/2025 14:32:35 04/04/2025 04/04/2025 Visit With: DENICE Kee Use of Antihistamines: [...] Organization Details Last Modified Time Details Appointments [facility]- Allergy f-up 6mon 2024 09:30A M KYMBERLY [...] Time Hypertrop hy of nasal turbinate s [id number] Active 2023 Hypertroph y of nasal turbinates ; Note: Date Diagnosed: 01/03/2016 8:40 AM (J34.3) Not Available [facility] 4 02:13:50 Chronic rhinitis 03194952 Active 2023 Chronic rhinitis; Note: Date Diagnosed: 11/22/2023 2:34 PM (J31.0) Not Available [facility] 4 02:13:06 Deviated nasal septum 538701216 Active 2023 Deviated nasal septum; Note: Date Diagnosed: 01/03/2016 8:40 AM (J34.2) Not Available [facility] 4 02:13:23 Disorder of smell 230087391 Active 2023 Other disturbanc es of smell and taste; Note: Date Diagnosed: 11/22/2023 2:34 PM (R43.8) Not Available [facility] 4 02:14:24 Disorder of taste 044703714 Active 2023 Other disturbanc es of smell and taste; Note: Date Diagnosed: 11/22/2023 2:34 PM (R43.8) Not Available [facility] 4 02:14:24 Perennial allergic rhinitis 757802329 Active 2023 KYMBERLY MCKEON MD [address] [place] [address],[place] [address], [place], [address] , [facility] - [facility] 5 14:39:51 Allergic rhinitis 00756985 Active 2023 KYMBERLY MCKEON MD [address] [place] [address],[place] [address], [place], [address] , [facility] - [facility] [place] 4 14:34:26 Chronic sinusitis 49288987 Active 2023 KYMBERLY MCKEON MD [address] [place] [address],[place] [address], [place], [address] , [facility] [place] 4 14:35:04 Mild intermitt ent asthma 216645361 Active 2023 KYMBERLY MCKEON MD [address] [place] [address],[place] [address], [place], [address] , [facility] - [facility] [place] 4 14:13:34 Follow-up visit Active 2023 Encounter for follow-up examinatio n after completed treatment for conditions other than malignant neoplasm; Note: Date Diagnosed: 03/03/2024 11:19 AM (Z09) Not Available [facility] 4 02:14:15 Headache 97569466 Active 2023 Headache, unspecifie d; Note: Date Diagnosed: 03/20/2024 11:48 AM (R51.9) Not Available [facility] 4 02:14:40 Posterior rhinorrhe a 67321996 Active 2024 KYMBERLY MCKEON MD 100 [facility],[address], [place], [address] , [facility] - [facility] [place] 5 14:40:01 Paresthes ia 12960018 Active 2024 MEAGHAN PHILIPPE PA-C 100 [facility],[place] [address], [place], [address] , [facility] - [facility] [place] 5 14:12:02 Postconcu ssion syndrome 05184748 Active 2024 KYMBERLY MCKEON MD 100 [facility], [place], [address] , [facility] - [facility] [place] 14:40:07 Problem Notes None recorded. Procedures Surgical History Date Name Laterality Status Provider Name and Address Organization Details Recorded Time 04/04/20 25 Allergy Immunotherapy Injections completed DENICE KEE 100 [facility],[place] [address] [place] [address], [address], [place] [facility] [place] 04/04/2025 14:14:25 03/21/20 25 Allergy Immunotherapy Injections completed MAVERICK TERRAZAS RN 100 [facility],[address], [address], [facility] - [facility] [place] 03/21/2025 14:32:25 03/15/20 25 Allergy Immunotherapy Injections completed DENICE KEE 100 [facility],[address], [address], [place] [facility] [place] 03/15/2025 13:24:02 03/07/20 25 Allergy Immunotherapy Injections completed DENICE RIVERA 100 [facility],[address], [address], [facility] - [facility] [place] 03/07/2025 14:17:42 03/02/20 25 Allergy Immunotherapy Injections completed DENICE RIVERA 100 [facility],[address], [address], [place] [facility] [place] 03/02/2025 09:22:17 02/24/20 25 Allergy Immunotherapy Injections completed TOYIN GURROLA RMA [address], [place], [address], [place] [facility] [place] 02/23/2025 10:37:57 02/15/20 25 Allergy Immunotherapy Injections completed MAVERICK TERRAZAS RN [address], [place], [address], [place] [facility] [place] 02/14/2025 13:47:08 02/08/20 25 Allergy Immunotherapy Injections completed ROSA ALDANA, RMA [address], [place], [address], [place] [facility] [place] 02/07/2025 15:34:14 02/01/20 25 Allergy Immunotherapy Injections completed TOYIN GURROLA RMA [address], [place], [address], [place] [facility] [place] 01/31/2025 14:14:19 01/25/20 25 Allergy Immunotherapy Injections completed DENICE RIVERA [address] [facility],[place] [facility], [place], [address], [place] [facility] [place] 01/24/2025 10:31:45 01/18/20 25 Allergy Immunotherapy Injections completed TOYIN GURROLA RMA [address], [place], [address], [place] [facility] [place] 01/17/2025 11:50:20 01/12/20 25 Allergy Immunotherapy Injections completed MAVERICK TERRAZAS RN [address], [place], [address], [place] [facility] [place] 01/11/2025 10:38:17 01/03/20 25 Allergy Immunotherapy Injections completed MAVERICK TERRAZAS RN [address] [facility] [address],[place] [address], [place], [address], [place] [facility] [place] 01/03/2025 13:48:45 12/29/19 25 Allergy Immunotherapy Injections completed MAVERICK TERRAZAS RN [address],[place] [address], [place], [address], [place] [facility] [place] 12/29/2024 10:36:58 12/20/19 25 Allergy Immunotherapy Injections completed MAVERICK TERRAZAS RN [address],[place] [facility], [place], [address], [place] [facility] [place] 12/20/2024 15:44:53 12/12/19 25 Allergy Immunotherapy Injections completed TOYIN GURROLA, RMA [address],[place] [address], [place], [address], [place] [facility] [place] 12/12/2024 13:28:07 11/30/19 25 Allergy Immunotherapy Injections completed ROSA ALDANA, RMA [address], [place], [address], [place] [facility] [place] 11/30/2024 14:28:33 11/22/19 25 Allergy Immunotherapy Injections completed ROSA DOUGLASSC, RMA [address],[place] [facility], [place], [address], [place] [facility] [place] 11/22/2024 13:40:26 11/15/19 25 Allergy Immunotherapy Injections completed ROSA ALDANA, RMA [address],[place] [facility], [place], [address], [place] [facility] [place] 11/15/2024 13:45:46 11/10/19 25 Allergy Immunotherapy Injections completed TOYIN GURROLA, RMA [address],[place] [address] [place] [address], [address], [place] [facility] [place] 11/10/2024 15:15:34 11/02/20 24 Allergy Immunotherapy Injections completed MAVERICK TERRAZAS RN [address], [place], [address], [place] [facility] [place] 11/02/2024 10:42:32 10/25/20 24 Allergy Immunotherapy Injections completed MAVERICK TERRAZAS RN [address],[place] [address], [place], [address], [place] [facility] [place] 10/25/2024 14:09:21 10/17/20 24 Allergy Immunotherapy Injections completed ROSA ALDANA, RMA [address],[place] [address], [place], [address], [place] [facility] [place] 10/17/2024 13:44:09 10/03/20 24 Allergy Immunotherapy Injections completed DENICE RIVERA [address],[place] [facility], [place], [address], [place] [facility] [place] 10/03/2024 13:20:05 09/21/20 24 Allergy Immunotherapy Injections completed MAVERICK TERRAZAS RN [address] [facility],[place] [address], [place], [address], [place] [facility] [place] 09/21/2024 12:01:33 09/12/20 24 Allergy Immunotherapy Injections completed ROSA ALDANA RMReji [address] [facility],[address], [place], [address], [place] [facility] [place] 09/12/2024 14:05:49 09/06/20 24 Allergy Immunotherapy Injections completed DENICE RIVERA [address] [facility] [address],[place] [address] [place] [address], [address], [place] [facility] [place] 09/06/2024 14:48:49 09/06/20 24 JMSNasal/Sinus Endoscopy-PRIOR surgical cavities completed KYMBERLY GARCIA MD [address] [facility] [address],[place] [address] [place] [address], [address], [place] [facility] [place] 09/06/2024 15:05:59 08/29/20 24 Allergy Immunotherapy Injections completed DENICE RIVERA [address] [facility],[place] [address] [place] [address], [address], [place] [facility] [place] 08/29/2024 14:50:02 08/23/20 24 Allergy Immunotherapy Injections completed MAVERICK TERRAZAS RN [address] [facility],[place] [address] [place] [address], [address], [place] [facility] [place] 08/23/2024 15:21:09 08/15/20 24 Allergy Immunotherapy Injections completed MAVERICK TERRAZAS RN [address] [facility],[place] [address] [place] [address], [address], [place] [facility] [place] 08/15/2024 14:14:05 08/10/20 24 Allergy Immunotherapy Injections completed DENICE RIVERA [address] [facility] [address],[place] [address], [place], [address], [place] [facility] [place] 08/10/2024 14:00:51 08/04/20 24 Allergy Immunotherapy Injections completed DENICE RIVERA [address],[place] [address], [place], [address], [place] [facility] [place] 08/04/2024 15:31:25 07/25/20 24 Allergy Immunotherapy Injections completed DENICE KEE [address], [place], [address], [place] [facility] [place] 07/25/2024 14:33:52 07/19/20 24 Allergy Immunotherapy Injections completed MAVERICK TERRAZAS RN [address] [facility],[place] [address] [place] [address], [address], [place] [facility] [place] 07/19/2024 16:18:04 07/11/20 24 Allergy Immunotherapy Injections completed DENICE KEE [address],[place] [address] [place] [address], [address], [place] [facility] [place] 07/11/2024 14:32:17 07/04/20 24 Allergy Immunotherapy Injections completed DENICE RIVERA [address] [facility],[place] [address] [place] [address], [address], [place] [facility] [place] 07/04/2024 14:03:37 06/28/20 24 Allergy Immunotherapy Injections completed MAVERICK TERRAZAS RN [address] [facility],[place] [address] [place] [address], [address], [place] [facility] [place] 06/28/2024 14:26:26 06/20/20 24 Allergy Immunotherapy Injections completed DENICE KEE [address],[place] [address], [place], [address], [place] [facility] [place] 06/20/2024 13:05:25 06/13/20 24 Allergy Immunotherapy Injections completed DENICE RIVERA [address],[place] [address], [place], [address], [place] [facility] [place] 06/13/2024 15:52:47 06/06/20 24 Allergy Immunotherapy Injections completed MAVERICK TERRAZAS RN [address] [facility],[address], [place], [address], [place] [facility] [place] 06/06/2024 15:10:37 06/06/20 24 JMSNasal/Sinus Endoscopy-PRIOR surgical cavities completed KYMBERLY GARCIA MD [address] [facility],[place] [address] [place] [address], [address], [place] [facility] [place] 06/06/2024 14:10:04 06/01/20 24 Allergy Immunotherapy Injections completed MAVERICK TERRAZAS RN 100 [facility],[place] [address] [place] [address], [address], [place] [facility] [place] 06/01/2024 15:38:20 05/23/20 24 Allergy Immunotherapy Injections completed DENICE RIVERA 100 [facility],[place] [address] [place] [address], [address], [place] [facility] [place] 05/23/2024 14:44:44 05/17/20 24 Allergy Immunotherapy Injections completed DENICE KEE 100 [facility],[place] [address] [place] [address], [address], [place] [facility] [place] 05/17/2024 16:10:00 05/09/20 24 Allergy Immunotherapy Injections completed MAVERICK TERRAZAS RN 100 [facility],[address], [address], [place] [facility] [place] 05/09/2024 15:06:52 05/02/20 24 Allergy Immunotherapy Injections completed DENICE RIVERA 100 [facility],[place] [address] [place] [address], [address], [place] [facility] [place] 05/02/2024 13:34:36 04/25/20 24 Allergy Immunotherapy Injections completed DENICE RIVERA 100 [facility],[place] [address] [place] [address], [address], [place] [facility] [place] 04/25/2024 14:45:44 04/21/20 24 Allergy Immunotherapy Injections completed DENICE RIVERA 100 [facility],[place] [address] [place] [address], [address], [place] [facility] [place] 04/21/2024 14:00:37 04/12/20 24 Allergy Immunotherapy Injections completed ROSA ALDANA, [facility] [address], [place], [address], [facility] - [facility] 04/12/2024 16:04:03 04/05/20 24 JMSNasal/Sinus Endoscopy-PRIOR surgical cavities completed KYMBERLY GARCIA MD [address],[place] [address] [place] [address], [address], [place] [facility] [place] 04/05/2024 14:34:46 04/05/20 24 Allergy Immunotherapy Injections completed TOYIN GURROLA Reji [address], [place], [address], [place] [facility] [place] 04/05/2024 13:35:01 03/29/20 24 Allergy Immunotherapy Injections completed ROSA ALDANA, [facility] [address], [place], [address], [facility] - [facility] 03/29/2024 16:18:09 02/29/20 24 functional endoscopic sinus surgery completed KYMBERLY GARCIA MD [address],[place] [facility], [place], [address], [facility] - [facility] 04/05/2024 14:33:51 02/29/20 24 Repair of nasal septum completed KYMBERLY GARCIA MD [address],[place] [address] [place] [address], [address], [facility] - [facility] 04/05/2024 14:34:03 cholecystectomy completed Shyanne Escalante [place] - [facility] 11/15/2024 13:38:47 section completed Shyanne Escalante [place] - [facility] 11/15/2024 13:38:52 Imaging Results None recorded. [...] by mouth 09/06 completed Medicati on ID: [id number] D uration Value: 10 Brand Name: doxycycl [...] as needed 2023 active Medicati on ID: [id number] D uration Value: 180 Brand Name: epinephr [...] Updated DateTime 03/07/2025 157.48 cm 27.2 kg/m2 74990.47 g 130 mm[Hg] 72 mm[Hg] Kavya Leija [place] - [facility] 14:20:15 Social History None recorded. Functional [...] Code Diagnosis ICD10 Code Diagnosis Note 1216 RUBINA RIVERAA Allergy 100 [facility],[place] 100 [place] [address] 03/29/2024 15:44:26 03/29/2024 16:42:23 Perennial allergic rhinitis [id number] J30.89 1874 TOYIN GURROLA A Allergy [address] [place] [address],[place] 100 [place] [address] 04/05/2024 13:34:19 04/05/2024 15:04:24 Perennial allergic rhinitis [id number] J30.89 1885 KYMBERLY MCKEON MD [facility] [address] [place] [address] 04/05/2024 14:08:28 04/05/2024 14:37:29 Allergic rhinitis 51594678 J30.9 Chronic sinusitis 850584 00 J32.8 2927 [facility], A Allergy 100 [facility], ite 100 [place] [address] 04/12/2024 15:55:43 04/12/2024 16:05:09 Perennial allergic rhinitis [id number] J30.89 [id number] TOYIN GURROLA A Allergy [address] [place] [address] ite 100 [facility] [place] [address] 04/21/2024 13:59:32 04/21/2024 15:24:17 Perennial allergic rhinitis [id number] J30.89 4568 TOYIN GURROLA A Allergy [address] [place] [address],[place] [address] [place] [address] 04/25/2024 14:32:30 04/25/2024 14:54:24 Perennial allergic rhinitis 105947129 J30.89 5510 TOYIN GURROLA A Allergy [address] [place] [address],[place] 100 [facility] [place] [address] 05/02/2024 13:33:44 05/02/2024 14:50:02 Perennial allergic rhinitis [id number] J30.89 6373 MAVERICK TERRAZAS RN Allergy [address] [place] [address] 100 [place] [address] 05/09/2024 14:14:28 05/09/2024 15:11:12 Perennial allergic rhinitis 614441987 J30.89 7352 [facility] Allergy [address] [place] [address], [place] [address] 05/17/2024 15:44:53 05/17/2024 16:19:07 Perennial allergic rhinitis 464651502 J30.89 8103 TOYIN GURROLA [facility] Allergy [address] [place] [address], [place] [address] 05/23/2024 11:44:15 05/24/2024 13:06:20 Perennial allergic rhinitis 600504861 J30.89 9593 MAVERICK TERRAZAS RN Allergy [address] [place] [address], [place] [address] 06/01/2024 15:27:09 06/01/2024 15:39:04 Perennial allergic rhinitis [id number] J30.89 9685 KYMBERLY MCKEON MD [facility] [address] [place] [address] 06/06/2024 12:56:12 06/06/2024 14:19:47 Mild intermittent asthma 288825312 J45.20 Allergic rhinitis 309867 04 J30.9 History of neoplasm 2759 77517 Z86.018 no recurrent polyps [id number] [facility], [facility] Allergy [address] [place] [address],[facility] 100 [place] [address] 06/06/2024 12:56:12 06/06/2024 14:19:47 Perennial allergic rhinitis 896968048 J30.89 [id number] TOYIN GURROLA [facility] Allergy [address] [place] [address], [place] [address] 06/13/2024 14:52:19 06/13/2024 16:15:52 Perennial allergic rhinitis [id number] J30.89 [id number] [facility], A Allergy 100 [facility],[place] [address] [address] [place] [address] 06/20/2024 12:36:44 06/20/2024 14:51:01 Perennial allergic rhinitis [id number] J30.89 [id number] 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89 [id number] TOYIN GURROLA [facility] Allergy [address] [place] [address],[place] [address] [place] [address] 07/19/2024 16:17:22 07/19/2024 16:18:41 Perennial allergic rhinitis [id number] J30.89 [id number] TOYIN GURROLA [facility] Allergy 100 [facility],[place] [address] [address] [place] [address] 07/25/2024 14:15:32 07/25/2024 14:34:25 Perennial allergic rhinitis 173715034 J30.89 [id number] TOYIN GURROLA [facility] Allergy 100 [facility],[place] [address] [place] [address] 08/04/2024 15:30:21 08/14/2024 18:40:41 Perennial allergic rhinitis [id number] J30.89 [id number] TOYIN GURROLA [facility] Allergy 100 [facility],[place] [address] [place] [address] 08/10/2024 13:46:10 08/10/2024 14:54:08 Perennial allergic rhinitis [id number] J30.89 [id number] MAVERICK TERRAZAS RN Allergy 100 [facility], ite [address] [place] [address] 08/15/2024 14:05:14 08/15/2024 14:33:28 Perennial allergic rhinitis [id number] J30.89 [id number] MAVERICK TERRAZAS RN Allergy [address] [place] [address] ite 100 [place] [address] 08/23/2024 14:54:58 08/23/2024 15:21:41 Perennial allergic rhinitis [id number] J30.89 [id number] TOYIN GURROLA [facility] Allergy [address] [place], [place] [address] 100 [place] [address] 08/29/2024 14:25:52 08/29/2024 14:50:37 Perennial allergic rhinitis [id number] J30.89 [id number] KYMBERLY MCKEON MD [facility] Avajuan daniel [address] [place] [address] 09/06/2024 14:38:29 09/06/2024 15:10:27 Allergic rhinitis 42098648 J30.9 continue SCIT She will use Astepro 1 spray each nostril twice daily and fluticason e 1 spray each nostril twice daily Headache 08403917 R51.9 Chronic sinusitis 628758 00 J32.8 [id number] TOYIN GURROLA [facility] Allergy [address] [place] [address] ite [address] [place] [address] 09/06/2024 14:39:04 09/06/2024 15:03:17 Perennial allergic rhinitis [id number] J30.89 [id number] ROSA RAFAT, [facility] Allergy [address] [place] [address], ite [address] [place] [address] 09/12/2024 13:57:30 09/12/2024 14:06:16 Perennial allergic rhinitis [id number] J30.89 [id number] ROSA MEGANFORMERLY [facility], [facility] Allergy [address] [place] [address], ite [address] [place] [address] 09/21/2024 11:00:05 09/21/2024 12:02:02 Perennial allergic rhinitis 323387311 J30.89 [id number] TOYIN GURROLA [facility] Allergy 100 [facility],[place] [address] [place] [address] 10/03/2024 12:48:54 10/03/2024 13:25:49 Perennial allergic rhinitis [id number] J30.89 [id number] TOYIN GURROLA [facility] Allergy 100 [facility],[place] [address] [place] 9 10/17/2024 12:45:37 10/17/2024 13:44:38 Perennial allergic rhinitis [id number] J30.89 [id number] TOYIN GURROLA [facility] Allergy 100 [facility],[place] [address] [place], [place] [address] 10/25/2024 14:08:37 10/25/2024 14:09:51 Perennial allergic rhinitis [id number] J30.89 [id number] MAVERICK TERRAZAS [employer] [address] [place] [address], [address] [place], [place] 9 11/02/2024 10:36:26 11/02/2024 10:42:57 Perennial allergic rhinitis [id number] J30.89 [id number] TOYIN GURROLA, [facility] All[facility] [address] [place] [facility] [place] [address] 11/10/2024 10:31:04 11/10/2024 15:18:31 Perennial allergic rhinitis [id number] J30.89 [id number] MEAGHAN PHILIPPE PA-C [facility] 100 [facility] [place] [address] 11/15/2024 13:20:55 11/15/2024 14:02:44 Headache [id number] R51.9 Posterior rhinorrhea 758 03005 R09.82 Paresthesia [id number] R20 .2 81826 TOYIN GURROLA [facility] Allergy 100 [facility],[address] [place] [address] 11/15/2024 13:20:30 11/15/2024 13:46:31 Perennial allergic rhinitis [id number] J30.89 45661 ROSA DOUGLASS, A Allergy 100 [facility],[address] [place] [address] 11/22/2024 13:05:27 11/22/2024 13:40:57 Perennial allergic rhinitis [id number] J30.89 68551 [facility], [facility] Allergy [address] [place] [address],[address] [place] [address] 11/30/2024 14:18:17 11/30/2024 14:28:59 Perennial allergic rhinitis [id number] J30.89 30730 [facility] All[facility] [address] [place] [address],[address] [place] [address] 12/12/2024 13:07:57 12/12/2024 13:28:31 Perennial allergic rhinitis [id number] J30.89 [id number] [facility], [facility] Allergy [address] [place] [address], [address] [place] [address] 12/20/2024 13:50:01 12/20/2024 15:45:53 Perennial allergic rhinitis [id number] J30.89 25414 MAVERICK TERRAZAS RN Allergy [address] [place] [address] [address] [place] [address] 12/29/2024 10:35:03 12/29/2024 10:37:15 Perennial allergic rhinitis [id number] J30.89 39304 MAVERICK TERRAZAS RN Allergy [address] [place] [address] [address] [place] [address] 01/03/2025 13:35:33 01/03/2025 13:49:13 Perennial allergic rhinitis [id number] J30.89 46122 MAVERICK TERRAZAS RN Allergy [address] [place] [address] [address] [place] [address] 01/11/2025 09:47:20 01/11/2025 10:38:35 Perennial allergic rhinitis [id number] J30.89 [id number] [facility] Allergy [address] [place] [address],[address] [place] [address] 01/17/2025 09:55:01 01/17/2025 11:51:57 Perennial allergic rhinitis [id number] J30.89 75352 TOYIN GURROLA, [facility] Allergy [address] [place] [address] [address] [place] [address] 01/24/2025 09:44:25 01/24/2025 10:32:43 Perennial allergic rhinitis [id number] J30.89 10141 TOYIN GURROLA [facility] Allergy [address] [place] [address] [address] [facility] [place] [address] 01/31/2025 13:53:35 01/31/2025 14:34:55 Perennial allergic rhinitis [id number] J30.89 99710 TOYIN GURROLA [facility] Allergy [address] [place] [address] 100 [facility] [place] [address] 02/07/2025 14:21:08 02/07/2025 15:34:52 Perennial allergic rhinitis [id number] J30.89 95835 MAVERICK TERRAZAS RN Allergy [address] [place] [address], [place] [address] 02/14/2025 13:37:09 02/14/2025 13:47:46 Perennial allergic rhinitis [id number] J30.89 41569 TOYIN GURROLA [facility] Allergy [address] [place] [address] 100 [place] [address] 02/23/2025 10:34:29 02/23/2025 10:38:49 Perennial allergic rhinitis [id number] J30.89 13911 TOYIN GURROLA [facility] Allergy [address] [place] [address] 100 [facility] [place] [address] 03/02/2025 09:05:32 03/02/2025 09:22:44 Perennial allergic rhinitis [id number] J30.89 13446 KYMBERLY MCKEON MD [facility] 100 [place] [address] 03/07/2025 14:04:55 03/07/2025 14:52:04 Perennial allergic rhinitis [id number] J30.89 Posterior rhinorrhea 758 97841 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 05686 TOYIN GURROLA [facility] Allergy [address] [place] [address] 100 [facility] [place] [address] 03/07/2025 14:05:21 03/07/2025 14:33:31 Perennial allergic rhinitis [id number] J30.89 68412 ROSA ALDANA, RUBINAA Allergy 100 [facility],[address] [place] [address] 03/15/2025 13:11:44 03/15/2025 13:24:24 Perennial allergic rhinitis [id number] J30.89 96213 MAVERICK TERRAZAS RN Allergy 100 [facility],[address] [place] [address] 03/21/2025 13:55:08 03/21/2025 14:32:51 Perennial allergic rhinitis [id number] J30.89 [id number] ROSA ALDANA, Reji Allergy 100 [facility],[address] [place] [address] 04/04/2025 14:03:29 04/04/2025 14:15:19 Perennial allergic rhinitis [id number] J30.89 Health Concerns Section Related Observation LastModified by Organization Detai ls LastModified Time None Recorded Concern Status LastModified by Organization Details LastModified Time None Recorded Advance Directives Directive None Recorded Payers Insurance Date Sequence Insurance Name Policy Number Policy Maya Covered Member ID Maya Member ID Guarantor Name 04/04/2025 1 [facility] - HEALTH NET PLAN (MEDICAID HMO) YESENIA Hoffmann [id number] Naina Hoffmann Notes Date Note Type Note Provider Name and Address Organization Details Recorded Time 03/07/2025 text/html Hx of trauma and tinnitus. MRI was negative no further nasal drainage. She still has some postnasal drip. Significant history of allergy No recent INS or antihistamines. She is following up with neurology for postconcussion syndrome and arm weakness. KYMBERLY GARCIA MD 100 [facility],[place] [address], [place], [address], [facility] - [facility] 03/07/2025 14:41:02 OBGyn Episode No OBEpisode recorded.
[2025-04-11 08:13] VITALS: BP 102/68; PULSE 68; RESP 12; TEMP 36.2; O2SAT 99; BMI 25.5
== END 2025-04-11 08:38 | disposition home or self-care (01) ==
LOC: HO.HMCFM 08:05
PROVIDERS: PCP Nurse Practitioner Family; Visit Provider Nurse Practitioner Family
DX: Z00.00 Encounter for general adult medical examination without abnormal findings (principal); D50.0 Iron deficiency anemia secondary to blood loss (chronic); D64.9 Anemia, unspecified; N28.1 Cyst of kidney, acquired; M47.812 Spondylosis without myelopathy or radiculopathy, cervical region; Z53.20 Procedure and treatment not carried out because of patient's decision for unspecified reasons; Z28.21 Immunization not carried out because of patient refusal

== ENCOUNTER → 2025-04-11 08:03 | Outpatient (BNVA) | payer OTHER, SELFPAY | PROVIDERS: PCP Nurse Practitioner Family; Visit Provider Nurse Practitioner Family | DX: Z00.00 Encounter for general adult medical examination without abnormal findings (principal); D50.0 Iron deficiency anemia secondary to blood loss (chronic); J30.9 Allergic rhinitis, unspecified; N28.1 Cyst of kidney, acquired; D50.9 Iron deficiency anemia, unspecified; M47.812 Spondylosis without myelopathy or radiculopathy, cervical region; Z09 Encounter for follow-up examination after completed treatment for conditions other than malignant neoplasm; Z98.890 Other specified postprocedural states; Z86.69 Personal history of other diseases of the nervous system and sense organs; Z28.21 Immunization not carried out because of patient refusal | CPT/HCPCS: 96127; 99212; 99396 ==

== ENCOUNTER 2025-04-11 13:13 | Outpatient (AMB) | payer OTHER, SELFPAY ==
--- NOTE | 2025-04-11 13:31 | MHC.OFFVIS ---
Vital Signs 04/11/25 13:33 Height 5 ft 3 in Weight 144 lb BMI 25.5 Intake Visit Reasons: PO- RT CTR 03/28/25 AR Intake Note: Naina is a 50 year old right hand dominant female who presents today post operatively status post right carpal tunnel release DOS: 03/28/[address] Linda Redman. States her symptoms have improved. Sutures removed and steri strips applied. Allergies Seasonal Allergies Allergy (Mild, Verified 04/11/25 13:39) Itchy Eyes [facility] Medical History (Updated 04/11/25 @ 08:43 by Khadijah John [employer] TECHNICIAN-) Deviated septum Deviated septum Bunion, left foot Bunion, right foot Foot pain, bilateral Mild anemia Allergic sinusitis Surgical History (Updated 04/11/25 @ 08:25 by JASBIR Rodríguez-ELIAS) S/P carpal tunnel release (~03/2025) History of bunionectomy Social History (Updated 04/06/25 @ 13:08 by Priyanka Good MA) Housing: House Alcohol intake: current Patient Tobacco Use Status: Never used Tobacco e-Cigarette/Vaping Use: Never Used Second Hand Smoke Exposure: No Use of substances other than those prescribed or required for medical reasons: No service: No Current occupational status: employed Current occupation: [employer] Current occupational exposures/hazards: No Cognitive needs: No Hearing needs: No Vision needs: No Physical Exam Vital Signs: BMI result Body Mass Index 25.5 Assessment & Plan Assessment & Plan (1) Right carpal tunnel syndrome: Code(s): G56.01 - Carpal tunnel syndrome, right upper limb Category: Medical Plan History of Present Illness The patient is a 50-year-old female presenting for a postoperative evaluation following her carpal tunnel release surgery. She developed post-traumatic carpal tunnel syndrome after a fall, which led to swelling and compression of the median nerve. The condition manifested through numbness and tingling in the affected hand, but the surgical intervention has since alleviated these symptoms. The patient's recovery appears favorable, as she reports no pain, swelling, or redness at the incision site. She can make a fist without issue, which handley significant improvement since the surgery. Review of Systems - Musculoskeletal: Denies any pain or swelling in the wrist post-surgery - Neurological: Reports complete resolution of previous numbness and tingling Systems reviewed and are negative except as per HPI and below Physical Exam - Musculoskeletal- Carpal tunnel incision site appears well-healed, without any signs of redness, swelling, or discomfort upon palpation Results Procedure Plan complete symptom resolution postoperatively. The patient's recovery from her carpal tunnel release surgery is progressing well. Continuing restrictions include avoiding immersion of the affected hand in water, along with a temporary restriction on physically demanding tasks to facilitate healing. A light duty return to work has been planned with a weight limit of 2 pounds for two weeks to ensure safety and effective recovery. Monitoring will continue for any signs that may suggest the need for intervention on the contralateral wrist, with the patient advised to stay alert to any new symptoms. Patient was informed and verbally consented to the use of an ambient scribe for clinic note documentation during this visit. Discussion Notes During this visit, we reviewed the patient's successful recovery after her carpal tunnel release surgery. The patient reported excellent recovery with no concerning symptoms and noted that she feels symptom-free at present. I discussed the plan to avoid putting the hand under water and refraining from specific activities to aid recovery. I highlighted the importance of refraining from heavy lifting at work, outlining a limited duty regimen with a 2-pound weight restriction for two weeks. I reassured the patient regarding the good prognosis but recommended vigilance for any emerging symptoms in the future, offering guidance on returning for evaluation if necessary. Patient Instructions - Avoid immersing the affected hand in water for one more week - Refrain from heavy activities such as car work, gardening, fishing for the next week - Apply a light dressing when out, leaving the incision site open to air at home - Return to work with a 2-pound weight limit for two weeks - Monitor for any new symptoms and seek evaluation if needed Coding Level of Care Code Global (41059) Diagnoses Right carpal tunnel syndrome G56.01
[2025-04-11 13:33] VITALS: BMI 25.5
== END 2025-04-11 14:01 | disposition home or self-care (01) ==
PROVIDERS: PCP Nurse Practitioner Family
DX: G56.01 Carpal tunnel syndrome, right upper limb (principal)
CPT/HCPCS: 99024

== ENCOUNTER 2025-06-21 13:00 | Outpatient (REF) | payer OTHER, SELFPAY ==
--- OUTSIDE RECORDS SUMMARY | 2025-06-16 23:59 | XMS_ITS | Continuity of Care Document ---
Author Organization Pre Op Over[facility] Address [address] [place] [address]- Care Team Providers Care Penal Officer Name Role Phone Not on Staff, PCP Primary Care Physician Unavail able Encounter [facility] ACCT R [id number] Date(s): 05/17/25 - 06/16/25 [facility] [address] [place], [place] [address] Attending Physician: Joe Leigh Admitting Physician: Joe Leigh Referring Physician: AdmtrJoe Encounter Type: Triage Allergies, Adverse Reactions, Alerts Substance Criticality Severity Reaction Reaction Severity Status Other Environmental Allergy 1 Active 1seasonal allergy Immunizations Given and Recorded Vaccine Date Status [...] Date: 02/24/24 Status: Ordered Repeat number: 1 celecoxib 200 mg oral capsule TAKE 1 CAPSULE BY MOUTH EVERY DAY Start Date: 05/17/25 Status: Ordered Repeat number: 1 Cetirizine = 10 mg, By Mouth, Daily, PRN Other, for allergies, 0 Refills, Maintenance, 02/24/24 5:23:00 PM EDT,Partial fill upon patient request if the prescription is for a schedule II opioid drug. Start Date: 02/24/24 Status: Ordered Repeat number: 1 cyclobenzaprine 5 mg oral tablet TAKE 1 TABLET BY MOUTH EVERY DAY AT BEDTIME FOR MUSCLE PAIN Start Date: 05/17/25 Status: Ordered Repeat number: 1 ferrous gluconate 324 mg oral tablet TAKE 1 TABLET ORALLY DAILY FOR 30 DAYS Start Date: 05/17/25 Status: Ordered Repeat number: 1 Flonase 1 spray, Nares, Both, 2 times a day, 0 Refills, Maintenance, 02/24/24 5:25:00 PM EDT, Partial fill upon patient request if the prescription is for a schedule II opioid drug. Start Date: 02/24/24 Status: Ordered Repeat number: 1 MAGNESIUM GLYCINATE 100 MG CAP MAGNESIUM GLYCINATE 100 MG CAP, TAKE 4 CAPSULES DAILY AT BEDTIME Start Date: 05/17/25 Status: Ordered Repeat number: 1 meloxicam 7.5 mg oral tablet TAKE 1 TABLET BY MOUTH EVERY DAY NEEDED FOR PAIN Start Date: 05/17/25 Status: Ordered Repeat number: 1 tretinoin 0.1% topical cream APPLY TO THE AFFECTED AREAS ON THE FACE/NECK NIGHTLY. Start Date: 05/17/25 Status: Ordered Repeat number: 1 Problem List Condition Confirmation Course Effective Dates Status Health [facility] Informant heart disorder Confirmed Active Iron deficiency anemia Confirmed Active Confirmed Active Seasonal allergies Confirmed Active Implantable Device List Procedure Provider Procedure Date Device Type Site Discectomy and Fusion Anterior Cervical Randall Arreaga MD 05/31/25 Unknown Cervical Sp ine Device Identifier Serial Number Lot or Batch Number Manufacturing Date Expiration Date Distinct Identification Code MRI Safety Implantable Status Assigning Authority Unknown Unknown Unknown Unknown 03/28/28 Unknown Unknown Active Unk nown Patient Care team information Care Team Personnel Name: Not on Staff, PCP Position: S Physician (General Medicine) Member Role: PCP Care Team Related Persons Name: KINA DE LA CRUZ Name: BRAYDON HUNTER Insurance Providers Guarantor name: FRANCOISE SPARKS 5gig Plan Information #: 1 Payer: [employer] Payer Identifier: NA Member Number: [id number] Group Number: [id number] Subscriber Identifier: [id number] Relationship to Subscriber: self Coverage Type: NA Coverage Verification Date: NA Telecom: NA Address:
[2025-06-21 13:10] LABS: MANUAL DIFF FLAG NO
[2025-06-21 14:04] LABS: Hematocrit 36.3 % (37.0-47.0); Hemoglobin 11.6 g/dl (12.0-16.0); Imm Gran Abs Auto 0.02 X10*3/uL (0.00-0.03); Imm Gran Pct Auto 0.2 % (0.0-0.4); Lymphocytes Absolute Auto 2.2 X10*3/uL (1.2-4.9); Mean Corpuscular HGB Conc 32.0 g/dl (31.0-35.0); Mean Corpuscular Hemoglobin 26.0 pg (27.0-33.0); Mean Corpuscular Volume 81.4 fL (80.0-98.0); NRBC Abs Auto 0.000 X10*3/uL (0.0-0.012); NRBC Pct Auto 0.0 /100WBC (0.0-0.2); Platelet Count 344 X10*3/uL (160-400); Red Blood Count 4.46 X10*6/uL (4.20-5.50); White Blood Count 8.2 X10*3/uL (4.8-10.8)
[2025-06-21 14:55] LABS: Alanine Aminotransferase 26 U/L (0-31); Albumin Level 4.3 g/dL (3.5-5.0); Alkaline Phosphatase 122 U/L (39-117); Anion Gap 11 (12-20); Aspartate Amino Transferase 29 U/L (5-31); Blood Urea Nitrogen 9 mg/dL (9-16); Calcium 9.2 mg/dL (8.4-10.2); Carbon Dioxide 27 mmol/L (22-29); Chloride 107 mmol/L (96-108); Estimated Glomerular Filt Rate > 60; Iron 31 mcg/dL (30-160); Percent Iron Saturation 11 % (15-50); Potassium 4.2 mmol/L (3.3-5.1); Sodium 141 mmol/L (135-145); Total Iron Binding Capacity 287 mcg/dL (228-428); Total Protein 7.4 g/dL (6.5-8.0); Unsaturated Iron Binding 256 ug/dL
[2025-06-21 15:10] LABS: Ferritin 9 ng/mL (10-250)
== END 2025-06-21 13:01 | disposition home or self-care (01) ==
LOC: HO.CT 13:00
PROVIDERS: Absent Provider Nurse Practitioner Family; PCP Nurse Practitioner Family; Visit Provider Nurse Practitioner Family
DX: R79.0 Abnormal level of blood mineral (principal); D64.9 Anemia, unspecified; K31.819 Angiodysplasia of stomach and duodenum without bleeding; N28.1 Cyst of kidney, acquired
CPT/HCPCS: 36415; 80053; 82728; 83540; 85025

== ENCOUNTER 2025-06-25 14:54 | Outpatient (REF) | payer OTHER, SELFPAY ==
--- NOTE | ~2025-06-25 | CT_ITS ---
EXAMINATION: CT ABDOMEN PELVIS WITH IV CONTRAST HISTORY: K31.819 - Angiodysplasia of stomach and duodenum without bleeding COMPARISON: There are no prior studies for available comparison. TECHNIQUE: CT scan of the abdomen and pelvis was performed following administration of 85 mL Omnipaque 350 using standard departmental protocol. Coronal and sagittal reformatted images were generated and reviewed. Oral contrast material was not administered at the request of the referring physician. This CT exam was performed with one or more of the following dose reduction techniques: automated exposure control, adjustment of the mA and/or kV according to patient size, use of iterative reconstruction technique. DLP: 344 mGy-cm FINDINGS: LOWER CHEST: The visualized lung bases are clear. There is no pleural effusion. CARDIOVASCULATURE: The heart is normal in size. There is no pericardial effusion. LIVER: The liver is normal in size and contour. No liver mass is identified. The hepatic and portal veins are patent. GALLBLADDER / BILE DUCTS: The gallbladder is unremarkable. There is no intra or extrahepatic biliary ductal dilatation. SPLEEN: The spleen is normal in size. No focal splenic lesion is identified. No discrete splenic vein is identified. Numerous collateral vessels are seen along the pancreatic body and tail as well as in the splenogastric ligament. PANCREAS: The pancreatic head and body/tail are unremarkable. The pancreatic neck appears absent. ADRENAL GLANDS: Within normal limits. KIDNEYS/RETROPERITONEUM: No renal calculi are identified. There is no hydronephrosis. No renal masses are identified. LYMPH NODES: No abdominal or pelvic lymphadenopathy. VASCULATURE: The abdominal aorta is normal in caliber. MESENTERY/PERITONEUM: No free fluid. No masses. There is no free intraperitoneal gas. STOMACH: There is a blush of contrast enhancement in the gastric fundus adjacent to multiple collateral vessels in the gastrosplenic ligament. There are surgical clips in the gastric body. SMALL BOWEL: The small bowel is normal in caliber. COLON: The colon is unremarkable. APPENDIX: Normal. URINARY BLADDER/PELVIC ORGANS: The urinary bladder is collapsed, limiting evaluation. The uterus is unremarkable in appearance. There are bilateral ovarian follicles. BONES / SOFT TISSUES: No suspicious bony or soft tissue abnormalities. CT/CT abdomen pelvis w IV con IMPRESSION: 1. No discrete splenic vein is identified. There are numerous collateral vessels along the pancreatic body/tail and in the gastrohepatic ligament. 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 2. Blush of contrast enhancement in the gastric fundus adjacent to multiple collateral vessels. Findings are consistent with the given history of angiodysplasia. 3. The pancreatic neck appears absent. This could be congenital in nature or be related to prior episodes of pancreatitis. Clinical correlation is recommended. Electronically signed by: Randall Dick MD 06/25/2025 03:33 PM EDT
[2025-06-25] MEDS: iohexoL 350 MG/ML 100 ML INFUS..BTL IV (15:23)
== END 2025-06-25 14:55 | disposition home or self-care (01) ==
LOC: HO.CT 14:54
PROVIDERS: PCP Nurse Practitioner Family; Visit Provider Nurse Practitioner Family
DX: K31.819 Angiodysplasia of stomach and duodenum without bleeding (principal); N28.1 Cyst of kidney, acquired
CPT/HCPCS: 74177; Q9967

== ENCOUNTER → 2025-06-25 14:56 | Outpatient (BNV) | payer OTHER, SELFPAY | PROVIDERS: PCP Nurse Practitioner Family; Visit Provider Radiology Diagnostic Radiology | DX: K31.819 Angiodysplasia of stomach and duodenum without bleeding (principal) | CPT/HCPCS: 74177 ==

== ENCOUNTER 2025-06-27 14:44 | Outpatient (AMB) | payer OTHER, SELFPAY ==
--- NOTE | 2025-06-27 14:20 | A.OFFPC_ITS ---
Intake Visit Reasons: review CT of abd results Intake Note: Telehealth to review CT results. Road Builder Required: No Allergies Seasonal Allergies Allergy (Mild, Verified 06/27/25 15:58) Itchy Eyes Medication List - Last Reconciled 06/27/25 by COOPER RodríguezP- ascorbic acid (vitamin C) 500 mg PO DAILY 30 days azelastine intranasal cetirizine (Zyrtec) 10 mg PO DAILY PRN 90 days cyclobenzaprine 5 mg PO BEDTIME 30 days ferrous gluconate 324 mg PO DAILY 30 days fluticasone propionate 50 mcg/actuation 2 sprays intranasal DAILY 90 days magnesium glycinate 400 mg orally QHS; 30 days meloxicam 7.5 mg PO DAILY PRN olopatadine 0.2% (Pataday Once Daily Relief) 1 drp ophthalmic (eye) DAILY PRN 30 days riboflavin (vitamin B2) 400 mg PO DAILY 90 days tretinoin 0.025% 1 appl topical BEDTIME Tobacco use date assessed: 06/27/25 Dental Screening Dental Screen Date: 06/27/25 Did you have a dental visit in the last 12 months?: Yes Did you have a dental problem in the last 6 months where you did not have access to dental care?: No Was dental information given to patient?: Patient has dentist HPI HPI Comments History of Present Illness Details 50-year-old female with anemia, allergic rhinitis, L renal cyst benign s/p bunion surgery, s/p CTS release 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 Pap - declined DEXA - n/a still getting periods. Tdap declined Specialists: [facility] History of Present Illness - The patient is a 50-year-old female pr esenting to review CT scans done to eval incidental findings on MRI showing prominent abdominal vessels & a benign cyst in the left kidney. - CAT scan revealed abnormal abdominal v essels - Vascular anomaly might contribute to a nemia through bleeding. - Important past medical history include s pancreatitis after the of a child in her 20s, she doesnt recall much details as she was quite ill. - Currently denies abd pain. Needs TB test for work. Results - See below for details Assessment and Plan 1. Anemia - Possible cause is vascular anomaly. - Gastroenterology evaluation required. 2. Abdominal vascular anomaly - Vascular anomaly evaluation needed. - Referred to gizzard peeler. 3. History of pancreatitis - Noted in medical record for context. TB test ordered. Patient was given time to ask questions. All questions were answered to their satisfaction. Telehealth Attestation This visit was conducted via telehealth with complete and accurate documentation verified through patient confirmation and review of conversation history. The patient has been explained that this is an interactive (audio/video) telehealth encounter and what that consists of. The patient understands and wishes to proceed. [employer] platform was used. Total time spent caring for the patient today was 21 minutes. This includes time spent before the visit reviewing the chart, time spent during the visit, and time spent after the visit on documentation, reviewing laboratory results, diagnostic imaging, medications, performing a medically necessary evaluation, counseling on diagnoses, care coordination, ordering appropriate tests, ordering appropriate medications, review of tests performed by other providers, reporting test results with the patient, communication with other healthcare providers. [facility] Medical History (Updated 06/27/25 @ 16:01 by JASBIR Rodríguez-ELIAS) Allergic sinusitis Bunion, left foot Bunion, right foot Deviated septum Deviated septum Foot pain, bilateral Mild anemia Surgical History (Updated 04/11/25 @ 08:25 by JASBIR Rodríguez-ELIAS) History of bunionectomy S/P carpal tunnel release (~03/2025) Social History (Updated 04/06/25 @ 13:08 by Priyanka Good MA) Housing: House Alcohol intake: current Patient Tobacco Use Status: Never used Tobacco e-Cigarette/Vaping Use: Never Used Second Hand Smoke Exposure: No service: No Current occupational status: employed 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 Randall Grant, Valencia Villareal, Richmond Farfan and colleagues, with an educational monika from [employer]. Physical exam (Primary Care) Tobacco/Smoking Status: Tobacco use Status Tobacco use date assessed 06/27/25 06/27/25 14:48 Patient Tobacco Use Status Never used Tobacco 06/27/25 14:20 e-Cigarette/Vaping Use Never Used 06/27/25 14:20 Thrive Assessment: Date of Thrive Assessment Date Thrive assessed 04/11/25 06/27/25 14:20 Telehealth Telehealth Telehealth Platform: [employer] Location of provider rendering services: practice address Location of patient: address on file Patient Identification confirmed using: Name, : Yes Telehealth method: voice only Patient verbally consented to treatment: Yes Patient verbally consented to billing insurance company: Yes Patient informed of any privacy concerns related to visit: Yes Minutes spent on Phone/Video with Pt.: 10 Results Reviewed Results Reviewed: Ct abd/pelvis 06/2025 Numerous collateral vessels are seen along the pancreatic body and tail as well as in the splenogastric ligament. The pancreatic neck appears absent. No discrete splenic vein is identified. There are numerous collateral vessels along the pancreatic body/tail and in the gastrohepatic ligament. 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 2. Blush of contrast enhancement in the gastric fundus adjacent to multiple collateral vessels. Findings are consistent with the given history of angiodysplasia. 3. The pancreatic neck appears absent. This could be congenital in nature or be related to prior episodes of pancreatitis. Clinical correlation is recommended. refer to gi in the setting of anemia Coding Level of Care Code Tele Est Pt Level 3 (31468) Complex EM visit Add On G2211 Diagnoses Angiodysplasia K55.20 Iron deficiency anemia due to chronic blood loss D50.0 Iron deficiency anemia type: chronic blood loss Vascular abnormalities of stomach K31.819 Hx of pancreatitis Z87.19 Assessment & Plan Assessment & Plan (1) Angiodysplasia: Code(s): K55.20 - Angiodysplasia of colon without hemorrhage Category: Medical (2) Iron deficiency anemia: Code(s): D50.9 - Iron deficiency anemia, unspecified Category: Medical Qualifiers: Iron deficiency anemia type: chronic blood loss Qualified Code(s): D50.0 - Iron deficiency anemia secondary to blood loss (chronic) (3) Vascular abnormalities of stomach: Code(s): K31.819 - Angiodysplasia of stomach and duodenum without bleeding Category: Medical (4) Hx of pancreatitis: Code(s): Z87.19 - Personal history of other diseases of the digestive system Category: Medical Plan . Orders: Orders T Spot TB Today Z11.1 - Encounter for screening for respiratory tuberculosis Referrals Gastroenterology Referral D50.0 - Iron deficiency anemia secondary to blood loss (chronic), K31.819 - Angiodysplasia of stomach and duodenum without bleeding, K55.20 - Angiodysplasia of colon without hemorrhage, Z87.19 - Personal history of other diseases of the digestive system Cologuard Test Z12.11 - Encounter for screening for malignant neoplasm of colon
== END 2025-06-27 16:11 | disposition home or self-care (01) ==
LOC: HO.HMCFM 14:44
PROVIDERS: PCP Nurse Practitioner Family; Visit Provider Nurse Practitioner Family
DX: K55.20 Angiodysplasia of colon without hemorrhage (principal); D50.0 Iron deficiency anemia secondary to blood loss (chronic); K31.819 Angiodysplasia of stomach and duodenum without bleeding; Z87.19 Personal history of other diseases of the digestive system

== ENCOUNTER 2025-08-27 10:21 | Outpatient (AMB) | payer OTHER, SELFPAY ==
[2025-08-27 10:49] VITALS: BP 125/60; PULSE 75; O2SAT 95; BMI 25.5
--- NOTE | 2025-08-27 10:49 | A.OFFVIS_ITS ---
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 Required: No Accompanied by: Self / Same As Patient Allergies Seasonal Allergies Allergy (Mild, Verified 08/27/25 10:52) Itchy Eyes Medication List - Last Reconciled 08/27/25 by JASBIR Rodriguez ascorbic acid (vitamin C) 500 mg PO DAILY 30 days azelastine intranasal cetirizine (Zyrtec) 10 mg PO DAILY PRN 90 days ferrous gluconate 324 mg PO DAILY 30 days gabapentin 300 mg PO DAILY magnesium glycinate 400 mg orally QHS; 30 days olopatadine 0.2% (Pataday Once Daily Relief) 1 drp ophthalmic (eye) DAILY PRN 30 days riboflavin (vitamin B2) 400 mg PO DAILY 90 days tretinoin 0.025% 1 appl topical BEDTIME HPI Comments Details: 08/27/2025, HPI: Right-handed 49-year-old female presents for follow-up of posttraumatic headache. 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 06/21/2025, labs: H&H 11.6 and 36.3 low, MCV 81.4, MCH 26 low, MCHC 32, platelet count 344, iron 31, TIBC 287, % sat 11, low ferritin 9 low. After review of labs, the patient was advised to start on ferrous gluconate with vitamin C. She has been taking this, but has needed to hold it at times due to constipation. She also notes that PCP has referred her to GI due to abdominal CT findings of pancreatic head/tail collateral vessels, which may be secondary to a prior splenic vein thrombosis, gastric fundus enhancement, and an absent pancreatic neck. Patient notes remote history of significant pancreatitis secondary to cholecystitis, angiodysplasia. The patient has not undergone routine colonoscopy screening yet. She also mentions that she is perimenopausal, her menstrual cycle has been a bit more irregular, and at times heavier. After review of the RUE EMG/NCS results, the patient was referred to [facility]. She then underwent Right carpal tunnel syndrome repair in March, which has significantly reduced her RUE paresthesia symptoms. She states her headaches have been much better since undergoing a left-sided anterior cervical repair by Dr. Wheeler. She is having approximately 1 headache day per week. She is using Tylenol as needed; however, Ibuprofen 600 mg works better. She is now sleeping better. She states her mood is better. She is taking Gabapentin 300mg for lower back radicular pain- managed by Dr Dejan Barfield at [facility]. She is curious about my opinion on taking gabapentin. She has stopped the meloxicam and cyclobenzaprine. 02/23/2025, initial HPI: Right-handed 49-yr-old female presents for new pt evaluation of headache di sorder. Pt reports she had a slip and fall in Sep 29, 2024- she slipped on a wet floor while walking. She states she does not remember actually falling- but was told she hit her right knee and then fell backwards. She did have immediate headache, neck pain, and back pain.. Since, she has had back/neck pain, RUE/RLS weakness and numbness/tingling, and headaches, eye discomfort, nose dripping, brain fog, word finding difficulties, difficulty sleeping, depressed mood- as she is not able to work/do as much as she previously could. She is followed by ENT- who checked brain MRI and her nasal drainage for CSF- both of which was negative. ENT suggested that she see a neurologist. She did PT- helped briefly, but effect waned. Seeing [facility]- they are considering cervical/back injections for RUE/RLE p ain, numbness, tingling. Now using meloxicam for the body pain. She tried trazodone once for sleep- caused morning grogginess. Interval workup includes, 10/05/[address] with contrast which was un remarkable. Pt reports the headache has improved slightly- the throbbing has resolved- more so in the last 3 weeks. PMH and ROS are notable for:? General: Denies weight loss. States generally prior to this accident she felt overall healthy for her age. HEENT: seasonal/environmental allergies, some pets- receives allergy shots.f/b ENT. s/p deviated septum repair- prior to repair would have bifrontal sinus headaches. Musculoskeletal disorders or injury: Denies h/o neck or back injuries. History of concussion/head injury: denies Mood d/o: h/o depression r/t loss of her parents 5 yrs ago. Respiratory d/o: denies asthma. CV disease: denies Clotting or hematology d/o: Endorses a history of anemia. Endocrine or metabolic d/o: denies History of seizure: denies. 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 weekends- since geena accident- stays in bed all day. Sleep difficulties: difficulty falling asleep and staying asleep, tosses and turns- due to the pain, difficult to sleep on her right side, right leg cramps, - has tried different pillows, nocturia- denies these issues before the accident. states snoring, Excessive daytime sleepiness, fatigue. Denies bruxism. Caffeine use: 1 cups per day Substance use: denies Exercise:?has not been walking as much. 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 Prior to the accidnet she worked 40+ hrs. Family planning: none- has 4 children. Headache questionnaire:? Age/time of onset: September 2024 Preceding causes: September 2024 slip and fall Previous work-up: Brain MRI w/wo, neck/back MRI w/o was done at [place] Typical headache characteristics: Prodrome symptoms: denies Aura: denies Pain intensity: moderate-severe Location, quality, characteristics: Bilateral occipital, mostly right sided pressure, heaviness, achiness- almost like someone is holding her head down. Pulsating right retroorbital pain that would travel to right ear a/w as a p ulsating pain a/w tinnitus and feeling like air was coming out . Also may have a sharp traveling pain in back of right head. Associated symptoms: watery eyes, runny nose, photophobia, phonophobia, nausea initially, not right in space dizziness, fatigue, cognitive difficulties, activity intolerance.. Postdrome: unsure- constant Aggravating factors: stands for too long, increased activity Denies headcahe exacerbated by valsalava, lifting. Time of day: Nighttime when trying to rest Duration and Frequency: constant How does headache impact your life? making it difficult to do day to day activit ies. Current acute medication use/interventions: states she is not a pill person Current preventative medication use: none Current non-pharmacological interventions: rest [facility] Medical History (Updated 06/27/25 @ 16:01 by COOPER RodríguezP-ELIAS) Deviated septum Deviated septum Bunion, left foot Bunion, right foot Foot pain, bilateral Mild anemia Allergic sinusitis Surgical History (Updated 04/11/25 @ 08:25 by JASBIR Rodríguez-ELIAS) S/P carpal tunnel release (~03/2025) History of bunionectomy Social History Housing: House Alcohol intake: current Patient Tobacco Use Status: Never used Tobacco e-Cigarette/Vaping Use: Never Used Second Hand Smoke Exposure: No service: No Current occupational status: employed 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 Current occupational exposures/hazards: No Cognitive needs: No Hearing needs: No Vision needs: No Physical Exam Vital Signs: Last Vital Signs Pulse 75 08/27/25 10:49 BP 125/60 08/27/25 10:49 Pulse Ox 95 08/27/25 10:49 Oxygen Delivery Method Room Air 08/27/25 10:49 BMI result Body Mass Index 25.5 Const Orientation/consciousness: patient oriented x3 Resp Effort & Inspection: normal respiratory effort and able to speak in complete sentences Neuro Other: Left anterior cervical well healed surgical scar General: patient oriented x3 Cranial nerves: Yes CN's II-XII intact bilaterally Cognition (Neuro): normal cognition Gait exam (Neuro): Normal gait present Motor exam (neuro): 5/5 motor strength present throughout Pupils: Normal pupillary reactivity/response: bilateral Psych Appearance: grossly normal Mental Status: mental status grossly normal Speech and movement: Normal speech and movement present Affect: normal affect Attitude: cooperative Thought process: Normal thought process present Results Reviewed Results Reviewed: 10/05/2024, at [facility], CT/CT head/brain wo IV con * No acute intracranial pathology. 10/05/2024, , at [facility], XR/XR lumbar spine 2-3V * No acute fracture or subluxation. * Mild multilevel degenerative disc disease. 11/04/2024, at [facility] CT angio head and neck * No proximal occlusion or high grade stenosis in the major arteries of the head and neck. 11/28/2024, at [facility], brain MRI with and without contrast, MRI of the brain without and with contrast. HISTORY: Headaches. Extremity weakness. Bilateral tinnitus. Nausea. Comparison: CT of head on 11/04/2024. FINDINGS: The ventricles, cisterns and sulci are normal. No hydrocephalus. There is no acute intracranial hemorrhage, tumor or infarct. Multiple punctate areas of hyperintense T2/flair signals are seen in the white matters bilaterally, mostly in the frontal white matters. No abnormal enhancement is seen after contrast. The findings are nonspecific. Differential diagnosis are extensive including demyelinating disease, migraines, vasculitis, chronic small vessel ischemic disease, infectious or inflammatory processes or posttraumatic changes. Please correlate clinically. No abnormal enhancement. No CP angle tumor is seen. Bilateral 7th and 8th nerve complexes are normal in caliber and signal intensities. No abnormal enhancement is noted. There are normal flow-voids within major intracranial vessels. There is mild mucosal thickening within ethmoid and sphenoid sinuses. A small mucus retention cyst is seen in the right maxillary sinus and the right sphenoid sinus. IMPRESSION: No acute pathology or abnormal enhancement is seen in the brain. Mild bilateral white matter disease is nonspecific. Differential diagnosis is extensive. Please correlate clinically. 01/26/2025, thoracic spine MRI without contrast Referring Physician: [facility] [address] [place] [id number] Exam: MR Thoracic Spine (C-) CPT 76481 Room Description: [facility] [employer] 3.0T INDICATION: Right-sided mid back pain and possible radicular pain around lower ribs on the right. TECHNIQUE: Multiplanar multisequence MRI of the thoracic spine was performed without IV contrast COMPARISON: No prior. Cervical spine MRI of 7 01/07/2025. FINDINGS: The thoracic spine alignment is preserved. Vertebral body heights are normal. Only seen in the localizers, there are multilevel disc herniations at C3-C4, C4- C5, C5-C6, and C6-C7. Please refer to MRI cervical spine performed on 01/07/2025 for additional details. The bone marrow signal is unremarkable. The thoracic cord is unremarkable. There is a T2 hyperintense subcentimeter lesion in the left kidney probably a benign cysts. Prominent vessels in the left retroperitoneum are noted. Correlation with a CT abdomen and pelvis would be helpful. The paraspinal soft tissues are unremarkable. At T5-T6, there is a minimal disc bulge without spinal canal or foraminal stenosis. At T7-T8, there is a minimal right paracentral disc protrusion without spinal canal or foraminal stenosis. At L1-L2, there is a mild disc bulge with a superimposed left extraforaminal di sc protrusion as well as ligamentum flavum and facet joint arthropathy without significant spinal canal or foraminal stenosis. Otherwise, there is no spinal canal or foraminal stenosis in the thoracic spine at the other levels. The discs are preserved at these levels. IMPRESSION: No significant spinal canal or foraminal stenosis. No nerve root impingement. Electronically Signed By: Coreen Valencia MD 01-07-2025, C-spine MRI without contrast Referring Physician: [facility] [address], [place] [address] Exam: MR Cervical Spine (C-) CPT 44535 Room Description: [facility] [employer] 3T MRI of the cervical spine without contrast. HISTORY: Neck pain. Right arm pain and paresthesia. Right arm weakness. COMPARISON: None. FINDINGS: The cervical cord appears normal in caliber and signal intensities. The cervical spine shows a mildly reversed lordosis. No vertebral body fracture is seen. The bone marrow signals are within normal limits. Disc desiccation is seen diffusely. C3-C4 to C6-C7 levels have mild anterior osteophytes and mild degenerative endplate changes. C2-C3 level has no disc herniation, stenosis or neural foramen narrowing. Bilateral facet joints are mildly degenerative. C3-C4 level has a mild disc bulge effacing the ventral subarachnoid space. No cord compression. There are mild uncovertebral joint osteophytes bilaterally. Minimal bilateral neural foramen narrowing. C4-C5 level has a mild disc bulge effacing the ventral subarachnoid space. No cord compression. There are mild uncovertebral joint osteophytes bilaterally causing mild neuroforamen narrowing. C5-C6 level has a broad-based right paracentral osteophyte/disc protrusion. The right ventral subarachnoid space is effaced. No cord compression. There are mild uncovertebral joint osteophytes bilaterally, more on the right. Moderate right and no left neuroforaminal narrowing. C6-C7 level has a moderate broad-based central disc protrusion. The ventral subarachnoid space is effaced without cord compression. There are moderate uncovertebral joint osteophytes causing moderate to severe bilateral neural foramen narrowing. C7-T1 level has a tiny central annulus tear. No stenosis or neural foraminal narrowing. The major vascular flow voids are intact. The prevertebral and paravertebral soft tissues are within normal limits. IMPRESSION: The cervical cord is normal. Multiple levels of cervical spondylosis as described above. Electronically Signed By: Lavell Dickens MD Assessment & Plan Assessment & Plan (1) Post concussion syndrome: Code(s): F07.81 - Postconcussional syndrome Category: Medical (2) Posttraumatic headache: Comment: Status post slip and fall in September of 2024. Headache has migraine features. Likely there is a cervicogenic component to this as well. Code(s): G44.309 - Post-traumatic headache, unspecified, not intractable Category: Medical (3) Cervical spondylosis: Comment: Followed by [facility]. Code(s): M47.812 - Spondylosis without myelopathy or radiculopathy, cervical region Category: Medical (4) Paresthesia of right upper and lower extremity: Comment: Status post slip and fall in September of 2024. Followed by [facility] Code(s): R20.2 - Paresthesia of skin Category: Medical Plan For persistent anemia: * Continue ferrous gluconate 324 mg daily with vitamin-C 500 mg daily as tolerated * Trial Colace 100 mg twice a day as needed for constipation * We will request hematology consult * Recheck labs prior to Hematology appointment * GI consult as ordered by PCP For low back pain: * Follow-up with [facility] scheduled. * Reviewed risks and benefits of gabapentin. We assured that gabapentin 300 mg daily at bedtime is a low-dose. At this point, would encourage patient to continue gabapentin to improve functional mobility, however when her pain symptoms have reduced, would consider weaning off if able. For overall headache management: * Optimize good self-care, including but not limited to maintaining a healthy diet, adequate fluid intake, adequate sleep, and engaging in regular physical activity. * Try to maintain a more consistent sleep-wake schedule. * Track headaches, especially after any treatment regimen changes. Migraine [facility] is one of many headache tracking apps. * Information shared on non-pharmacological interventions which may help to alleviate headache attack burden. * For light sensitivity: You may benefit from trying blue light filtering glasses, green glasses, green light therapy. Avoid wearing sunglasses inside. * For sound sensitivity: Patent may benefit from trying noise cancellation ear plugs. For acute headache treatment: Is important to take acute medications at the first sign of headache, however stressed importance of avoiding acute medication overuse (especially with combined headache medications). Continue Tylenol 650-1000 mg every 4-6 hours as needed. Continue ibuprofen 600 mg every 6-8 hours as needed, max of 3 tabs per day. Previous acute migraine medication trials: Naproxen- ineffective. Cyclobenzaprine- felt it was ineffective. Meloxicam 7.5 mg daily-ineffective for headache Acute migraine medication contraindications: None at this time For headache prevention medication: Preventative medications should be taken routinely as prescribed for best effect, it may take several weeks for full effect to take effect. Continue Riboflavin 400mg daily in the morning Continue Magnesium 400mg daily at bedtime Continue gabapentin 300 mg daily at bedtime-managed by physiatry at [facility] Previous migraine prevention medication trials: Cyclobenzaprine-ineffective for headache Migraine prevention medication contraindications: None at this time Future considerations: amitriptyline. Will follow-up upon review of above and patient to follow-up in clinic in 6 months or sooner prn. Orders: Orders Complete Blood Count Auto Diff Today D50.0 - Iron deficiency anemia secondary to blood loss (chronic), R79.0 - Abnormal level of blood mineral Comprehensive [place]. Panel Fast Today D50.0 - Iron deficiency anemia secondary to blood loss (chronic), R79.0 - Abnormal level of blood mineral Erythrocyte Sedimentation Rate Today D50.0 - Iron deficiency anemia secondary to blood loss (chronic), R79.0 - Abnormal level of blood mineral C Reactive Protein Today D50.0 - Iron deficiency anemia secondary to blood loss (chronic), R79.0 - Abnormal level of blood mineral IRON PROFILE Today D50.0 - Iron deficiency anemia secondary to blood loss (chronic), D64.9 - Anemia, unspecified, R79.0 - Abnormal level of blood mineral Homocysteine Today D50.0 - Iron deficiency anemia secondary to blood loss (chronic), R79.0 - Abnormal level of blood mineral Methylmalonic Acid Today D50.0 - Iron deficiency anemia secondary to blood loss (chronic), R79.0 - Abnormal level of blood mineral Vitamin B12 and Folate Today D50.0 - Iron deficiency anemia secondary to blood loss (chronic), R79.0 - Abnormal level of blood mineral Vitamin B1 Today D50.0 - Iron deficiency anemia secondary to blood loss (chronic), E51.9 - Thiamine deficiency, unspecified, R79.0 - Abnormal level of blood mineral Ferritin Today D50.0 - Iron deficiency anemia secondary to blood loss (chronic), R79.0 - Abnormal level of blood mineral Magnesium Today D50.0 - Iron deficiency anemia secondary to blood loss (chronic), R79.0 - Abnormal level of blood mineral Referrals Hematology & Oncology Referral F07.81 - Postconcussional syndrome, K31.819 - Angiodysplasia of stomach and duodenum without bleeding, R79.0 - Abnormal level of blood mineral, Z87.19 - Personal history of other diseases of the digestive system Medications: New ibuprofen 600 mg PO Q6-8H PRN 60 tabs 6RF headache 30 days MDD 3 tabs docusate sodium (Colace) 100 mg PO BID PRN 60 caps 3RF constipation 30 days Coding Level of Care Code Est Pt Level 4 (83374) Diagnoses Post concussion syndrome F07.81 Posttraumatic headache G44.309 Cervical spondylosis M47.812 Paresthesia of right upper and lower extremity R20.2
== END 2025-08-27 12:08 | disposition home or self-care (01) ==
LOC: HO.HSMS 10:22
PROVIDERS: PCP Nurse Practitioner Family; Visit Provider Nurse Practitioner Family
DX: G44.309 Post-traumatic headache, unspecified, not intractable (principal); F07.81 Postconcussional syndrome; M47.812 Spondylosis without myelopathy or radiculopathy, cervical region; R20.2 Paresthesia of skin
CPT/HCPCS: 99214

== ENCOUNTER → 2025-08-27 10:21 | Outpatient (BNVA) | payer OTHER, SELFPAY | PROVIDERS: PCP Nurse Practitioner Family; Visit Provider Nurse Practitioner Family | DX: F07.81 Postconcussional syndrome (principal); R41.89 Other symptoms and signs involving cognitive functions and awareness; M47.812 Spondylosis without myelopathy or radiculopathy, cervical region; G44.309 Post-traumatic headache, unspecified, not intractable; R20.2 Paresthesia of skin; D50.0 Iron deficiency anemia secondary to blood loss (chronic); R79.0 Abnormal level of blood mineral | CPT/HCPCS: 99212 ==

== ENCOUNTER → 2025-09-28 13:02 | Outpatient (BNV) | payer OTHER, SELFPAY | PROVIDERS: PCP Nurse Practitioner Family; Referring Provider Nurse Practitioner Family; Visit Provider Nurse Practitioner Family | DX: D50.9 Iron deficiency anemia, unspecified (principal); D72.810 Lymphocytopenia; D72.10 Eosinophilia, unspecified | CPT/HCPCS: 99204 ==

== ENCOUNTER 2025-10-25 13:34 | Outpatient (AMB) | payer OTHER, SELFPAY ==
--- NOTE | 2025-10-25 13:57 | A.OFFVIS_ITS ---
Vital Signs 10/25/25 14:08 Height 5 ft 3 in Weight 142 lb BMI 25.2 BP 112/58 L Blood Pressure Location Rt brachial Position Sitting Pulse 86 Pulse Source Pulse Oximeter Pulse Oximetry (%) 100 Oxygen Delivery Method Room Air Intake Visit Reasons: Anemia Intake Note: Patient new consult for Anemia. Patient cc: C/O constipation + nausea despite current therapies. Pt does confirm that she receives iron infusions currently per the anemia. Abnormal MRI prompted the referral to R/O GI Bleed. No prior hx of EGD or [place]. Pt denies any pertinent surgical or FMHx. Scale Operator Required: No Accompanied by: Self / Same As Patient Allergies Seasonal Allergies Allergy (Mild, Verified 10/25/25 14:00) Itchy Eyes Medication List - Last Reconciled 10/25/25 by Angela Moon CNP ascorbic acid (vitamin C) 500 mg PO DAILY 30 days azelastine 137 mcg intranasal NEEDED cetirizine (Zyrtec) 10 mg PO DAILY PRN 90 days cyanocobalamin (vitamin B-12) 1,000 mcg sublingual DAILY docusate sodium (Colace) 100 mg PO BID PRN 30 days epinephrine IM folic acid 1 mg PO DAILY gabapentin 300 mg PO DAILY ibuprofen 600 mg PO Q6-8H PRN 30 days MDD 3 tabs magnesium glycinate 400 mg orally QHS; 30 days olopatadine 0.2% (Pataday Once Daily Relief) 1 drp ophthalmic (eye) DAILY PRN 30 days riboflavin (vitamin B2) 400 mg PO DAILY 90 days tretinoin 0.025% 1 appl topical BEDTIME HPI HPI Anemia: Details: Patient is a 50-year-old female with PMH of long history of mild anemia, history of pancreatitis secondary to cholecystitis . Referred by PCP for further evaluation of the anemia. 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 She is currently undergoing a course of weekly iron infusions for six weeks and was also started on vitamin B12 and folic acid last month. Regarding her gastrointestinal history, she reports experiencing constipation with bowel movements occurring every couple of days, a condition that was present even before she began taking iron. She denies any blood in her stool, stomach pain, nausea, vomiting, heartburn, or trouble swallowing. The patient has a past medical history of pancreatitis and gallstones at age 21 or 22, which required a setmf-kdu-w-half-long hospitalization. An MRI and CT scan, performed after a fall last year, revealed the presence of collateral vessels in the gastrosplenis ligament. She has never had a colonosc opy before. She reports no unexplained weight loss but has been attempting to lose weight due to menopausal belly fat. To this end, she began intermittent fasting. She previously tried metformin for suspected insulin resistance. Her weight has been stable, ranging between 144 and 151 pounds. Patient denies: fever/chills, vomiting, appetite changes, pyrosis, regurgitation,dysphasia, unintentional wt loss, ab pain or melena/hematochezia. Social hx: -denies ETOH use -denies recreational drug use -former social smoker, cessation age 21 - family hx as below -denies personal hx of CA -denies significant cardiopulmonary history -tolerated anesthesia in the past withut difficulty. 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 Current occupational exposures/hazards: No Cognitive needs: No Hearing needs: No Vision needs: No Review of Systems Const Reports as per HPI ENT Reports as per HPI Card Reports as per HPI Resp Reports as per HPI GI Reports as per HPI Reports as per HPI Physical Exam Const General: healthy appearing, no acute distress and well developed Nutritional Appearance: average body habitus Orientation/consciousness: patient oriented x3 HEENT Head: Yes normal to inspection, Yes normocephalic and Yes atraumatic Face and sinus: Yes normal facial exam Eyes General: appearance normal, both eyes and all related structures Neck Neck: Yes normal visual inspection Resp Effort & Inspection: normal respiratory effort, able to speak in complete sentences, no tracheal deviation and symmetric chest movement Cardio Jugular venous distension: no JVD Neuro General: patient oriented x3 Gait exam (Neuro): Normal gait present Psych Appearance: grossly normal Mental Status: mental status grossly normal Speech and movement: Normal speech and movement present Affect: normal affect Attitude: cooperative Thought process: Normal thought process present Thought content: Normal thought content present Insight: Good insight present (Psych) Judgement: Good judgement present (Psych) Results Reviewed Results Reviewed: Date of Service: 06/25/25 Procedure(s): CT abdomen pelvis w IV con Accession Number(s): [id number] cc: Khadijah John [employer]~ Report Number: [id number]: Total DLP = 344.00 mGy-cm EXAMINATION: CT ABDOMEN PELVIS WITH IV CONTRAST HISTORY: K31.819 - Angiodysplasia of stomach and duodenum without bleeding COMPARISON: There are no prior studies for available comparison. TECHNIQUE: CT scan of the abdomen and pelvis was performed following administration of 85 mL Omnipaque 350 using standard departmental protocol. Coronal and sagittal reformatted images were generated and reviewed. Oral contrast material was not administered at the request of the referring physician. This CT exam was performed with one or more of the following dose reduction techniques: automated exposure control, adjustment of the mA and/or kV according to patient size, use of iterative reconstruction technique. DLP: 344 mGy-cm FINDINGS: LOWER CHEST: The visualized lung bases are clear. There is no pleural effusion. CARDIOVASCULATURE: The heart is normal in size. There is no pericardial effusion. LIVER: The liver is normal in size and contour. No liver mass is identified. The hepatic and portal veins are patent. GALLBLADDER / BILE DUCTS: The gallbladder is unremarkable. There is no intra or extrahepatic biliary ductal dilatation. SPLEEN: The spleen is normal in size. No focal splenic lesion is identified. No discrete splenic vein is identified. Numerous collateral vessels are seen along the pancreatic body and tail as well as in the splenogastric ligament. PANCREAS: The pancreatic head and body/tail are unremarkable. The pancreatic neck appears absent. ADRENAL GLANDS: Within normal limits. KIDNEYS/RETROPERITONEUM: No renal calculi are identified. There is no hydronephrosis. No renal masses are identified. LYMPH NODES: No abdominal or pelvic lymphadenopathy. VASCULATURE: The abdominal aorta is normal in caliber. MESENTERY/PERITONEUM: No free fluid. No masses. There is no free intraperitoneal gas. STOMACH: There is a blush of contrast enhancement in the gastric fundus adjacent to multiple collateral vessels in the gastrosplenic ligament. There are surgical clips in the gastric body. SMALL BOWEL: The small bowel is normal in caliber. COLON: The colon is unremarkable. APPENDIX: Normal. URINARY BLADDER/PELVIC ORGANS: The urinary bladder is collapsed, limiting evaluation. The uterus is unremarkable in appearance. There are bilateral ovarian follicles. BONES / SOFT TISSUES: No suspicious bony or soft tissue abnormalities. CT/CT abdomen pelvis w IV con IMPRESSION: 1. No discrete splenic vein is identified. There are numerous collateral vessels along the pancreatic body/tail and in the gastrohepatic ligament. 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 2. Blush of contrast enhancement in the gastric fundus adjacent to multiple collateral vessels. Findings are consistent with the given history of angiodysplasia. 3. The pancreatic neck appears absent. This could be congenital in nature or be related to prior episodes of pancreatitis. Clinical correlation is recommended. Assessment & Plan Assessment & Plan (1) Iron deficiency anemia: Code(s): D50.9 - Iron deficiency anemia, unspecified Category: Medical Qualifiers: Iron deficiency anemia type: chronic blood loss Qualified Code(s): D50.0 - Iron deficiency anemia secondary to blood loss (chronic) Plan: The patient presents for gastroenterology evaluation of iron deficiency anemia, which is considered a red flag symptom. - The primary concern is a potential gastrointestinal source of bleeding. - Due to the iron deficiency anemia, the patient is consider average risk for Cologuard screening. - Given CT findings an upper endoscopy was recommended, and the patient agreed to proceed with this procedure. - A colonoscopy was also strongly recommended to evaluate the lower digestive tract for a bleeding source or malignancy; however, the patient declined this procedure after a thorough discussion of the risks involved. The patient verbalized understanding and acceptance of these risks. - An order will be placed for the upper endoscopy. - Continue current management with hematology, including iron infusions, vitamin B12, and folic acid supplements. - Follow up in the office after the endoscopy to discuss the results. (2) Constipation: Code(s): K59.00 - Constipation, unspecified Category: Medical Qualifiers: Constipation type: unspecified constipation type Qualified Code(s): K59.00 - Constipation, unspecified Plan: The patient reports chronic constipation with bowel movements every few days, which predates her use of iron supplements. - Her dietary habits, including intermittent fasting and low vegetable intake, are likely contributing factors. Reinforced lifestyle modifications to promote regularity: -higher fiber diet, examples provided -adequate hydration with water -150 minutes of moderate intensity exercise per week Plan Follow-up after endoscopy [place] or sooner as needed Time: I spent a total of 30 minutes on the date of encounter which includes: Preparing to see the patient (reviewed previous documentation, test results and medical history) Performing a medically appropriate exam and/or evaluation Ordering medications, tests, and procedures Documenting clinical information in the health record Orders: Referrals GI Procedure Notification D50.0 - Iron deficiency anemia secondary to blood loss (chronic) Coding Level of Care Code New Pt New Pt Level 3 (79286) Patient Type New Diagnoses Iron deficiency anemia due to chronic blood loss D50.0 Iron deficiency anemia type: chronic blood loss Constipation, unspecified constipation type K59.00 Constipation type: unspecified constipation type
[2025-10-25 14:08] VITALS: BP 112/58; PULSE 86; O2SAT 100; BMI 25.2
--- OUTSIDE RECORDS SUMMARY | 2025-10-25 17:46 | XMS_ITS | Continuity of Care Document ---
Author Organization [place] [facility], [facility] Address [address] [place] [address] Care Team Providers Care Wire Temperer Name Role Phone HILARIO CAI Primary Care Provider CAMPOS JONES Primary Care Provider Assessment Encounter Date Assessment Date Assessment LastModified by Organization Details LastModified Time 09/17/2025 09/17/2025 Naina Hoffmann is a 50-year-old female with significant allergies to mold, pet dander, and dust, as well as migraines potentially exacerbated by anterior cervical surgery and allergy-related sinus pressure. I will continue her allergy injections and add azelastine spray to her regimen to address her congestion and sneezing. She is advised to continue taking cetirizine and Flonase as previously prescribed. Her magnesium and B vitamin supplementation prescribed by her neurologist should also be continued, as these may help with her migraines. I will send a new EpiPen prescription to [facility] in [place], as her current EpiPen may be nearing expiration. FOLLOW-UP: The patient will continue weekly allergy injections and is advised to monitor her symptoms. She should contact the office if her symptoms worsen or if she experiences any adverse reactions. Procedure Documentation: - Allergy injection [email or web address] Not available 09/17/2025 09:33:38 Plan of Treatment Reminders Order Date Submit Date Provider Last Modified By Organization Details Last Modified Time Details Appointments Establish ed- Allergy f-up 6mon 2025 10:00A M NATY HAIRSTON Not available Not available Not available Lab None recorded. Referral None recorded. Procedures None recorded. Surgeries None recorded. Imaging None recorded. Medication Orders epinephri ne 0.3 mg/0.3 mL injection , auto-inje ctor 2024 025 [facility] #[id number], [address] [facility], [place], [address], 09/17/2025 09:32:57 Patient TargetsNo targets recorded. Patient Instructions Encounter Date Encounter Id Patient Instructions Last Modified By Organization Details Last Modified Time 09/17/2025 [id number] - Continue weekly allergy injections. - Continue taking cetirizine and Flonase. - Use azelastine spray as needed for congestion and sneezing. - Continue magnesium and B vitamin supplementation. - Monitor symptoms and contact the office if they worsen or if adverse reactions occur. [email or web address] Not available 09/17/2025 09:33:38 Please note: Parts of this encounter note have been generated by AI based on audio conversation. Patient consent was required prior to utilizing this technology. Content review was required prior to finalizing the note. [email or web address] Not available 09/17/2025 09:33:39 Reason for Referral None Reported. Problems Name Problem SNOMED Code Status Onset Date Resolution Date Notes Provider Name and Address Organization Details Recorded Time Hypertrop hy of nasal turbinate s 88666634 Active 2023 Hypertroph y of nasal turbinates ; Note: Date Diagnosed: 01/03/2016 8:40 AM (J34.3) Not Available [facility] 4 02:13:50 Chronic rhinitis 57263108 Active 2023 Chronic rhinitis; Note: Date Diagnosed: 11/22/2023 2:34 PM (J31.0) Not Available [facility] 4 02:13:06 Deviated nasal septum 130849123 Active 2023 Deviated nasal septum; Note: Date Diagnosed: 01/03/2016 8:40 AM (J34.2) Not Available [facility] 4 02:13:23 Disorder of smell 726295283 Active 2023 Other disturbanc es of smell and taste; Note: Date Diagnosed: 11/22/2023 2:34 PM (R43.8) Not Available [facility] 4 02:14:24 Disorder of taste 099625113 Active 2023 Other disturbanc es of smell and taste; Note: Date Diagnosed: 11/22/2023 2:34 PM (R43.8) Not Available [facility] 4 02:14:24 Follow-up visit Active 2023 Encounter for follow-up examinatio n after completed treatment for conditions other than malignant neoplasm; Note: Date Diagnosed: 03/03/2024 11:19 AM (Z09) Not Available [facility] 4 02:14:15 Headache 62500168 Active 2023 Headache, unspecifie d; Note: Date Diagnosed: 03/20/2024 11:48 AM (R51.9) Not Available [facility] 4 02:14:40 Perennial allergic rhinitis 883672608 Active 2023 Clay Umanzor [address], [place], [address] , [place] [facility] 5 11:07:14 Allergic rhinitis 90608586 Active 2023 KYMBERLY MCKEON MD [address] [facility] [address], [place], [place], [address] , [place] [facility] 4 14:34:26 Chronic sinusitis 70121363 Active 2023 KYMBERLY MCKEON MD [address] [facility], [place], [place], [address] , [place] [facility] 4 14:35:04 Mild intermitt ent asthma 237540744 Active 2023 KYMBERLY MCKEON MD [address] [facility], [place], [place], [address] , [place] [facility] 4 14:13:34 Posterior rhinorrhe a 09933250 Active 2024 KYMBERLY MCKEON MD [address] [facility], [place], [address] , [place] [facility] 5 14:40:01 Paresthes ia 05659469 Active 2024 MEAGHAN PHILIPPE PA-C [address], [place], [address] , [place] [facility] 14:12:02 Postconcu ssion syndrome 75947250 Active 2024 KYMBERLY MCKEON MD [address], [place], [address] , [place] [facility] 14:40:07 Migraine without aura, not refractor y 855543666 Active 2024 KYMBERLY MCKEON MD [address], [place], [address] , [place] [facility] 09:32:09 Problem Notes None recorded. Procedures Surgical History Date Name Laterality Status Provider Name and Address Organization Details Recorded Time 10/23/20 25 Allergy Immunotherapy Injections completed ROSA ALDANA RMA [address] [facility] [facility], [place], [address], [facility] - [facility] 10/23/2025 13:43:37 10/17/20 25 Allergy Immunotherapy Injections completed DENICE RIVERA [address] [facility] [facility], [place], [address], [facility] - [facility] 10/17/2025 10:57:33 10/10/20 25 Allergy Immunotherapy Injections completed DENICE RIVERA [address] [facility] [address] [place] [address], [address], [facility] - [facility] 10/10/2025 10:51:36 10/03/20 25 Allergy Immunotherapy Injections completed MAKAYLA GURROLA RMReji [address] [facility] [place] [address], [address], [place] [facility] 10/03/2025 11:26:10 09/27/20 25 Allergy Immunotherapy Injections completed ROSA ALDANA RMReji [address] [facility], [place], [address], [place] [facility] 09/27/2025 11:30:14 09/17/20 25 Allergy Immunotherapy Injections completed ROSA RAFATC, RMA [address], [place], [address], [place] [facility] 09/17/2025 10:43:44 09/12/20 25 Allergy Immunotherapy Injections completed ROSA RAFATC, RMA [address], [place], [address], [place] [facility] 09/12/2025 11:16:56 09/05/20 25 Allergy Immunotherapy Injections completed MAKAYLA GURROLA, RMA [address], [place], [address], [place] [facility] 09/05/2025 10:32:29 08/29/20 25 Allergy Immunotherapy Injections completed Clay Umanzor [address], [place], [address], [place] [facility] 08/29/2025 10:21:54 08/22/20 25 Allergy Immunotherapy Injections completed Clay Umanzor [address], [place], [address], [place] [facility] 08/22/2025 11:07:33 08/15/20 25 Allergy Immunotherapy Injections completed ROSA KATYA, RMA [address], [place], [address], [place] [facility] 08/15/2025 11:51:06 08/10/20 25 Allergy Immunotherapy Injections completed ROSA ALDANA, RMA [address], [place], [address], [place] [facility] 08/10/2025 10:21:59 07/25/20 25 Allergy Immunotherapy Injections completed MAKAYLA GURROLA RMA [address], [place], [address], [place] [facility] 07/25/2025 13:58:02 07/18/20 25 Allergy Immunotherapy Injections completed ROSA DOUGLASSC, RMA [address], [place], [address], [place] [facility] 07/18/2025 12:15:30 07/11/20 25 Allergy Immunotherapy Injections completed MAVERICK TERRAZAS RN [address], [place], [address], [place] [facility] 07/11/2025 15:58:33 07/04/20 25 Allergy Immunotherapy Injections completed ROSA ALDANA RMReji [address], [place], [address], [place] [facility] 07/04/2025 15:57:33 06/21/20 25 Allergy Immunotherapy Injections completed DENICE RIVERA [address], [place], [address], [place] [facility] 06/21/2025 11:57:52 06/13/20 25 Allergy Immunotherapy Injections completed DENICE RIVERA [address] [facility], [place], [address], [place] [facility] 06/13/2025 13:15:25 06/06/20 25 Allergy Immunotherapy Injections completed MAVERICK TERRAZAS RN [address] [facility] [address] [place] [address], [address], [place] [facility] 06/06/2025 13:16:32 05/28/20 25 surgical procedure on cervical spine completed KYMBERLY GARCIA MD [address] [facility] [place] [address], [address], [place] [facility] 09/17/2025 09:31:38 05/24/20 25 Allergy Immunotherapy Injections completed DENICE MARIA [address] [facility], [address], [place] [facility] 05/24/2025 11:28:37 05/17/20 25 Allergy Immunotherapy Injections completed DENICE RIVERA [address] [facility], [place], [address], [place] [facility] 05/17/2025 10:52:46 05/09/20 25 Allergy Immunotherapy Injections completed ROSA ALDANA RMReji [address], [place], [address], [place] [facility] 05/09/2025 13:47:27 05/01/20 25 Allergy Immunotherapy Injections completed MAKAYLA GURROLA RMA [address], [place], [address], [place] [facility] 05/01/2025 11:48:55 04/25/20 25 Allergy Immunotherapy Injections completed MAKAYLA GURROLA RMA [address], [place], [address], [place] [facility] 04/25/2025 12:09:48 04/19/20 25 Allergy Immunotherapy Injections completed ROSA ALDANA, RMA [address], [place], [address], [place] [facility] 04/19/2025 13:45:42 04/11/20 25 Allergy Immunotherapy Injections completed ROSA ALDANA, RMA [address], [place], [address], [place] [facility] 04/11/2025 09:53:57 04/04/20 25 Allergy Immunotherapy Injections completed ROSA ALDANA RMA [address], [place], [address], [place] [facility] 04/04/2025 14:14:25 03/21/20 25 Allergy Immunotherapy Injections completed MAVERICK TERRAZAS RN [address], [place], [address], [place] [facility] 03/21/2025 14:32:25 03/15/20 25 Allergy Immunotherapy Injections completed ROSA ALDANA RMA [address], [place], [address], [place] [facility] 03/15/2025 13:24:02 03/07/20 25 Allergy Immunotherapy Injections completed MAKAYLA GURROLA RMA [address], [place], [address], [place] [facility] 03/07/2025 14:17:42 03/02/20 25 Allergy Immunotherapy Injections completed MAKAYLA GURROLA RMA [address], [place], [address], [place] [facility] 03/02/2025 09:22:17 02/24/20 25 Allergy Immunotherapy Injections completed MAKAYLA GURROLA RMA [address], [place], [address], [place] [facility] 02/23/2025 10:37:57 02/15/20 25 Allergy Immunotherapy Injections completed MAVERICK TERRAZAS RN [address], [place], [address], [place] [facility] 02/14/2025 13:47:08 02/08/20 25 Allergy Immunotherapy Injections completed ROSA ALDANA, RMA [address], [place], [address], [place] [facility] 02/07/2025 15:34:14 02/01/20 25 Allergy Immunotherapy Injections completed MAKAYLA GURROLA RMA [address], [place], [address], [place] [facility] 01/31/2025 14:14:19 01/25/20 25 Allergy Immunotherapy Injections completed DENICE RIVERA [address] [facility] [address] [place] [address], [address], [place] [facility] 01/24/2025 10:31:45 01/18/20 25 Allergy Immunotherapy Injections completed DENICE RIVERA [address] [facility], [place], [address], [place] [facility] 01/17/2025 11:50:20 01/12/20 25 Allergy Immunotherapy Injections completed MAVERICK TERRAZAS RN [address] [facility] [place] [address], [address], [place] [facility] 01/11/2025 10:38:17 01/03/20 25 Allergy Immunotherapy Injections completed MAVERICK TERRAZAS RN [address] [facility] [place] [address], [address], [place] [facility] 01/03/2025 13:48:45 12/29/19 25 Allergy Immunotherapy Injections completed MAVERICK TERRAZAS RN [address] [facility], [place], [address], [place] [facility] 12/29/2024 10:36:58 12/20/19 25 Allergy Immunotherapy Injections completed MAVERICK TERRAZAS RN [address], [place], [address], [place] [facility] 12/20/2024 15:44:53 12/12/19 25 Allergy Immunotherapy Injections completed MAKAYLA GURROLA, RMA [address], [place], [address], [place] [facility] 12/12/2024 13:28:07 11/30/19 25 Allergy Immunotherapy Injections completed ROSA ALDANA, RMA [address], [place], [address], [place] [facility] 11/30/2024 14:28:33 11/22/19 25 Allergy Immunotherapy Injections completed ROSA DOUGLASSC, RMA [address], [place], [address], [place] [facility] 11/22/2024 13:40:26 11/15/19 25 Allergy Immunotherapy Injections completed ROSA ALDANA, RMA [address], [place], [address], [place] [facility] 11/15/2024 13:45:46 11/10/19 25 Allergy Immunotherapy Injections completed MAKAYLA GURROLA, RMA [address], [place], [address], [place] [facility] 11/10/2024 15:15:34 11/02/20 24 Allergy Immunotherapy Injections completed MAVERICK TERRAZAS RN [address] [place] [address], [address], [place] [facility] 11/02/2024 10:42:32 10/25/20 24 Allergy Immunotherapy Injections completed MAVERICK TERRAZAS RN [address], [place], [address], [place] [facility] 10/25/2024 14:09:21 10/17/20 24 Allergy Immunotherapy Injections completed ROSA ALDANA, RMA [address], [place], [address], [place] [facility] 10/17/2024 13:44:09 10/03/20 24 Allergy Immunotherapy Injections completed DENICE RIVERA [address] [facility], [place], [address], [place] [facility] 10/03/2024 13:20:05 09/21/20 24 Allergy Immunotherapy Injections completed MAVERICK TERRAZAS RN [address] [facility] [place] [address], [address], [place] [facility] 09/21/2024 12:01:33 09/12/20 24 Allergy Immunotherapy Injections completed ROSA ALDANA RMReji [address], [place], [address], [place] [facility] 09/12/2024 14:05:49 09/06/20 24 Allergy Immunotherapy Injections completed DENICE RIVERA [address] [facility] [place] [address], [address], [place] [facility] 09/06/2024 14:48:49 09/06/20 24 JMSNasal/Sinus Endoscopy-PRIOR surgical cavities completed KYMBERLY GARCIA MD [address] [facility] [address] [place] [address], [address], [place] [facility] 09/06/2024 15:05:59 08/29/20 24 Allergy Immunotherapy Injections completed DENICE RIVERA [address] [facility] [place] [address], [address], [place] [facility] 08/29/2024 14:50:02 08/23/20 24 Allergy Immunotherapy Injections completed MAVERICK TERRAZAS RN [address] [facility] [place] [address], [address], [place] [facility] 08/23/2024 15:21:09 08/15/20 24 Allergy Immunotherapy Injections completed MAVERICK TERRAZAS RN [address] [facility] [place] [address], [address], [place] [facility] 08/15/2024 14:14:05 08/10/20 24 Allergy Immunotherapy Injections completed DENICE RIVERA [address] [facility] [place] [address], [address], [place] [facility] 08/10/2024 14:00:51 08/04/20 24 Allergy Immunotherapy Injections completed DENICE RIVERA [address] [place] [address], [address], [place] [facility] 08/04/2024 15:31:25 07/25/20 24 Allergy Immunotherapy Injections completed ROSA ALDANA RMReji [address], [place], [address], [place] [facility] 07/25/2024 14:33:52 07/19/20 24 Allergy Immunotherapy Injections completed MAEVRICK TERRAZAS RN [address] [facility] [address] [place] [address], [address], [place] [facility] 07/19/2024 16:18:04 07/11/20 24 Allergy Immunotherapy Injections completed ROSA ALDANA RMA [address] [place] [address], [address], [place] [facility] 07/11/2024 14:32:17 07/04/20 24 Allergy Immunotherapy Injections completed DENICE RIVERA [address] [facility] [place] [address], [address], [place] [facility] 07/04/2024 14:03:37 06/28/20 24 Allergy Immunotherapy Injections completed MAVERICK TERRAZAS RN [address] [facility] [place] [address], [address], [place] [facility] 06/28/2024 14:26:26 06/20/20 24 Allergy Immunotherapy Injections completed ROSA ALDANA RMA [address], [place], [address], [place] [facility] 06/20/2024 13:05:25 06/13/20 24 Allergy Immunotherapy Injections completed DENICE RIVERA [address], [place], [address], [place] [facility] 06/13/2024 15:52:47 06/06/20 24 Allergy Immunotherapy Injections completed MAVERICK TERRAZAS RN [address] [facility] [place] [address], [address], [place] [facility] 06/06/2024 15:10:37 06/06/20 24 JMSNasal/Sinus Endoscopy-PRIOR surgical cavities completed KYMBERLY GARCIA MD [address] [facility] [place] [address], [address], [place] [facility] 06/06/2024 14:10:04 06/01/20 24 Allergy Immunotherapy Injections completed MAVERICK TERRAZAS RN [address] [facility] [address] [place] [address], [address], [place] [facility] 06/01/2024 15:38:20 05/23/20 24 Allergy Immunotherapy Injections completed DENICE RIVERA [address] [facility] [address],[address], [address], [place] [facility] 05/23/2024 14:44:44 05/17/20 24 Allergy Immunotherapy Injections completed DENICE MARIA [address] [facility] [address] [place] [address], [address], [place] [facility] 05/17/2024 16:10:00 05/09/20 24 Allergy Immunotherapy Injections completed MAVERICK TERRAZAS RN [address] [facility] [address],[address], [address], [place] [facility] 05/09/2024 15:06:52 05/02/20 24 Allergy Immunotherapy Injections completed DENICE RIVERA [address] [facility] [address], [address], [place] [facility] 05/02/2024 13:34:36 04/25/20 24 Allergy Immunotherapy Injections completed DENICE RIVERA [address] [facility] [place] [address], [address], [place] [facility] 04/25/2024 14:45:44 04/21/20 24 Allergy Immunotherapy Injections completed DENICE RIVERA [address] [facility], [place], [address], [place] [facility] 04/21/2024 14:00:37 04/12/20 24 Allergy Immunotherapy Injections completed ROSA ALDANA [facility] [address], [place], [address], [facility] - [facility] 04/12/2024 16:04:03 04/05/20 24 JMSNasal/Sinus Endoscopy-PRIOR surgical cavities completed KYMBERLY GARCIA MD [address] [facility] [address] [place] [address], [address], [facility] - [facility] 04/05/2024 14:34:46 04/05/20 24 Allergy Immunotherapy Injections completed MAKAYLA GURROLA [facility] [address] [facility] [address], [place], [address], [facility] - [facility] 04/05/2024 13:35:01 03/29/20 24 Allergy Immunotherapy Injections completed ROSA ALDANA [facility] [address] [facility] [place] [address], [address], [facility] - [facility] 03/29/2024 16:18:09 02/29/20 24 functional endoscopic sinus surgery completed KYMBERLY GARCIA MD [address] [facility] [address] [place] [address], [address], [facility] - [facility] 04/05/2024 14:33:51 02/29/20 24 Repair of nasal septum completed KYMBERLY GARCIA MD [address] [facility] [place] [address] [place] [address], [phone], [facility] - [facility] 04/05/2024 14:34:03 cholecystectomy completed Shyanne Escalante [place] - [facility] 11/15/2024 13:38:47 section completed Shyanne Escalante [place] - [facility] 11/15/2024 13:38:52 Imaging Results None recorded. Procedure Notes None recorded. Medical Equipment None Reported. Allergies Allergen ID Allergen Name Allergen Category Reaction Reaction Severity Criticality Documentation Date Start Date Code Code System Note Provider Name and Address Organization Details Recorded Time 979052 PO[employer] environme nt,medica tion Not available Not available low 10/18/20252024 87773 6 RxNorm Runny nose unrec ogniz ed react ion (text : Itchy eyes, code: 24943 002), mild (from exter nal sourc e) Not Available wood - External Data Service - prod 12:10:54 Medications Name Sig Start Date Stop Date Status Note LastModified by Organization Details LastModified Time celecoxib 200 mg capsule TAKE 1 CAPSULE BY MOUTH EVERY DAY active Not Available Not Available No t Available tretinoin 0.1 % topical cream APPLY TO THE AFFECTED AREAS ON THE FACE/NEC K NIGHTLY. active Not Available Not Available No t Available amoxicill in 500 mg capsule TAKE 1 CAPSULE 3 TIMES A DAY UNTIL GONE 03/07 completed Not Available Not Available Not Available doxycycli ne hyclate 100 mg capsule by mouth 09/06 completed Medicati on ID: [id number] D uration Value: 10 Brand Name: doxycycl ine hyclate Send Method: E-Prescr ibed Sub s Allowed: subs OK Speci al Instruct ion: Take 1 po BID X 10 days Med icationG enericNa me: doxycycl ine hyclate Not Available Not Available Not Available Vitamin C 500 mg tablet TAKE 1 TABLET BY MOUTH EVERY DAY WITH FERROUS GLUCONAT E active Not Available Not Available No t Available trazodone 50 mg tablet TAKE 1/2 [...] Not Available Not Available No t Available hydrocodo ne 5 mg-acetam inophen 325 mg tablet TAKE 1 TAB ORALLY EVERY 6 HOURS NEEDED FOR PAIN PARTIAL FILL UPON PATIENT REQUEST. 09/17 completed Not Available Not Available Not Available prednison e 20 mg tablet TAKE 1 TABLET BY MOUTH EVERY DAY FOR 5 DAYS 09/17 completed Not Available Not Available Not Available acetamino phen 500 mg tablet TAKE 2 TABLET BY MOUTH EVERY SIX HOURS 03/07 completed Not Available Not Available Not Available meloxicam 7.5 mg tablet TAKE 1 TABLET BY MOUTH EVERY DAY NEEDED FOR PAIN 09/17 completed Not Available Not Available Not Available magnesium oxide 400 mg (241.3 mg magnesium ) tablet TAKE 1 TABLET BY MOUTH BEDTIME FOR 30 DAYS MAY HOLD FOR LOOSE STOOLS 09/17 completed Not Available Not Available Not Available lorazepam 0.5 mg tablet TAKE 1 TABLET BY MOUTH 2 TIMES A DAY NEEDED FOR ANXIETY 03/07 completed Not Available Not Available Not Available ferrous sulfate 325 mg (65 mg iron) tablet TAKE 1 TABLET BY MOUTH TWICE A DAY 09/17 completed Not Available Not Available Not Available metronida zole 0.75 % topical cream APPLY THIN LAYER TO AFFECTED AREAS ON FACE ONCE DAILY IN THE MORNING 09/17 completed Not Available Not Available Not Available docusate sodium 100 mg capsule TAKE 1 CAPSULE ORALLY 2 TIMES A DAY NEEDED FOR CONSTIPA TION FOR 30 DAYS active Not Available Not Available No t Available gabapenti n 300 mg capsule TAKE 1 CAPSULE BY MOUTH EVERYDAY AT BEDTIME active Not Available Not Available No t Available gabapenti n 100 mg capsule TAKE 1 CAPSULE BY MOUTH EVERYDAY AT BEDTIME 09/17 completed Not Available Not Available Not Available azelastin e 137 mcg (0.1 %) nasal spray USE 2 SPRAYS NASALLY TWICE A DAY DIRECTED active Not Available Not Available No t Available epinephri ne 0.3 mg/0.3 mL injection , auto-inje ctor Inject 1 pen injector single dose as needed 2024 active Not Available Not Available Not Avai lable ibuprofen 600 mg tablet TAKE 1 TABLET ORALLY EVERY 6 TO 8 HOURS NEEDED FOR HEADACHE FOR 30 DAYS, MAX DAILY DOSE: 3 TABS active Not Available Not Available No t [...] Not Available Not Available No t Available oxycodone 5 mg tablet TAKE 1 TABLET BY MOUTH EVERY 6 HOURS NEEDED FOR MODERATE PAIN. 09/17 completed Not Available Not Available Not Available hydroxyzi ne pamoate 25 mg capsule TAKE 1 CAPSULE BY MOUTH EVERY DAY AT BEDTIME FOR 30 DAYS 03/07 completed Not Available Not Available Not Available clindamyc in 1 % lotion APPLY THIN LAYER TO THE FACE 1-2X DAILY 09/17 completed Not Available Not Available Not Available Saline Nasal 0.65 % spray aerosol NASL 2 SPRAYS IN BOTH NOSTRILS 4-6 TIMES DAILY NEEDED active Not Available Not Available No t Available cyclobenz aprine 5 mg tablet TAKE 1 TABLET BY MOUTH EVERY DAY AT BEDTIME NEEDED FOR PAIN active Not Available Not Available No t Available gabapenti n 100 mg tablet Take 1 tablet 3 times a day by oral route. active Not Available Not Available No t Available meloxicam 03/07 completed Not Available Not Available Not Available ferrous gluconate 324 mg (38 mg iron) tablet TAKE 1 TABLET BY MOUTH EVERY DAY active Not Available Not Available No t Available riboflavi n (vitamin B2) 400 mg tablet TAKE 1 TABLET BY MOUTH EVERY DAY active Not Available Not Available No t Available magnesium 100 mg (as glycinate ) capsule TAKE 4 CAPSULES DAILY AT BEDTIME active Not Available Not Available No t Available Astepro Allergy 205.5 mcg (0.15 %) nasal spray SPRAY 1 SPRAY BY INTRANAS AL ROUTE TWICE A DAY 09/17 completed Not Available Not Available Not Available Vitals Date Recorded Body height Provider Name an d Address Organization Details Last Updated DateTime 09/17/2025 157.48 cm Shyanne Escalante [place] - [facility] 09/17/2025 09:15:40 Social History None recorded. Functional Status None recorded. Mental Status None recorded. Family History Nothing Reported. Medical History Condition Response Allergies/Hayfever Y Nasal or Sinus Problems Y Gynecological HistoryNo gynecological history recorded. Obstetrics History GPAL:G 0 P 0 0 0 0 Past Encounters Encounter ID Performer Location Encounter Start Date Encounter Closed Date Diagnosis/Indication Diagnosis SNOMED-CT Code Diagnosis ICD10 Code Diagnosis IMO Codes Diagnosis Note [id number] Clay Umanzor [facility] [address] [place] [address] 100 [facility] [place] [phone] 08/22/2025 10:53:59 08/22/2025 11:08:03 Perennial allergic rhinitis 639911992 J30.89 [id number] Clay [facility]manzor [facility] 100 [facility],[place] [address] [place] [address] 08/29/2025 09:58:17 08/29/2025 10:22:53 Perennial allergic rhinitis [id number] J30.89 [id number] MAKAYLA GALILEO A [facility] 100 [facility],[place] [address] [place] [address] 09/05/2025 10:05:36 09/05/2025 11:11:02 Perennial allergic rhinitis [id number] J30.89 [id number] ROSA ALDANA, A Allergy 100 [facility],[place] [address] [place] [address] 09/12/2025 10:42:43 09/12/2025 11:17:32 Perennial allergic rhinitis [id number] J30.89 [id number] KYMBERLY MCKEON MD [facility] 100 [facility] [place] [address] 09/17/2025 09:14:46 09/17/2025 09:33:54 Perennial allergic rhinitis [id number] J30.89 [id number] Migraine w ithout aura, not refractory [id number] G43.009 [id number] History of surgical procedure on cervical spine 140703064 Z98.909 [id number] MAKAYLA GURROLA, [facility] All[facility] 100 [facility],[place] [address] [place] [address] 09/17/2025 09:15:39 09/17/2025 10:44:11 Perennial allergic rhinitis [id number] J30.89 Health Concerns Section Related Observation LastModified by Organization Detai ls LastModified Time None Recorded Concern Status LastModified by Organization Details LastModified Time None Recorded Payers Encounter Date Sequence Insurance Name Policy Number Policy Maya Covered Member ID Maya Member ID Guarantor Name 09/17/2025 1 [facility] - HEALTH NET PLAN (MEDICAID HMO) YESENIA Hoffmann [id number] Naina Hoffmann Notes Date Note Type Note Provider Name and Address Organization Details Recorded Time 09/17/2025 text/html Naina Hoffmann is a 50-year-old female who presents for an allergy shot review. She began allergy injections on March 01 and has been receiving them weekly for approximately eighteen months. She reports no adverse reactions and tolerates the injections well, though progress has been slow due to significant allergies. Her allergies include mold, pet dander, and dust, which have been confirmed through skin testing. She has been experiencing congestion, sneezing, sinus pressure, and headaches for the past week. She also reports migraines, which she believes may be related to her anterior cervical surgery performed on May 28. She is currently taking cetirizine, Flonase, and occasionally azelastine. She was prescribed magnesium and B vitamins by her neurologist. She has an EpiPen at home. KYMBERLY GARCIA MD [address] [place] [address], [place], [address], [place] - [facility] 09/17/2025 12:21:06 OBGyn Episode No OBEpisode recorded.
--- OUTSIDE RECORDS SUMMARY | 2025-10-25 17:46 | XMS_ITS | Continuity of Care Document ---
Author Organization [place] [facility], Allergy Address [address] [address] Care Team Providers Care Overlock Collar Setter Name Role Phone HILARIO CAI Primary Care Provider CAMPOS JONES Primary Care Provider Assessment Encounter Date Assessment Date Assessment LastModified by Organization Details LastModified Time 10/10/2025 10/10/2025 Visit With: Toyin Gurrola Use of Antihistamine s: No If yes: Vial Test Change in medications: No If yes Increase in asthma symptoms If yes, inhaler use: Reaction to last injections: No If yes: Allergy Symptoms: Other: Missed: Dose Aware of Vial Test Aware: Notes:iron infusion Not available 10/10/2025 10:52:25 Plan of Treatment Reminders Order Date Submit Date Provider Last Modified By Organization Details Last Modified Time Details Appointments [facility]- Allergy f-up 6mon 2025 10:00A M NATY [...] Time Hypertrop hy of nasal turbinate s 14623384 Active 2023 Hypertroph y of nasal turbinates ; Note: Date Diagnosed: 01/03/2016 8:40 AM (J34.3) Not Available [facility] 4 02:13:50 Chronic rhinitis 81138880 Active 2023 Chronic rhinitis; Note: Date Diagnosed: 11/22/2023 2:34 PM (J31.0) Not Available [facility] 4 02:13:06 Deviated nasal septum 365375321 Active 2023 Deviated nasal septum; Note: Date Diagnosed: 01/03/2016 8:40 AM (J34.2) Not Available [facility] 4 02:13:23 Disorder of smell 116164477 Active 2023 Other disturbanc es of smell and taste; Note: Date Diagnosed: 11/22/2023 2:34 PM (R43.8) Not Available [facility] 4 02:14:24 Disorder of taste 933699986 Active 2023 Other disturbanc es of smell and taste; Note: Date Diagnosed: 11/22/2023 2:34 PM (R43.8) Not Available [facility] 4 02:14:24 Follow-up visit Active 2023 Encounter for follow-up examinatio n after completed treatment for conditions other than malignant neoplasm; Note: Date Diagnosed: 03/03/2024 11:19 AM (Z09) Not Available [facility] 4 02:14:15 Headache 46213180 Active 2023 Headache, unspecifie d; Note: Date Diagnosed: 03/20/2024 11:48 AM (R51.9) Not Available [facility] 4 02:14:40 Perennial allergic rhinitis 531504824 Active 2023 Clay Umanzor 100 [facility],[place] [address], [place], [address] , [place] [facility] 5 11:07:14 Allergic rhinitis 78147043 Active 2023 KYMBERLY MCKEON MD [address] [place] [address],[place] [address], [place], [address] , [place] [facility] 4 14:34:26 Chronic sinusitis 31318637 Active 2023 KYMBERLY MCKEON MD [address] [place] [address],[place] [address], [place], [address] , [place] [facility] 4 14:35:04 Mild intermitt ent asthma 701775346 Active 2023 KYMBERLY MCKEON MD [facility], [place], [address] , [place] [facility] 4 14:13:34 Posterior rhinorrhe a 29584725 Active 2024 KYMBERLY MCKEON MD [facility], [place], [address] , [place] [facility] 5 14:40:01 Paresthes ia 81772976 Active 2024 MEAGHAN PHILIPPE PA-C [address] [facility],[place] [facility], [place], [address] , [place] [facility] 5 14:12:02 Postconcu ssion syndrome 76652006 Active 2024 KYMBERLY MCKEON MD [address] [facility] [facility], [place], [address] , [place] [facility] 5 14:40:07 Migraine without aura, not refractor y 068204851 Active 2024 KYMBERLY MCKEON MD [address] [facility],[place] [facility], [place], [address] , [place] [facility] 5 09:32:09 Problem Notes None recorded. Procedures Surgical History Date Name Laterality Status Provider Name and Address Organization Details Recorded Time 10/23/20 25 Allergy Immunotherapy Injections completed ROSA ALDANA Reji [address] [facility] [facility], [place], [address], [place] [facility] 10/23/2025 13:43:37 10/17/20 25 Allergy Immunotherapy Injections completed DENICE RIVERA [address] [facility] [facility], [place], [address], [place] [facility] 10/17/2025 10:57:33 10/10/20 25 Allergy Immunotherapy Injections completed TOYIN GALILEO, RMA [address], [place], [address], [place] [facility] 10/10/2025 10:51:36 10/03/20 25 Allergy Immunotherapy Injections completed RUBINA RIVERAA [address], [place], [address], [place] [facility] 10/03/2025 11:26:10 09/27/20 25 Allergy Immunotherapy Injections completed ROSA DOUGLASSC, RMA [address], [place], [address], [place] [facility] 09/27/2025 11:30:14 09/17/20 25 Allergy Immunotherapy Injections completed ROSA DOUGLASSC, RMA [address],[place] [address], [place], [address], [place] [facility] 09/17/2025 10:43:44 09/12/20 25 Allergy Immunotherapy Injections completed ROSA ALDANA, RMA [address], [place], [address], [place] [facility] 09/12/2025 11:16:56 09/05/20 25 Allergy Immunotherapy Injections completed TOYIN GURROLA RMA [address],[place] [address], [place], [address], [place] [facility] 09/05/2025 10:32:29 08/29/20 25 Allergy Immunotherapy Injections completed Clay Umanzor [address], [place], [address], [place] [facility] 08/29/2025 10:21:54 08/22/20 25 Allergy Immunotherapy Injections completed Clay Noé [address], [place], [address], [place] [facility] 08/22/2025 11:07:33 08/15/20 25 Allergy Immunotherapy Injections completed ROSA DOUGLASSC, RMA [address], [place], [address], [place] [facility] 08/15/2025 11:51:06 08/10/20 25 Allergy Immunotherapy Injections completed ROSA DOUGLASSC, RMA [address], [place], [address], [place] [facility] 08/10/2025 10:21:59 07/25/20 25 Allergy Immunotherapy Injections completed DENICE RIVERA [address] [facility] [place] [address], [address], [place] [facility] 07/25/2025 13:58:02 07/18/20 25 Allergy Immunotherapy Injections completed DENICE MARIA [address] [facility],[address], [place], [address], [place] [facility] 07/18/2025 12:15:30 07/11/20 25 Allergy Immunotherapy Injections completed MAVERICK TERRAZAS RN [address] [facility],[address] [place] [address], [address], [place] [facility] 07/11/2025 15:58:33 07/04/20 25 Allergy Immunotherapy Injections completed DENICE MARIA [address] [facility],[address] [address] [place] [address], [address], [place] [facility] 07/04/2025 15:57:33 06/21/20 25 Allergy Immunotherapy Injections completed DENICE RIVERA [address] [facility],[address] [address] [place] [address], [address], [place] [facility] 06/21/2025 11:57:52 06/13/20 25 Allergy Immunotherapy Injections completed DENICE RIVERA [address] [facility],[place] [address] [place] [address], [address], [place] [facility] 06/13/2025 13:15:25 06/06/20 25 Allergy Immunotherapy Injections completed MAVERICK TERRAZAS RN [address] [facility] [place] [address], [address], [place] [facility] 06/06/2025 13:16:32 05/28/20 25 surgical procedure on cervical spine completed KYMBERLY GARCIA MD [address],[place] [address], [place], [address], [place] [facility] 09/17/2025 09:31:38 05/24/20 25 Allergy Immunotherapy Injections completed ROSA KORZEC, RMA [address], [place], [address], [place] [facility] 05/24/2025 11:28:37 05/17/20 25 Allergy Immunotherapy Injections completed TOYIN GURROLA RMA [address], [place], [address], [place] [facility] 05/17/2025 10:52:46 05/09/20 25 Allergy Immunotherapy Injections completed ROSA DOUGLASSC, RMA [address], [place], [address], [place] [facility] 05/09/2025 13:47:27 05/01/20 25 Allergy Immunotherapy Injections completed TOYIN GURROLA RMA [address], [place], [address], [place] [facility] 05/01/2025 11:48:55 04/25/20 25 Allergy Immunotherapy Injections completed TOYIN GURROLA RMA [address],[place] [address], [place], [address], [place] [facility] 04/25/2025 12:09:48 04/19/20 25 Allergy Immunotherapy Injections completed ROSA ALDANA RMA [address],[place] [address], [place], [address], [facility] - [facility] 04/19/2025 13:45:42 04/11/20 25 Allergy Immunotherapy Injections completed ROSA ALDANA RMA [address], [place], [address], [facility] - [facility] 04/11/2025 09:53:57 04/04/20 25 Allergy Immunotherapy Injections completed ROSA DOUGLASSC, RMA [address], [place], [address], [place] [facility] 04/04/2025 14:14:25 03/21/20 25 Allergy Immunotherapy Injections completed MAVERICK TERRAZAS RN [address], [place], [address], [place] [facility] 03/21/2025 14:32:25 03/15/20 25 Allergy Immunotherapy Injections completed ROSA ALDANA, RMA [address], [place], [address], [place] [facility] 03/15/2025 13:24:02 03/07/20 25 Allergy Immunotherapy Injections completed TOYIN GURROLA RMA [address], [place], [address], [place] [facility] 03/07/2025 14:17:42 03/02/20 25 Allergy Immunotherapy Injections completed TOYIN GURROLA RMA [address], [place], [address], [place] [facility] 03/02/2025 09:22:17 02/24/20 25 Allergy Immunotherapy Injections completed TOYIN GURROLA RMA [address] [address], [place], [address], [place] [facility] 02/23/2025 10:37:57 02/15/20 25 Allergy Immunotherapy Injections completed MAVERICK TERRAZAS RN [address], [place], [address], [place] [facility] 02/14/2025 13:47:08 02/08/20 25 Allergy Immunotherapy Injections completed ROSA ALDANA, RMA [address],[place] [address], [place], [address], [place] [facility] 02/07/2025 15:34:14 02/01/20 25 Allergy Immunotherapy Injections completed TOYIN GURROLA RMA [address], [place], [address], [place] [facility] 01/31/2025 14:14:19 01/25/20 25 Allergy Immunotherapy Injections completed TOYIN GURROLA RMA [address], [place], [address], [place] [facility] 01/24/2025 10:31:45 01/18/20 25 Allergy Immunotherapy Injections completed TOYIN GURROLA RMA [address], [place], [address], [place] [facility] 01/17/2025 11:50:20 01/12/20 25 Allergy Immunotherapy Injections completed MAVERICK TERRAZAS RN [address], [place], [address], [place] [facility] 01/11/2025 10:38:17 01/03/20 25 Allergy Immunotherapy Injections completed MAVERICK TERRAZAS RN [address], [place], [address], [place] [facility] 01/03/2025 13:48:45 12/29/19 25 Allergy Immunotherapy Injections completed MAVERICK TERRAZAS RN [address], [place], [address], [place] [facility] 12/29/2024 10:36:58 12/20/19 25 Allergy Immunotherapy Injections completed MAVERICK TERRAZAS RN [address] [facility], [place], [address], [place] [facility] 12/20/2024 15:44:53 12/12/19 25 Allergy Immunotherapy Injections completed DENICE RIVERA [address],[place] [facility], [place], [address], [place] [facility] 12/12/2024 13:28:07 11/30/19 25 Allergy Immunotherapy Injections completed ROSA ALDANA RMReji [address],[place] [address], [place], [address], [place] [facility] 11/30/2024 14:28:33 11/22/19 25 Allergy Immunotherapy Injections completed ROSA ALDANA RMReji [address], [place], [address], [place] [facility] 11/22/2024 13:40:26 11/15/19 25 Allergy Immunotherapy Injections completed ROSA ALDANA RMReji [address], [place], [address], [place] [facility] 11/15/2024 13:45:46 11/10/19 25 Allergy Immunotherapy Injections completed DENICE RIVERA [address], [place], [address], [place] [facility] 11/10/2024 15:15:34 11/02/20 24 Allergy Immunotherapy Injections completed MAVERICK TERRAZAS RN [address], [place], [address], [place] [facility] 11/02/2024 10:42:32 10/25/20 24 Allergy Immunotherapy Injections completed MAVERICK TERRAZAS RN [address] [facility] [address], [place], [address], [place] [facility] 10/25/2024 14:09:21 10/17/20 24 Allergy Immunotherapy Injections completed ROSA ALDANA RMReji [address] [facility], [place], [address], [place] [facility] 10/17/2024 13:44:09 10/03/20 24 Allergy Immunotherapy Injections completed DENICE RIVERA [address] [facility] [place] [address], [address], [place] [facility] 10/03/2024 13:20:05 09/21/20 24 Allergy Immunotherapy Injections completed MAVERICK TERRAZAS RN [address] [facility] [facility], [place], [address], [place] [facility] 09/21/2024 12:01:33 09/12/20 24 Allergy Immunotherapy Injections completed ROSA ALDANA Rjei [address] [facility] [address] [place] [address], [address], [place] [facility] 09/12/2024 14:05:49 09/06/20 24 Allergy Immunotherapy Injections completed DENICE RIVERA [address] [facility],[address] [address] [place] [address], [address], [place] [facility] 09/06/2024 14:48:49 09/06/20 24 JMSNasal/Sinus Endoscopy-PRIOR surgical cavities completed KYMBERLY GARCIA MD [address] [facility] [place] [address], [address], [place] [facility] 09/06/2024 15:05:59 08/29/20 24 Allergy Immunotherapy Injections completed DENICE RIVERA [address] [facility] [address] [address] [place] [address], [address], [place] [facility] 08/29/2024 14:50:02 08/23/20 24 Allergy Immunotherapy Injections completed MAVERICK TERRAZAS RN [address], [place], [address], [place] [facility] 08/23/2024 15:21:09 08/15/20 24 Allergy Immunotherapy Injections completed MAVERICK TERRAZAS RN [address] [facility], [place], [address], [place] [facility] 08/15/2024 14:14:05 08/10/20 24 Allergy Immunotherapy Injections completed DENICE RIVERA [address] [facility], [place], [address], [place] [facility] 08/10/2024 14:00:51 08/04/20 24 Allergy Immunotherapy Injections completed DENICE RIVERA [address] [facility] [address] [place] [address], [address], [place] [facility] 08/04/2024 15:31:25 07/25/20 24 Allergy Immunotherapy Injections completed DENICE MARIA [address],[place] [address] [place] [address], [address], [place] [facility] 07/25/2024 14:33:52 07/19/20 24 Allergy Immunotherapy Injections completed MAVERICK TERRAZAS RN [address] [facility] [address] [place] [address], [address], [place] [facility] 07/19/2024 16:18:04 07/11/20 24 Allergy Immunotherapy Injections completed DENICE MARIA [address], [place], [address], [place] [facility] 07/11/2024 14:32:17 07/04/20 24 Allergy Immunotherapy Injections completed DENICE RIVERA [address] [facility],[place], [place], [address], [place] [facility] 07/04/2024 14:03:37 06/28/20 24 Allergy Immunotherapy Injections completed MAVERICK TERRAZAS RN [address],[place] [address], [place], [address], [place] [facility] 06/28/2024 14:26:26 06/20/20 24 Allergy Immunotherapy Injections completed DENICE MARIA [address] [address] [place] [address], [address], [place] [facility] 06/20/2024 13:05:25 06/13/20 24 Allergy Immunotherapy Injections completed DENICE RIVERA [address],[place] [address], [place], [address], [place] [facility] 06/13/2024 15:52:47 06/06/20 24 Allergy Immunotherapy Injections completed MAVERICK TERRAZAS RN [address] [facility] [facility], [place], [address], [place] [facility] 06/06/2024 15:10:37 06/06/20 24 JMSNasal/Sinus Endoscopy-PRIOR surgical cavities completed KYMBERLY GARCIA MD [address] [facility] [address] [address] [place] [address], [address], [place] [facility] 06/06/2024 14:10:04 06/01/20 24 Allergy Immunotherapy Injections completed MAVERICK TERRAZAS RN [address] [facility],[address] [address] [place] [address], [address], [place] [facility] 06/01/2024 15:38:20 05/23/20 24 Allergy Immunotherapy Injections completed DENICE RIVERA [address] [facility] [place] [address], [address], [place] [facility] 05/23/2024 14:44:44 05/17/20 24 Allergy Immunotherapy Injections completed ROSA ALDANA RMA [address] [facility], [place], [address], [place] [facility] 05/17/2024 16:10:00 05/09/20 24 Allergy Immunotherapy Injections completed MAVERICK TERRAZAS RN [address] [facility] [place] [address], [address], [place] [facility] 05/09/2024 15:06:52 05/02/20 24 Allergy Immunotherapy Injections completed DENICE RIVERA [address] [facility], [place], [address], [place] [facility] 05/02/2024 13:34:36 04/25/20 24 Allergy Immunotherapy Injections completed DENICE RIVERA [address],[place] [address], [place], [address], [place] [facility] 04/25/2024 14:45:44 04/21/20 24 Allergy Immunotherapy Injections completed DENICE RIVERA [address] [facility], [place], [address], [place] [facility] 04/21/2024 14:00:37 04/12/20 24 Allergy Immunotherapy Injections completed DENICE MARIA [address] [facility] [place] [address], [address], [place] [facility] 04/12/2024 16:04:03 04/05/20 24 JMSNasal/Sinus Endoscopy-PRIOR surgical cavities completed KYMBERLY GARCIA MD [address] [facility] [address],[place] [address] [place] [address], [address], [place] [facility] 04/05/2024 14:34:46 04/05/20 24 Allergy Immunotherapy Injections completed DENICE RIVERA [address] [facility] [address] [place] [address], [address], [place] [facility] 04/05/2024 13:35:01 03/29/20 24 Allergy Immunotherapy Injections completed DENICE MARIA [address] [facility] [place] [address], [address], [place] [facility] 03/29/2024 16:18:09 02/29/20 24 functional endoscopic sinus surgery completed KYMBERLY GARCIA MD [address],[place] [address] [place] [address], [address], [place] [facility] 04/05/2024 14:33:51 02/29/20 24 Repair of nasal septum completed KYMBERLY GARCIA MD [address],[place] [place] [address], [address], [place] [facility] 04/05/2024 14:34:03 cholecystectomy completed Shyanne Escalante [place] - [facility] 11/15/2024 13:38:47 section completed Shyanne Escalante [place] - [facility] 11/15/2024 13:38:52 Imaging Results None recorded. Procedure Notes None recorded. Medical Equipment None Reported. Allergies Allergen ID Allergen Name Allergen Category Reaction Reaction Severity Criticality Documentation Date Start Date Code Code System Note Provider Name and Address Organization Details Recorded Time 351928 POLLEN EXTRACTS environme nt,medica tion Not available Not available low 10/18/20252024 31651 6 RxNorm Runny nose unrec ogniz ed react ion (text : Itchy eyes, code: 73184 002), mild (from exter nal sourc e) [...] by mouth 09/06 completed Medicati on ID: [id number] D uration Value: 10 Brand Name: doxycycl [...] Not Available Not Available Not Available Vitals None Recorded Social History None recorded. [...] ICD10 Code Diagnosis IMO Codes Diagnosis Note [id number] ROSA ALDANA RMA Allergy 100 [facility],[place] 100 [facility] [place] [address] 09/12/2025 10:42:43 09/12/2025 11:17:32 Perennial allergic rhinitis [id number] J30.89 [id number] KYMBERLY MCKEON MD [facility] 100 [place] [address] 09/17/2025 09:14:46 09/17/2025 09:33:54 Perennial allergic rhinitis [id number] J30.89 [id number] Migraine w ithout aura, not refractory 047430872 G43.009 050962 History of surgical procedure on cervical spine [id number] Z98.887 [id number] TOYIN GURROLA [facility] Allergy [address] [place] [address],[facility] 100 [facility] [place] [address] 09/17/2025 09:15:39 09/17/2025 10:44:11 Perennial allergic rhinitis [id number] J30.89 [id number] ROSA ALDANA A Allergy 100 [facility],[place] [address] [place] [address] 09/27/2025 11:01:58 09/27/2025 11:30:53 Perennial allergic rhinitis [id number] J30.89 [id number] TOYIN GURROLA A Allergy [address] [place], [place] [address] 100 [place] [address] 10/03/2025 10:53:10 10/03/2025 11:26:37 Perennial allergic rhinitis [id number] J30.89 [id number] TOYIN GURROLA A Allergy 100 [facility],[place] [address] [place] [address] 10/10/2025 10:31:47 10/10/2025 11:36:39 Perennial allergic rhinitis [id number] J30.89 Health Concerns Section Related Observation LastModified by Organization Detai ls LastModified Time None Recorded Concern Status LastModified by Organization Details LastModified Time None Recorded Payers Encounter Date Sequence Insurance Name Policy Number Policy Maya Covered Member ID Maya Member ID Guarantor Name 10/10/2025 1 [facility] - HEALTH NET PLAN (MEDICAID HMO) YESENIA Hoffmann [id number] Naina Hoffmann OBGyn Episode No OBEpisode recorded.
--- OUTSIDE RECORDS SUMMARY | 2025-10-25 17:47 | XMS_ITS | Continuity of Care Document ---
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 Name Role Phone HILARIO CAI Primary Care Provider CAMPOS JONES Primary Care Provider Assessment Encounter Date Assessment Date Assessment LastModified by Organization Details LastModified Time 08/10/2025 08/10/2025 Visit With: DENICE Kee Use of Antihistamine s: Yes If yes: Vial Test Change in medications: No If yes Increase in asthma symptoms If yes, inhaler use: Reaction to last injections: No If yes: Allergy Symptoms: Other: Missed: Dose Aware of Vial Test Aware: Notes: brandon Not available 08/10/2025 10:22:11 Plan of Treatment Reminders Order Date Submit Date Provider Last Modified By Organization Details Last Modified Time Details Appointments [facility] 6mon 2025 10:00A [...] Time Hypertrop hy of nasal turbinate s 05406193 Active 2023 Hypertroph y of nasal turbinates ; Note: Date Diagnosed: 01/03/2016 8:40 AM (J34.3) Not Available [facility] 4 02:13:50 Chronic rhinitis 50399345 Active 2023 Chronic rhinitis; Note: Date Diagnosed: 11/22/2023 2:34 PM (J31.0) Not Available [facility] 4 02:13:06 Deviated nasal septum 885137153 Active 2023 Deviated nasal septum; Note: Date Diagnosed: 01/03/2016 8:40 AM (J34.2) Not Available [facility] 4 02:13:23 Disorder of smell 411939403 Active 2023 Other disturbanc es of smell and taste; Note: Date Diagnosed: 11/22/2023 2:34 PM (R43.8) Not Available [facility] 4 02:14:24 Disorder of taste 795169286 Active 2023 Other disturbanc es of smell and taste; Note: Date Diagnosed: 11/22/2023 2:34 PM (R43.8) Not Available [facility] 4 02:14:24 Follow-up visit Active 2023 Encounter for follow-up examinatio n after completed treatment for conditions other than malignant neoplasm; Note: Date Diagnosed: 03/03/2024 11:19 AM (Z09) Not Available [facility] 4 02:14:15 Headache 76901069 Active 2023 Headache, unspecifie d; Note: Date Diagnosed: 03/20/2024 11:48 AM (R51.9) Not Available [facility] 4 02:14:40 Perennial allergic rhinitis 461300325 Active 2023 Clay Umanzor 100 [facility],[place] [address], [place], [address] , [place] [facility] 5 11:07:14 Allergic rhinitis 50768617 Active 2023 KYMBERLY MCKEON MD [address] [place] [address],[place] [address], [place], [address] , [place] [facility] 4 14:34:26 Chronic sinusitis 64595431 Active 2023 KYMBERLY MCKEON MD [address] [place] [address],[place] [address], [place], [address] , [place] [facility] [place] [facility] 4 14:35:04 Mild intermitt ent asthma 531900314 Active 2023 KYMBERLY MCKEON MD [address] [facility] [place],[address], [place], [address] , [place] [facility] [place] 4 14:13:34 Posterior rhinorrhe a 42291328 Active 2024 KYMBERLY MCKEON MD [address] [facility] [facility] [place],[address], [place], [address] , [place] [facility] [place] [facility] 5 14:40:01 Paresthes ia 44031604 Active 2024 MEAGHAN PHILIPPE PA-C 100 [facility],[address] [facility], [place], [address] , [place] [facility] [place] [facility] 5 14:12:02 Postconcu ssion syndrome 67502214 Active 2024 KYMBERLY MCKEON MD [address] [facility] [facility] [place] [facility], [place], [address] , [place] [facility] [place] 5 14:40:07 Migraine without aura, not refractor y 124214540 Active 2024 KYMBERLY MCKEON MD [address] [facility] [address] [facility], [place], [address] , [place] [facility] 5 09:32:09 Problem Notes None recorded. Procedures Surgical History Date Name Laterality Status Provider Name and Address Organization Details Recorded Time 10/23/20 25 Allergy Immunotherapy Injections completed ROSA ALDANA Reji [address] [facility], [place], [address], [place] [facility] 10/23/2025 13:43:37 10/17/20 25 Allergy Immunotherapy Injections completed DENICE RIVERA [address] [facility] [address] [facility], [place], [address], [place] [facility] 10/17/2025 10:57:33 10/10/20 25 Allergy Immunotherapy Injections completed MAKAYLA GALILEO, RMA [address], [place], [address], [place] [facility] 10/10/2025 10:51:36 10/03/20 25 Allergy Immunotherapy Injections completed RUBINA RIVERAA [address], [place], [address], [place] [facility] 10/03/2025 11:26:10 09/27/20 25 Allergy Immunotherapy Injections completed ROSA DOUGLASSC, RMA [address], [place], [address], [place] [facility] 09/27/2025 11:30:14 09/17/20 25 Allergy Immunotherapy Injections completed ROSA DOUGLASSC, RMA [address],[place] [address], [place], [address], [place] [facility] 09/17/2025 10:43:44 09/12/20 25 Allergy Immunotherapy Injections completed ROSA ALDANA, RMA [address], [place], [address], [place] [facility] 09/12/2025 11:16:56 09/05/20 25 Allergy Immunotherapy Injections completed MAKAYLA GURROLA RMA [address],[place] [address], [place], [address], [place] [facility] 09/05/2025 10:32:29 08/29/20 25 Allergy Immunotherapy Injections completed Clay Umanzor [address], [place], [address], [place] [facility] 08/29/2025 10:21:54 08/22/20 25 Allergy Immunotherapy Injections completed Clay Noé [address], [place], [address], [place] [facility] 08/22/2025 11:07:33 08/15/20 25 Allergy Immunotherapy Injections completed ROSA DOUGLASSC, RMA [address], [place], [address], [place] [facility] 08/15/2025 11:51:06 08/10/20 25 Allergy Immunotherapy Injections completed ROSA DOUGLASSC, RMA [address], [place], [address], [place] [facility] 08/10/2025 10:21:59 07/25/20 25 Allergy Immunotherapy Injections completed DENICE RIVERA [address] [facility] [address] [place] [address], [address], [place] [facility] 07/25/2025 13:58:02 07/18/20 25 Allergy Immunotherapy Injections completed DENICE KEE [address] [facility] [facility] [place] [address], [place], [address], [place] [facility] 07/18/2025 12:15:30 07/11/20 25 Allergy Immunotherapy Injections completed MAVERICK TERRAZAS RN [address] [facility] [place] [address] [place] [address], [address], [place] [facility] 07/11/2025 15:58:33 07/04/20 25 Allergy Immunotherapy Injections completed DENICE KEE [address] [facility] [facility] [place] [address] [place] [address], [address], [place] [facility] 07/04/2025 15:57:33 06/21/20 25 Allergy Immunotherapy Injections completed DENICE RIVERA [address] [facility] [facility] [place] [address] [place] [address], [address], [place] [facility] 06/21/2025 11:57:52 06/13/20 25 Allergy Immunotherapy Injections completed DENICE RIVERA [address] [facility] [facility] [place] [address] [place] [address], [address], [place] [facility] 06/13/2025 13:15:25 06/06/20 25 Allergy Immunotherapy Injections completed MAVERICK TERRAZAS RN [address] [facility] [address] [place] [address], [address], [place] [facility] 06/06/2025 13:16:32 05/28/20 25 surgical procedure on cervical spine completed KYMBERLY GARCIA MD [address],[place] [address], [place], [address], [place] [facility] 09/17/2025 09:31:38 05/24/20 25 Allergy Immunotherapy Injections completed ROSA KORZEC, RMA [address], [place], [address], [place] [facility] 05/24/2025 11:28:37 05/17/20 25 Allergy Immunotherapy Injections completed MAKAYLA GURROLA RMA [address], [place], [address], [place] [facility] 05/17/2025 10:52:46 05/09/20 25 Allergy Immunotherapy Injections completed ROSA DOUGLASSC, RMA [address], [place], [address], [place] [facility] 05/09/2025 13:47:27 05/01/20 25 Allergy Immunotherapy Injections completed MAKAYLA GURROLA RMA [address], [place], [address], [place] [facility] 05/01/2025 11:48:55 04/25/20 25 Allergy Immunotherapy Injections completed MAKAYLA GURROLA RMA [address],[place] [address], [place], [address], [place] [facility] 04/25/2025 12:09:48 04/19/20 25 Allergy Immunotherapy Injections completed ROSA ALDANA RMA [address],[place] [address], [place], [address], [facility] - [facility] [place] 04/19/2025 13:45:42 04/11/20 25 Allergy Immunotherapy Injections completed ROSA ALDANA RMA [address], [place], [address], [facility] - [facility] [place] [facility] 04/11/2025 09:53:57 04/04/20 25 Allergy Immunotherapy Injections completed ROSA DOUGLASSC, RMA [address], [place], [address], [place] [facility] 04/04/2025 14:14:25 03/21/20 25 Allergy Immunotherapy Injections completed MAVERICK TERRAZAS RN [address], [place], [address], [place] [facility] 03/21/2025 14:32:25 03/15/20 25 Allergy Immunotherapy Injections completed ROSA ALDANA, RMA [address], [place], [address], [place] [facility] 03/15/2025 13:24:02 03/07/20 25 Allergy Immunotherapy Injections completed MAKAYLA GURROLA RMA [address], [place], [address], [place] [facility] 03/07/2025 14:17:42 03/02/20 25 Allergy Immunotherapy Injections completed MAKAYLA GURROLA RMA [address], [place], [address], [place] [facility] 03/02/2025 09:22:17 02/24/20 25 Allergy Immunotherapy Injections completed MAKAYLA GURROLA RMA [address],[place] [address], [place], [address], [place] [facility] 02/23/2025 10:37:57 02/15/20 25 Allergy Immunotherapy Injections completed MAVERICK TERRAZAS RN [address],[place] [address], [place], [address], [place] [facility] 02/14/2025 13:47:08 02/08/20 25 Allergy Immunotherapy Injections completed ROSA ALDANA, RMA [address],[place] [address], [place], [address], [place] [facility] 02/07/2025 15:34:14 02/01/20 25 Allergy Immunotherapy Injections completed MAKAYLA GURROLA RMA [address],[place] [address], [place], [address], [place] [facility] 01/31/2025 14:14:19 01/25/20 25 Allergy Immunotherapy Injections completed MAKAYLA GURROLA RMA [address], [place], [address], [place] [facility] 01/24/2025 10:31:45 01/18/20 25 Allergy Immunotherapy Injections completed MAKAYLA GURROLA RMA [address],[place] [address], [place], [address], [place] [facility] 01/17/2025 11:50:20 01/12/20 25 Allergy Immunotherapy Injections completed MAVERICK TERRAZAS RN [address], [place], [address], [place] [facility] 01/11/2025 10:38:17 01/03/20 25 Allergy Immunotherapy Injections completed MAVERICK TERRAZAS RN [address], [place], [address], [place] [facility] 01/03/2025 13:48:45 12/29/19 25 Allergy Immunotherapy Injections completed MAVERICK TERRAZAS RN [address], [place], [address], [place] [facility] 12/29/2024 10:36:58 12/20/19 25 Allergy Immunotherapy Injections completed MAVERICK TERRAZAS RN [address] [facility] [address], [place], [address], [place] [facility] 12/20/2024 15:44:53 12/12/19 25 Allergy Immunotherapy Injections completed DENICE RIVERA [address],[place] [facility], [place], [address], [place] [facility] [place] [facility] 12/12/2024 13:28:07 11/30/19 25 Allergy Immunotherapy Injections completed ROSA ALDANA RMReji [address],[place] [address], [place], [address], [place] [facility] 11/30/2024 14:28:33 11/22/19 25 Allergy Immunotherapy Injections completed ROSA ALDANA RMReji [address], [place], [address], [place] [facility] 11/22/2024 13:40:26 11/15/19 25 Allergy Immunotherapy Injections completed ROSA ALDANA RMReji [address], [place], [address], [place] [facility] 11/15/2024 13:45:46 11/10/19 25 Allergy Immunotherapy Injections completed DENICE RIVERA [address], [place], [address], [place] [facility] 11/10/2024 15:15:34 11/02/20 24 Allergy Immunotherapy Injections completed MAVERICK TERRAZAS RN [address], [place], [address], [place] [facility] 11/02/2024 10:42:32 10/25/20 24 Allergy Immunotherapy Injections completed MAVERICK TERRAZAS RN [address] [facility],[place] [address], [place], [address], [place] [facility] 10/25/2024 14:09:21 10/17/20 24 Allergy Immunotherapy Injections completed ROSA ALDANA RMReji [address] [facility] [address],[place] [address], [place], [address], [place] [facility] 10/17/2024 13:44:09 10/03/20 24 Allergy Immunotherapy Injections completed DENICE RIVERA [address] [facility] [address] [place] [address], [address], [place] [facility] 10/03/2024 13:20:05 09/21/20 24 Allergy Immunotherapy Injections completed MAVERICK TERRAZAS RN [address] [facility] [facility], [place], [address], [place] [facility] 09/21/2024 12:01:33 09/12/20 24 Allergy Immunotherapy Injections completed ROSA ALDANA Reji [address] [facility] [address] [place] [address], [address], [place] [facility] 09/12/2024 14:05:49 09/06/20 24 Allergy Immunotherapy Injections completed DENICE RIVERA [address] [facility] [facility] [place] [address] [place] [address], [address], [place] [facility] 09/06/2024 14:48:49 09/06/20 24 JMSNasal/Sinus Endoscopy-PRIOR surgical cavities completed KYMBERLY GARCIA MD [address] [facility] [address],[place] [address] [place] [address], [address], [place] [facility] 09/06/2024 15:05:59 08/29/20 24 Allergy Immunotherapy Injections completed DENICE RIVERA [address] [facility] [facility] [place] [address] [place] [address], [address], [place] [facility] 08/29/2024 14:50:02 08/23/20 24 Allergy Immunotherapy Injections completed MAVERICK TERRAZAS RN [address], [place], [address], [place] [facility] 08/23/2024 15:21:09 08/15/20 24 Allergy Immunotherapy Injections completed MAVERICK TERRAZAS RN [address] [facility], [place], [address], [place] [facility] 08/15/2024 14:14:05 08/10/20 24 Allergy Immunotherapy Injections completed DENICE RIVERA [address] [facility], [place], [address], [place] [facility] 08/10/2024 14:00:51 08/04/20 24 Allergy Immunotherapy Injections completed DENICE RIVERA [address] [facility],[place] [address] [place] [address], [address], [place] [facility] 08/04/2024 15:31:25 07/25/20 24 Allergy Immunotherapy Injections completed DENICE KEE [address] [address] [place] [address], [address], [place] [facility] 07/25/2024 14:33:52 07/19/20 24 Allergy Immunotherapy Injections completed MAVERICK TERRAZAS RN [address] [facility] [address],[place] [address] [place] [address], [address], [place] [facility] 07/19/2024 16:18:04 07/11/20 24 Allergy Immunotherapy Injections completed DENICE KEE [address], [place], [address], [place] [facility] 07/11/2024 14:32:17 07/04/20 24 Allergy Immunotherapy Injections completed DENICE RIVERA [address] [facility] [address],[place] [address], [place], [address], [place] [facility] 07/04/2024 14:03:37 06/28/20 24 Allergy Immunotherapy Injections completed MAVERICK TERRAZAS RN [address],[place] [address], [place], [address], [place] [facility] 06/28/2024 14:26:26 06/20/20 24 Allergy Immunotherapy Injections completed DENICE KEE [address],[place] [address] [place] [address], [address], [place] [facility] 06/20/2024 13:05:25 06/13/20 24 Allergy Immunotherapy Injections completed DENICE RIVERA [address],[place] [address], [place], [address], [place] [facility] 06/13/2024 15:52:47 06/06/20 24 Allergy Immunotherapy Injections completed MAVERICK TERRAZAS RN [address] [facility] [address],[place] [facility], [place], [address], [place] [facility] 06/06/2024 15:10:37 06/06/20 24 JMSNasal/Sinus Endoscopy-PRIOR surgical cavities completed KYMBERLY GARCIA MD [address] [facility] [facility] [place] [address] [place] [address], [address], [place] [facility] 06/06/2024 14:10:04 06/01/20 24 Allergy Immunotherapy Injections completed MAVERICK TERRAZAS RN [address] [facility] [facility] [place] [address] [place] [address], [address], [place] [facility] 06/01/2024 15:38:20 05/23/20 24 Allergy Immunotherapy Injections completed DENICE RIVERA [address] [facility] [address],[place] [address] [place] [address], [address], [place] [facility] 05/23/2024 14:44:44 05/17/20 24 Allergy Immunotherapy Injections completed ROSA ALDANA RMA [address] [facility] [address],[place] [address], [place], [address], [place] [facility] 05/17/2024 16:10:00 05/09/20 24 Allergy Immunotherapy Injections completed MAVERICK TERRAZAS RN [address] [facility] [address] [place] [address], [address], [place] [facility] 05/09/2024 15:06:52 05/02/20 24 Allergy Immunotherapy Injections completed DENICE RIVERA [address] [facility] [address],[place] [address], [place], [address], [place] [facility] 05/02/2024 13:34:36 04/25/20 24 Allergy Immunotherapy Injections completed DENICE RIVERA [address],[place] [address], [place], [address], [place] [facility] 04/25/2024 14:45:44 04/21/20 24 Allergy Immunotherapy Injections completed DENICE RIVERA [address] [facility] [address],[place] [address], [place], [address], [place] [facility] 04/21/2024 14:00:37 04/12/20 24 Allergy Immunotherapy Injections completed DENICE KEE [address] [facility] [address],[place] [address] [place] [address], [address], [place] [facility] 04/12/2024 16:04:03 04/05/20 24 JMSNasal/Sinus Endoscopy-PRIOR surgical cavities completed KYMBERLY GARCIA MD [address] [facility] [place] [address] [place] [address], [address], [place] [facility] 04/05/2024 14:34:46 04/05/20 24 Allergy Immunotherapy Injections completed DENICE RIVERA [address] [facility] [address],[place] [address] [place] [address], [address], [place] [facility] 04/05/2024 13:35:01 03/29/20 24 Allergy Immunotherapy Injections completed DENICE KEE [address] [facility] [address],[place] [address] [place] [address], [address], [place] [facility] 03/29/2024 16:18:09 02/29/20 24 functional endoscopic sinus surgery completed KYMBERLY GARCIA MD [address] [place] [address], [address], [place] [facility] 04/05/2024 14:33:51 02/29/20 24 Repair of nasal septum completed KYMBERLY GARCIA MD [address] [place] [address], [address], [place] [facility] 04/05/2024 14:34:03 cholecystectomy completed Shyanne Escalante [place] - [facility] 11/15/2024 13:38:47 section completed Shyanne Escalante [place] - [facility] 11/15/2024 13:38:52 Imaging Results None recorded. Procedure Notes None recorded. Medical Equipment None Reported. Allergies Allergen ID Allergen Name Allergen Category Reaction Reaction Severity Criticality Documentation Date Start Date Code Code System Note Provider Name and Address Organization Details Recorded Time 214606 PO[facility] environme nt,medica tion Not available Not available low 10/18/20252024 27297 6 RxNorm Runny nose unrec ogniz ed react ion (text : Itchy eyes, code: 35813 002), mild (from exter nal sourc e) [...] by mouth 09/06 completed Medicati on ID: [id number] D uration Value: 10 Brand Name: doxycycl [...] ICD10 Code Diagnosis IMO Codes Diagnosis Note [id number] MAKAYLA GURROLA RMA Allergy [address] [place] [address] 07/11/2025 10:47:58 07/11/2025 15:59:14 Perennial allergic rhinitis [id number] J30.89 [id number] ROSA DOUGLASS RMA Allergy [address] [place] [address] 07/18/2025 11:36:45 07/18/2025 12:13:36 Perennial allergic rhinitis [id number] J30.89 [id number] MAKAYLA GURROLA A Allergy [address] [place] [address] 07/25/2025 13:40:38 07/25/2025 14:03:23 Perennial allergic rhinitis [id number] J30.89 [id number] ROSA DOUGLASS, RMA Allergy [address] [place] [address] 08/10/2025 09:49:11 08/10/2025 10:22:58 Perennial allergic rhinitis [id number] J30.89 Health Concerns Section Related Observation LastModified by Organization Detai ls LastModified Time None Recorded Concern Status LastModified by Organization Details LastModified Time None Recorded Payers Encounter Date Sequence Insurance Name Policy Number Policy Maya Covered Member ID Maya Member ID Guarantor Name 08/10/2025 1 [facility] - HEALTH NET PLAN (MEDICAID HMO) YESENIA Hoffmann [id number] Naina Hoffmann OBGyn Episode No OBEpisode recorded.
--- OUTSIDE RECORDS SUMMARY | 2025-10-25 17:47 | XMS_ITS | Continuity of Care Document ---
Author Organization [place] [facility], Allergy Address [address] [address] Care Team Providers Care Canteen Manager Name Role Phone HILARIO CAI Primary Care Provider [phone] CAMPOS JONES Primary Care Provider Assessment Encounter Date Assessment Date Assessment LastModified by Organization Details LastModified Time 10/23/2025 10/23/2025 Visit With: DENICE Kee Use of Antihistamine s: Yes If yes: Vial Test Change in medications: No If yes Increase in asthma symptoms If yes, inhaler use: Reaction to last injections: No If yes: Allergy Symptoms: Other: Missed: Dose Aware of Vial Test Aware: Notes: brandon Not available 10/23/2025 13:44:17 Plan of Treatment Reminders Order Date Submit Date Provider Last Modified By Organization Details Last Modified Time Details Appointments [facility]- Allergy f-up 6mon 2025 10:00A M NATY [...] Time Hypertrop hy of nasal turbinate s 12813058 Active 2023 Hypertroph y of nasal turbinates ; Note: Date Diagnosed: 01/03/2016 8:40 AM (J34.3) Not Available [facility] 02:13:50 Chronic rhinitis 62747845 Active 2023 Chronic rhinitis; Note: Date Diagnosed: 11/22/2023 2:34 PM (J31.0) Not Available [facility] 4 02:13:06 Deviated nasal septum 512992297 Active 2023 Deviated nasal septum; Note: Date Diagnosed: 01/03/2016 8:40 AM (J34.2) Not Available [facility] 4 02:13:23 Disorder of smell 959154251 Active 2023 Other disturbanc es of smell and taste; Note: Date Diagnosed: 11/22/2023 2:34 PM (R43.8) Not Available [facility] 4 02:14:24 Disorder of taste 696391341 Active 2023 Other disturbanc es of smell and taste; Note: Date Diagnosed: 11/22/2023 2:34 PM (R43.8) Not Available [facility] 4 02:14:24 Follow-up visit Active 2023 Encounter for follow-up examinatio n after completed treatment for conditions other than malignant neoplasm; Note: Date Diagnosed: 03/03/2024 11:19 AM (Z09) Not Available [facility] 4 02:14:15 Headache 06225587 Active 2023 Headache, unspecifie d; Note: Date Diagnosed: 03/20/2024 11:48 AM (R51.9) Not Available [facility] 4 02:14:40 Perennial allergic rhinitis 406451078 Active 2023 Clay Umanzor 100 [facility],[place] [address], [place], [address] , [place] [facility] 5 11:07:14 Allergic rhinitis 62228359 Active 2023 KYMBERLY MCKEON MD [address] [place] [address],[place] [address], [place], [address] , [place] [facility] [place] 4 14:34:26 Chronic sinusitis 67052404 Active 2023 KYMBERLY MCKEON MD [address] [place] [address],[place] [address], [place], [address] , [place] [facility] [place] 4 14:35:04 Mild intermitt ent asthma 392920355 Active 2023 KYMBERLY MCKEON MD [address] [facility] [place], [place], [address] , [place] [facility] [place] [facility] 4 14:13:34 Posterior rhinorrhe a 75350046 Active 2024 KYMBERLY MCKEON MD [address] [facility] [place],[address], [place], [address] , [place] [facility] [place] [facility] 5 14:40:01 Paresthes ia 70655666 Active 2024 MEAGHAN PHILIPPE PA-C [address] [facility],[place], [place], [address] , [place] [facility] [place] 5 14:12:02 Postconcu ssion syndrome 03542396 Active 2024 KYMBERLY MCKEON MD [address] [facility] [place], [place], [address] , [place] [facility] [place] 5 14:40:07 Migraine without aura, not refractor y 435969370 Active 2024 KYMBERLY MCKEON MD [address] [facility],[place], [place], [address] , [place] [facility] [place] 5 09:32:09 Problem Notes None recorded. Procedures Surgical History Date Name Laterality Status Provider Name and Address Organization Details Recorded Time 10/23/20 25 Allergy Immunotherapy Injections completed ROSA ALDANA Reji [address] [facility] [address],[place], [place], [address], [place] [facility] [place] 10/23/2025 13:43:37 10/17/20 25 Allergy Immunotherapy Injections completed DENICE RIVERA [address] [facility] [address],[place], [place], [address], [place] [facility] [place] 10/17/2025 10:57:33 10/10/20 25 Allergy Immunotherapy Injections completed MAKAYLA GALILEO, RMA [address], [place], [address], [place] [facility] [place] 10/10/2025 10:51:36 10/03/20 25 Allergy Immunotherapy Injections completed RUBINA RIVERAA [address], [place], [address], [place] [facility] [place] [facility] 10/03/2025 11:26:10 09/27/20 25 Allergy Immunotherapy Injections completed ROSA DOUGLASSC, RMA [address], [place], [address], [place] [facility] [place] 09/27/2025 11:30:14 09/17/20 25 Allergy Immunotherapy Injections completed ROSA DOUGLASSC, RMA [address] [address], [place], [address], [place] [facility] 09/17/2025 10:43:44 09/12/20 25 Allergy Immunotherapy Injections completed ROSA ALDANA, RMA [address], [place], [address], [place] [facility] 09/12/2025 11:16:56 09/05/20 25 Allergy Immunotherapy Injections completed MAKAYLA GURROLA RMA [address] [address], [place], [address], [place] [facility] 09/05/2025 10:32:29 08/29/20 25 Allergy Immunotherapy Injections completed Clay Umanzor [address], [place], [address], [place] [facility] [place] 08/29/2025 10:21:54 08/22/20 25 Allergy Immunotherapy Injections completed Clay Noé [address], [place], [address], [place] [facility] [place] [facility] 08/22/2025 11:07:33 08/15/20 25 Allergy Immunotherapy Injections completed ROSA DOUGLASSC, RMA [address], [place], [address], [place] [facility] [place] 08/15/2025 11:51:06 08/10/20 25 Allergy Immunotherapy Injections completed ROSA DOUGLASSC, RMA [address], [place], [address], [place] [facility] [place] [facility] 08/10/2025 10:21:59 07/25/20 25 Allergy Immunotherapy Injections completed DENICE RIVERA [address] [facility] [place] [address], [address], [place] [facility] [place] 07/25/2025 13:58:02 07/18/20 25 Allergy Immunotherapy Injections completed DENICE KEE [address] [facility],[address] [address], [place], [address], [place] [facility] [place] 07/18/2025 12:15:30 07/11/20 25 Allergy Immunotherapy Injections completed MAVERICK TERRAZAS RN [address] [facility] [place] [address] [place] [address], [address], [place] [facility] [place] 07/11/2025 15:58:33 07/04/20 25 Allergy Immunotherapy Injections completed DENICE KEE [address] [facility] [place] [address] [place] [address], [address], [place] [facility] [place] [facility] 07/04/2025 15:57:33 06/21/20 25 Allergy Immunotherapy Injections completed DENICE RIVEAR [address] [facility] [place] [address] [place] [address], [address], [place] [facility] 06/21/2025 11:57:52 06/13/20 25 Allergy Immunotherapy Injections completed DENICE RIVERA [address] [facility] [place] [address] [place] [address], [address], [place] [facility] 06/13/2025 13:15:25 06/06/20 25 Allergy Immunotherapy Injections completed MAVERICK TERRAZAS RN [address] [facility] [address] [place] [address], [address], [place] [facility] 06/06/2025 13:16:32 05/28/20 25 surgical procedure on cervical spine completed KYMBERLY GARCIA MD [address],[place] [address], [place], [address], [place] [facility] 09/17/2025 09:31:38 05/24/20 25 Allergy Immunotherapy Injections completed ROSA KORZEC, RMA [address], [place], [address], [place] [facility] [place] 05/24/2025 11:28:37 05/17/20 25 Allergy Immunotherapy Injections completed MAKAYLA GURROLA RMA [address], [place], [address], [place] [facility] 05/17/2025 10:52:46 05/09/20 25 Allergy Immunotherapy Injections completed ROSA DOUGLASSC, RMA [address], [place], [address], [place] [facility] 05/09/2025 13:47:27 05/01/20 25 Allergy Immunotherapy Injections completed MAKAYLA GURROLA RMA [address], [place], [address], [place] [facility] 05/01/2025 11:48:55 04/25/20 25 Allergy Immunotherapy Injections completed MAKAYLA GURROLA RMA [address] [address], [place], [address], [place] [facility] 04/25/2025 12:09:48 04/19/20 25 Allergy Immunotherapy Injections completed ROSA ALDANA RMA [address],[place] [address], [place], [address], [facility] [place] 04/19/2025 13:45:42 04/11/20 25 Allergy Immunotherapy Injections completed ROSA ALDANA RMA [address], [place], [address], [facility] [place] 04/11/2025 09:53:57 04/04/20 25 Allergy Immunotherapy Injections completed ROSA DOUGLASSC, RMA [address], [place], [address], [place] [facility] [place] [facility] 04/04/2025 14:14:25 03/21/20 25 Allergy Immunotherapy Injections completed MAVERICK TERRAZAS RN [address], [place], [address], [place] [facility] [place] [facility] 03/21/2025 14:32:25 03/15/20 25 Allergy Immunotherapy Injections completed ROSA ALDANA, RMA [address], [place], [address], [place] [facility] 03/15/2025 13:24:02 03/07/20 25 Allergy Immunotherapy Injections completed MAKAYLA GURROLA RMA [address], [place], [address], [place] [facility] 03/07/2025 14:17:42 03/02/20 25 Allergy Immunotherapy Injections completed MAKAYLA GURROLA RMA [address], [place], [address], [place] [facility] 03/02/2025 09:22:17 02/24/20 25 Allergy Immunotherapy Injections completed MAKAYLA GURROLA RMA [address] [address], [place], [address], [place] [facility] 02/23/2025 10:37:57 02/15/20 25 Allergy Immunotherapy Injections completed MAVERICK TERRAZAS RN [address] [address], [place], [address], [place] [facility] 02/14/2025 13:47:08 02/08/20 25 Allergy Immunotherapy Injections completed ROSA ALDANA, RMA [address],[place] [address], [place], [address], [place] [facility] 02/07/2025 15:34:14 02/01/20 25 Allergy Immunotherapy Injections completed MAKAYLA GURROLA RMA [address],[place] [address], [place], [address], [place] [facility] 01/31/2025 14:14:19 01/25/20 25 Allergy Immunotherapy Injections completed MAKAYLA GURROLA RMA [address], [place], [address], [place] [facility] 01/24/2025 10:31:45 01/18/20 25 Allergy Immunotherapy Injections completed MAKAYLA GURROLA RMA [address] [address], [place], [address], [place] [facility] 01/17/2025 11:50:20 01/12/20 25 Allergy Immunotherapy Injections completed MAVERICK TERRAZAS RN [address], [place], [address], [place] [facility] 01/11/2025 10:38:17 01/03/20 25 Allergy Immunotherapy Injections completed MAVERICK TERRAZAS RN [address], [place], [address], [place] [facility] 01/03/2025 13:48:45 12/29/19 25 Allergy Immunotherapy Injections completed MAVERICK TERRAZAS RN [address], [place], [address], [place] [facility] 12/29/2024 10:36:58 12/20/19 25 Allergy Immunotherapy Injections completed MAVERICK TERRAZAS RN [address] [facility], [place], [address], [place] [facility] [place] 12/20/2024 15:44:53 12/12/19 25 Allergy Immunotherapy Injections completed DENICE RIVERA [address],[place], [place], [address], [place] [facility] [place] [facility] 12/12/2024 13:28:07 11/30/19 25 Allergy Immunotherapy Injections completed ROSA ALDANA RMReji [address],[place] [address], [place], [address], [place] [facility] 11/30/2024 14:28:33 11/22/19 25 Allergy Immunotherapy Injections completed ROSA ALDANA RMReji [address], [place], [address], [place] [facility] [place] [facility] 11/22/2024 13:40:26 11/15/19 25 Allergy Immunotherapy Injections completed ROSA ALDANA RMReji [address], [place], [address], [place] [facility] 11/15/2024 13:45:46 11/10/19 25 Allergy Immunotherapy Injections completed DENICE RIVERA [address], [place], [address], [place] [facility] 11/10/2024 15:15:34 11/02/20 24 Allergy Immunotherapy Injections completed MAVERICK TERRAZAS RN [address], [place], [address], [place] [facility] 11/02/2024 10:42:32 10/25/20 24 Allergy Immunotherapy Injections completed MAVERICK TERRAZAS RN [address] [facility] [address], [place], [address], [place] [facility] 10/25/2024 14:09:21 10/17/20 24 Allergy Immunotherapy Injections completed ROSA ALDANA RMReji [address] [facility] [address], [place], [address], [place] [facility] 10/17/2024 13:44:09 10/03/20 24 Allergy Immunotherapy Injections completed DENICE RIVERA [address] [facility] [address] [place] [address], [address], [place] [facility] 10/03/2024 13:20:05 09/21/20 24 Allergy Immunotherapy Injections completed MAVERICK TERRAZAS RN [address] [facility],[place], [place], [address], [place] [facility] 09/21/2024 12:01:33 09/12/20 24 Allergy Immunotherapy Injections completed ROSA ALDANA Reji [address] [facility] [address] [place] [address], [address], [place] [facility] 09/12/2024 14:05:49 09/06/20 24 Allergy Immunotherapy Injections completed DENICE RIVERA [address] [facility] [place] [address] [place] [address], [address], [place] [facility] 09/06/2024 14:48:49 09/06/20 24 JMSNasal/Sinus Endoscopy-PRIOR surgical cavities completed KYMBERLY GARCIA MD [address] [facility],[place] [address] [place] [address], [address], [place] [facility] 09/06/2024 15:05:59 08/29/20 24 Allergy Immunotherapy Injections completed DENICE RIVERA [address] [facility] [place] [address] [place] [address], [address], [place] [facility] 08/29/2024 14:50:02 08/23/20 24 Allergy Immunotherapy Injections completed MAVERICK TERRAZAS RN [address], [place], [address], [place] [facility] 08/23/2024 15:21:09 08/15/20 24 Allergy Immunotherapy Injections completed MAVERICK TERRAZAS RN [address] [facility] [address], [place], [address], [place] [facility] 08/15/2024 14:14:05 08/10/20 24 Allergy Immunotherapy Injections completed DENICE RIVERA [address] [facility], [place], [address], [place] [facility] 08/10/2024 14:00:51 08/04/20 24 Allergy Immunotherapy Injections completed DENICE RIVERA [address] [facility] [address] [place] [address], [address], [place] [facility] 08/04/2024 15:31:25 07/25/20 24 Allergy Immunotherapy Injections completed DENICE KEE [address],[place] [address] [place] [address], [address], [place] [facility] 07/25/2024 14:33:52 07/19/20 24 Allergy Immunotherapy Injections completed MAVERICK TERRAZAS RN [address] [facility] [address],[place] [address] [place] [address], [address], [place] [facility] 07/19/2024 16:18:04 07/11/20 24 Allergy Immunotherapy Injections completed DENICE KEE [address], [place], [address], [place] [facility] 07/11/2024 14:32:17 07/04/20 24 Allergy Immunotherapy Injections completed DENICE RIVERA [address] [facility] [address] [address], [place], [address], [place] [facility] 07/04/2024 14:03:37 06/28/20 24 Allergy Immunotherapy Injections completed MAVERICK TERRAZAS RN [address],[place] [address], [place], [address], [place] [facility] 06/28/2024 14:26:26 06/20/20 24 Allergy Immunotherapy Injections completed DENICE KEE [address],[place] [address] [place] [address], [address], [place] [facility] 06/20/2024 13:05:25 06/13/20 24 Allergy Immunotherapy Injections completed DENICE RIVERA [address] [address], [place], [address], [place] [facility] 06/13/2024 15:52:47 06/06/20 24 Allergy Immunotherapy Injections completed MAVERICK TERRAZAS RN [address] [facility] [address],[place], [place], [address], [place] [facility] 06/06/2024 15:10:37 06/06/20 24 JMSNasal/Sinus Endoscopy-PRIOR surgical cavities completed KYMBERLY GARCIA MD [address] [facility] [place] [address] [place] [address], [address], [place] [facility] 06/06/2024 14:10:04 06/01/20 24 Allergy Immunotherapy Injections completed MAVERICK TERRAZAS RN [address] [facility] [place] [address] [place] [address], [address], [place] [facility] 06/01/2024 15:38:20 05/23/20 24 Allergy Immunotherapy Injections completed DENICE RIVERA [address] [facility] [address],[place] [address] [place] [address], [address], [place] [facility] 05/23/2024 14:44:44 05/17/20 24 Allergy Immunotherapy Injections completed ROSA ALDANA RMA [address] [facility] [address],[place] [address], [place], [address], [place] [facility] 05/17/2024 16:10:00 05/09/20 24 Allergy Immunotherapy Injections completed MAVERICK TERRAZAS RN [address] [facility] [address] [place] [address], [address], [place] [facility] 05/09/2024 15:06:52 05/02/20 24 Allergy Immunotherapy Injections completed DENICE RIVERA [address] [facility] [address],[place] [address], [place], [address], [place] [facility] 05/02/2024 13:34:36 04/25/20 24 Allergy Immunotherapy Injections completed DENICE RIVERA [address],[place] [address], [place], [address], [place] [facility] 04/25/2024 14:45:44 04/21/20 24 Allergy Immunotherapy Injections completed DENICE RIVERA [address] [facility] [address],[place] [address], [place], [address], [place] [facility] 04/21/2024 14:00:37 04/12/20 24 Allergy Immunotherapy Injections completed DENICE KEE [address] [facility] [address] [address] [place] [address], [address], [place] [facility] 04/12/2024 16:04:03 04/05/20 24 JMSNasal/Sinus Endoscopy-PRIOR surgical cavities completed KYMBERLY GARCIA MD [address] [facility] [place] [address] [place] [address], [address], [place] [facility] 04/05/2024 14:34:46 04/05/20 24 Allergy Immunotherapy Injections completed DENICE RIVERA [address] [facility] [address] [address] [place] [address], [address], [place] [facility] 04/05/2024 13:35:01 03/29/20 24 Allergy Immunotherapy Injections completed DENICE KEE [address] [facility] [address] [facility] [address] [address] [place] [address], [address], [place] [facility] 03/29/2024 16:18:09 02/29/20 24 functional endoscopic sinus surgery completed KYMBERLY GARCIA MD [address] [place] [address], [address], [place] [facility] 04/05/2024 14:33:51 02/29/20 24 Repair of nasal septum completed KYMBERLY GARCIA MD [address],[place] [address] [place] [address], [address], [place] [facility] 04/05/2024 14:34:03 cholecystectomy completed Shyanne Escalante [place] - [facility] 11/15/2024 13:38:47 section completed Shyanne Escalante [place] - [facility] 11/15/2024 13:38:52 Imaging Results None recorded. Procedure Notes None recorded. Medical Equipment None Reported. Allergies Allergen ID Allergen Name Allergen Category Reaction Reaction Severity Criticality Documentation Date Start Date Code Code System Note Provider Name and Address Organization Details Recorded Time 992090 [employer] environme nt,medica tion Not available Not available low 10/18/20252024 98504 6 RxNorm Runny nose unrec ogniz ed react ion (text : Itchy eyes, code: 47573 002), mild (from exter nal sourc e) [...] by mouth 09/06 completed Medicati on ID: [id number] D uration Value: 10 Brand Name: doxycycl [...] ICD10 Code Diagnosis IMO Codes Diagnosis Note [id number] ROSA ALDANA RMA Allergy [address] [place] [address] 09/27/2025 11:01:58 09/27/2025 11:30:53 Perennial allergic rhinitis 772694019 J30.89 [id number] MAKAYLA GURROLA A Allergy [address] [facility] [facility] [address] [place] [address] 10/03/2025 10:53:10 10/03/2025 11:26:37 Perennial allergic rhinitis [id number] J30.89 [id number] MAKAYLA GURROLA A Allergy [address] [place] [address] 10/10/2025 10:31:47 10/10/2025 11:36:39 Perennial allergic rhinitis [id number] J30.89 [id number] Clay Umanzor Allergy [address] [facility] [address] [place] [address] 10/17/2025 10:01:26 10/17/2025 10:58:09 Perennial allergic rhinitis [id number] J30.89 [id number] ROSA ALDANA A Allergy [address] [facility] [address] [place] [address] 10/23/2025 13:16:48 10/23/2025 13:44:56 Perennial allergic rhinitis [id number] J30.89 Health Concerns Section Related Observation LastModified by Organization Detai ls LastModified Time None Recorded Concern Status LastModified by Organization Details LastModified Time None Recorded Payers Encounter Date Sequence Insurance Name Policy Number Policy Maya Covered Member ID Maya Member ID Guarantor Name 10/23/2025 1 [facility]MEDICAID HMO) YESENIA Hoffmann [id number] Naina Hoffmann OBGyn Episode No OBEpisode recorded.
--- OUTSIDE RECORDS SUMMARY | 2025-10-25 17:47 | XMS_ITS | Continuity of Care Document ---
Author Organization [place] [facility], Allergy Address [address] [address] Care Team Providers Care Line Server Name Role Phone HILARIO CAI Primary Care Provider [phone] CAMPOS JONES Primary Care Provider [phone] Assessment Encounter Date Assessment Date Assessment LastModified by Organization Details LastModified Time 09/12/2025 09/12/2025 Visit With: DENICE Kee Use of Antihistamine s: No If yes: Vial Test Change in medications: No If yes Increase in asthma symptoms If yes, inhaler use: Reaction to last injections: No If yes: Allergy Symptoms: Other: Missed: Dose Aware of Vial Test Aware: Notes: brandon Not available 09/12/2025 11:17:12 Plan of Treatment Reminders Order Date Submit Date Provider Last Modified By Organization Details Last Modified Time Details Appointments [facility]- Allergy f-up 6mon 2025 10:00A [...] Time Hypertrop hy of nasal turbinate s [id number] Active 2023 Hypertroph y of nasal turbinates ; Note: Date Diagnosed: 01/03/2016 8:40 AM (J34.3) Not Available [facility] 4 02:13:50 Chronic rhinitis 05737643 Active 2023 Chronic rhinitis; Note: Date Diagnosed: 11/22/2023 2:34 PM (J31.0) Not Available [facility] 4 02:13:06 Deviated nasal septum 809421998 Active 2023 Deviated nasal septum; Note: Date Diagnosed: 01/03/2016 8:40 AM (J34.2) Not Available [facility] 4 02:13:23 Disorder of smell 512643340 Active 2023 Other disturbanc es of smell and taste; Note: Date Diagnosed: 11/22/2023 2:34 PM (R43.8) Not Available [facility] 4 02:14:24 Disorder of taste 525601084 Active 2023 Other disturbanc es of smell and taste; Note: Date Diagnosed: 11/22/2023 2:34 PM (R43.8) Not Available [facility] 4 02:14:24 Follow-up visit Active 2023 Encounter for follow-up examinatio n after completed treatment for conditions other than malignant neoplasm; Note: Date Diagnosed: 03/03/2024 11:19 AM (Z09) Not Available [facility] 4 02:14:15 Headache 16144121 Active 2023 Headache, unspecifie d; Note: Date Diagnosed: 03/20/2024 11:48 AM (R51.9) Not Available [facility] 4 02:14:40 Perennial allergic rhinitis 168041802 Active 2023 Clay Umanzor 100 [facility],[place] [address], [place], [address] , [place] [facility] 5 11:07:14 Allergic rhinitis 77796823 Active 2023 KYMBERLY MCKEON MD [address] [place] [address],[place] [address], [place], [address] , [place] [facility] 4 14:34:26 Chronic sinusitis 84973194 Active 2023 KYMBERLY MCKEON MD [address] [place] [address],[place] [address], [place], [address] , [place] [facility] 4 14:35:04 Mild intermitt ent asthma 250597273 Active 2023 KYMBERLY MCKEON MD [address] [facility],[address], [place], [address] , [place] [facility] 4 14:13:34 Posterior rhinorrhe a 66268127 Active 2024 KYMBERLY MCKEON MD [address] [facility],[address], [place], [address] , [place] [facility] 5 14:40:01 Paresthes ia 23083594 Active 2024 MEAGHAN PHILIPPE PA-C [address] [facility],[address] [facility], [place], [address] , [place] [facility] 5 14:12:02 Postconcu ssion syndrome 33320059 Active 2024 KYMBERLY MCKEON MD [address] [facility],[address] [facility], [place], [address] , [place] [facility] 5 14:40:07 Migraine without aura, not refractor y 336427749 Active 2024 KYMBERLY MCKEON MD [address] [facility], [place], [address] , [place] [facility] 5 09:32:09 Problem Notes None recorded. Procedures Surgical History Date Name Laterality Status Provider Name and Address Organization Details Recorded Time 10/23/20 25 Allergy Immunotherapy Injections completed ROSA ALDANA Reji [address] [facility], [place], [address], [place] [facility] 10/23/2025 13:43:37 10/17/20 25 Allergy Immunotherapy Injections completed DENICE RIVERA [address] [facility], [place], [address], [place] [facility] 10/17/2025 10:57:33 10/10/20 25 Allergy Immunotherapy Injections completed MAKAYLA GALILEO, RMA [address], [place], [address], [place] [facility] 10/10/2025 10:51:36 10/03/20 25 Allergy Immunotherapy Injections completed RUBINA RIVERAA [address], [place], [address], [place] [facility] 10/03/2025 11:26:10 09/27/20 25 Allergy Immunotherapy Injections completed ROSA DOUGLASSC, RMA [address], [place], [address], [place] [facility] 09/27/2025 11:30:14 09/17/20 25 Allergy Immunotherapy Injections completed ROSA DOUGLASSC, RMA [address], [address], [place] [facility] 09/17/2025 10:43:44 09/12/20 25 Allergy Immunotherapy Injections completed ROSA ALDANA, RMA [address], [place], [address], [place] [facility] 09/12/2025 11:16:56 09/05/20 25 Allergy Immunotherapy Injections completed MAKAYLA GURROLA RMA [address], [address], [place] [facility] 09/05/2025 10:32:29 08/29/20 25 Allergy Immunotherapy Injections completed Clay Umanzor [address], [place], [address], [place] [facility] 08/29/2025 10:21:54 08/22/20 25 Allergy Immunotherapy Injections completed Clay Noé [address], [place], [address], [place] [facility] 08/22/2025 11:07:33 08/15/20 25 Allergy Immunotherapy Injections completed ROSA ODUGLASSC, RMA [address], [place], [address], [place] [facility] 08/15/2025 11:51:06 08/10/20 25 Allergy Immunotherapy Injections completed ROSA DOUGLASSC, RMA [address], [place], [address], [place] [facility] 08/10/2025 10:21:59 07/25/20 25 Allergy Immunotherapy Injections completed DENICE RIVERA [address] [facility] [address] [place] [address], [address], [place] [facility] 07/25/2025 13:58:02 07/18/20 25 Allergy Immunotherapy Injections completed DENICE KEE [address] [facility],[address], [address], [place] [facility] 07/18/2025 12:15:30 07/11/20 25 Allergy Immunotherapy Injections completed MAVERICK TERRAZAS RN [address] [facility],[address] [place] [address], [address], [place] [facility] 07/11/2025 15:58:33 07/04/20 25 Allergy Immunotherapy Injections completed DENICE KEE [address] [facility],[address] [place] [address], [address], [place] [facility] 07/04/2025 15:57:33 06/21/20 25 Allergy Immunotherapy Injections completed DENICE RIVERA [address] [facility],[address] [place] [address], [address], [place] [facility] 06/21/2025 11:57:52 06/13/20 25 Allergy Immunotherapy Injections completed DENICE RIVERA [address] [facility],[address] [place] [address], [address], [place] [facility] 06/13/2025 13:15:25 06/06/20 25 Allergy Immunotherapy Injections completed MAVERICK TERRAZAS RN [address] [place] [address], [address], [place] [facility] 06/06/2025 13:16:32 05/28/20 25 surgical procedure on cervical spine completed KYMBERLY GARCIA MD [address], [address], [place] [facility] 09/17/2025 09:31:38 05/24/20 25 Allergy Immunotherapy Injections completed ROSA KORZEC, RMA [address], [place], [address], [place] [facility] 05/24/2025 11:28:37 05/17/20 25 Allergy Immunotherapy Injections completed MAKAYLA GURROLA RMA [address], [place], [address], [place] [facility] 05/17/2025 10:52:46 05/09/20 25 Allergy Immunotherapy Injections completed ROSA DOUGLASSC, RMA [address], [place], [address], [place] [facility] 05/09/2025 13:47:27 05/01/20 25 Allergy Immunotherapy Injections completed MAKAYLA GURROLA RMA [address], [place], [address], [place] [facility] 05/01/2025 11:48:55 04/25/20 25 Allergy Immunotherapy Injections completed MAKAYLA GURROLA RMA [address], [address], [place] [facility] 04/25/2025 12:09:48 04/19/20 25 Allergy Immunotherapy Injections completed ROSA ALDANA RMA [address], [address], [facility] - [facility] 04/19/2025 13:45:42 04/11/20 25 Allergy Immunotherapy Injections completed ROSA ALDANA RMA [address], [place], [address], [facility] - [facility] 04/11/2025 09:53:57 04/04/20 25 Allergy Immunotherapy Injections completed ROSA DOUGLASSC, RMA [address], [place], [address], [place] [facility] 04/04/2025 14:14:25 03/21/20 25 Allergy Immunotherapy Injections completed MAVERICK TERRAZAS RN [address], [place], [address], [place] [facility] 03/21/2025 14:32:25 03/15/20 25 Allergy Immunotherapy Injections completed ROSA ALDANA, RMA [address], [place], [address], [place] [facility] 03/15/2025 13:24:02 03/07/20 25 Allergy Immunotherapy Injections completed MAKAYLA GURROLA RMA [address], [place], [address], [place] [facility] 03/07/2025 14:17:42 03/02/20 25 Allergy Immunotherapy Injections completed MAKAYLA GURROLA RMA [address], [place], [address], [place] [facility] 03/02/2025 09:22:17 02/24/20 25 Allergy Immunotherapy Injections completed MAKAYLA GURROLA RMA [address], [address], [place] [facility] 02/23/2025 10:37:57 02/15/20 25 Allergy Immunotherapy Injections completed MAVERICK TERRAZAS RN [address], [address], [place] [facility] 02/14/2025 13:47:08 02/08/20 25 Allergy Immunotherapy Injections completed ROSA ALDANA, RMA [address], [address], [place] [facility] 02/07/2025 15:34:14 02/01/20 25 Allergy Immunotherapy Injections completed MAKAYLA GURROLA RMA [address], [address], [place] [facility] 01/31/2025 14:14:19 01/25/20 25 Allergy Immunotherapy Injections completed MAKAYLA GURROLA RMA [address], [place], [address], [place] [facility] 01/24/2025 10:31:45 01/18/20 25 Allergy Immunotherapy Injections completed MAKAYLA GURROLA RMA [address], [address], [place] [facility] 01/17/2025 11:50:20 01/12/20 25 Allergy Immunotherapy Injections completed MAVERICK TERRAZAS RN [address], [place], [address], [place] [facility] 01/11/2025 10:38:17 01/03/20 25 Allergy Immunotherapy Injections completed MAVERICK TERRAZAS RN [address], [place], [address], [place] [facility] 01/03/2025 13:48:45 12/29/19 25 Allergy Immunotherapy Injections completed MAVERICK TERRAZAS RN [address], [place], [address], [place] [facility] 12/29/2024 10:36:58 12/20/19 25 Allergy Immunotherapy Injections completed MAVERICK TERRAZAS RN [address] [facility] [address], [place], [address], [place] [facility] 12/20/2024 15:44:53 12/12/19 25 Allergy Immunotherapy Injections completed DENICE RIVERA [address] [facility], [place], [address], [place] [facility] 12/12/2024 13:28:07 11/30/19 25 Allergy Immunotherapy Injections completed ROSA ALDANA RMReji [address], [address], [place] [facility] 11/30/2024 14:28:33 11/22/19 25 Allergy Immunotherapy Injections completed ROSA ALDANA RMReji [address], [place], [address], [place] [facility] 11/22/2024 13:40:26 11/15/19 25 Allergy Immunotherapy Injections completed ROSA ALDANA RMReji [address], [place], [address], [place] [facility] 11/15/2024 13:45:46 11/10/19 25 Allergy Immunotherapy Injections completed DENICE RIVERA [address], [place], [address], [place] [facility] 11/10/2024 15:15:34 11/02/20 24 Allergy Immunotherapy Injections completed MAVERICK TERRAZAS RN [address], [place], [address], [place] [facility] 11/02/2024 10:42:32 10/25/20 24 Allergy Immunotherapy Injections completed MAVERICK TERRAZAS RN [address] [facility] [address], [address], [place] [facility] 10/25/2024 14:09:21 10/17/20 24 Allergy Immunotherapy Injections completed ROSA ALDANA RMReji [address] [facility] [address], [address], [place] [facility] 10/17/2024 13:44:09 10/03/20 24 Allergy Immunotherapy Injections completed DENICE RIVERA [address] [facility] [address] [place] [address], [address], [place] [facility] 10/03/2024 13:20:05 09/21/20 24 Allergy Immunotherapy Injections completed MAVERICK TERRAZAS RN [address] [facility] [address] [facility], [place], [address], [place] [facility] 09/21/2024 12:01:33 09/12/20 24 Allergy Immunotherapy Injections completed ROSA ALDANA Reji [address] [facility] [address] [place] [address], [address], [place] [facility] 09/12/2024 14:05:49 09/06/20 24 Allergy Immunotherapy Injections completed DENICE RIVERA [address] [facility],[address] [place] [address], [address], [place] [facility] 09/06/2024 14:48:49 09/06/20 24 JMSNasal/Sinus Endoscopy-PRIOR surgical cavities completed KYMBERLY GARCIA MD [address] [facility] [address] [place] [address], [address], [place] [facility] 09/06/2024 15:05:59 08/29/20 24 Allergy Immunotherapy Injections completed DENICE RIVERA [address] [facility],[address] [place] [address], [address], [place] [facility] 08/29/2024 14:50:02 08/23/20 24 Allergy Immunotherapy Injections completed MAVERICK TERRAZAS RN [address], [place], [address], [place] [facility] 08/23/2024 15:21:09 08/15/20 24 Allergy Immunotherapy Injections completed MAVERICK TERRAZAS RN [address] [facility] [address], [place], [address], [place] [facility] 08/15/2024 14:14:05 08/10/20 24 Allergy Immunotherapy Injections completed DENICE RIVERA [address] [facility] [address], [place], [address], [place] [facility] 08/10/2024 14:00:51 08/04/20 24 Allergy Immunotherapy Injections completed DENICE RIVERA [address] [facility] [address] [place] [address], [address], [place] [facility] 08/04/2024 15:31:25 07/25/20 24 Allergy Immunotherapy Injections completed DENICE KEE [address] [place] [address], [address], [place] [facility] 07/25/2024 14:33:52 07/19/20 24 Allergy Immunotherapy Injections completed MAVERICK TERRAZAS RN [address] [facility] [address] [place] [address], [address], [place] [facility] 07/19/2024 16:18:04 07/11/20 24 Allergy Immunotherapy Injections completed DENICE KEE [address], [place], [address], [place] [facility] 07/11/2024 14:32:17 07/04/20 24 Allergy Immunotherapy Injections completed DENICE RIVERA [address] [facility] [address], [address], [place] [facility] 07/04/2024 14:03:37 06/28/20 24 Allergy Immunotherapy Injections completed MAVERICK TERRAZAS RN [address], [address], [place] [facility] 06/28/2024 14:26:26 06/20/20 24 Allergy Immunotherapy Injections completed DENICE KEE [address] [place] [address], [address], [place] [facility] 06/20/2024 13:05:25 06/13/20 24 Allergy Immunotherapy Injections completed DENICE RIVERA [address], [address], [place] [facility] 06/13/2024 15:52:47 06/06/20 24 Allergy Immunotherapy Injections completed MAVERICK TERRAZAS RN [address] [facility], [place], [address], [place] [facility] 06/06/2024 15:10:37 06/06/20 24 JMSNasal/Sinus Endoscopy-PRIOR surgical cavities completed KYMBERLY GARCIA MD [address] [facility],[address] [place] [address], [address], [place] [facility] 06/06/2024 14:10:04 06/01/20 24 Allergy Immunotherapy Injections completed MAVERICK TERRAZAS RN [address] [facility],[address] [place] [address], [address], [place] [facility] 06/01/2024 15:38:20 05/23/20 24 Allergy Immunotherapy Injections completed DENICE RIVERA [address] [facility] [address] [place] [address], [address], [place] [facility] 05/23/2024 14:44:44 05/17/20 24 Allergy Immunotherapy Injections completed ROSA ALDANA RMA [address] [facility] [address], [address], [place] [facility] 05/17/2024 16:10:00 05/09/20 24 Allergy Immunotherapy Injections completed MAVERICK TERRAZAS RN [address] [facility] [address] [place] [address], [address], [place] [facility] 05/09/2024 15:06:52 05/02/20 24 Allergy Immunotherapy Injections completed DENICE RIVERA [address] [facility] [address], [address], [place] [facility] 05/02/2024 13:34:36 04/25/20 24 Allergy Immunotherapy Injections completed DENICE RIVERA [address], [address], [place] [facility] 04/25/2024 14:45:44 04/21/20 24 Allergy Immunotherapy Injections completed DENICE RIVERA [address] [facility] [address], [address], [place] [facility] 04/21/2024 14:00:37 04/12/20 24 Allergy Immunotherapy Injections completed DENICE KEE [address] [facility] [address] [place] [address], [address], [place] [facility] 04/12/2024 16:04:03 04/05/20 24 JMSNasal/Sinus Endoscopy-PRIOR surgical cavities completed KYMBERLY GARCIA MD [address] [facility],[address] [place] [address], [address], [place] [facility] 04/05/2024 14:34:46 04/05/20 24 Allergy Immunotherapy Injections completed DENICE RIVERA [address] [place] [address], [address], [place] [facility] 04/05/2024 13:35:01 03/29/20 24 Allergy Immunotherapy Injections completed DENICE KEE [address] [place] [address], [address], [place] [facility] 03/29/2024 16:18:09 02/29/20 24 functional endoscopic sinus surgery completed KYMBERLY GARCIA MD [address] [place] [address], [address], [place] [facility] 04/05/2024 14:33:51 02/29/20 24 Repair of nasal septum completed KYMBERLY GARCIA MD [address] [place] [address], [address], [place] [facility] 04/05/2024 14:34:03 cholecystectomy completed Shyanne Escalante [place] - [facility] 11/15/2024 13:38:47 section completed Shyanne Escalante [place] - [facility] 11/15/2024 13:38:52 Imaging Results None recorded. Procedure Notes None recorded. Medical Equipment None Reported. Allergies Allergen ID Allergen Name Allergen Category Reaction Reaction Severity Criticality Documentation Date Start Date Code Code System Note Provider Name and Address Organization Details Recorded Time 172346 POLL[employer] environme nt,medica tion Not available Not available low 10/18/20252024 92171 6 RxNorm Runny nose unrec ogniz ed react ion (text : Itchy eyes, code: 22582 002), mild (from exter nal sourc e) [...] by mouth 09/06 completed Medicati on ID: [id number] D uration Value: 10 Brand Name: doxycycl [...] ICD10 Code Diagnosis IMO Codes Diagnosis Note [id number] ROSA ALDANA A Allergy [address] [facility] [place] [address] 08/15/2025 11:30:58 08/15/2025 11:51:34 Perennial allergic rhinitis [id number] J30.89 [id number] Clay Vasquezos Allergy [address] [facility],[address] [place] [address] 08/22/2025 10:53:59 08/22/2025 11:08:03 Perennial allergic rhinitis 688589043 J30.89 [id number] Clay Noé Allergy [address] [facility],[address] [place] [address] 08/29/2025 09:58:17 08/29/2025 10:22:53 Perennial allergic rhinitis 528518278 J30.89 [id number] MAKAYLA GURROLA [facility] Allergy [address] [facility],[address] [place] [address] 09/05/2025 10:05:36 09/05/2025 11:11:02 Perennial allergic rhinitis 346868306 J30.89 [id number] ROSA ALDANA A Allergy [address] [facility] [place] [address] 09/12/2025 10:42:43 09/12/2025 11:17:32 Perennial allergic rhinitis [id number] J30.89 Health Concerns Section Related Observation LastModified by Organization Detai ls LastModified Time None Recorded Concern Status LastModified by Organization Details LastModified Time None Recorded Payers Encounter Date Sequence Insurance Name Policy Number Policy Maya Covered Member ID Maya Member ID Guarantor Name 09/12/2025 1 [facility] - HEALTH NET PLAN (MEDICAID HMO) YESENIA Hoffmann [id number] Naina Hoffmann OBGyn Episode No OBEpisode recorded.
--- OUTSIDE RECORDS SUMMARY | 2025-10-25 17:47 | XMS_ITS | Continuity of Care Document ---
Author Organization [place] [facility], Allergy Address [address] [address] Care Team Providers Care Airline Ticket Agent Name Role Phone HILARIO CAI Primary Care Provider CAMPOS JONES Primary Care Provider Assessment Encounter Date Assessment Date Assessment LastModified by Organization Details LastModified Time 09/17/2025 09/17/2025 Visit With: Toyin Gurrola Use of Antihistamine s: No If yes: Vial Test Change in medications: No If yes Increase in asthma symptoms If yes, inhaler use: Reaction to last injections: No If yes: Allergy Symptoms: Other: Missed: Dose Aware of Vial Test Aware: Notes: [email or web address] Not available 09/17/2025 10:43:58 Plan of Treatment Reminders Order Date Submit Date Provider Last Modified By Organization Details Last Modified Time Details Appointments [facility]- Allergy f-up 6mon 2025 10:00A [...] Time Hypertrop hy of nasal turbinate s [id number] Active 2023 Hypertroph y of nasal turbinates ; Note: Date Diagnosed: 01/03/2016 8:40 AM (J34.3) Not Available [facility] 02:13:50 Chronic rhinitis 52825988 Active 2023 Chronic rhinitis; Note: Date Diagnosed: 11/22/2023 2:34 PM (J31.0) Not Available [facility] 4 02:13:06 Deviated nasal septum 907698645 Active 2023 Deviated nasal septum; Note: Date Diagnosed: 01/03/2016 8:40 AM (J34.2) Not Available [facility] 4 02:13:23 Disorder of smell 619752637 Active 2023 Other disturbanc es of smell and taste; Note: Date Diagnosed: 11/22/2023 2:34 PM (R43.8) Not Available [facility] 4 02:14:24 Disorder of taste 092021291 Active 2023 Other disturbanc es of smell and taste; Note: Date Diagnosed: 11/22/2023 2:34 PM (R43.8) Not Available [facility] 4 02:14:24 Follow-up visit Active 2023 Encounter for follow-up examinaamira childress after completed treatment for conditions other than malignant neoplasm; Note: Date Diagnosed: 03/03/2024 11:19 AM (Z09) Not Available [facility] 4 02:14:15 Headache 56920748 Active 2023 Headache, unspecifie d; Note: Date Diagnosed: 03/20/2024 11:48 AM (R51.9) Not Available [facility] 4 02:14:40 Perennial allergic rhinitis 346923321 Active 2023 Clay Umanzor 100 [facility],[place] [address], [place], [address] , [place] [facility] 5 11:07:14 Allergic rhinitis 77055778 Active 2023 KYMBERLY MCKEON MD [address] [place] [address],[place] [address], [place], [address] , [place] [facility] 4 14:34:26 Chronic sinusitis 55122194 Active 2023 KYMBERLY MCKEON MD [address] [place] [address],[place] [address], [place], [address] , [place] [facility] 4 14:35:04 Mild intermitt ent asthma 183340218 Active 2023 KYMBERLY MCKEON MD [address] [facility] [place], [place], [address] , [place] [facility] 4 14:13:34 Posterior rhinorrhe a 89804605 Active 2024 KYMBERLY MCKEON MD [address] [facility] [place] [facility], [place], [address] , [place] [facility] 5 14:40:01 Paresthes ia 84985297 Active 2024 MEAGHAN PHILIPPE PA-C 100 [facility],[place] [facility], [place], [address] , [place] [facility] 5 14:12:02 Postconcu ssion syndrome 40636036 Active 2024 KYMBERLY MCKEON MD [address] [facility] [place] [facility], [place], [address] , [facility] - [facility] 5 14:40:07 Migraine without aura, not refractor y 141945333 Active 2024 KYMBERLY MCKEON MD [address] [facility] [address],[place] [facility], [place], [address] , [place] [facility] 5 09:32:09 Problem Notes None recorded. Procedures Surgical History Date Name Laterality Status Provider Name and Address Organization Details Recorded Time 10/23/20 25 Allergy Immunotherapy Injections completed ROSA ALDANA [facility] [address] [facility] [place] [facility], [place], [address], [place] [facility] 10/23/2025 13:43:37 10/17/20 25 Allergy Immunotherapy Injections completed DENICE RIVERA [address] [facility],[place] [facility], [place], [address], [facility] - [facility] 10/17/2025 10:57:33 10/10/20 25 Allergy Immunotherapy Injections completed DENICE RIVERA [address], [place], [address], [place] [facility] 10/10/2025 10:51:36 10/03/20 25 Allergy Immunotherapy Injections completed RUBINA RIVERAA [address],[place] [address], [place], [address], [place] [facility] 10/03/2025 11:26:10 09/27/20 25 Allergy Immunotherapy Injections completed ROSA ALDANA, RMA [address], [place], [address], [place] [facility] 09/27/2025 11:30:14 09/17/20 25 Allergy Immunotherapy Injections completed ROSA ALDANA, RMA [address] [facility],[place] [address], [place], [address], [place] [facility] 09/17/2025 10:43:44 09/12/20 25 Allergy Immunotherapy Injections completed ROSA ALDANA, RMA [address] [facility] [address],[place] [address] [place] [address], [address], [place] [facility] 09/12/2025 11:16:56 09/05/20 25 Allergy Immunotherapy Injections completed RUBINA RIVERAA [address] [facility],[place] [address] [place] [address], [address], [place] [facility] 09/05/2025 10:32:29 08/29/20 25 Allergy Immunotherapy Injections completed Clay Umanzor [address],[place] [address] [place] [address], [address], [place] [facility] 08/29/2025 10:21:54 08/22/20 25 Allergy Immunotherapy Injections completed Clay Umanzor [address], [place], [address], [place] [facility] 08/22/2025 11:07:33 08/15/20 25 Allergy Immunotherapy Injections completed ROSA ALDANA, RMA [address],[place] [address], [place], [address], [place] [facility] 08/15/2025 11:51:06 08/10/20 25 Allergy Immunotherapy Injections completed ROSA DOUGLASSC, RMA [address], [place], [address], [place] [facility] 08/10/2025 10:21:59 07/25/20 25 Allergy Immunotherapy Injections completed DENICE RIVERA [address] [facility] [address],[place] [address] [place] [address], [address], [place] [facility] 07/25/2025 13:58:02 07/18/20 25 Allergy Immunotherapy Injections completed DENICE MARIA [address] [facility] [place] [address] [place] [address], [address], [place] [facility] 07/18/2025 12:15:30 07/11/20 25 Allergy Immunotherapy Injections completed MAVERICK TERRAZAS RN [address] [facility] [place],[address], [address], [place] [facility] 07/11/2025 15:58:33 07/04/20 25 Allergy Immunotherapy Injections completed DENICE MARIA [address] [facility] [place] [address] [place] [address], [address], [place] [facility] 07/04/2025 15:57:33 06/21/20 25 Allergy Immunotherapy Injections completed DENICE RIVERA [address] [facility] [place] [address] [place] [address], [address], [place] [facility] 06/21/2025 11:57:52 06/13/20 25 Allergy Immunotherapy Injections completed DENICE RIVERA [address] [facility] [place] [address] [place] [address], [address], [place] [facility] 06/13/2025 13:15:25 06/06/20 25 Allergy Immunotherapy Injections completed MAVERICK TERRAZAS RN [address] [facility] [place] [address] [place] [address], [address], [place] [facility] 06/06/2025 13:16:32 05/28/20 25 surgical procedure on cervical spine completed KYMBERLY GARCIA MD [address] [facility] [place] [address], [place], [address], [place] [facility] 09/17/2025 09:31:38 05/24/20 25 Allergy Immunotherapy Injections completed ROSA KORZEC, RMA [address],[place] [address], [place], [address], [place] [facility] 05/24/2025 11:28:37 05/17/20 25 Allergy Immunotherapy Injections completed RUBINA RIVERAA [address],[place] [address], [place], [address], [facility] - [facility] 05/17/2025 10:52:46 05/09/20 25 Allergy Immunotherapy Injections completed ROSA ALDANA, RMA [address], [place], [address], [place] [facility] 05/09/2025 13:47:27 05/01/20 25 Allergy Immunotherapy Injections completed RUBINA RIVERAA [address], [place], [address], [place] [facility] 05/01/2025 11:48:55 04/25/20 25 Allergy Immunotherapy Injections completed RUBINA RIVERAA [address] [facility] [place] [address], [place], [address], [facility] - [facility] 04/25/2025 12:09:48 04/19/20 25 Allergy Immunotherapy Injections completed ROSA ALDANA RMA [address] [facility],[place] [address], [place], [address], [facility] - [facility] 04/19/2025 13:45:42 04/11/20 25 Allergy Immunotherapy Injections completed ROSA ALDANA RMA [address],[place] [address], [place], [address], [facility] - [facility] 04/11/2025 09:53:57 04/04/20 25 Allergy Immunotherapy Injections completed ROSA ALDANA RMA [address], [place], [address], [place] [facility] 04/04/2025 14:14:25 03/21/20 25 Allergy Immunotherapy Injections completed MAVERICK TERRAZAS RN [address],[place] [address], [place], [address], [place] [facility] 03/21/2025 14:32:25 03/15/20 25 Allergy Immunotherapy Injections completed ROSA KORZEC, RMA [address], [place], [address], [place] [facility] 03/15/2025 13:24:02 03/07/20 25 Allergy Immunotherapy Injections completed TOYIN GURROLA RMA [address], [place], [address], [place] [facility] 03/07/2025 14:17:42 03/02/20 25 Allergy Immunotherapy Injections completed TOYIN GURROLA RMA [address], [place], [address], [place] [facility] 03/02/2025 09:22:17 02/24/20 25 Allergy Immunotherapy Injections completed RUBINA RIVERAA [address],[place] [address], [place], [address], [place] [facility] 02/23/2025 10:37:57 02/15/20 25 Allergy Immunotherapy Injections completed MAVERICK TERRAZAS RN [address],[place] [address], [place], [address], [place] [facility] 02/14/2025 13:47:08 02/08/20 25 Allergy Immunotherapy Injections completed ROSA ALDANA RMA [address],[place] [address], [place], [address], [place] [facility] 02/07/2025 15:34:14 02/01/20 25 Allergy Immunotherapy Injections completed TOYIN GURROLA RMA [address],[place] [address], [place], [address], [place] [facility] 01/31/2025 14:14:19 01/25/20 25 Allergy Immunotherapy Injections completed TOYIN GURROLA RMA [address],[place] [address], [place], [address], [place] [facility] 01/24/2025 10:31:45 01/18/20 25 Allergy Immunotherapy Injections completed TOYIN GURROLA RMA [address], [place], [address], [place] [facility] 01/17/2025 11:50:20 01/12/20 25 Allergy Immunotherapy Injections completed MAVERICK TERRAZAS RN [address], [place], [address], [place] [facility] 01/11/2025 10:38:17 01/03/20 25 Allergy Immunotherapy Injections completed MAVERICK TERRAZAS RN [address], [place], [address], [place] [facility] 01/03/2025 13:48:45 12/29/19 25 Allergy Immunotherapy Injections completed MAVERICK TERRAZAS RN [address], [place], [address], [place] [facility] 12/29/2024 10:36:58 12/20/19 25 Allergy Immunotherapy Injections completed MAVERICK TERRAZAS RN [address] [facility] [address], [place], [address], [place] [facility] 12/20/2024 15:44:53 12/12/19 25 Allergy Immunotherapy Injections completed DENICE RIVERA [address], [place], [address], [place] [facility] 12/12/2024 13:28:07 11/30/19 25 Allergy Immunotherapy Injections completed ROSA ALDANA RMReji [address],[place] [address], [place], [address], [place] [facility] 11/30/2024 14:28:33 11/22/19 25 Allergy Immunotherapy Injections completed ROSA ALDANA RMReji [address],[place] [address], [place], [address], [place] [facility] 11/22/2024 13:40:26 11/15/19 25 Allergy Immunotherapy Injections completed ROSA ALDANA RMA [address], [place], [address], [place] [facility] 11/15/2024 13:45:46 11/10/19 25 Allergy Immunotherapy Injections completed DENICE RIVERA [address],[place] [address], [place], [address], [place] [facility] 11/10/2024 15:15:34 11/02/20 24 Allergy Immunotherapy Injections completed MAVERICK TERRAZAS RN [address] [facility] [address], [place], [address], [place] [facility] 11/02/2024 10:42:32 10/25/20 24 Allergy Immunotherapy Injections completed MAVERICK TERRAZAS RN [address] [facility] [address], [place], [address], [place] [facility] 10/25/2024 14:09:21 10/17/20 24 Allergy Immunotherapy Injections completed DENICE MARIA [address] [facility] [address],[place] [address], [place], [address], [place] [facility] 10/17/2024 13:44:09 10/03/20 24 Allergy Immunotherapy Injections completed DENICE RIVERA [address] [facility] [address],[place] [address] [place] [address], [address], [place] [facility] 10/03/2024 13:20:05 09/21/20 24 Allergy Immunotherapy Injections completed MAVERICK TERRAZAS RN [address] [facility] [place] [address] [place] [address], [address], [place] [facility] 09/21/2024 12:01:33 09/12/20 24 Allergy Immunotherapy Injections completed DENICE MARIA [address] [facility] [address],[place] [address] [place] [address], [address], [place] [facility] 09/12/2024 14:05:49 09/06/20 24 Allergy Immunotherapy Injections completed DENICE RIVERA [address] [facility] [place] [address] [place] [address], [address], [place] [facility] 09/06/2024 14:48:49 09/06/20 24 JMSNasal/Sinus Endoscopy-PRIOR surgical cavities completed KYMBERLY GARCIA MD [address] [facility] [address],[place] [address] [place] [address], [address], [place] [facility] 09/06/2024 15:05:59 08/29/20 24 Allergy Immunotherapy Injections completed DENICE RIVERA [address] [facility] [place] [address], [place], [address], [place] [facility] 08/29/2024 14:50:02 08/23/20 24 Allergy Immunotherapy Injections completed MAVERICK TERRAZAS RN [address],[place] [address] [place] [address], [address], [place] [facility] 08/23/2024 15:21:09 08/15/20 24 Allergy Immunotherapy Injections completed MAVERICK TERRAZAS RN [address], [place], [address], [place] [facility] 08/15/2024 14:14:05 08/10/20 24 Allergy Immunotherapy Injections completed DENICE RIVERA [address], [place], [address], [place] [facility] 08/10/2024 14:00:51 08/04/20 24 Allergy Immunotherapy Injections completed DENICE RIVERA [address] [facility] [address],[place] [address], [place], [address], [place] [facility] 08/04/2024 15:31:25 07/25/20 24 Allergy Immunotherapy Injections completed DENICE MARIA [address],[place] [address] [place] [address], [address], [place] [facility] 07/25/2024 14:33:52 07/19/20 24 Allergy Immunotherapy Injections completed MAVERICK TERRAZAS RN [address] [facility] [address],[place] [address] [place] [address], [address], [place] [facility] 07/19/2024 16:18:04 07/11/20 24 Allergy Immunotherapy Injections completed DENICE MARIA [address],[place] [address] [place] [address], [address], [place] [facility] 07/11/2024 14:32:17 07/04/20 24 Allergy Immunotherapy Injections completed DENICE RIVERA [address] [facility],[place] [address], [place], [address], [place] [facility] 07/04/2024 14:03:37 06/28/20 24 Allergy Immunotherapy Injections completed MAVERICK TERRAZAS RN [address],[place] [address], [place], [address], [place] [facility] 06/28/2024 14:26:26 06/20/20 24 Allergy Immunotherapy Injections completed DENICE MARIA [address],[place] [facility], [place], [address], [place] [facility] 06/20/2024 13:05:25 06/13/20 24 Allergy Immunotherapy Injections completed DENICE RIVERA [address] [facility],[place] [address], [place], [address], [place] [facility] 06/13/2024 15:52:47 06/06/20 24 Allergy Immunotherapy Injections completed MAVERICK TERRAZAS RN [address],[place] [facility], [place], [address], [place] [facility] 06/06/2024 15:10:37 06/06/20 24 JMSNasal/Sinus Endoscopy-PRIOR surgical cavities completed KYMBERLY GARCIA MD [address] [facility] [place],[address], [address], [place] [facility] 06/06/2024 14:10:04 06/01/20 24 Allergy Immunotherapy Injections completed MAVERICK TERRAZAS RN [address] [facility] [place] [address] [place] [address], [address], [place] [facility] 06/01/2024 15:38:20 05/23/20 24 Allergy Immunotherapy Injections completed DENICE RIVERA [address] [facility] [address],[place] [address] [place] [address], [address], [place] [facility] 05/23/2024 14:44:44 05/17/20 24 Allergy Immunotherapy Injections completed DENICE MARIA [address] [facility] [address],[place] [address] [place] [address], [address], [place] [facility] 05/17/2024 16:10:00 05/09/20 24 Allergy Immunotherapy Injections completed MAVERICK TERRAZAS RN [address] [facility],[place] [address] [place] [address], [address], [place] [facility] 05/09/2024 15:06:52 05/02/20 24 Allergy Immunotherapy Injections completed DENICE RIVERA [address] [facility],[place] [address] [place] [address], [address], [place] [facility] 05/02/2024 13:34:36 04/25/20 24 Allergy Immunotherapy Injections completed DENICE RIVERA [address],[place] [address] [place] [address], [address], [place] [facility] 04/25/2024 14:45:44 04/21/20 24 Allergy Immunotherapy Injections completed DENICE RIVERA [address],[place] [address], [place], [address], [place] [facility] 04/21/2024 14:00:37 04/12/20 24 Allergy Immunotherapy Injections completed ROSA ALDANA RMReji [address],[place] [address] [place] [address], [address], [place] [facility] 04/12/2024 16:04:03 04/05/20 24 JMSNasal/Sinus Endoscopy-PRIOR surgical cavities completed KYMBERLY GARCIA MD [address] [facility],[place] [address] [place] [address], [address], [place] [facility] 04/05/2024 14:34:46 04/05/20 24 Allergy Immunotherapy Injections completed DENICE RIVERA [address] [facility] [place] [address] [place] [address], [address], [place] [facility] 04/05/2024 13:35:01 03/29/20 24 Allergy Immunotherapy Injections completed ROSA ALDANA Reji [address],[place] [address] [place] [address], [address], [place] [facility] 03/29/2024 16:18:09 02/29/20 24 functional endoscopic sinus surgery completed KYMBERLY GARCIA MD [address],[place] [address] [place] [address], [address], [place] [facility] 04/05/2024 14:33:51 02/29/20 24 Repair of nasal septum completed KYMBERLY GARCIA MD [address],[place] [address], [place], [address], [place] [facility] 04/05/2024 14:34:03 cholecystectomy completed Shyanne Escalante [place] - [facility] 11/15/2024 13:38:47 section completed Shyanne Escalante [place] - [facility] 11/15/2024 13:38:52 Imaging Results None recorded. Procedure Notes None recorded. Medical Equipment None Reported. Allergies Allergen ID Allergen Name Allergen Category Reaction Reaction Severity Criticality Documentation Date Start Date Code Code System Note Provider Name and Address Organization Details Recorded Time 857700 POLL[facility] [employer]S environme nt,medica tion Not available Not available low 10/18/20252024 48007 6 RxNorm Runny nose unrec ogniz ed react ion (text : Itchy eyes, code: 07198 002), mild (from exter nal sourc e) [...] by mouth 09/06 completed Medicati on ID: [id number] D uration Value: 10 Brand Name: doxycycl [...] [place]ante [place] - [facility] 09/17/2025 09:15:40 Social History None recorded. Functional [...] ICD10 Code Diagnosis IMO Codes Diagnosis Note [id number] Clay Umanzor [facility] [address] [place] [address] 08/22/2025 10:53:59 08/22/2025 11:08:03 Perennial allergic rhinitis 934372276 J30.89 [id number] Clay Umanzor [facility] [address] [place] [address] 08/29/2025 09:58:17 08/29/2025 10:22:53 Perennial allergic rhinitis 572196475 J30.89 [id number] TOYIN GURROLA [facility] All[facility] [address] [place] [address] 09/05/2025 10:05:36 09/05/2025 11:11:02 Perennial allergic rhinitis 671441886 J30.89 [id number] ROSA ALDANA [facility] All[facility] [address] [place] [address] 09/12/2025 10:42:43 09/12/2025 11:17:32 Perennial allergic rhinitis 882726632 J30.89 [id number] KYMBERLY MCKEON [facility] [address] [address] 09/17/2025 09:14:46 09/17/2025 09:33:54 Perennial allergic rhinitis [id number] J30.89 [id number] Migraine w ithout aura, not refractory 149598704 G43.009 [id number] History of surgical procedure on cervical spine 506002131 Z98.849 [id number] TOYIN GURROLA [facility] [address] [place] [address] 09/17/2025 09:15:39 09/17/2025 10:44:11 Perennial allergic rhinitis [id number] J30.89 Health Concerns Section Related Observation LastModified by Organization Detai ls LastModified Time None Recorded Concern Status LastModified by Organization Details LastModified Time None Recorded Payers Encounter Date Sequence Insurance Name Policy Number Policy Maya Covered Member ID Maya Member ID Guarantor Name 09/17/2025 1 [facility] NET PLAN (MEDICAID HMO) YESENIA Hoffmann [id number] Naina Hoffmann Notes Date Note Type Note [...] an EpiPen at home. KYMBERLY GARCIA MD [address] [place] [address], [phone], [facility] - [facility] 09/17/2025 12:21:06 OBGyn Episode No OBEpisode recorded.
--- OUTSIDE RECORDS SUMMARY | 2025-10-25 17:47 | XMS_ITS | Continuity of Care Document ---
Author Organization [place] [facility], Allergy Address [address] [address] Care Team Providers Care Industrial Hygiene Technician Name Role Phone HILARIO CAI Primary Care Provider CAMPOS JONES Primary Care Provider Assessment Encounter Date Assessment Date Assessment LastModified by Organization Details LastModified Time 09/27/2025 09/27/2025 Visit With: DENICE Kee Use of Antihistamine s: No If yes: Vial Test Change in medications: No If yes Increase in asthma symptoms If yes, inhaler use: Reaction to last injections: No If yes: Allergy Symptoms: Other: Missed: Dose Aware of Vial Test Aware: Notes: brandon Not available 09/27/2025 11:30:22 Plan of Treatment Reminders Order Date Submit Date Provider Last Modified By Organization Details Last Modified Time Details Appointments [facility]- Allergy f-up 6mon 2025 10:00A M NATY [...] Time Hypertrop hy of nasal turbinate s [id number] Active 2023 Hypertroph y of nasal turbinates ; Note: Date Diagnosed: 01/03/2016 8:40 AM (J34.3) Not Available [facility] 02:13:50 Chronic rhinitis 15267455 Active 2023 Chronic rhinitis; Note: Date Diagnosed: 11/22/2023 2:34 PM (J31.0) Not Available [facility] 4 02:13:06 Deviated nasal septum 194767595 Active 2023 Deviated nasal septum; Note: Date Diagnosed: 01/03/2016 8:40 AM (J34.2) Not Available [facility] 4 02:13:23 Disorder of smell 313992518 Active 2023 Other disturbanc es of smell and taste; Note: Date Diagnosed: 11/22/2023 2:34 PM (R43.8) Not Available [facility] 4 02:14:24 Disorder of taste 310406317 Active 2023 Other disturbanc es of smell and taste; Note: Date Diagnosed: 11/22/2023 2:34 PM (R43.8) Not Available [facility] 4 02:14:24 Follow-up visit Active 2023 Encounter for follow-up examinatio n after completed treatment for conditions other than malignant neoplasm; Note: Date Diagnosed: 03/03/2024 11:19 AM (Z09) Not Available [facility] 4 02:14:15 Headache 50308557 Active 2023 Headache, unspecifie d; Note: Date Diagnosed: 03/20/2024 11:48 AM (R51.9) Not Available [facility] 4 02:14:40 Perennial allergic rhinitis 418488006 Active 2023 Clay Umanzor 100 [facility],[place] [address], [place], [address] , [place] [facility] 5 11:07:14 Allergic rhinitis 63270486 Active 2023 KYMBERLY MCKEON MD [address] [place] [address],[place] [address], [place], [address] , [place] [facility] 4 14:34:26 Chronic sinusitis 94768202 Active 2023 KYMBERLY MCKEON MD [address] [place] [address],[place] [address], [place], [address] , [place] [facility] 4 14:35:04 Mild intermitt ent asthma 302471133 Active 2023 KYMBERLY MCKEON MD [address] [facility],[address], [place], [address] , [place] [facility] 4 14:13:34 Posterior rhinorrhe a 99588919 Active 2024 KYMBERLY MCKEON MD [address] [facility],[address], [place], [address] , [place] [facility] 5 14:40:01 Paresthes ia 28143927 Active 2024 MEAGHAN PHILIPPE PA-C 100 [facility] [facility], [place], [address] , [place] [facility] 5 14:12:02 Postconcu ssion syndrome 01027770 Active 2024 KYMBERLY MCKEON MD [address] [facility] [facility], [place], [address] , [place] [facility] 5 14:40:07 Migraine without aura, not refractor y 359739385 Active 2024 KYMBERLY MCKEON MD [address],[place] [facility], [place], [address] , [place] [facility] 5 09:32:09 Problem Notes None recorded. Procedures Surgical History Date Name Laterality Status Provider Name and Address Organization Details Recorded Time 10/23/20 25 Allergy Immunotherapy Injections completed ROSA ALDANA Reji [address] [facility], [place], [address], [place] [facility] 10/23/2025 13:43:37 10/17/20 25 Allergy Immunotherapy Injections completed DENICE RIVERA [address],[place] [facility], [place], [address], [place] [facility] 10/17/2025 10:57:33 10/10/20 25 Allergy Immunotherapy Injections completed MAKAYLA GALILEO, RMA [address], [place], [address], [place] [facility] 10/10/2025 10:51:36 10/03/20 25 Allergy Immunotherapy Injections completed RUBINA RIVERAA [address], [place], [address], [place] [facility] 10/03/2025 11:26:10 09/27/20 25 Allergy Immunotherapy Injections completed ROSA DOUGLASSC, RMA [address], [place], [address], [place] [facility] 09/27/2025 11:30:14 09/17/20 25 Allergy Immunotherapy Injections completed ROSA DOUGLASSC, RMA [address] [address], [place], [address], [place] [facility] 09/17/2025 10:43:44 09/12/20 25 Allergy Immunotherapy Injections completed ROSA ALDANA, RMA [address], [place], [address], [place] [facility] 09/12/2025 11:16:56 09/05/20 25 Allergy Immunotherapy Injections completed MAKAYLA GURROLA RMA [address] [address], [place], [address], [place] [facility] 09/05/2025 10:32:29 08/29/20 25 Allergy Immunotherapy Injections completed Clay Umanzor [address], [place], [address], [place] [facility] 08/29/2025 10:21:54 08/22/20 25 Allergy Immunotherapy Injections completed Clay Noé [address], [place], [address], [place] [facility] 08/22/2025 11:07:33 08/15/20 25 Allergy Immunotherapy Injections completed ROSA DOUGLASSC, RMA [address], [place], [address], [place] [facility] 08/15/2025 11:51:06 08/10/20 25 Allergy Immunotherapy Injections completed ROSA DOUGLASSC, RMA [address], [place], [address], [place] [facility] 08/10/2025 10:21:59 07/25/20 25 Allergy Immunotherapy Injections completed DENICE RIVERA [address] [place] [address], [address], [place] [facility] 07/25/2025 13:58:02 07/18/20 25 Allergy Immunotherapy Injections completed DENICE KEE [address] [facility],[address], [place], [address], [place] [facility] 07/18/2025 12:15:30 07/11/20 25 Allergy Immunotherapy Injections completed MAVERICK TERRAZAS RN [address] [facility],[address] [place] [address], [address], [place] [facility] 07/11/2025 15:58:33 07/04/20 25 Allergy Immunotherapy Injections completed DENICE KEE [address] [facility],[address] [place] [address], [address], [place] [facility] 07/04/2025 15:57:33 06/21/20 25 Allergy Immunotherapy Injections completed DENICE RIVERA [address] [facility],[address] [place] [address], [address], [place] [facility] 06/21/2025 11:57:52 06/13/20 25 Allergy Immunotherapy Injections completed DENICE RIVERA [address] [facility],[address] [place] [address], [address], [place] [facility] 06/13/2025 13:15:25 06/06/20 25 Allergy Immunotherapy Injections completed MAVERICK TERRAZAS RN [address] [place] [address], [address], [place] [facility] 06/06/2025 13:16:32 05/28/20 25 surgical procedure on cervical spine completed KYMBERLY GARCIA MD [address], [place], [address], [place] [facility] 09/17/2025 09:31:38 05/24/20 25 Allergy Immunotherapy Injections completed ROSA KORZEC, RMA [address], [place], [address], [place] [facility] 05/24/2025 11:28:37 05/17/20 25 Allergy Immunotherapy Injections completed MAKAYLA GURROLA RMA [address], [place], [address], [place] [facility] 05/17/2025 10:52:46 05/09/20 25 Allergy Immunotherapy Injections completed ROSA DOUGLASSC, RMA [address], [place], [address], [place] [facility] 05/09/2025 13:47:27 05/01/20 25 Allergy Immunotherapy Injections completed MAKAYLA GURROLA RMA [address], [place], [address], [place] [facility] 05/01/2025 11:48:55 04/25/20 25 Allergy Immunotherapy Injections completed MAKAYLA GURROLA RMA [address], [place], [address], [place] [facility] 04/25/2025 12:09:48 04/19/20 25 Allergy Immunotherapy Injections completed ROSA ALDANA RMA [address] [address], [place], [address], [facility] - [facility] 04/19/2025 13:45:42 04/11/20 25 Allergy Immunotherapy Injections completed ROSA ALDANA RMA [address], [place], [address], [facility] - [facility] 04/11/2025 09:53:57 04/04/20 25 Allergy Immunotherapy Injections completed ROSA DOUGLASSC, RMA [address], [place], [address], [place] [facility] 04/04/2025 14:14:25 03/21/20 25 Allergy Immunotherapy Injections completed MAVERICK TERRAZAS RN [address], [place], [address], [place] [facility] 03/21/2025 14:32:25 03/15/20 25 Allergy Immunotherapy Injections completed ROSA ALDANA, RMA [address], [place], [address], [place] [facility] 03/15/2025 13:24:02 03/07/20 25 Allergy Immunotherapy Injections completed MAKAYLA GURROLA RMA [address], [place], [address], [place] [facility] 03/07/2025 14:17:42 03/02/20 25 Allergy Immunotherapy Injections completed MAKAYLA GURROLA RMA [address], [place], [address], [place] [facility] 03/02/2025 09:22:17 02/24/20 25 Allergy Immunotherapy Injections completed MAKAYLA GURROLA RMA [address], [place], [address], [place] [facility] 02/23/2025 10:37:57 02/15/20 25 Allergy Immunotherapy Injections completed MAVERICK TERRAZAS RN [address], [place], [address], [place] [facility] 02/14/2025 13:47:08 02/08/20 25 Allergy Immunotherapy Injections completed ROSA ALDANA, RMA [address], [place], [address], [place] [facility] 02/07/2025 15:34:14 02/01/20 25 Allergy Immunotherapy Injections completed MAKAYLA GURROLA RMA [address], [place], [address], [place] [facility] 01/31/2025 14:14:19 01/25/20 25 Allergy Immunotherapy Injections completed MAKAYLA GURROLA RMA [address], [place], [address], [place] [facility] 01/24/2025 10:31:45 01/18/20 25 Allergy Immunotherapy Injections completed MAKAYLA GURROLA RMA [address], [place], [address], [place] [facility] 01/17/2025 11:50:20 01/12/20 25 Allergy Immunotherapy Injections completed MAVERICK TERRAZAS RN [address], [place], [address], [place] [facility] 01/11/2025 10:38:17 01/03/20 25 Allergy Immunotherapy Injections completed MAVERICK TERRAZAS RN [address], [place], [address], [place] [facility] 01/03/2025 13:48:45 12/29/19 25 Allergy Immunotherapy Injections completed MAVERICK TERRAZAS RN [address], [place], [address], [place] [facility] 12/29/2024 10:36:58 12/20/19 25 Allergy Immunotherapy Injections completed MAVERICK TERRAZAS RN [address], [place], [address], [place] [facility] 12/20/2024 15:44:53 12/12/19 25 Allergy Immunotherapy Injections completed DENICE RIVERA [address],[place] [facility], [place], [address], [place] [facility] 12/12/2024 13:28:07 11/30/19 25 Allergy Immunotherapy Injections completed ROSA ALDANA RMReji [address] [address], [place], [address], [place] [facility] 11/30/2024 14:28:33 11/22/19 25 Allergy Immunotherapy Injections completed ROSA ALDANA RMReji [address], [place], [address], [place] [facility] 11/22/2024 13:40:26 11/15/19 25 Allergy Immunotherapy Injections completed ROSA ALDANA RMReji [address], [place], [address], [place] [facility] 11/15/2024 13:45:46 11/10/19 25 Allergy Immunotherapy Injections completed DENICE RIVERA [address], [place], [address], [place] [facility] 11/10/2024 15:15:34 11/02/20 24 Allergy Immunotherapy Injections completed MAVERICK TERRAZAS RN [address], [place], [address], [place] [facility] 11/02/2024 10:42:32 10/25/20 24 Allergy Immunotherapy Injections completed MAVERICK TERRAZAS RN [address], [place], [address], [place] [facility] 10/25/2024 14:09:21 10/17/20 24 Allergy Immunotherapy Injections completed ROSA ALDANA RMReji [address], [place], [address], [place] [facility] 10/17/2024 13:44:09 10/03/20 24 Allergy Immunotherapy Injections completed DENICE RIVERA [address] [place] [address], [address], [place] [facility] 10/03/2024 13:20:05 09/21/20 24 Allergy Immunotherapy Injections completed MAVERICK TERRAZAS RN [address],[place] [facility], [place], [address], [place] [facility] 09/21/2024 12:01:33 09/12/20 24 Allergy Immunotherapy Injections completed ROSA ALDANA Reji [address] [address] [place] [address], [address], [place] [facility] 09/12/2024 14:05:49 09/06/20 24 Allergy Immunotherapy Injections completed DENICE RIVERA [address] [facility],[address] [place] [address], [address], [place] [facility] 09/06/2024 14:48:49 09/06/20 24 JMSNasal/Sinus Endoscopy-PRIOR surgical cavities completed KYMBERLY GARCIA MD [address] [address] [place] [address], [address], [place] [facility] 09/06/2024 15:05:59 08/29/20 24 Allergy Immunotherapy Injections completed DENICE RIVERA [address] [facility],[address] [place] [address], [address], [place] [facility] 08/29/2024 14:50:02 08/23/20 24 Allergy Immunotherapy Injections completed MAVERICK TERRAZAS RN [address], [place], [address], [place] [facility] 08/23/2024 15:21:09 08/15/20 24 Allergy Immunotherapy Injections completed MAVERICK TERRAZAS RN [address], [place], [address], [place] [facility] 08/15/2024 14:14:05 08/10/20 24 Allergy Immunotherapy Injections completed DENICE RIVERA [address], [place], [address], [place] [facility] 08/10/2024 14:00:51 08/04/20 24 Allergy Immunotherapy Injections completed DENICE RIVERA [address] [address] [place] [address], [address], [place] [facility] 08/04/2024 15:31:25 07/25/20 24 Allergy Immunotherapy Injections completed DENICE KEE [address] [address] [place] [address], [address], [place] [facility] 07/25/2024 14:33:52 07/19/20 24 Allergy Immunotherapy Injections completed MAVERICK TERRAZAS RN [address] [place] [address], [address], [place] [facility] 07/19/2024 16:18:04 07/11/20 24 Allergy Immunotherapy Injections completed DENICE KEE [address], [place], [address], [place] [facility] 07/11/2024 14:32:17 07/04/20 24 Allergy Immunotherapy Injections completed DENICE RIVERA [address] [address], [place], [address], [place] [facility] 07/04/2024 14:03:37 06/28/20 24 Allergy Immunotherapy Injections completed MAVERICK TERRAZAS RN [address] [address], [place], [address], [place] [facility] 06/28/2024 14:26:26 06/20/20 24 Allergy Immunotherapy Injections completed DENICE KEE [address],[place] [address] [place] [address], [address], [place] [facility] 06/20/2024 13:05:25 06/13/20 24 Allergy Immunotherapy Injections completed DENICE RIVERA [address], [place], [address], [place] [facility] 06/13/2024 15:52:47 06/06/20 24 Allergy Immunotherapy Injections completed MAVERICK TERRAZAS RN [address],[facility] [facility], [place], [address], [place] [facility] 06/06/2024 15:10:37 06/06/20 24 JMSNasal/Sinus Endoscopy-PRIOR surgical cavities completed KYMBERLY GARCIA MD [address] [facility],[address] [place] [address], [address], [place] [facility] 06/06/2024 14:10:04 06/01/20 24 Allergy Immunotherapy Injections completed MAVERICK TERRAZAS RN [address] [facility],[address] [address] [place] [address], [address], [place] [facility] 06/01/2024 15:38:20 05/23/20 24 Allergy Immunotherapy Injections completed DENICE RIVERA [address],[place] [address] [place] [address], [address], [place] [facility] 05/23/2024 14:44:44 05/17/20 24 Allergy Immunotherapy Injections completed ROSA ALDANA RMA [address],[place] [address], [place], [address], [place] [facility] 05/17/2024 16:10:00 05/09/20 24 Allergy Immunotherapy Injections completed MAVERICK TERRAZAS RN [address] [address] [place] [address], [address], [place] [facility] 05/09/2024 15:06:52 05/02/20 24 Allergy Immunotherapy Injections completed DENICE RIVERA [address],[place] [address], [place], [address], [place] [facility] 05/02/2024 13:34:36 04/25/20 24 Allergy Immunotherapy Injections completed DENICE RIVERA [address] [address], [place], [address], [place] [facility] 04/25/2024 14:45:44 04/21/20 24 Allergy Immunotherapy Injections completed DENICE RIVERA [address],[place] [address], [place], [address], [place] [facility] 04/21/2024 14:00:37 04/12/20 24 Allergy Immunotherapy Injections completed DENICE KEE [address] [address] [place] [address], [address], [place] [facility] 04/12/2024 16:04:03 04/05/20 24 JMSNasal/Sinus Endoscopy-PRIOR surgical cavities completed KYMBERLY GARCIA MD [address] [facility],[address] [place] [address], [address], [place] [facility] 04/05/2024 14:34:46 04/05/20 24 Allergy Immunotherapy Injections completed DENICE RIVERA [address],[place] [address] [place] [address], [address], [place] [facility] 04/05/2024 13:35:01 03/29/20 24 Allergy Immunotherapy Injections completed DENICE KEE [address],[place] [address] [place] [address], [address], [place] [facility] 03/29/2024 16:18:09 02/29/20 24 functional endoscopic sinus surgery completed KYMBERLY GARCIA MD [address],[place] [address] [place] [address], [address], [place] [facility] 04/05/2024 14:33:51 02/29/20 24 Repair of nasal septum completed KYMBERLY GARCIA MD [address],[place] [address] [place] [address], [address], [place] [facility] 04/05/2024 14:34:03 cholecystectomy completed Shyanne Escalante [place] - [facility] 11/15/2024 13:38:47 section completed Shyanne Escalante [place] - [facility] 11/15/2024 13:38:52 Imaging Results None recorded. Procedure Notes None recorded. Medical Equipment None Reported. Allergies Allergen ID Allergen Name Allergen Category Reaction Reaction Severity Criticality Documentation Date Start Date Code Code System Note Provider Name and Address Organization Details Recorded Time 818906 POLLEN EXTRACTS environme nt,medica tion Not available Not available low 10/18/20252024 93656 6 RxNorm Runny nose unrec ogniz ed react ion (text : Itchy eyes, code: 85835 002), mild (from exter nal sourc e) [...] by mouth 09/06 completed Medicati on ID: [id number] D uration Value: 10 Brand Name: doxycycl [...] ICD10 Code Diagnosis IMO Codes Diagnosis Note [id number] Clay Umanzor Allergy 100 [facility] 100 [facility] [place] [address] 08/29/2025 09:58:17 08/29/2025 10:22:53 Perennial allergic rhinitis [id number] J30.89 [id number] MAKAYLA GURROLA [facility] Allergy 100 [facility] 100 [place] [address] 09/05/2025 10:05:36 09/05/2025 11:11:02 Perennial allergic rhinitis [id number] J30.89 [id number] ROSA ALDANA [facility] Allergy 100 [facility] 100 [place] [address] 09/12/2025 10:42:43 09/12/2025 11:17:32 Perennial allergic rhinitis 572972143 J30.89 [id number] KYMBERLY MCKEON MD [facility]on license of [facility] 100 [facility] [place] [address] 09/17/2025 09:14:46 09/17/2025 09:33:54 Perennial allergic rhinitis 857250314 J30.89 [id number] Migraine w ithout aura, not refractory 545186840 G43.009 [id number] History of surgical procedure on cervical spine [id number] Z98.604 [id number] MAKAYLA GURROLA Reji Allergy 100 [facility] 100 [place] [address] 09/17/2025 09:15:39 09/17/2025 10:44:11 Perennial allergic rhinitis [id number] J30.89 [id number] ROSA ALDANA A Allergy 100 [facility], ite 100 [place] [address] 09/27/2025 11:01:58 09/27/2025 11:30:53 Perennial allergic rhinitis [id number] J30.89 Health Concerns Section Related Observation LastModified by Organization Detai ls LastModified Time None Recorded Concern Status LastModified by Organization Details LastModified Time None Recorded Payers Encounter Date Sequence Insurance Name Policy Number Policy Maya Covered Member ID Maya Member ID Guarantor Name 09/27/2025 1 [facility] - HEALTH NET PLAN (MEDICAID HMO) YESENIA Hoffmann [id number] Naina Hoffmann OBGyn Episode No OBEpisode recorded.
--- OUTSIDE RECORDS SUMMARY | 2025-10-25 17:47 | XMS_ITS | Data Portability ---
Author Organization [place] - [facility], Allergy Address [address] [place] [address] Care Team Providers Care Guillotine Trimmer Name Role Phone HILARIO CAI Primary Care [...] Vial Test Aware: Notes: [email or web address] Not available 09/27/2025 11:30:22 10/03/2025 10/03/2025 Visit With: Toyin Gurrola Use of Antihistamine s: Yes If yes: Vial Test Change in medications: No If yes Increase in asthma symptoms If yes, inhaler use: Reaction to last injections: No If yes: Allergy Symptoms: Other: Missed: Dose Aware of Vial Test Aware: Notes: [email or web address] Not available 10/03/2025 11:26:21 10/10/2025 10/10/2025 Visit With: Toyin Gurrola Use of Antihistamine s: No If yes: Vial Test Change in medications: No If yes Increase in asthma symptoms If yes, inhaler use: Reaction to last injections: No If yes: Allergy Symptoms: Other: Missed: Dose Aware of Vial Test Aware: Notes:iron infusion [email or web address] Not available 10/10/2025 10:52:25 10/17/2025 10/17/2025 Visit With: lCay Umanzor [place] Use of Antihistamine s: Yes If yes: Vial Test Change in medications: No If yes Increase in asthma symptoms If yes, inhaler use: Reaction to last injections: No If yes: Allergy Symptoms: Other: Missed: Dose Aware of Vial Test Aware: Notes: [email or web address] Not available 10/17/2025 10:57:55 10/23/2025 10/23/2025 Visit With: DENICE Kee Use of Antihistamine s: Yes If yes: Vial Test Change in medications: No If yes Increase in asthma symptoms If yes, inhaler use: Reaction to last injections: No If yes: Allergy Symptoms: Other: Missed: Dose Aware of Vial Test Aware: Notes: [email or web address] Not available 10/23/2025 13:44:17 Plan of Treatment Reminders Order Date Submit Date Provider Last Modified By Organization Details Last Modified Time Details Appointments [facility]- Allergy f-up 6mon 2025 10:00A [...] Time Hypertrop hy of nasal turbinate s 69036212 Active 2023 Hypertroph y of nasal turbinates ; Note: Date Diagnosed: 01/03/2016 8:40 AM (J34.3) Not Available [facility] 4 02:13:50 Chronic rhinitis 21207508 Active 2023 Chronic rhinitis; Note: Date Diagnosed: 11/22/2023 2:34 PM (J31.0) Not Available [facility] 4 02:13:06 Deviated nasal septum [id number] Active 2023 Deviated nasal septum; Note: Date Diagnosed: 01/03/2016 8:40 AM (J34.2) Not Available [facility] 4 02:13:23 Disorder of smell 533181357 Active 2023 Other disturbanc es of smell and taste; Note: Date Diagnosed: 11/22/2023 2:34 PM (R43.8) Not Available [facility] 4 02:14:24 Disorder of taste 262050219 Active 2023 Other disturbanc es of smell and taste; Note: Date Diagnosed: 11/22/2023 2:34 PM (R43.8) Not Available [facility] 4 02:14:24 Follow-up visit Active 2023 Encounter for follow-up examshirleyamira childress after completed treatment for conditions other than malignant neoplasm; Note: Date Diagnosed: 03/03/2024 11:19 AM (Z09) Not Available [facility] 4 02:14:15 Headache 83067982 Active 2023 Headache, unspecifie d; Note: Date Diagnosed: 03/20/2024 11:48 AM (R51.9) Not Available [facility] 4 02:14:40 Perennial allergic rhinitis 314442137 Active 2023 Clay Umanzor [address] [facility],[place] [address], [place], [address] , [place] - [facility] 5 11:07:14 Allergic rhinitis 17738946 Active 2023 KYMBERLY MCKEON MD [address] [place] [address],[place] [address], [address] , [place] - [facility] 4 14:34:26 Chronic sinusitis 01459107 Active 2023 KYMBERLY MCKEON MD [address] [place] [address],[place] [address], [address] , [place] - [facility] 4 14:35:04 Mild intermitt ent asthma 905324466 Active 2023 KYMBERLY MCKEON MD [address] [place] [address],[place] [address], [address] , [place] - [facility] 4 14:13:34 Posterior rhinorrhe a 12046378 Active 2024 KYMBERLY MCKEON MD [address] [place] [address],[place] [address], [address] , [place] [facility] 14:40:01 Paresthes ia 97652108 Active 2024 MEAGHAN PHILIPPE PA-C [address], [place], [address] , [place] [facility] 14:12:02 Postconcu ssion syndrome 98902036 Active 2024 KYMBERLY MCKEON MD [address], [place], [address] , [place] [facility] 14:40:07 Migraine without aura, not refractor y 716709529 Active 2024 KYMBERLY MCKEON MD [address], [place], [address] , [place] [facility] 09:32:09 Problem Notes None recorded. Procedures Surgical History Date Name Laterality Status Provider Name and Address Organization Details Recorded Time 10/23/20 25 Allergy Immunotherapy Injections completed ROSA ALDANA RMReji [address] [place] [address], [address], [place] [facility] 10/23/2025 13:43:37 10/17/20 25 Allergy Immunotherapy Injections completed DENICE RIVERA [address],[place] [address] [place] [address], [address], [place] [facility] 10/17/2025 10:57:33 10/10/20 25 Allergy Immunotherapy Injections completed DENICE RIVERA [address],[place] [address] [place] [address], [address], [place] [facility] 10/10/2025 10:51:36 10/03/20 25 Allergy Immunotherapy Injections completed DENICE RIVERA [address] [address] [place] [address], [address], [place] [facility] 10/03/2025 11:26:10 09/27/20 25 Allergy Immunotherapy Injections completed ROSA ALDANA RMA [address] [address], [address], [place] [facility] 09/27/2025 11:30:14 09/17/20 25 Allergy Immunotherapy Injections completed ROSA ALDANA, RMA [address], [place], [address], [place] [facility] 09/17/2025 10:43:44 09/12/20 25 Allergy Immunotherapy Injections completed ROSA ALDANA, RMA [address], [place], [address], [place] [facility] 09/12/2025 11:16:56 09/05/20 25 Allergy Immunotherapy Injections completed TOYIN GURROLA RMA [address], [address], [place] [facility] 09/05/2025 10:32:29 08/29/20 25 Allergy Immunotherapy Injections completed Clay Umanzor [address], [address], [place] [facility] 08/29/2025 10:21:54 08/22/20 25 Allergy Immunotherapy Injections completed Clay Umanzor [address] [address], [address], [place] [facility] 08/22/2025 11:07:33 08/15/20 25 Allergy Immunotherapy Injections completed ROSA ALDANA, RMA [address],[place] [address], [address], [place] [facility] 08/15/2025 11:51:06 08/10/20 25 Allergy Immunotherapy Injections completed ROSA ALDANA, RMA [address], [place], [address], [place] [facility] 08/10/2025 10:21:59 07/25/20 25 Allergy Immunotherapy Injections completed TOYIN GURROLA RMA [address], [address], [place] [facility] 07/25/2025 13:58:02 07/18/20 25 Allergy Immunotherapy Injections completed ROSA ALDANA, RMA [address],[place] [address], [address], [place] [facility] 07/18/2025 12:15:30 07/11/20 25 Allergy Immunotherapy Injections completed MAVERICK TERRAZAS RN [address] [place] [address], [address], [place] [facility] 07/11/2025 15:58:33 07/04/20 25 Allergy Immunotherapy Injections completed ROSA ALDANA RMA [address], [address], [place] [facility] 07/04/2025 15:57:33 06/21/20 25 Allergy Immunotherapy Injections completed DENICE RIVERA [address] [place] [address], [address], [place] [facility] 06/21/2025 11:57:52 06/13/20 25 Allergy Immunotherapy Injections completed DENICE RIVERA [address] [place] [address], [address], [place] [facility] 06/13/2025 13:15:25 06/06/20 25 Allergy Immunotherapy Injections completed MAVERICK TERRAZAS RN [address] [facility],[address] [place] [address], [address], [place] [facility] 06/06/2025 13:16:32 05/28/20 25 surgical procedure on cervical spine completed KYMBERLY GARCIA MD [address] [place] [address], [address], [place] [facility] 09/17/2025 09:31:38 05/24/20 25 Allergy Immunotherapy Injections completed ROSA ALDANA RMA [address] [place] [address], [address], [place] [facility] 05/24/2025 11:28:37 05/17/20 25 Allergy Immunotherapy Injections completed DENICE RIVERA [address],[place] [address], [address], [place] [facility] 05/17/2025 10:52:46 05/09/20 25 Allergy Immunotherapy Injections completed ROSA ALDANA RMA [address], [place], [address], [place] [facility] 05/09/2025 13:47:27 05/01/20 25 Allergy Immunotherapy Injections completed DENICE RIVEAR [address], [place], [address], [place] [facility] 05/01/2025 11:48:55 04/25/20 25 Allergy Immunotherapy Injections completed RUBINA RIVERAA [address], [place], [address], [place] [facility] 04/25/2025 12:09:48 04/19/20 25 Allergy Immunotherapy Injections completed ROSA ALDANA, RMA [address], [place], [address], [place] [facility] 04/19/2025 13:45:42 04/11/20 25 Allergy Immunotherapy Injections completed ROSA ALDANA, RMA [address], [place], [address], [place] [facility] 04/11/2025 09:53:57 04/04/20 25 Allergy Immunotherapy Injections completed ROSA ALDANA RMA [address], [place], [address], [place] [facility] 04/04/2025 14:14:25 03/21/20 25 Allergy Immunotherapy Injections completed MAVERICK TERRAZAS, [place] [address],[place] [address], [address], [place] [facility] 03/21/2025 14:32:25 03/15/20 25 Allergy Immunotherapy Injections completed ROSA ALDANA RMA [address], [place], [address], [place] [facility] 03/15/2025 13:24:02 03/07/20 25 Allergy Immunotherapy Injections completed TOYIN GURROLA RMA [address],[place], [address], [place] [facility] 03/07/2025 14:17:42 03/02/20 25 Allergy Immunotherapy Injections completed DENICE RIVERA [address], [place], [address], [place] [facility] 03/02/2025 09:22:17 02/24/20 25 Allergy Immunotherapy Injections completed DENICE RIVERA [address] [address] [place] [address], [address], [place] [facility] 02/23/2025 10:37:57 02/15/20 25 Allergy Immunotherapy Injections completed MAVERICK TERRAZAS RN [address] [facility] [address],[place] [address], [address], [place] [facility] 02/14/2025 13:47:08 02/08/20 25 Allergy Immunotherapy Injections completed DENICE KEE [address],[place] [address], [address], [place] [facility] 02/07/2025 15:34:14 02/01/20 25 Allergy Immunotherapy Injections completed DENICE RIVERA [address] [facility],[address] [place] [address], [address], [place] [facility] 01/31/2025 14:14:19 01/25/20 25 Allergy Immunotherapy Injections completed DENICE RIVERA [address] [place] [address], [address], [place] [facility] 01/24/2025 10:31:45 01/18/20 25 Allergy Immunotherapy Injections completed DENICE RIVERA [address] [facility],[address] [place] [address], [address], [place] [facility] 01/17/2025 11:50:20 01/12/20 25 Allergy Immunotherapy Injections completed MAVERICK TERRAZAS RN [address] [place] [address], [address], [place] [facility] 01/11/2025 10:38:17 01/03/20 25 Allergy Immunotherapy Injections completed MAVERICK TERRAZAS RN [address] [place] [address], [address], [place] [facility] 01/03/2025 13:48:45 12/29/19 25 Allergy Immunotherapy Injections completed MAVERICK TERRAZAS RN [address],[place] [address], [address], [place] [facility] 12/29/2024 10:36:58 12/20/19 25 Allergy Immunotherapy Injections completed MAVERICK TERRAZAS RN [address],[place], [address], [place] [facility] 12/20/2024 15:44:53 12/12/19 25 Allergy Immunotherapy Injections completed DENICE RIVERA [address],[place] [address], [address], [place] [facility] 12/12/2024 13:28:07 11/30/19 25 Allergy Immunotherapy Injections completed DENICE KEE [address] [facility],[address] [place] [address], [address], [place] [facility] 11/30/2024 14:28:33 11/22/19 25 Allergy Immunotherapy Injections completed ROSA ALDANA RMReji [address] [facility],[address] [place] [address], [address], [place] [facility] 11/22/2024 13:40:26 11/15/19 25 Allergy Immunotherapy Injections completed ROSA ALDANA RMA [address] [place] [address], [address], [place] [facility] 11/15/2024 13:45:46 11/10/19 25 Allergy Immunotherapy Injections completed DENICE RIVERA [address] [facility],[address] [place] [address], [address], [place] [facility] 11/10/2024 15:15:34 11/02/20 24 Allergy Immunotherapy Injections completed MAVERICK TERRAZAS RN [address] [place] [address], [address], [place] [facility] 11/02/2024 10:42:32 10/25/20 24 Allergy Immunotherapy Injections completed MAVERICK TERRAZAS RN [address],[place] [address], [address], [place] [facility] 10/25/2024 14:09:21 10/17/20 24 Allergy Immunotherapy Injections completed ROSA ALDANA, RMA [address],[place] [address], [address], [place] [facility] 10/17/2024 13:44:09 10/03/20 24 Allergy Immunotherapy Injections completed DENICE RIVERA [address],[place] [address], [address], [place] [facility] 10/03/2024 13:20:05 09/21/20 24 Allergy Immunotherapy Injections completed MAVERICK TERRAZAS RN [address] [facility],[address] [place] [address], [address], [place] [facility] 09/21/2024 12:01:33 09/12/20 24 Allergy Immunotherapy Injections completed ROSA ALDANA Reji [address] [facility],[address] [place] [address], [address], [place] [facility] 09/12/2024 14:05:49 09/06/20 24 Allergy Immunotherapy Injections completed DENICE RIVERA [address] [facility],[address] [place] [address], [address], [place] [facility] 09/06/2024 14:48:49 09/06/20 24 JMSNasal/Sinus Endoscopy-PRIOR surgical cavities completed KYMBERLY GARCIA MD [address] [facility],[address], [address], [place] [facility] 09/06/2024 15:05:59 08/29/20 24 Allergy Immunotherapy Injections completed DENICE RIVERA [address] [facility],[address] [place] [address], [address], [place] [facility] 08/29/2024 14:50:02 08/23/20 24 Allergy Immunotherapy Injections completed MAVERICK TERRAZAS RN [address] [facility],[address] [place] [address], [address], [place] [facility] 08/23/2024 15:21:09 08/15/20 24 Allergy Immunotherapy Injections completed MAVERICK TERRAZAS RN [address] [facility],[address] [place] [address], [address], [place] [facility] 08/15/2024 14:14:05 08/10/20 24 Allergy Immunotherapy Injections completed DENICE RIVERA [address], [place], [address], [place] [facility] 08/10/2024 14:00:51 08/04/20 24 Allergy Immunotherapy Injections completed RUBINA RIVERAA [address], [place], [address], [place] [facility] 08/04/2024 15:31:25 07/25/20 24 Allergy Immunotherapy Injections completed ROSA ALDANA RMA [address], [place], [address], [place] [facility] 07/25/2024 14:33:52 07/19/20 24 Allergy Immunotherapy Injections completed MAVERICK TERRAZAS RN [address], [address], [place] [facility] 07/19/2024 16:18:04 07/11/20 24 Allergy Immunotherapy Injections completed ROSA ALDANA RMA [address], [place], [address], [place] [facility] 07/11/2024 14:32:17 07/04/20 24 Allergy Immunotherapy Injections completed DENICE RIVERA [address], [place], [address], [place] [facility] 07/04/2024 14:03:37 06/28/20 24 Allergy Immunotherapy Injections completed MAVERICK TERRAZAS RN [address] [place] [address], [address], [place] [facility] 06/28/2024 14:26:26 06/20/20 24 Allergy Immunotherapy Injections completed ROSA ALDANA RMA [address], [place], [address], [place] [facility] 06/20/2024 13:05:25 06/13/20 24 Allergy Immunotherapy Injections completed DENICE RIVERA [address], [place], [address], [place] [facility] 06/13/2024 15:52:47 06/06/20 24 Allergy Immunotherapy Injections completed MAVERICK TERRAZAS RN [address] [facility], [place], [address], [place] [facility] 06/06/2024 15:10:37 06/06/20 24 JMSNasal/Sinus Endoscopy-PRIOR surgical cavities completed KYMBERLY GARCIA MD [address] [place] [address], [address], [place] [facility] 06/06/2024 14:10:04 06/01/20 24 Allergy Immunotherapy Injections completed MAVERICK TERRAZAS RN [address] [place] [address], [address], [place] [facility] 06/01/2024 15:38:20 05/23/20 24 Allergy Immunotherapy Injections completed DENICE RIVERA [address] [place] [address], [address], [place] [facility] 05/23/2024 14:44:44 05/17/20 24 Allergy Immunotherapy Injections completed DENICE KEE [address] [place] [address], [address], [place] [facility] 05/17/2024 16:10:00 05/09/20 24 Allergy Immunotherapy Injections completed MAVERICK TERRAZAS RN [address] [place] [address], [address], [place] [facility] 05/09/2024 15:06:52 05/02/20 24 Allergy Immunotherapy Injections completed DENICE RIVERA [address],[place] [address], [address], [place] [facility] 05/02/2024 13:34:36 04/25/20 24 Allergy Immunotherapy Injections completed DENICE RIVERA [address], [address], [place] [facility] 04/25/2024 14:45:44 04/21/20 24 Allergy Immunotherapy Injections completed DENICE RIVERA [address] [place] [address], [address], [place] [facility] 04/21/2024 14:00:37 04/12/20 24 Allergy Immunotherapy Injections completed ROSA ALDANA Reji [address] [facility],[address], [address], [facility] 04/12/2024 16:04:03 04/05/20 24 JMSNasal/Sinus Endoscopy-PRIOR surgical cavities completed KYMBERLY GARCIA MD [address] [facility],[address], [address], [facility] - [facility] 04/05/2024 14:34:46 04/05/20 24 Allergy Immunotherapy Injections completed DENICE RIVERA [address] [facility],[address], [address], [facility] - [facility] 04/05/2024 13:35:01 03/29/20 24 Allergy Immunotherapy Injections completed ROSA ALDANA [facility] [address] [facility],[address], [address], [facility] - [facility] 03/29/2024 16:18:09 02/29/20 24 functional endoscopic sinus surgery completed KYMBERLY GARCIA MD [address] [facility],[address], [address], [facility] - [facility] 04/05/2024 14:33:51 02/29/20 24 Repair of nasal septum completed KYMBERLY GARCIA MD [address] [facility],[address], [address], [facility] - [facility] 04/05/2024 14:34:03 cholecystectomy completed Shyanne Escalante [place] - [facility] 11/15/2024 13:38:47 section completed Shyanne Escalante [place] - [facility] 11/15/2024 13:38:52 Imaging Results None recorded. Procedure Notes None recorded. Medical Equipment None Reported. Allergies Allergen ID Allergen Name Allergen Category Reaction Reaction Severity Criticality Documentation Date Start Date Code Code System Note Provider Name and Address Organization Details Recorded Time 090897 PO[employer] environme nt,medica tion Not available Not available low 10/18/20252024 96880 6 RxNorm Runny nose unrec ogniz ed react ion (text : Itchy eyes, code: 08183 002), mild (from exter nal sourc e) [...] by mouth 09/06 completed Medicati on ID: [id number] D uration Value: 10 Brand Name: doxycycl [...] ne propionat e 50 mcg/actua tion nasal spray,hteresa pension SPRAY 2 SPRAYS INTO EACH NOSTRIL [...] ICD10 Code Diagnosis IMO Codes Diagnosis Note 1216 DENICE RIVERA Allergy [address] [address] 03/29/2024 15:44:26 03/29/2024 16:42:23 Perennial allergic rhinitis [id number] J30.89 1874 DENICE RIVERA Allergy 100 [facility],[address] [place] [address] 04/05/2024 13:34:19 04/05/2024 15:04:24 Perennial allergic rhinitis [id number] J30.89 1885 KYMBERLY MCKEON MD [facility] of [facility] [place] 100 [place] [address] 04/05/2024 14:08:28 04/05/2024 14:37:29 Allergic rhinitis [id number] J30.9 Chronic sinusitis 579541 00 J32.8 2927 [facility], A Allergy 100 [facility],[place] [address] [place] [address] 04/12/2024 15:55:43 04/12/2024 16:05:09 Perennial allergic rhinitis [id number] J30.89 4158 TOYIN GURROLA [facility] Allergy [address] [place] [address],[place] [address] [place] [address] 04/21/2024 13:59:32 04/21/2024 15:24:17 Perennial allergic rhinitis [id number] J30.89 4568 TOYIN GURROLA A Allergy [address] [place] [address],[place] [address] [place] [address] 04/25/2024 14:32:30 04/25/2024 14:54:24 Perennial allergic rhinitis [id number] J30.89 5510 TOYIN GURROLA [facility] Allergy 100 [facility],[place] [address] [place] [address] 05/02/2024 13:33:44 05/02/2024 14:50:02 Perennial allergic rhinitis [id number] J30.89 6373 MAVERICK TERRAZAS RN Allergy [address] [place] [address],[place] [address] [place] [address] 05/09/2024 14:14:28 05/09/2024 15:11:12 Perennial allergic rhinitis [id number] J30.[address] [facility], A Allergy 100 [facility],[place] [address] [place] [address] 05/17/2024 15:44:53 05/17/2024 16:19:07 Perennial allergic rhinitis [id number] J30.89 8103 TOYIN GURROLA [facility] Allergy 100 [facility],[place] [place] [address] 05/23/2024 11:44:15 05/24/2024 13:06:20 Perennial allergic rhinitis [id number] J30.89 9593 MAVERICK TERRAZAS RN Allergy [address] [place] [address], it[place] 100 [facility] [place] [address] 06/01/2024 15:27:09 06/01/2024 15:39:04 Perennial allergic rhinitis [id number] J30.89 9685 KYMBERLY MCKEON MD ENTS of [address] [place] [address] 06/06/2024 12:56:12 06/06/2024 14:19:47 Mild intermittent asthma 973935380 J45.20 Allergic rhinitis 186865 04 J30.9 History of neoplasm 2759 82381 Z86.018 no recurrent polyps 22599 [facility], [facility] Allergy [address] [place] [address], [place] [address] [place] [address] 06/06/2024 12:56:12 06/06/2024 14:19:47 Perennial allergic rhinitis [id number] J30.89 57014 TOYIN GURROLA [facility] Allergy [address] [place] [address] ite [address] [place] [address] 06/13/2024 14:52:19 06/13/2024 16:15:52 Perennial allergic rhinitis 875079693 J30.89 72675 [facility], [facility] Allergy [address] [place] [address], [address] [place] [address] 06/20/2024 12:36:44 06/20/2024 14:51:01 Perennial allergic rhinitis 518056919 J30.89 84746 MAVERICK TERRAZAS RN Allergy [address] [place] [address],[place] [place] [address] 06/28/2024 14:13:13 06/28/2024 14:27:01 Perennial allergic rhinitis [id number] J30.89 67449 TOYIN GURROLA RMA Allergy [address] [place] [address],[place] [place] [address] 07/04/2024 13:38:01 07/04/2024 15:01:06 Perennial allergic rhinitis [id number] J30.89 74612 ROSA DOUGLASS, A Allergy 100 [facility],[place] [place] [address] 07/11/2024 14:17:18 07/11/2024 15:03:52 Perennial allergic rhinitis [id number] J30.89 31929 TOYIN GURROLA, A Allergy [address] [place] [address],[place] [place] [address] 07/19/2024 16:17:22 07/19/2024 16:18:41 Perennial allergic rhinitis [id number] J30.89 80521 TOYIN GURROLA, [facility] Allergy [address] [place] [address], [address] [place] [address] 07/25/2024 14:15:32 07/25/2024 14:34:25 Perennial allergic rhinitis [id number] J30.89 99007 TOYIN GURROLA, [facility] Allergy [address] [place] [address],[place] [place] [address] 08/04/2024 15:30:21 08/14/2024 18:40:41 Perennial allergic rhinitis [id number] J30.89 98070 TOYIN GURROLA, [facility] Allergy [address] [place] [address],[place] [place] [address] 9 08/10/2024 13:46:10 08/10/2024 14:54:08 Perennial allergic rhinitis [id number] J30.89 98856 MAVERICK TERRAZAS RN Allergy [address] [place] [address],[place] [place] [address] 08/15/2024 14:05:14 08/15/2024 14:33:28 Perennial allergic rhinitis [id number] J30.89 22974 MAVERICK TERRAZAS RN Allergy [address] [place] [address],[place] [place] [place] [address] 08/23/2024 14:54:58 08/23/2024 15:21:41 Perennial allergic rhinitis [id number] J30.89 17266 TOYIN GURROLA RMA Allergy 100 [facility] ite 100 [place] [address] 08/29/2024 14:25:52 08/29/2024 14:50:37 Perennial allergic rhinitis [id number] J30.89 91893 KYMBERLY MCKEON MD [facility]NTS of [address] [place] [address] 09/06/2024 14:38:29 09/06/2024 15:10:27 Allergic rhinitis 89365740 J30.9 continue SCIT She will use Astepro 1 spray each nostril twice daily and fluticason e 1 spray each nostril twice daily Headache 82089128 R51.9 Chronic sinusitis 501977 00 J32.8 99360 TOYIN GURROLA [facility] Allergy [address] [place] [address] ite 100 [place] [address] 09/06/2024 14:39:04 09/06/2024 15:03:17 Perennial allergic rhinitis 428419098 J30.89 27427 [facility] Allergy [address] [place], [place] [address]e [address] [place] [address], [place] [address] 09/12/2024 13:57:30 09/12/2024 14:06:16 Perennial allergic rhinitis 012993631 J30.89 82104 [facility] [address] [place], [place] [address] [address] [place] [address], [place] [address] 09/21/2024 11:00:05 09/21/2024 12:02:02 Perennial allergic rhinitis 821298947 J30.89 88260 TOYIN GURROLA [facility] Allergy [address] [place] [address] ite 100 [place] [address] 10/03/2024 12:48:54 10/03/2024 13:25:49 Perennial allergic rhinitis [id number] J30.89 58412 TOYIN GURROLA [facility] Allergy [address] [place] [address] ite 100 [place] [address] 10/17/2024 12:45:37 10/17/2024 13:44:38 Perennial allergic rhinitis 828051767 J30.89 45764 TOYIN GURROLA RMA Allergy [address] [place] [address] [address] [place], [place] [address] 10/25/2024 14:08:37 10/25/2024 14:09:51 Perennial allergic rhinitis [id number] J30.89 23270 MAVERICK TERRAZAS RN Allergy [address] [place] [address],[place] [address] [place], [place] [address] 11/02/2024 10:36:26 11/02/2024 10:42:57 Perennial allergic rhinitis [id number] J30.89 08134 TOYIN GURROLA [facility] Allergy [address] [place] [address],[place] [place] [address] 11/10/2024 10:31:04 11/10/2024 15:18:31 Perennial allergic rhinitis [id number] J30.89 36077 MEAGHAN PHILIPPE PA-C ENT[facility] of [facility] - [place] 100 [facility] [place] [address] 11/15/2024 13:20:55 11/15/2024 14:02:44 Headache 03125946 R51.9 Posterior rhinorrhea 758 29516 R09.82 Paresthesia 04925740 R20 .2 91211 TOYIN GURROLA [facility] Allergy 100 [facility],[place] [place] [address] 11/15/2024 13:20:30 11/15/2024 13:46:31 Perennial allergic rhinitis [id number] J30.89 41230 [facility], A Allergy 100 [facility],[place] [place] [address] 11/22/2024 13:05:27 11/22/2024 13:40:57 Perennial allergic rhinitis [id number] J30.89 10003 ROSA [facility], A Allergy 100 [facility],[place] [address] [place] [address] 11/30/2024 14:18:17 11/30/2024 14:28:59 Perennial allergic rhinitis [id number] J30.89 34793 TOYIN GURROLA A Allergy 100 [facility],[place] [address] [place] [address] 12/12/2024 13:07:57 12/12/2024 13:28:31 Perennial allergic rhinitis [id number] J30.89 91277 [facility], A Allergy 100 [facility],[place] [place] [address] 12/20/2024 13:50:01 12/20/2024 15:45:53 Perennial allergic rhinitis [id number] J30.89 48390 MAVERICK TERRAZAS RN Allergy [address] [place] [address],[place] [place] [address] 12/29/2024 10:35:03 12/29/2024 10:37:15 Perennial allergic rhinitis 518267566 J30.89 64148 MAVERICK TERRAZAS RN Allergy [address] [place] [address],[place] [place] [address] 01/03/2025 13:35:33 01/03/2025 13:49:13 Perennial allergic rhinitis 987744575 J30.89 48674 MAVERICK TERRAZAS RN Allergy [address] [place] [address], [address] [place] [address] 01/11/2025 09:47:20 01/11/2025 10:38:35 Perennial allergic rhinitis [id number] J30.89 45553 [facility], A Allergy [address] [place] [address], [address] [place] [address] 01/17/2025 09:55:01 01/17/2025 11:51:57 Perennial allergic rhinitis [id number] J30.89 63715 TOYIN GURROLA [facility] Allergy [address] [place] [address],[place] [place] [address] 9 01/24/2025 09:44:25 01/24/2025 10:32:43 Perennial allergic rhinitis 683217293 J30.89 61658 TOYIN GURROLA [facility] Allergy [address] [place] [address],[place] [place] [place] [address] 9 01/31/2025 13:53:35 01/31/2025 14:34:55 Perennial allergic rhinitis 450458876 J30.89 [id number] TOYIN GURROLA [facility] Allergy [address] [place] [address],[place] [place] [place] [address] 02/07/2025 14:21:08 02/07/2025 15:34:52 Perennial allergic rhinitis [id number] J30.89 92123 MAVERICK TERRAZAS RN Allergy [address] [place] [address],[facility] [address] [place] [address] 02/14/2025 13:37:09 02/14/2025 13:47:46 Perennial allergic rhinitis [id number] J30.89 18678 TOYIN GURROLA [facility] Allergy [address] [place] [address] 100 [facility] [place] [address] 02/23/2025 10:34:29 02/23/2025 10:38:49 Perennial allergic rhinitis [id number] J30.89 47068 TOYIN GURROLA [facility] Allergy [address] [place] [address],[facility] [address] [place] [address] 03/02/2025 09:05:32 03/02/2025 09:22:44 Perennial allergic rhinitis [id number] J30.89 62624 KYMBERLY MCKEON MD [facility] [address] [place] [address] 03/07/2025 14:04:55 03/07/2025 14:52:04 Perennial allergic rhinitis 099050911 J30.89 902970 Posterior rhinorrhea 758 36653 J34.89 562249 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 848528 61644 TOYIN GURROLA [facility] Allergy [address] [place] [address], [address] [place] [address] 03/07/2025 14:05:21 03/07/2025 14:33:31 Perennial allergic rhinitis [id number] J30.89 [id number] ROSA DOUGLASS, [facility] Allergy [address] [place] [address], [address] [place] [address] 03/15/2025 13:11:44 03/15/2025 13:24:24 Perennial allergic rhinitis [id number] J30.89 14266 MAVERICK TERRAZAS RN Allergy [address] [place] [address], [address] [place] [address] 03/21/2025 13:55:08 03/21/2025 14:32:51 Perennial allergic rhinitis [id number] J30.89 97801 ROSA ALDANA, RMA [facility] 100 [facility],[place] [address] [place] [address] 04/04/2025 14:03:29 04/04/2025 14:15:19 Perennial allergic rhinitis [id number] J30.89 13984 ROSA ALDANA, RMA Allergy 100 [facility],[place] [address] [place] [address] 04/11/2025 09:11:34 04/11/2025 09:54:25 Perennial allergic rhinitis [id number] J30.89 08834 ROSA ALDANA, RMA Allergy 100 [facility],[place] [address] [place] [address] 04/19/2025 13:39:02 04/19/2025 13:46:18 Perennial allergic rhinitis [id number] J30.89 94157 TOYIN GALILEO RMA Allergy 100 [facility],[place] [address] [place] [address] 04/25/2025 11:54:46 04/25/2025 12:13:44 Perennial allergic rhinitis 489386278 J30.89 48741 TOYIN GURROLA RMA Allergy 100 [facility],[place] [address] [place] [address] 05/01/2025 11:34:22 05/01/2025 11:49:36 Perennial allergic rhinitis 689962087 J30.89 56460 ROSA RAFAT, RMA Allergy 100 [facility],[place] [address] [place] [address] 05/09/2025 13:20:56 05/09/2025 13:48:00 Perennial allergic rhinitis [id number] J30.89 [id number] ROSA DOUGLASS, RMA Allergy 100 [facility],[place] [address] [place] [address] 05/17/2025 10:41:53 05/17/2025 10:53:41 Perennial allergic rhinitis [id number] J30.89 95831 ROSA DOUGLASS, RMA Allergy 100 [facility],[place] [address] [place] [address] 05/24/2025 11:11:56 05/24/2025 11:33:01 Perennial allergic rhinitis [id number] J30.89 87430 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 [facility],[place] [address] [place] [address] 06/06/2025 12:54:48 06/06/2025 13:17:03 Perennial allergic rhinitis [id number] J30.89 81427 TOYIN GURROLA [facility] Allergy 100 [facility],[place] [address] [place] [address] 06/13/2025 13:02:06 06/13/2025 13:15:46 Perennial allergic rhinitis 499401475 J30.89 [id number] TOYIN GURROLA [facility] Allergy [address] [place] [address],[place] [place] [address] 06/21/2025 11:26:35 06/21/2025 11:58:17 Perennial allergic rhinitis [id number] J30.89 99896 TOYIN GURROLA [facility] Allergy [address] [place] [address] it[address] [place] [address] 07/04/2025 15:41:08 07/04/2025 15:58:28 Perennial allergic rhinitis 921313526 J30.89 38108 TOYIN GURROLA [facility] Allergy [address] [place] [address], [address] [place] [address] 07/11/2025 10:47:58 07/11/2025 15:59:14 Perennial allergic rhinitis 755377986 J30.89 46781 [facility] Allergy [address] [place] [address],[place] [place] [address] 07/18/2025 11:36:45 07/18/2025 12:13:36 Perennial allergic rhinitis [id number] J30.89 79849 TOYIN GURROLA [facility] Allergy 100 [facility],[place] [address] [place] [address] 07/25/2025 13:40:38 07/25/2025 14:03:23 Perennial allergic rhinitis [id number] J30.89 90839 [facility], A Allergy 100 [facility],[place] [address] [place] [address] 08/10/2025 09:49:11 08/10/2025 10:22:58 Perennial allergic rhinitis [id number] J30.89 [id number] ROSA DOUGLASS, A Allergy 100 [facility] 100 [place] [address] 08/15/2025 11:30:58 08/15/2025 11:51:34 Perennial allergic rhinitis 130840522 J30.89 02983 Clay Noé Allergy [address] [place] [address] 100 [place] [address] 08/22/2025 10:53:59 08/22/2025 11:08:03 Perennial allergic rhinitis 200738501 J30.89 [id number] Clay Umanzor Allergy [address] [place] [address] 100 [place] [address] 08/29/2025 09:58:17 08/29/2025 10:22:53 Perennial allergic rhinitis [id number] J30.89 32279 TOYIN GURROLA [facility] Allergy [address] [place] [address] [place] [address] 09/05/2025 10:05:36 09/05/2025 11:11:02 Perennial allergic rhinitis [id number] J30.89 83664 ROSA DOUGLASS A Allergy [address] [place] [address] 100 [place] [address] 09/12/2025 10:42:43 09/12/2025 11:17:32 Perennial allergic rhinitis [id number] J30.89 68108 KYMBERLY MCKEON MD [facility] of [facility] [place] [address] [place] [address] 09/17/2025 09:14:46 09/17/2025 09:33:54 Perennial allergic rhinitis 661064595 J30.89 429605 Migraine w ithout aura, not refractory 792540562 G43.009 353677 History of surgical procedure on cervical spine [id number] Z98.120 6041525 [id number] TOYIN GURROLA [facility] Allergy [address] [place] [address],[facility] 100 [place] [address] 09/17/2025 09:15:39 09/17/2025 10:44:11 Perennial allergic rhinitis [id number] J30.89 95736 ROSA ALDANA, A Allergy 100 [facility] [place] [address] [place] [address] 09/27/2025 11:01:58 09/27/2025 11:30:53 Perennial allergic rhinitis [id number] J30.89 34780 TOYIN GURROLA A Allergy 100 [facility] [place] [address] [place] [address] 10/03/2025 10:53:10 10/03/2025 11:26:37 Perennial allergic rhinitis 327697035 J30.89 67747 TOYIN GALILEO A Allergy 100 [facility] [place] [place] [address] 10/10/2025 10:31:47 10/10/2025 11:36:39 Perennial allergic rhinitis [id number] J30.89 06572 Clay Umanzor Allergy 100 [facility],[place] [place] [address] 10/17/2025 10:01:26 10/17/2025 10:58:09 Perennial allergic rhinitis 683073837 J30.89 37649 ROSA DOUGLASS, A Allergy 100 [facility] [place],[place] [address] [place] [address] 10/23/2025 13:16:48 10/23/2025 13:44:56 Perennial allergic rhinitis 613491382 J30.89 Health Concerns Section Related Observation LastModified by Organization Detai ls LastModified Time None Recorded Concern Status LastModified by Organization Details LastModified Time None Recorded Advance Directives Directive None Recorded Payers Insurance Date Sequence Insurance Name Policy Number Policy Maya Covered Member ID Maya Member ID Guarantor Name 10/23/2025 1 [employer] - HEALTH NET PLAN (MEDICAID HMO) YESENIA Hoffmann [id number] Naina Hoffmann OBGyn Episode No OBEpisode recorded.
--- OUTSIDE RECORDS SUMMARY | 2025-10-25 17:48 | XMS_ITS | Continuity of Care Document ---
Author Organization [place] [facility], Allergy Address [address] [address] Care Team Providers Care Inspector Scales Name Role Phone HILARIO CAI Primary Care Provider [phone] CAMPOS JONES Primary Care Provider Assessment Encounter Date Assessment Date Assessment LastModified by Organization Details LastModified Time 08/15/2025 08/15/2025 Visit With: DENICE Kee Use of Antihistamine s: Yes If yes: Vial Test Change in medications: No If yes Increase in asthma symptoms If yes, inhaler use: Reaction to last injections: No If yes: Allergy Symptoms: Other: Missed: Dose Aware of Vial Test Aware: Notes: brandon Not available 08/15/2025 11:51:21 Plan of Treatment Reminders Order Date Submit Date Provider Last Modified By Organization Details Last Modified Time Details Appointments [facility]- Allergy f-up 6mon 2025 10:00A M [...] Time Hypertrop hy of nasal turbinate s [id number] Active 2023 Hypertroph y of nasal turbinates ; Note: Date Diagnosed: 01/03/2016 8:40 AM (J34.3) Not Available [facility] 02:13:50 Chronic rhinitis 00268041 Active 2023 Chronic rhinitis; Note: Date Diagnosed: 11/22/2023 2:34 PM (J31.0) Not Available [facility] 4 02:13:06 Deviated nasal septum 145832757 Active 2023 Deviated nasal septum; Note: Date Diagnosed: 01/03/2016 8:40 AM (J34.2) Not Available [facility] 4 02:13:23 Disorder of smell 715893763 Active 2023 Other disturbanc es of smell and taste; Note: Date Diagnosed: 11/22/2023 2:34 PM (R43.8) Not Available [facility] 4 02:14:24 Disorder of taste 670547299 Active 2023 Other disturbanc es of smell and taste; Note: Date Diagnosed: 11/22/2023 2:34 PM (R43.8) Not Available [facility] 4 02:14:24 Follow-up visit Active 2023 Encounter for follow-up examinatio n after completed treatment for conditions other than malignant neoplasm; Note: Date Diagnosed: 03/03/2024 11:19 AM (Z09) Not Available [facility] 4 02:14:15 Headache 56665544 Active 2023 Headache, unspecifie d; Note: Date Diagnosed: 03/20/2024 11:48 AM (R51.9) Not Available [facility] 4 02:14:40 Perennial allergic rhinitis 241661719 Active 2023 Clay Umanzor [address] [facility],[place] [address], [place], [address] , [place] [facility] 5 11:07:14 Allergic rhinitis 69610422 Active 2023 KYMBERLY MCKEON MD [address] [place] [address],[place] [address], [place], [address] , [place] [facility] 4 14:34:26 Chronic sinusitis 09823782 Active 2023 KYMBERLY MCKEON MD [address] [place] [address],[place] [address], [place], [address] , [place] [facility] 4 14:35:04 Mild intermitt ent asthma 445604947 Active 2023 KYMBERLY MCKEON MD [address] [facility], [place], [address] , [place] [facility] 4 14:13:34 Posterior rhinorrhe a 69711234 Active 2024 KYMBERLY MCKEON MD [address] [facility],[address], [place], [address] , [place] [facility] 5 14:40:01 Paresthes ia 38602183 Active 2024 MEAGHAN PHILIPPE PA-C [address] [facility],[place], [place], [address] , [place] [facility] 5 14:12:02 Postconcu ssion syndrome 65559623 Active 2024 KYMBERLY MCKEON MD [address] [facility],[place], [place], [address] , [place] [facility] 5 14:40:07 Migraine without aura, not refractor y 955749995 Active 2024 KYMBERLY MCKEON MD [address] [facility] [facility],[place], [place], [address] , [place] [facility] 5 09:32:09 Problem Notes None recorded. Procedures Surgical History Date Name Laterality Status Provider Name and Address Organization Details Recorded Time 10/23/20 25 Allergy Immunotherapy Injections completed ROSA ALDANA Reji [address] [facility] [facility] [address],[place], [place], [address], [place] [facility] 10/23/2025 13:43:37 10/17/20 25 Allergy Immunotherapy Injections completed DENICE RIVERA [address] [facility] [address],[place], [place], [address], [place] [facility] 10/17/2025 10:57:33 10/10/20 25 Allergy Immunotherapy Injections completed MAKAYLA GALILEO, RMA [address], [place], [address], [place] [facility] 10/10/2025 10:51:36 10/03/20 25 Allergy Immunotherapy Injections completed RUBINA RIVERAA [address], [place], [address], [place] [facility] 10/03/2025 11:26:10 09/27/20 25 Allergy Immunotherapy Injections completed ROSA DOUGLASSC, RMA [address], [place], [address], [place] [facility] 09/27/2025 11:30:14 09/17/20 25 Allergy Immunotherapy Injections completed ROSA DOUGLASSC, RMA [address],[place] [address], [place], [address], [place] [facility] 09/17/2025 10:43:44 09/12/20 25 Allergy Immunotherapy Injections completed ROSA ALDANA, RMA [address], [place], [address], [place] [facility] 09/12/2025 11:16:56 09/05/20 25 Allergy Immunotherapy Injections completed MAKAYLA GURROLA RMA [address],[place] [address], [place], [address], [place] [facility] 09/05/2025 10:32:29 08/29/20 25 Allergy Immunotherapy Injections completed Clay Umanzor [address], [place], [address], [place] [facility] 08/29/2025 10:21:54 08/22/20 25 Allergy Immunotherapy Injections completed Clay Noé [address], [place], [address], [place] [facility] 08/22/2025 11:07:33 08/15/20 25 Allergy Immunotherapy Injections completed ROSA DOUGLASSC, RMA [address], [place], [address], [place] [facility] 08/15/2025 11:51:06 08/10/20 25 Allergy Immunotherapy Injections completed ROSA DOUGLASSC, RMA [address], [place], [address], [place] [facility] 08/10/2025 10:21:59 07/25/20 25 Allergy Immunotherapy Injections completed DENICE RIVERA [address] [facility] [place] [address], [address], [place] [facility] 07/25/2025 13:58:02 07/18/20 25 Allergy Immunotherapy Injections completed DENICE KEE [address] [facility],[place] [address], [place], [address], [place] [facility] 07/18/2025 12:15:30 07/11/20 25 Allergy Immunotherapy Injections completed MAVERICK TERRAZAS RN [address] [facility],[place] [address] [place] [address], [address], [place] [facility] 07/11/2025 15:58:33 07/04/20 25 Allergy Immunotherapy Injections completed DENICE KEE [address] [facility],[place] [address] [place] [address], [address], [place] [facility] 07/04/2025 15:57:33 06/21/20 25 Allergy Immunotherapy Injections completed DENICE RIVERA [address] [facility],[place] [address] [place] [address], [address], [place] [facility] 06/21/2025 11:57:52 06/13/20 25 Allergy Immunotherapy Injections completed DENICE RIVERA [address] [facility],[place] [address] [place] [address], [address], [place] [facility] 06/13/2025 13:15:25 06/06/20 25 Allergy Immunotherapy Injections completed MAVERICK TERRAZAS RN [address] [facility] [facility] [address] [place] [address], [address], [place] [facility] 06/06/2025 13:16:32 05/28/20 25 surgical procedure on cervical spine completed KYMBERLY GARCIA MD [address],[place] [address], [place], [address], [place] [facility] 09/17/2025 09:31:38 05/24/20 25 Allergy Immunotherapy Injections completed ROSA KORZEC, RMA [address], [place], [address], [place] [facility] 05/24/2025 11:28:37 05/17/20 25 Allergy Immunotherapy Injections completed MAKAYLA GURROLA RMA [address], [place], [address], [place] [facility] 05/17/2025 10:52:46 05/09/20 25 Allergy Immunotherapy Injections completed ROSA DOUGLASSC, RMA [address], [place], [address], [place] [facility] 05/09/2025 13:47:27 05/01/20 25 Allergy Immunotherapy Injections completed MAKAYLA GURROLA RMA [address], [place], [address], [place] [facility] 05/01/2025 11:48:55 04/25/20 25 Allergy Immunotherapy Injections completed MAKAYLA GURROLA RMA [address],[place] [address], [place], [address], [place] [facility] 04/25/2025 12:09:48 04/19/20 25 Allergy Immunotherapy Injections completed ROSA ALDANA RMA [address],[place] [address], [place], [address], [facility] - [facility] 04/19/2025 13:45:42 04/11/20 25 Allergy Immunotherapy Injections completed ROSA ALDANA RMA [address], [place], [address], [facility] - [facility] 04/11/2025 09:53:57 04/04/20 25 Allergy Immunotherapy Injections completed ROSA DOUGLASSC, RMA [address], [place], [address], [place] [facility] 04/04/2025 14:14:25 03/21/20 25 Allergy Immunotherapy Injections completed MAVERICK TERRAZAS RN [address], [place], [address], [place] [facility] 03/21/2025 14:32:25 03/15/20 25 Allergy Immunotherapy Injections completed ROSA ALDANA, RMA [address], [place], [address], [place] [facility] 03/15/2025 13:24:02 03/07/20 25 Allergy Immunotherapy Injections completed MAKAYLA GURROLA RMA [address], [place], [address], [place] [facility] 03/07/2025 14:17:42 03/02/20 25 Allergy Immunotherapy Injections completed MAKAYLA GURROLA RMA [address], [place], [address], [place] [facility] 03/02/2025 09:22:17 02/24/20 25 Allergy Immunotherapy Injections completed MAKAYLA GURROLA RMA [address],[place] [address], [place], [address], [place] [facility] 02/23/2025 10:37:57 02/15/20 25 Allergy Immunotherapy Injections completed MAVERICK TERRAZAS RN [address],[place] [address], [place], [address], [place] [facility] 02/14/2025 13:47:08 02/08/20 25 Allergy Immunotherapy Injections completed ROSA ALDANA, RMA [address],[place] [address], [place], [address], [place] [facility] 02/07/2025 15:34:14 02/01/20 25 Allergy Immunotherapy Injections completed MAKAYLA GURROLA RMA [address],[place] [address], [place], [address], [place] [facility] 01/31/2025 14:14:19 01/25/20 25 Allergy Immunotherapy Injections completed MAKAYLA GURROLA RMA [address], [place], [address], [place] [facility] 01/24/2025 10:31:45 01/18/20 25 Allergy Immunotherapy Injections completed MAKAYLA GURROLA RMA [address],[place] [address], [place], [address], [place] [facility] 01/17/2025 11:50:20 01/12/20 25 Allergy Immunotherapy Injections completed MAVERICK TERRAZAS RN [address], [place], [address], [place] [facility] 01/11/2025 10:38:17 01/03/20 25 Allergy Immunotherapy Injections completed MAVERICK TERRAZAS RN [address], [place], [address], [place] [facility] 01/03/2025 13:48:45 12/29/19 25 Allergy Immunotherapy Injections completed MAVERICK TERRAZAS RN [address], [place], [address], [place] [facility] 12/29/2024 10:36:58 12/20/19 25 Allergy Immunotherapy Injections completed MAVERICK TERRAZAS RN [address] [facility] [address], [place], [address], [place] [facility] 12/20/2024 15:44:53 12/12/19 25 Allergy Immunotherapy Injections completed DENICE RIVERA [address],[place], [place], [address], [place] [facility] 12/12/2024 13:28:07 11/30/19 25 Allergy Immunotherapy Injections completed ROSA ALDANA RMReji [address],[place] [address], [place], [address], [place] [facility] 11/30/2024 14:28:33 11/22/19 25 Allergy Immunotherapy Injections completed ROSA ALDANA RMReji [address], [place], [address], [place] [facility] 11/22/2024 13:40:26 11/15/19 25 Allergy Immunotherapy Injections completed ROSA ALDANA RMReji [address], [place], [address], [place] [facility] 11/15/2024 13:45:46 11/10/19 25 Allergy Immunotherapy Injections completed DENICE RIVERA [address], [place], [address], [place] [facility] 11/10/2024 15:15:34 11/02/20 24 Allergy Immunotherapy Injections completed MAVERICK TERRAZAS RN [address], [place], [address], [place] [facility] 11/02/2024 10:42:32 10/25/20 24 Allergy Immunotherapy Injections completed MAVERICK TERRAZAS RN [address] [facility],[place] [address], [place], [address], [place] [facility] 10/25/2024 14:09:21 10/17/20 24 Allergy Immunotherapy Injections completed ROSA ALDANA RMReji [address] [facility] [address],[place] [address], [place], [address], [place] [facility] 10/17/2024 13:44:09 10/03/20 24 Allergy Immunotherapy Injections completed DENICE RIVERA [address] [facility] [address],[place] [address] [place] [address], [address], [place] [facility] 10/03/2024 13:20:05 09/21/20 24 Allergy Immunotherapy Injections completed MAVERICK TERRAZAS RN [address] [facility] [address],[place] [facility], [place], [address], [place] [facility] 09/21/2024 12:01:33 09/12/20 24 Allergy Immunotherapy Injections completed ROSA ALDANA Reji [address] [facility] [address],[place] [address] [place] [address], [address], [place] [facility] 09/12/2024 14:05:49 09/06/20 24 Allergy Immunotherapy Injections completed DENICE RIVERA [address] [facility],[place] [address] [place] [address], [address], [place] [facility] 09/06/2024 14:48:49 09/06/20 24 JMSNasal/Sinus Endoscopy-PRIOR surgical cavities completed KYMBERLY GARCIA MD [address] [facility] [address],[place] [address] [place] [address], [address], [place] [facility] 09/06/2024 15:05:59 08/29/20 24 Allergy Immunotherapy Injections completed DENICE RIVERA [address] [facility],[place] [address] [place] [address], [address], [place] [facility] 08/29/2024 14:50:02 08/23/20 24 Allergy Immunotherapy Injections completed MAVERICK TERRAZAS RN [address], [place], [address], [place] [facility] 08/23/2024 15:21:09 08/15/20 24 Allergy Immunotherapy Injections completed MAVERICK TERRAZAS RN [address] [facility] [address], [place], [address], [place] [facility] 08/15/2024 14:14:05 08/10/20 24 Allergy Immunotherapy Injections completed DENICE RIVERA [address] [facility] [address], [place], [address], [place] [facility] 08/10/2024 14:00:51 08/04/20 24 Allergy Immunotherapy Injections completed DENICE RIVERA [address] [facility],[place] [address] [place] [address], [address], [place] [facility] 08/04/2024 15:31:25 07/25/20 24 Allergy Immunotherapy Injections completed DENICE KEE [address],[place] [address] [place] [address], [address], [place] [facility] 07/25/2024 14:33:52 07/19/20 24 Allergy Immunotherapy Injections completed MAVERICK TERRAZAS RN [address] [facility] [address],[place] [address] [place] [address], [address], [place] [facility] 07/19/2024 16:18:04 07/11/20 24 Allergy Immunotherapy Injections completed DENICE KEE [address], [place], [address], [place] [facility] 07/11/2024 14:32:17 07/04/20 24 Allergy Immunotherapy Injections completed DENICE RIVERA [address] [facility] [address],[place] [address], [place], [address], [place] [facility] 07/04/2024 14:03:37 06/28/20 24 Allergy Immunotherapy Injections completed MAVERICK TERRAZAS RN [address],[place] [address], [place], [address], [place] [facility] 06/28/2024 14:26:26 06/20/20 24 Allergy Immunotherapy Injections completed DENICE KEE [address],[place] [address] [place] [address], [address], [place] [facility] 06/20/2024 13:05:25 06/13/20 24 Allergy Immunotherapy Injections completed DENICE RIVERA [address],[place] [address], [place], [address], [place] [facility] 06/13/2024 15:52:47 06/06/20 24 Allergy Immunotherapy Injections completed MAVERICK TERRAZAS RN [address] [facility],[place] [facility], [place], [address], [place] [facility] 06/06/2024 15:10:37 06/06/20 24 JMSNasal/Sinus Endoscopy-PRIOR surgical cavities completed KYMBERLY GARCIA MD [address] [facility],[place] [address] [place] [address], [address], [place] [facility] 06/06/2024 14:10:04 06/01/20 24 Allergy Immunotherapy Injections completed MAVERICK TERRAZAS RN [address] [facility],[place] [address] [place] [address], [address], [place] [facility] 06/01/2024 15:38:20 05/23/20 24 Allergy Immunotherapy Injections completed DENICE RIVERA [address] [facility] [address],[place] [address] [place] [address], [address], [place] [facility] 05/23/2024 14:44:44 05/17/20 24 Allergy Immunotherapy Injections completed ROSA ALDANA RMA [address] [facility] [address],[place] [address], [place], [address], [place] [facility] 05/17/2024 16:10:00 05/09/20 24 Allergy Immunotherapy Injections completed MAVERICK TERRAZAS RN [address] [facility] [address],[place] [address] [place] [address], [address], [place] [facility] 05/09/2024 15:06:52 05/02/20 24 Allergy Immunotherapy Injections completed DENICE RIVERA [address] [facility] [address],[place] [address], [place], [address], [place] [facility] 05/02/2024 13:34:36 04/25/20 24 Allergy Immunotherapy Injections completed DENICE RIVERA [address],[place] [address], [place], [address], [place] [facility] 04/25/2024 14:45:44 04/21/20 24 Allergy Immunotherapy Injections completed DENICE RIVERA [address] [facility] [address],[place] [address], [place], [address], [place] [facility] 04/21/2024 14:00:37 04/12/20 24 Allergy Immunotherapy Injections completed DENICE KEE [address] [facility],[place] [address] [place] [address], [address], [place] [facility] 04/12/2024 16:04:03 04/05/20 24 JMSNasal/Sinus Endoscopy-PRIOR surgical cavities completed KYMBERLY GARCIA MD [address] [facility],[place] [address] [place] [address], [address], [place] [facility] 04/05/2024 14:34:46 04/05/20 24 Allergy Immunotherapy Injections completed DENICE RIVERA [address] [facility],[place] [address] [place] [address], [address], [place] [facility] 04/05/2024 13:35:01 03/29/20 24 Allergy Immunotherapy Injections completed DENICE KEE [address] [facility],[place] [address] [place] [address], [address], [place] [facility] 03/29/2024 16:18:09 02/29/20 24 functional endoscopic sinus surgery completed KYMBERLY GARCIA MD [address],[place] [address] [place] [address], [address], [place] [facility] 04/05/2024 14:33:51 02/29/20 24 Repair of nasal septum completed KYMBERLY GARCIA MD [address],[place] [address] [place] [address], [address], [place] [facility] 04/05/2024 14:34:03 cholecystectomy completed Shyanne Escalante [place] - [facility] 11/15/2024 13:38:47 section completed Shyanne Escalante [place] - [facility] 11/15/2024 13:38:52 Imaging Results None recorded. Procedure Notes None recorded. Medical Equipment None Reported. Allergies Allergen ID Allergen Name Allergen Category Reaction Reaction Severity Criticality Documentation Date Start Date Code Code System Note Provider Name and Address Organization Details Recorded Time 412629 [facility] [employer] environme nt,medica tion Not available Not available low 10/18/20252024 28257 6 RxNorm Runny nose unrec ogniz ed react ion (text : Itchy eyes, code: 43982 002), mild (from exter nal sourc e) [...] by mouth 09/06 completed Medicati on ID: [id number] D uration Value: 10 Brand Name: doxycycl [...] ICD10 Code Diagnosis IMO Codes Diagnosis Note [id number] ROSA ALDANA RMA Allergy [address] [place] [address] 07/18/2025 11:36:45 07/18/2025 12:13:36 Perennial allergic rhinitis [id number] J30.89 [id number] MAKAYLA GURROLA RMA Allergy [address] [place] [address] 07/25/2025 13:40:38 07/25/2025 14:03:23 Perennial allergic rhinitis [id number] J30.89 [id number] ROSA ALDANA RMA Allergy [address] [place] [address] 08/10/2025 09:49:11 08/10/2025 10:22:58 Perennial allergic rhinitis 041176651 J30.89 [id number] ROSA ALDANA RMA Allergy [address] [place] [address] 08/15/2025 11:30:58 08/15/2025 11:51:34 Perennial allergic rhinitis [id number] J30.89 Health Concerns Section Related Observation LastModified by Organization Detai ls LastModified Time None Recorded Concern Status LastModified by Organization Details LastModified Time None Recorded Payers Encounter Date Sequence Insurance Name Policy Number Policy Maay Covered Member ID Maya Member ID Guarantor Name 08/15/2025 1 [facility] NET PLAN (MEDICAID HMO) YESENIA Hoffmann [id number] Naina Hoffmann OBGyn Episode No OBEpisode recorded.
--- OUTSIDE RECORDS SUMMARY | 2025-10-25 17:48 | XMS_ITS | Continuity of Care Document ---
Author Organization [place] [facility], Allergy Address [address] [place] [phone] Care Team Providers Care Video Tape Duplicator Name Role Phone HILARIO CAI Primary Care Provider CAMPOS JONES Primary Care Provider Assessment Encounter Date Assessment Date Assessment LastModified by Organization Details LastModified Time 10/03/2025 10/03/2025 Visit With: Toyin Gurrola Use of Antihistamine s: Yes If yes: Vial Test Change in medications: No If yes Increase in asthma symptoms If yes, inhaler use: Reaction to last injections: No If yes: Allergy Symptoms: Other: Missed: Dose Aware of Vial Test Aware: Notes: [email or web address] Not available 10/03/2025 11:26:21 Plan of Treatment Reminders Order Date Submit Date Provider Last Modified By Organization Details Last Modified Time Details Appointments [facility]- Allergy f-up 6mon 2025 10:00A [...] Time Hypertrop hy of nasal turbinate s [id number] Active 2023 Hypertroph y of nasal turbinates ; Note: Date Diagnosed: 01/03/2016 8:40 AM (J34.3) Not Available [facility] 02:13:50 Chronic rhinitis 12410644 Active 2023 Chronic rhinitis; Note: Date Diagnosed: 11/22/2023 2:34 PM (J31.0) Not Available [facility] 4 02:13:06 Deviated nasal septum 768159949 Active 2023 Deviated nasal septum; Note: Date Diagnosed: 01/03/2016 8:40 AM (J34.2) Not Available [facility] 4 02:13:23 Disorder of smell 817401080 Active 2023 Other disturbanc es of smell and taste; Note: Date Diagnosed: 11/22/2023 2:34 PM (R43.8) Not Available [facility] 4 02:14:24 Disorder of taste 663374013 Active 2023 Other disturbanc es of smell and taste; Note: Date Diagnosed: 11/22/2023 2:34 PM (R43.8) Not Available [facility] 4 02:14:24 Follow-up visit Active 2023 Encounter for follow-up examinaamira childress after completed treatment for conditions other than malignant neoplasm; Note: Date Diagnosed: 03/03/2024 11:19 AM (Z09) Not Available [facility] 4 02:14:15 Headache 70757521 Active 2023 Headache, unspecifie d; Note: Date Diagnosed: 03/20/2024 11:48 AM (R51.9) Not Available [facility] 4 02:14:40 Perennial allergic rhinitis 393034127 Active 2023 Clay Umanzor [address] [facility],[place] [address], [place], [address] , [place] [facility] 5 11:07:14 Allergic rhinitis 46581592 Active 2023 KYMBERLY MCKEON MD [address] [place] [address],[place] [address], [place], [address] , [place] [facility] 4 14:34:26 Chronic sinusitis 66266748 Active 2023 KYMBERLY MCKEON MD [address] [place] [address],[place] [address], [place], [address] , [place] [facility] 4 14:35:04 Mild intermitt ent asthma 895357853 Active 2023 KYMBERLY MCKEON MD [address] [facility], [place], [address] , [facility] - [facility] 4 14:13:34 Posterior rhinorrhe a 36506669 Active 2024 KYMBERLY MCKEON MD [address] [facility],[address], [place], [address] , [facility] - [facility] 5 14:40:01 Paresthes ia 61390660 Active 2024 MEAGHAN PHILIPPE PA-C [address] [facility],[address] [facility], [place], [address] , [place] [facility] 5 14:12:02 Postconcu ssion syndrome 40405713 Active 2024 KYMBERLY MCKEON MD [address] [facility],[address] [facility], [place], [address] , [facility] - [facility] 5 14:40:07 Migraine without aura, not refractor y 382464104 Active 2024 KYMBERLY MCKEON MD [address] [facility] [facility] [address] [facility], [place], [address] , [place] [facility] 5 09:32:09 Problem Notes None recorded. Procedures Surgical History Date Name Laterality Status Provider Name and Address Organization Details Recorded Time 10/23/20 25 Allergy Immunotherapy Injections completed ROSA ALDANA [facility] [address] [facility],[place] [facility], [place], [address], [facility] - [facility] 10/23/2025 13:43:37 10/17/20 25 Allergy Immunotherapy Injections completed DENICE RIVERA [address] [facility] [facility], [place], [address], [facility] - [facility] 10/17/2025 10:57:33 10/10/20 25 Allergy Immunotherapy Injections completed DENICE RIVERA [address], [place], [address], [place] [facility] 10/10/2025 10:51:36 10/03/20 25 Allergy Immunotherapy Injections completed RUBINA RIVERAA [address], [place], [address], [place] [facility] 10/03/2025 11:26:10 09/27/20 25 Allergy Immunotherapy Injections completed ROSA ALDANA, RMA [address], [place], [address], [place] [facility] 09/27/2025 11:30:14 09/17/20 25 Allergy Immunotherapy Injections completed ROSA DOUGLASSC, RMA [address], [place], [address], [place] [facility] 09/17/2025 10:43:44 09/12/20 25 Allergy Immunotherapy Injections completed ROSA ALDNAA, RMA [address] [place] [address], [address], [place] [facility] 09/12/2025 11:16:56 09/05/20 25 Allergy Immunotherapy Injections completed RUBINA RIVERAA [address], [place], [address], [place] [facility] 09/05/2025 10:32:29 08/29/20 25 Allergy Immunotherapy Injections completed Clay Umanzor [address], [place], [address], [place] [facility] 08/29/2025 10:21:54 08/22/20 25 Allergy Immunotherapy Injections completed Clay Noé [address], [place], [address], [place] [facility] 08/22/2025 11:07:33 08/15/20 25 Allergy Immunotherapy Injections completed ROSA DOUGLASSC, RMA [address], [place], [address], [place] [facility] 08/15/2025 11:51:06 08/10/20 25 Allergy Immunotherapy Injections completed ROSA DOUGLASSC, RMA [address], [place], [address], [place] [facility] 08/10/2025 10:21:59 07/25/20 25 Allergy Immunotherapy Injections completed DENICE RIVERA [address] [facility],[place] [address] [place] [address], [address], [place] [facility] 07/25/2025 13:58:02 07/18/20 25 Allergy Immunotherapy Injections completed DENICE MARIA [address] [facility],[address], [place], [address], [place] [facility] 07/18/2025 12:15:30 07/11/20 25 Allergy Immunotherapy Injections completed MAVERICK TERRAZAS RN [address] [facility],[address] [place] [address], [address], [place] [facility] 07/11/2025 15:58:33 07/04/20 25 Allergy Immunotherapy Injections completed DENICE MARIA [address] [facility],[address], [address], [place] [facility] 07/04/2025 15:57:33 06/21/20 25 Allergy Immunotherapy Injections completed DENICE RIVERA [address] [facility],[place] [address] [place] [address], [address], [place] [facility] 06/21/2025 11:57:52 06/13/20 25 Allergy Immunotherapy Injections completed DENICE RIVERA [address] [facility],[place] [address] [place] [address], [address], [place] [facility] 06/13/2025 13:15:25 06/06/20 25 Allergy Immunotherapy Injections completed MAVERICK TERRAZAS RN [address] [facility],[place] [address] [place] [address], [address], [place] [facility] 06/06/2025 13:16:32 05/28/20 25 surgical procedure on cervical spine completed KYMBERLY GARCIA MD [address] [facility],[address], [place], [address], [place] [facility] 09/17/2025 09:31:38 05/24/20 25 Allergy Immunotherapy Injections completed ROSA KORZEC, RMA [address], [place], [address], [place] [facility] 05/24/2025 11:28:37 05/17/20 25 Allergy Immunotherapy Injections completed RUBINA RIVERAA [address], [place], [address], [place] [facility] 05/17/2025 10:52:46 05/09/20 25 Allergy Immunotherapy Injections completed ROSA ALDANA, RMA [address], [place], [address], [place] [facility] 05/09/2025 13:47:27 05/01/20 25 Allergy Immunotherapy Injections completed TOYIN GURROLA RMA [address], [place], [address], [place] [facility] 05/01/2025 11:48:55 04/25/20 25 Allergy Immunotherapy Injections completed TOYIN GURROLA RMA [address], [place], [address], [facility] - [facility] 04/25/2025 12:09:48 04/19/20 25 Allergy Immunotherapy Injections completed ROSA ALDANA RMA [address], [place], [address], [facility] - [facility] 04/19/2025 13:45:42 04/11/20 25 Allergy Immunotherapy Injections completed ROSA ALDANA RMA [address], [place], [address], [facility] - [facility] 04/11/2025 09:53:57 04/04/20 25 Allergy Immunotherapy Injections completed ROSA ALDANA, RMA [address], [place], [address], [place] [facility] 04/04/2025 14:14:25 03/21/20 25 Allergy Immunotherapy Injections completed MAVERICK TERRAZAS RN [address], [place], [address], [place] [facility] 03/21/2025 14:32:25 03/15/20 25 Allergy Immunotherapy Injections completed ROSA ALDANA, RMA [address], [place], [address], [place] [facility] 03/15/2025 13:24:02 03/07/20 25 Allergy Immunotherapy Injections completed TOYIN GURROLA RMA [address], [place], [address], [place] [facility] 03/07/2025 14:17:42 03/02/20 25 Allergy Immunotherapy Injections completed TOYIN GURROLA RMA [address], [place], [address], [place] [facility] 03/02/2025 09:22:17 02/24/20 25 Allergy Immunotherapy Injections completed TOYIN GURROLA RMA [address], [place], [address], [place] [facility] 02/23/2025 10:37:57 02/15/20 25 Allergy Immunotherapy Injections completed MAVERICK TERRAZAS RN [address], [place], [address], [place] [facility] 02/14/2025 13:47:08 02/08/20 25 Allergy Immunotherapy Injections completed ROSA ALDANA RMA [address], [place], [address], [place] [facility] 02/07/2025 15:34:14 02/01/20 25 Allergy Immunotherapy Injections completed TOYIN GURROLA RMA [address], [place], [address], [place] [facility] 01/31/2025 14:14:19 01/25/20 25 Allergy Immunotherapy Injections completed TOYIN GURROLA RMA [address], [place], [address], [place] [facility] 01/24/2025 10:31:45 01/18/20 25 Allergy Immunotherapy Injections completed TOYIN GURROLA RMA [address], [place], [address], [place] [facility] 01/17/2025 11:50:20 01/12/20 25 Allergy Immunotherapy Injections completed MAVERICK TERRAZAS RN [address], [place], [address], [place] [facility] 01/11/2025 10:38:17 01/03/20 25 Allergy Immunotherapy Injections completed MAVERICK TERRAZAS RN [address], [place], [address], [place] [facility] 01/03/2025 13:48:45 12/29/19 25 Allergy Immunotherapy Injections completed MAVERICK TERRAZAS RN [address], [place], [address], [place] [facility] 12/29/2024 10:36:58 12/20/19 25 Allergy Immunotherapy Injections completed MAVERICK TERRAZAS RN [address] [facility], [place], [address], [place] [facility] 12/20/2024 15:44:53 12/12/19 25 Allergy Immunotherapy Injections completed DENICE RIVERA [address], [place], [address], [place] [facility] 12/12/2024 13:28:07 11/30/19 25 Allergy Immunotherapy Injections completed ROSA ALDANA RMReji [address], [place], [address], [place] [facility] 11/30/2024 14:28:33 11/22/19 25 Allergy Immunotherapy Injections completed ROSA ALDANA RMReji [address], [place], [address], [place] [facility] 11/22/2024 13:40:26 11/15/19 25 Allergy Immunotherapy Injections completed ROSA ALDANA RMReji [address], [place], [address], [place] [facility] 11/15/2024 13:45:46 11/10/19 25 Allergy Immunotherapy Injections completed DENICE RIVERA [address], [place], [address], [place] [facility] 11/10/2024 15:15:34 11/02/20 24 Allergy Immunotherapy Injections completed MAVERICK TERRAZAS RN [address] [facility], [place], [address], [place] [facility] 11/02/2024 10:42:32 10/25/20 24 Allergy Immunotherapy Injections completed MAVERICK TERRAZAS RN [address] [facility] [address], [place], [address], [place] [facility] 10/25/2024 14:09:21 10/17/20 24 Allergy Immunotherapy Injections completed DENICE MARIA [address] [facility] [address], [place], [address], [place] [facility] 10/17/2024 13:44:09 10/03/20 24 Allergy Immunotherapy Injections completed DENICE RIVERA [address] [facility] [address] [place] [address], [address], [place] [facility] 10/03/2024 13:20:05 09/21/20 24 Allergy Immunotherapy Injections completed MAVERICK TERRAZAS RN [address] [facility],[address] [address] [place] [address], [address], [place] [facility] 09/21/2024 12:01:33 09/12/20 24 Allergy Immunotherapy Injections completed ROSA ALDANA Reji [address] [facility] [address] [place] [address], [address], [place] [facility] 09/12/2024 14:05:49 09/06/20 24 Allergy Immunotherapy Injections completed DENICE RIVERA [address] [facility],[address] [address] [place] [address], [address], [place] [facility] 09/06/2024 14:48:49 09/06/20 24 JMSNasal/Sinus Endoscopy-PRIOR surgical cavities completed KYMBERLY GARCIA MD [address] [facility] [address] [place] [address], [address], [place] [facility] 09/06/2024 15:05:59 08/29/20 24 Allergy Immunotherapy Injections completed DENICE RIVERA [address] [facility],[address] [place] [address], [address], [place] [facility] 08/29/2024 14:50:02 08/23/20 24 Allergy Immunotherapy Injections completed MAVERICK TERRAZAS RN [address] [facility], [place], [address], [place] [facility] 08/23/2024 15:21:09 08/15/20 24 Allergy Immunotherapy Injections completed MAVERICK TERRAZAS RN [address], [place], [address], [place] [facility] 08/15/2024 14:14:05 08/10/20 24 Allergy Immunotherapy Injections completed DENICE RIVERA [address], [place], [address], [place] [facility] 08/10/2024 14:00:51 08/04/20 24 Allergy Immunotherapy Injections completed DENICE RIVERA [address] [facility] [address] [address] [place] [address], [address], [place] [facility] 08/04/2024 15:31:25 07/25/20 24 Allergy Immunotherapy Injections completed DENICE MARIA [address] [address] [place] [address], [address], [place] [facility] 07/25/2024 14:33:52 07/19/20 24 Allergy Immunotherapy Injections completed MAVERICK TERRAZAS RN [address] [facility] [address] [address] [place] [address], [address], [place] [facility] 07/19/2024 16:18:04 07/11/20 24 Allergy Immunotherapy Injections completed DENICE MARIA [address] [place] [address], [address], [place] [facility] 07/11/2024 14:32:17 07/04/20 24 Allergy Immunotherapy Injections completed DENICE RIVERA [address] [facility] [address], [place], [address], [place] [facility] 07/04/2024 14:03:37 06/28/20 24 Allergy Immunotherapy Injections completed MAVERICK TERRAZAS RN [address], [place], [address], [place] [facility] 06/28/2024 14:26:26 06/20/20 24 Allergy Immunotherapy Injections completed DENICE MARIA [address], [place], [address], [place] [facility] 06/20/2024 13:05:25 06/13/20 24 Allergy Immunotherapy Injections completed DENICE RIVERA [address], [place], [address], [place] [facility] 06/13/2024 15:52:47 06/06/20 24 Allergy Immunotherapy Injections completed MAVERICK TERRAZAS RN [address] [facility] [address] [place] [address], [address], [place] [facility] 06/06/2024 15:10:37 06/06/20 24 JMSNasal/Sinus Endoscopy-PRIOR surgical cavities completed KYMBERLY GARCIA MD [address] [facility],[address] [address] [place] [address], [address], [place] [facility] 06/06/2024 14:10:04 06/01/20 24 Allergy Immunotherapy Injections completed MAVERICK TERRAZAS RN [address] [facility],[address] [address] [place] [address], [address], [place] [facility] 06/01/2024 15:38:20 05/23/20 24 Allergy Immunotherapy Injections completed DENICE RIVERA [address] [facility] [address] [address] [place] [address], [address], [place] [facility] 05/23/2024 14:44:44 05/17/20 24 Allergy Immunotherapy Injections completed ROSA ALDANA RMReji [address] [facility] [address], [place], [address], [place] [facility] 05/17/2024 16:10:00 05/09/20 24 Allergy Immunotherapy Injections completed MAVERICK TERRAZAS RN [address] [facility] [address] [place] [address], [address], [place] [facility] 05/09/2024 15:06:52 05/02/20 24 Allergy Immunotherapy Injections completed DENICE RIVERA [address] [facility] [address], [place], [address], [place] [facility] 05/02/2024 13:34:36 04/25/20 24 Allergy Immunotherapy Injections completed DENICE RIVERA [address] [facility] [address] [address] [place] [address], [address], [place] [facility] 04/25/2024 14:45:44 04/21/20 24 Allergy Immunotherapy Injections completed DENICE RIVERA [address] [facility] [address], [place], [address], [place] [facility] 04/21/2024 14:00:37 04/12/20 24 Allergy Immunotherapy Injections completed ROSA ALDANA RMReji [address] [facility] [address] [place] [address], [address], [place] [facility] 04/12/2024 16:04:03 04/05/20 24 JMSNasal/Sinus Endoscopy-PRIOR surgical cavities completed KYMBERLY GARCIA MD [address] [facility],[place] [address] [place] [address], [address], [place] [facility] 04/05/2024 14:34:46 04/05/20 24 Allergy Immunotherapy Injections completed DENICE RIVERA [address] [facility],[address] [place] [address], [address], [place] [facility] 04/05/2024 13:35:01 03/29/20 24 Allergy Immunotherapy Injections completed DENICE MARIA [address] [facility] [place] [address], [address], [place] [facility] 03/29/2024 16:18:09 02/29/20 24 functional endoscopic sinus surgery completed KYMBERLY GARCIA MD [address] [place] [address], [address], [place] [facility] 04/05/2024 14:33:51 02/29/20 24 Repair of nasal septum completed KYMBERLY GARCIA MD [address], [place], [address], [place] [facility] 04/05/2024 14:34:03 cholecystectomy completed Shyanne Esaclante [place] - [facility] 11/15/2024 13:38:47 section completed Shyanne Escalante [place] - [facility] 11/15/2024 13:38:52 Imaging Results None recorded. Procedure Notes None recorded. Medical Equipment None Reported. Allergies Allergen ID Allergen Name Allergen Category Reaction Reaction Severity Criticality Documentation Date Start Date Code Code System Note Provider Name and Address Organization Details Recorded Time 223694 POLL[employer] environme nt,medica tion Not available Not available low 10/18/20252024 39043 6 RxNorm Runny nose unrec ogniz ed react ion (text : Itchy eyes, code: 45091 002), mild (from exter nal sourc e) [...] by mouth 09/06 completed Medicati on ID: [id number] D uration Value: 10 Brand Name: doxycycl [...] ICD10 Code Diagnosis IMO Codes Diagnosis Note [id number] DENICE RIVERA Allergy 100 [facility] 100 [facility] [place] [address] 09/05/2025 10:05:36 09/05/2025 11:11:02 Perennial allergic rhinitis 208631663 J30.89 [id number] RUBINA MARIAA Allergy 100 [facility] 100 [facility] [place] [address] 09/12/2025 10:42:43 09/12/2025 11:17:32 Perennial allergic rhinitis [id number] J30.89 [id number] KYMBERLY MCKEON MD [facility] [address] [address] 09/17/2025 09:14:46 09/17/2025 09:33:54 Perennial allergic rhinitis 315881456 J30.89 [id number] Migraine w ithout aura, not refractory 603929689 G43.009 146400 History of surgical procedure on cervical spine 521185249 Z98.519 [id number] TOYIN GALILEODENICE [facility] [address] [place] [address] 09/17/2025 09:15:39 09/17/2025 10:44:11 Perennial allergic rhinitis [id number] J30.89 [id number] RUBINA MARIAA [facility]ergy [facility] 100 [facility] [place] [address] 09/27/2025 11:01:58 09/27/2025 11:30:53 Perennial allergic rhinitis 115443564 J30.89 [id number] TOYIN GALILEORUBINAA Allergy 100 [facility] [address] [place] [address] 10/03/2025 10:53:10 10/03/2025 11:26:37 Perennial allergic rhinitis 215194152 J30.89 Health Concerns Section Related Observation LastModified by Organization Detai ls LastModified Time None Recorded Concern Status LastModified by Organization Details LastModified Time None Recorded Payers Encounter Date Sequence Insurance Name Policy Number Policy Maya Covered Member ID Maya Member ID Guarantor Name 10/03/2025 1 [facility] - HEALTH NET PLAN (MEDICAID HMO) YESENIA Hoffmann [id number] Naina Hoffmann OBGyn Episode No OBEpisode recorded.
--- OUTSIDE RECORDS SUMMARY | 2025-10-25 17:48 | XMS_ITS | Continuity of Care Document ---
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 Role Phone HILARIO CAI Primary Care Provider CAMPOS JONES Primary Care Provider Assessment Encounter Date Assessment Date Assessment LastModified by Organization Details LastModified Time 08/22/2025 08/22/2025 Visit With: Clay Umanzor [place] Use of Antihistamine s: Yes If yes: Vial Test Change in medications: No If yes Increase in asthma symptoms No Asthma Hx If yes, inhaler use: Reaction to last injections: No If yes: Allergy Symptoms: Other: Missed: Dose Aware of Vial Test Yes Aware: Notes: Not available 08/22/2025 11:07:47 Plan of Treatment Reminders Order Date Submit Date Provider Last Modified By Organization Details Last Modified Time Details Appointments [facility]- Allergy f-up 6mon 2025 10:00A [...] Time Hypertrop hy of nasal turbinate s 03212888 Active 2023 Hypertroph y of nasal turbinates ; Note: Date Diagnosed: 01/03/2016 8:40 AM (J34.3) Not Available [facility] 02:13:50 Chronic rhinitis 26824031 Active 2023 Chronic rhinitis; Note: Date Diagnosed: 11/22/2023 2:34 PM (J31.0) Not Available [facility] 4 02:13:06 Deviated nasal septum 080070424 Active 2023 Deviated nasal septum; Note: Date Diagnosed: 01/03/2016 8:40 AM (J34.2) Not Available [facility] 4 02:13:23 Disorder of smell 036481210 Active 2023 Other disturbanc es of smell and taste; Note: Date Diagnosed: 11/22/2023 2:34 PM (R43.8) Not Available [facility] 4 02:14:24 Disorder of taste 422569715 Active 2023 Other disturbanc es of smell and taste; Note: Date Diagnosed: 11/22/2023 2:34 PM (R43.8) Not Available [facility] 4 02:14:24 Follow-up visit Active 2023 Encounter for follow-up examinatio n after completed treatment for conditions other than malignant neoplasm; Note: Date Diagnosed: 03/03/2024 11:19 AM (Z09) Not Available [facility] 4 02:14:15 Headache 82722283 Active 2023 Headache, unspecifie d; Note: Date Diagnosed: 03/20/2024 11:48 AM (R51.9) Not Available [facility] 4 02:14:40 Perennial allergic rhinitis 169435027 Active 2023 Clay Umanzor 100 [facility],[place] [address], [place], [address] , [place] - [facility] 5 11:07:14 Allergic rhinitis 90702387 Active 2023 KYMBERLY MCKEON MD [address] [place] [address],[place] [address], [place], [address] , [place] - [facility] 4 14:34:26 Chronic sinusitis 97830333 Active 2023 KYMBERLY MCKEON MD [address] [place] [address],[place] [address], [place], [address] , [place] [facility] 4 14:35:04 Mild intermitt ent asthma 060240582 Active 2023 KYMBERLY MCKEON MD 100 [facility],[address], [place], [address] , [place] [facility] 4 14:13:34 Posterior rhinorrhe a 96689875 Active 2024 KYMBERLY MCKEON MD 100 [facility],[address] [facility], [place], [address] , [place] [facility] 5 14:40:01 Paresthes ia 76469262 Active 2024 MEAGHAN PHILIPPE PA-C 100 [facility],[address] [facility], [place], [address] , [place] [facility] 5 14:12:02 Postconcu ssion syndrome 69454005 Active 2024 KYMBERLY MCKEON MD 100 [facility],[address] [facility], [place], [address] , [place] [facility] 5 14:40:07 Migraine without aura, not refractor y 627646114 Active 2024 KYMBERLY MCKEON MD 100 [facility],[place] [address], [place], [address] , [place] [facility] 5 09:32:09 Problem Notes None recorded. Procedures Surgical History Date Name Laterality Status Provider Name and Address Organization Details Recorded Time 10/23/20 25 Allergy Immunotherapy Injections completed ROSA ALDANA REPLACED BY [facility] [address] [facility],[address] [facility], [place], [address], [place] [facility] 10/23/2025 13:43:37 10/17/20 25 Allergy Immunotherapy Injections completed DENICE RIVERA 100 [facility],[address] [facility], [place], [address], [place] [facility] 10/17/2025 10:57:33 10/10/20 25 Allergy Immunotherapy Injections completed MAKAYLA GALILEO, RMA [address], [place], [address], [place] [facility] 10/10/2025 10:51:36 10/03/20 25 Allergy Immunotherapy Injections completed RUBINA RIVERAA [address], [place], [address], [place] [facility] 10/03/2025 11:26:10 09/27/20 25 Allergy Immunotherapy Injections completed ROSA ALDANA, RMA [address], [place], [address], [place] [facility] 09/27/2025 11:30:14 09/17/20 25 Allergy Immunotherapy Injections completed ROSA ALDANA, RMA [address], [place], [address], [place] [facility] 09/17/2025 10:43:44 09/12/20 25 Allergy Immunotherapy Injections completed ROSA ALDANA, RMA [address], [place], [address], [place] [facility] 09/12/2025 11:16:56 09/05/20 25 Allergy Immunotherapy Injections completed MAKAYLA GURROLA RMA [address], [place], [address], [place] [facility] 09/05/2025 10:32:29 08/29/20 25 Allergy Immunotherapy Injections completed Clay Umanzor [address], [place], [address], [place] [facility] 08/29/2025 10:21:54 08/22/20 25 Allergy Immunotherapy Injections completed Clay Umanzor [address], [place], [address], [place] [facility] 08/22/2025 11:07:33 08/15/20 25 Allergy Immunotherapy Injections completed ROSA ALDANA, RMA [address], [place], [address], [place] [facility] 08/15/2025 11:51:06 08/10/20 25 Allergy Immunotherapy Injections completed ROSA DOUGLASSC, RMA [address], [place], [address], [place] [facility] 08/10/2025 10:21:59 07/25/20 25 Allergy Immunotherapy Injections completed DENICE RIVERA [address] [facility] [address] [address], [place], [address], [place] [facility] 07/25/2025 13:58:02 07/18/20 25 Allergy Immunotherapy Injections completed ROSA ALDANA RMReji [address], [place], [address], [place] [facility] 07/18/2025 12:15:30 07/11/20 25 Allergy Immunotherapy Injections completed MAVERICK TERRAZAS RN 100 [facility],[address] [place] [address], [address], [place] [facility] 07/11/2025 15:58:33 07/04/20 25 Allergy Immunotherapy Injections completed DENICE MARIA 100 [facility],[address] [place] [address], [address], [place] [facility] 07/04/2025 15:57:33 06/21/20 25 Allergy Immunotherapy Injections completed DENICE RIVERA [address] [facility] [address] [place] [address], [address], [place] [facility] 06/21/2025 11:57:52 06/13/20 25 Allergy Immunotherapy Injections completed DENICE RIVERA 100 [facility],[address] [place] [address], [address], [place] [facility] 06/13/2025 13:15:25 06/06/20 25 Allergy Immunotherapy Injections completed MAVERICK TERRAZAS RN [address] [facility] [address] [place] [address], [address], [place] [facility] 06/06/2025 13:16:32 05/28/20 25 surgical procedure on cervical spine completed KYMBERLY GARCIA MD [address], [place], [address], [place] [facility] 09/17/2025 09:31:38 05/24/20 25 Allergy Immunotherapy Injections completed ROSA KORZEC, RMA [address], [place], [address], [place] [facility] 05/24/2025 11:28:37 05/17/20 25 Allergy Immunotherapy Injections completed MAKAYLA GURROLA RMA [address], [place], [address], [place] [facility] 05/17/2025 10:52:46 05/09/20 25 Allergy Immunotherapy Injections completed ROSA DOUGLASSC, RMA [address], [place], [address], [place] [facility] 05/09/2025 13:47:27 05/01/20 25 Allergy Immunotherapy Injections completed MAKAYLA GURROLA RMA [address], [place], [address], [place] [facility] 05/01/2025 11:48:55 04/25/20 25 Allergy Immunotherapy Injections completed MAKAYLA GURROLA RMA [address], [place], [address], [place] [facility] 04/25/2025 12:09:48 04/19/20 25 Allergy Immunotherapy Injections completed ROSA RAFATC, RMA [address], [place], [address], [place] [facility] 04/19/2025 13:45:42 04/11/20 25 Allergy Immunotherapy Injections completed ROSA DOUGLASSC, RMA [address], [place], [address], [place] [facility] 04/11/2025 09:53:57 04/04/20 25 Allergy Immunotherapy Injections completed ROSA DOUGLASSC, RMA [address], [place], [address], [place] [facility] 04/04/2025 14:14:25 03/21/20 25 Allergy Immunotherapy Injections completed MAVERICK TERRAZAS RN [address], [place], [address], [place] [facility] 03/21/2025 14:32:25 03/15/20 25 Allergy Immunotherapy Injections completed ROSA ALDANA, RMA [address], [place], [address], [place] [facility] 03/15/2025 13:24:02 03/07/20 25 Allergy Immunotherapy Injections completed MAKAYLA GURROLA, RMA [address], [place], [address], [place] [facility] 03/07/2025 14:17:42 03/02/20 25 Allergy Immunotherapy Injections completed MAKAYLA GURROLA RMA [address], [place], [address], [place] [facility] 03/02/2025 09:22:17 02/24/20 25 Allergy Immunotherapy Injections completed MAKAYLA GURROLA RMA [address], [place], [address], [place] [facility] 02/23/2025 10:37:57 02/15/20 25 Allergy Immunotherapy Injections completed MAVERICK TERRAZAS RN [address], [place], [address], [place] [facility] 02/14/2025 13:47:08 02/08/20 25 Allergy Immunotherapy Injections completed ROSA ALDANA, RMA [address], [place], [address], [place] [facility] 02/07/2025 15:34:14 02/01/20 25 Allergy Immunotherapy Injections completed MAKAYLA GURROLA RMA [address], [place], [address], [place] [facility] 01/31/2025 14:14:19 01/25/20 25 Allergy Immunotherapy Injections completed MAKAYLA GURROLA RMA [address], [place], [address], [place] [facility] 01/24/2025 10:31:45 01/18/20 25 Allergy Immunotherapy Injections completed MAKAYLA GURROLA RMA [address], [place], [address], [place] [facility] 01/17/2025 11:50:20 01/12/20 25 Allergy Immunotherapy Injections completed MAVERICK TERRAZAS RN [address], [place], [address], [place] [facility] 01/11/2025 10:38:17 01/03/20 25 Allergy Immunotherapy Injections completed MAVERICK TERRAZAS RN [address], [place], [address], [place] [facility] 01/03/2025 13:48:45 12/29/19 25 Allergy Immunotherapy Injections completed MAVERICK TERRAZAS RN [address] [facility] [address], [place], [address], [place] [facility] 12/29/2024 10:36:58 12/20/19 25 Allergy Immunotherapy Injections completed MAVERICK TERRAZAS RN [address] [facility] [address], [place], [address], [place] [facility] 12/20/2024 15:44:53 12/12/19 25 Allergy Immunotherapy Injections completed DENICE RIVERA [address], [place], [address], [place] [facility] 12/12/2024 13:28:07 11/30/19 25 Allergy Immunotherapy Injections completed ROSA ALDANA RMReji [address], [place], [address], [place] [facility] 11/30/2024 14:28:33 11/22/19 25 Allergy Immunotherapy Injections completed ROSA ALDANA RMReji [address], [place], [address], [place] [facility] 11/22/2024 13:40:26 11/15/19 25 Allergy Immunotherapy Injections completed ROSA ALDANA RMReji [address], [place], [address], [place] [facility] 11/15/2024 13:45:46 11/10/19 25 Allergy Immunotherapy Injections completed DENICE RIVERA [address], [place], [address], [place] [facility] 11/10/2024 15:15:34 11/02/20 24 Allergy Immunotherapy Injections completed MAVERICK TERRAZAS RN [address], [place], [address], [place] [facility] 11/02/2024 10:42:32 10/25/20 24 Allergy Immunotherapy Injections completed MAVERICK TERRAZAS RN [address] [facility] [address], [place], [address], [place] [facility] 10/25/2024 14:09:21 10/17/20 24 Allergy Immunotherapy Injections completed ROSA ALDANA RMA [address], [place], [address], [place] [facility] 10/17/2024 13:44:09 10/03/20 24 Allergy Immunotherapy Injections completed DENICE RIVERA [address] [facility] [address], [place], [address], [place] [facility] 10/03/2024 13:20:05 09/21/20 24 Allergy Immunotherapy Injections completed MAVERICK TERRAZAS RN [address] [facility] [address] [facility], [place], [address], [place] [facility] 09/21/2024 12:01:33 09/12/20 24 Allergy Immunotherapy Injections completed ROSA ALDANA RMReji [address] [facility] [address] [place] [address], [address], [place] [facility] 09/12/2024 14:05:49 09/06/20 24 Allergy Immunotherapy Injections completed DENICE RIVERA [address] [facility] [address] [place] [address], [address], [place] [facility] 09/06/2024 14:48:49 09/06/20 24 JMSNasal/Sinus Endoscopy-PRIOR surgical cavities completed KYMBERLY GARCIA MD [address] [facility] [address], [place], [address], [place] [facility] 09/06/2024 15:05:59 08/29/20 24 Allergy Immunotherapy Injections completed DENICE RIVERA [address] [facility] [address], [place], [address], [place] [facility] 08/29/2024 14:50:02 08/23/20 24 Allergy Immunotherapy Injections completed MAVERICK TERRAZAS RN [address] [facility] [address] [facility], [place], [address], [place] [facility] 08/23/2024 15:21:09 08/15/20 24 Allergy Immunotherapy Injections completed MAVERICK TERRAZAS RN [address] [facility] [address], [place], [address], [place] [facility] 08/15/2024 14:14:05 08/10/20 24 Allergy Immunotherapy Injections completed DENICE RIVERA [address] [facility] [address] [place] [address], [address], [place] [facility] 08/10/2024 14:00:51 08/04/20 24 Allergy Immunotherapy Injections completed DENICE RIVERA [address] [facility] [address] [facility], [place], [address], [place] [facility] 08/04/2024 15:31:25 07/25/20 24 Allergy Immunotherapy Injections completed DENICE MARIA [address] [facility], [place], [address], [place] [facility] 07/25/2024 14:33:52 07/19/20 24 Allergy Immunotherapy Injections completed MAVERICK TERRAZAS RN [address] [facility] [address] [place] [address], [address], [place] [facility] 07/19/2024 16:18:04 07/11/20 24 Allergy Immunotherapy Injections completed DENICE MARIA [address] [facility] [address], [place], [address], [place] [facility] 07/11/2024 14:32:17 07/04/20 24 Allergy Immunotherapy Injections completed DENICE RIVERA [address], [place], [address], [place] [facility] 07/04/2024 14:03:37 06/28/20 24 Allergy Immunotherapy Injections completed MAVERICK TERRAZAS RN [address] [facility] [address] [place] [address], [address], [place] [facility] 06/28/2024 14:26:26 06/20/20 24 Allergy Immunotherapy Injections completed DENICE MARIA [address] [facility] [address] [place] [address], [address], [place] [facility] 06/20/2024 13:05:25 06/13/20 24 Allergy Immunotherapy Injections completed DENICE RIVERA [address] [facility] [address], [place], [address], [place] [facility] 06/13/2024 15:52:47 06/06/20 24 Allergy Immunotherapy Injections completed MAVERICK TERRAZAS RN [address] [facility],[address] [place] [address], [address], [place] [facility] 06/06/2024 15:10:37 06/06/20 24 JMSNasal/Sinus Endoscopy-PRIOR surgical cavities completed KYMBERLY GARCIA MD 100 [facility],[address], [address], [place] [facility] 06/06/2024 14:10:04 06/01/20 24 Allergy Immunotherapy Injections completed MAVERICK TERRAZAS RN 100 [facility],[address], [address], [place] [facility] 06/01/2024 15:38:20 05/23/20 24 Allergy Immunotherapy Injections completed DENICE RIVERA [address] [facility] [address] [place] [address], [address], [place] [facility] 05/23/2024 14:44:44 05/17/20 24 Allergy Immunotherapy Injections completed ROSA ALDANA RMReji [address] [facility] [address] [place] [address], [address], [place] [facility] 05/17/2024 16:10:00 05/09/20 24 Allergy Immunotherapy Injections completed MAVERICK TERRAZAS RN [address] [facility] [address] [place] [address], [address], [place] [facility] 05/09/2024 15:06:52 05/02/20 24 Allergy Immunotherapy Injections completed DENICE RIVERA [address] [facility] [address], [address], [place] [facility] 05/02/2024 13:34:36 04/25/20 24 Allergy Immunotherapy Injections completed DENICE RIVERA [address] [facility],[address] [place] [address], [address], [place] [facility] 04/25/2024 14:45:44 04/21/20 24 Allergy Immunotherapy Injections completed DENICE RIVERA [address] [facility],[address], [place], [address], [place] [facility] 04/21/2024 14:00:37 04/12/20 24 Allergy Immunotherapy Injections completed ROSA ALDANA Reji [address] [facility],[address] [place] [address], [address], [place] [facility] 04/12/2024 16:04:03 04/05/20 24 JMSNasal/Sinus Endoscopy-PRIOR surgical cavities completed KYMBERLY GARCIA MD 100 [facility],[address] [place] [address], [address], [place] [facility] 04/05/2024 14:34:46 04/05/20 24 Allergy Immunotherapy Injections completed DENICE RIVERA [address] [facility],[address] [place] [address], [address], [place] [facility] 04/05/2024 13:35:01 03/29/20 24 Allergy Immunotherapy Injections completed DENICE MARIA [address] [facility],[address] [place] [address], [address], [place] [facility] 03/29/2024 16:18:09 02/29/20 24 functional endoscopic sinus surgery completed KYMBERLY GARCIA MD [address] [facility] [address] [place] [address], [address], [place] [facility] 04/05/2024 14:33:51 02/29/20 24 Repair of nasal septum completed KYMBERLY GARCIA MD [address] [place] [address], [address], [place] [facility] 04/05/2024 14:34:03 cholecystectomy completed Shyanne Escalante [place] - [facility] 11/15/2024 13:38:47 section completed Shyanne Escalante [facility] 11/15/2024 13:38:52 Imaging Results None recorded. Procedure Notes None recorded. Medical Equipment None Reported. Allergies Allergen ID Allergen Name Allergen Category Reaction Reaction Severity Criticality Documentation Date Start Date Code Code System Note Provider Name and Address Organization Details Recorded Time 016921 [employer] environme nt,medica tion Not available Not available low 10/18/20252024 23957 6 RxNorm Runny nose unrec ogniz ed react ion (text : Itchy eyes, code: 04977 002), mild (from exter nal sourc e) [...] by mouth 09/06 completed Medicati on ID: [id number] D uration Value: 10 Brand Name: doxycycl [...] ICD10 Code Diagnosis IMO Codes Diagnosis Note [id number] MAKAYLA GURROLA, RMA Allergy [address] [place] [address] 07/25/2025 13:40:38 07/25/2025 14:03:23 Perennial allergic rhinitis [id number] J30.89 [id number] ROSA RAFAT, RMA Allergy [address] [place] [address] 08/10/2025 09:49:11 08/10/2025 10:22:58 Perennial allergic rhinitis [id number] J30.89 60083 ROSA RAFAT, RMA Allergy [address] [place] [address] 08/15/2025 11:30:58 08/15/2025 11:51:34 Perennial allergic rhinitis [id number] J30.89 22555 Clay Vasquezos Allergy [address] [facility],[address] [place] [address] 08/22/2025 10:53:59 08/22/2025 11:08:03 Perennial allergic rhinitis [id number] J30.89 Health Concerns Section Related Observation LastModified by Organization Detai ls LastModified Time None Recorded Concern Status LastModified by Organization Details LastModified Time None Recorded Payers Encounter Date Sequence Insurance Name Policy Number Policy Maya Covered Member ID Maya Member ID Guarantor Name 08/22/2025 1 [facility] (MEDICAID HMO) YESENIA Hoffmann [id number] Naina Hoffmann OBGyn Episode No OBEpisode recorded.
--- OUTSIDE RECORDS SUMMARY | 2025-10-25 17:48 | XMS_ITS | Continuity of Care Document ---
Author Organization [place] - [facility], Allergy Address [address] [place] [address] Care Team Providers Care Blasting Clay Miner Name Role Phone HILARIO CAI Primary Care Provider [phone] CAMPOS JONES Primary Care Provider Assessment Encounter Date Assessment Date Assessment LastModified by Organization Details LastModified Time 09/05/2025 09/05/2025 Visit With: Toyin Gurrola Use of Antihistamine s: No If yes: Vial Test Change in medications: No If yes Increase in asthma symptoms If yes, inhaler use: Reaction to last injections: No If yes: Allergy Symptoms: Other: Missed: Dose Aware of Vial Test Aware: Notes: [email or web address] Not available 09/05/2025 10:32:40 Plan of Treatment Reminders Order Date Submit Date Provider Last Modified By Organization Details Last Modified Time Details Appointments [facility]- Allergy f-up 6mon 2025 10:00A M NATY [...] Time Hypertrop hy of nasal turbinate s 32553908 Active 2023 Hypertroph y of nasal turbinates ; Note: Date Diagnosed: 01/03/2016 8:40 AM (J34.3) Not Available [facility] 02:13:50 Chronic rhinitis 78284692 Active 2023 Chronic rhinitis; Note: Date Diagnosed: 11/22/2023 2:34 PM (J31.0) Not Available [facility] 4 02:13:06 Deviated nasal septum 805158463 Active 2023 Deviated nasal septum; Note: Date Diagnosed: 01/03/2016 8:40 AM (J34.2) Not Available [facility] 4 02:13:23 Disorder of smell 652449419 Active 2023 Other disturbanc es of smell and taste; Note: Date Diagnosed: 11/22/2023 2:34 PM (R43.8) Not Available [facility] 4 02:14:24 Disorder of taste 187488239 Active 2023 Other disturbanc es of smell and taste; Note: Date Diagnosed: 11/22/2023 2:34 PM (R43.8) Not Available [facility] 4 02:14:24 Follow-up visit Active 2023 Encounter for follow-up examinaamira childress after completed treatment for conditions other than malignant neoplasm; Note: Date Diagnosed: 03/03/2024 11:19 AM (Z09) Not Available [facility] 4 02:14:15 Headache 28592133 Active 2023 Headache, unspecifie d; Note: Date Diagnosed: 03/20/2024 11:48 AM (R51.9) Not Available [facility] 4 02:14:40 Perennial allergic rhinitis 763586742 Active [address] [facility],[place] [address], [place], [address] , [place] [facility] 5 11:07:14 Allergic rhinitis 43477513 Active 2023 KYMBERLY MCKEON MD [address] [place] [address],[place] [address], [place], [address] , [place] [facility] 4 14:34:26 Chronic sinusitis 31382222 Active 2023 KYMBERLY MCKEON MD [address] [place] [address],[place] [address], [place], [address] , [place] [facility] 4 14:35:04 Mild intermitt ent asthma 306908661 Active 2023 KYMBERLY MCKEON MD [address] [facility],[address], [place], [address] , [facility] - [facility] 4 14:13:34 Posterior rhinorrhe a 42873438 Active 2024 KYMBERLY MCKEON MD [address] [facility],[address], [place], [address] , [facility] - [facility] 5 14:40:01 Paresthes ia 58968731 Active 2024 MEAGHAN PHILIPPE PA-C [address] [facility],[address] [facility], [place], [address] , [place] [facility] 5 14:12:02 Postconcu ssion syndrome 18891469 Active 2024 KYMBERLY MCKEON MD [address] [facility],[address] [facility], [place], [address] , [facility] - [facility] 5 14:40:07 Migraine without aura, not refractor y 243954162 Active 2024 KYMBERLY MCKEON MD [address] [facility] [facility], [place], [address] , [place] [facility] 5 09:32:09 Problem Notes None recorded. Procedures Surgical History Date Name Laterality Status Provider Name and Address Organization Details Recorded Time 10/23/20 25 Allergy Immunotherapy Injections completed ROSA ALDANA [facility] [address] [facility],[address] [facility], [place], [address], [facility] - [facility] 10/23/2025 13:43:37 10/17/20 25 Allergy Immunotherapy Injections completed DENICE RIVERA [address] [facility] [address] [facility], [place], [address], [facility] - [facility] 10/17/2025 10:57:33 10/10/20 25 Allergy Immunotherapy Injections completed DENICE RIVERA [address], [place], [address], [place] [facility] 10/10/2025 10:51:36 10/03/20 25 Allergy Immunotherapy Injections completed RUBINA RIVERAA [address], [place], [address], [place] [facility] 10/03/2025 11:26:10 09/27/20 25 Allergy Immunotherapy Injections completed ROSA ALDANA, RMA [address], [place], [address], [place] [facility] 09/27/2025 11:30:14 09/17/20 25 Allergy Immunotherapy Injections completed ROSA DOUGLASSC, RMA [address], [place], [address], [place] [facility] 09/17/2025 10:43:44 09/12/20 25 Allergy Immunotherapy Injections completed ROSA ALDANA, RMA [address] [place] [address], [address], [place] [facility] 09/12/2025 11:16:56 09/05/20 25 Allergy Immunotherapy Injections completed RUBINA RIVERAA [address], [place], [address], [place] [facility] 09/05/2025 10:32:29 08/29/20 25 Allergy Immunotherapy Injections completed Clay Umanzor [address], [place], [address], [place] [facility] 08/29/2025 10:21:54 08/22/20 25 Allergy Immunotherapy Injections completed Clay Noé [address], [place], [address], [place] [facility] 08/22/2025 11:07:33 08/15/20 25 Allergy Immunotherapy Injections completed ROSA DOUGLASSC, RMA [address], [place], [address], [place] [facility] 08/15/2025 11:51:06 08/10/20 25 Allergy Immunotherapy Injections completed ROSA DOUGLASSC, RMA [address], [place], [address], [place] [facility] 08/10/2025 10:21:59 07/25/20 25 Allergy Immunotherapy Injections completed DENICE RIVERA [address] [facility],[address] [place] [address], [address], [place] [facility] 07/25/2025 13:58:02 07/18/20 25 Allergy Immunotherapy Injections completed DENICE MARIA [address] [facility],[address], [place], [address], [place] [facility] 07/18/2025 12:15:30 07/11/20 25 Allergy Immunotherapy Injections completed MAVERICK TERRAZAS RN [address] [facility],[address] [place] [address], [address], [place] [facility] 07/11/2025 15:58:33 07/04/20 25 Allergy Immunotherapy Injections completed DENICE MARIA [address] [facility],[address], [address], [place] [facility] 07/04/2025 15:57:33 06/21/20 25 Allergy Immunotherapy Injections completed DENICE RIVERA [address] [facility],[address] [place] [address], [address], [place] [facility] 06/21/2025 11:57:52 06/13/20 25 Allergy Immunotherapy Injections completed DENICE RIVERA [address] [facility],[address] [place] [address], [address], [place] [facility] 06/13/2025 13:15:25 06/06/20 25 Allergy Immunotherapy Injections completed MAVERICK TERRAZAS RN [address] [facility],[address] [place] [address], [address], [place] [facility] 06/06/2025 13:16:32 05/28/20 25 surgical procedure on cervical spine completed KYMBERLY GARCIA MD [address] [facility],[address], [place], [address], [place] [facility] 09/17/2025 09:31:38 05/24/20 25 Allergy Immunotherapy Injections completed ROSA KORZEC, RMA [address], [place], [address], [place] [facility] 05/24/2025 11:28:37 05/17/20 25 Allergy Immunotherapy Injections completed RUBINA RIVERAA [address], [place], [address], [place] [facility] 05/17/2025 10:52:46 05/09/20 25 Allergy Immunotherapy Injections completed ROSA ALDANA, RMA [address], [place], [address], [place] [facility] 05/09/2025 13:47:27 05/01/20 25 Allergy Immunotherapy Injections completed TOYIN GURROLA RMA [address], [place], [address], [place] [facility] 05/01/2025 11:48:55 04/25/20 25 Allergy Immunotherapy Injections completed TOYIN GURROLA RMA [address], [place], [address], [facility] - [facility] 04/25/2025 12:09:48 04/19/20 25 Allergy Immunotherapy Injections completed ROSA ALDANA RMA [address], [place], [address], [facility] - [facility] 04/19/2025 13:45:42 04/11/20 25 Allergy Immunotherapy Injections completed ROSA ALDANA RMA [address], [place], [address], [facility] - [facility] 04/11/2025 09:53:57 04/04/20 25 Allergy Immunotherapy Injections completed ROSA ALDANA, RMA [address], [place], [address], [place] [facility] 04/04/2025 14:14:25 03/21/20 25 Allergy Immunotherapy Injections completed MAVERICK TERRAZAS RN [address], [place], [address], [place] [facility] 03/21/2025 14:32:25 03/15/20 25 Allergy Immunotherapy Injections completed ROSA ALDANA, RMA [address], [place], [address], [place] [facility] 03/15/2025 13:24:02 03/07/20 25 Allergy Immunotherapy Injections completed TOYIN GURROLA RMA [address], [place], [address], [place] [facility] 03/07/2025 14:17:42 03/02/20 25 Allergy Immunotherapy Injections completed TOYIN GURROLA RMA [address], [place], [address], [place] [facility] 03/02/2025 09:22:17 02/24/20 25 Allergy Immunotherapy Injections completed TOYIN GURROLA RMA [address], [place], [address], [place] [facility] 02/23/2025 10:37:57 02/15/20 25 Allergy Immunotherapy Injections completed MAVERICK TERRAZAS RN [address], [place], [address], [place] [facility] 02/14/2025 13:47:08 02/08/20 25 Allergy Immunotherapy Injections completed ROSA ALDANA RMA [address], [place], [address], [place] [facility] 02/07/2025 15:34:14 02/01/20 25 Allergy Immunotherapy Injections completed TOYIN GURROLA RMA [address], [place], [address], [place] [facility] 01/31/2025 14:14:19 01/25/20 25 Allergy Immunotherapy Injections completed TOYIN GURROLA RMA [address], [place], [address], [place] [facility] 01/24/2025 10:31:45 01/18/20 25 Allergy Immunotherapy Injections completed TOYIN GURROLA RMA [address], [place], [address], [place] [facility] 01/17/2025 11:50:20 01/12/20 25 Allergy Immunotherapy Injections completed MAVERICK TERRAZAS RN [address], [place], [address], [place] [facility] 01/11/2025 10:38:17 01/03/20 25 Allergy Immunotherapy Injections completed MAVERICK TERRAZAS RN [address], [place], [address], [place] [facility] 01/03/2025 13:48:45 12/29/19 25 Allergy Immunotherapy Injections completed MAVERICK TERRAZAS RN [address], [place], [address], [place] [facility] 12/29/2024 10:36:58 12/20/19 25 Allergy Immunotherapy Injections completed MAVERICK TERRAZAS RN [address] [facility] [address], [place], [address], [place] [facility] 12/20/2024 15:44:53 12/12/19 25 Allergy Immunotherapy Injections completed DENICE RIVERA [address], [place], [address], [place] [facility] 12/12/2024 13:28:07 11/30/19 25 Allergy Immunotherapy Injections completed ROSA ALDANA RMReji [address], [place], [address], [place] [facility] 11/30/2024 14:28:33 11/22/19 25 Allergy Immunotherapy Injections completed ROSA ALDANA RMReji [address], [place], [address], [place] [facility] 11/22/2024 13:40:26 11/15/19 25 Allergy Immunotherapy Injections completed ROSA ALDANA RMReji [address], [place], [address], [place] [facility] 11/15/2024 13:45:46 11/10/19 25 Allergy Immunotherapy Injections completed DENICE RIVERA [address], [place], [address], [place] [facility] 11/10/2024 15:15:34 11/02/20 24 Allergy Immunotherapy Injections completed MAVERICK TERRAZAS RN [address] [facility] [address], [place], [address], [place] [facility] 11/02/2024 10:42:32 10/25/20 24 Allergy Immunotherapy Injections completed MAVERICK TERRAZAS RN [address] [facility], [place], [address], [place] [facility] 10/25/2024 14:09:21 10/17/20 24 Allergy Immunotherapy Injections completed DENICE MARIA [address] [facility], [place], [address], [place] [facility] 10/17/2024 13:44:09 10/03/20 24 Allergy Immunotherapy Injections completed DENICE RIVERA [address] [facility] [place] [address], [address], [place] [facility] 10/03/2024 13:20:05 09/21/20 24 Allergy Immunotherapy Injections completed MAVERICK TERRAZAS RN [address] [facility],[address] [place] [address], [address], [place] [facility] 09/21/2024 12:01:33 09/12/20 24 Allergy Immunotherapy Injections completed ROSA ALDANA Reji [address] [facility] [place] [address], [address], [place] [facility] 09/12/2024 14:05:49 09/06/20 24 Allergy Immunotherapy Injections completed DENICE RIVERA [address] [facility],[address] [place] [address], [address], [place] [facility] 09/06/2024 14:48:49 09/06/20 24 JMSNasal/Sinus Endoscopy-PRIOR surgical cavities completed KYMBERLY GARCIA MD [address] [facility] [place] [address], [address], [place] [facility] 09/06/2024 15:05:59 08/29/20 24 Allergy Immunotherapy Injections completed DENICE RIVERA [address] [facility],[address] [place] [address], [address], [place] [facility] 08/29/2024 14:50:02 08/23/20 24 Allergy Immunotherapy Injections completed MAVERICK TERRAZAS RN [address] [facility], [place], [address], [place] [facility] 08/23/2024 15:21:09 08/15/20 24 Allergy Immunotherapy Injections completed MAVERICK TERRAZAS RN [address], [place], [address], [place] [facility] 08/15/2024 14:14:05 08/10/20 24 Allergy Immunotherapy Injections completed DENICE RIVERA [address], [place], [address], [place] [facility] 08/10/2024 14:00:51 08/04/20 24 Allergy Immunotherapy Injections completed DENICE RIVERA [address] [facility] [address] [place] [address], [address], [place] [facility] 08/04/2024 15:31:25 07/25/20 24 Allergy Immunotherapy Injections completed DENICE MARIA [address] [place] [address], [address], [place] [facility] 07/25/2024 14:33:52 07/19/20 24 Allergy Immunotherapy Injections completed MAVERICK TERRAZAS RN [address] [facility] [address] [place] [address], [address], [place] [facility] 07/19/2024 16:18:04 07/11/20 24 Allergy Immunotherapy Injections completed DENICE MARIA [address] [place] [address], [address], [place] [facility] 07/11/2024 14:32:17 07/04/20 24 Allergy Immunotherapy Injections completed DENICE RIVERA [address] [facility], [place], [address], [place] [facility] 07/04/2024 14:03:37 06/28/20 24 Allergy Immunotherapy Injections completed MAVERICK TERRAZAS RN [address], [place], [address], [place] [facility] 06/28/2024 14:26:26 06/20/20 24 Allergy Immunotherapy Injections completed DENICE MARIA [address], [place], [address], [place] [facility] 06/20/2024 13:05:25 06/13/20 24 Allergy Immunotherapy Injections completed DENICE RIVERA [address], [place], [address], [place] [facility] 06/13/2024 15:52:47 06/06/20 24 Allergy Immunotherapy Injections completed MAVERICK TERRAZAS RN [address] [facility] [address] [place] [address], [address], [place] [facility] 06/06/2024 15:10:37 06/06/20 24 JMSNasal/Sinus Endoscopy-PRIOR surgical cavities completed KYMBERLY GARCIA MD [address] [facility],[address] [place] [address], [address], [place] [facility] 06/06/2024 14:10:04 06/01/20 24 Allergy Immunotherapy Injections completed MAVERICK TERRAZAS RN [address] [facility],[address] [place] [address], [address], [place] [facility] 06/01/2024 15:38:20 05/23/20 24 Allergy Immunotherapy Injections completed DENICE RIVERA [address] [facility] [place] [address], [address], [place] [facility] 05/23/2024 14:44:44 05/17/20 24 Allergy Immunotherapy Injections completed ROSA ALDANA RMReji [address] [facility], [place], [address], [place] [facility] 05/17/2024 16:10:00 05/09/20 24 Allergy Immunotherapy Injections completed MAVERICK TERRAZAS RN [address] [facility] [address] [place] [address], [address], [place] [facility] 05/09/2024 15:06:52 05/02/20 24 Allergy Immunotherapy Injections completed DENICE RIVERA [address] [facility], [place], [address], [place] [facility] 05/02/2024 13:34:36 04/25/20 24 Allergy Immunotherapy Injections completed DENICE RIVERA [address] [facility] [place] [address], [address], [place] [facility] 04/25/2024 14:45:44 04/21/20 24 Allergy Immunotherapy Injections completed DENICE RIVERA [address] [facility], [place], [address], [place] [facility] 04/21/2024 14:00:37 04/12/20 24 Allergy Immunotherapy Injections completed ROSA ALDANA RMReji [address] [facility] [place] [address], [address], [place] [facility] 04/12/2024 16:04:03 04/05/20 24 JMSNasal/Sinus Endoscopy-PRIOR surgical cavities completed KYMBERLY GARCIA MD [address] [facility],[address] [place] [address], [address], [place] [facility] 04/05/2024 14:34:46 04/05/20 24 Allergy Immunotherapy Injections completed DENICE RIVERA [address] [facility],[address] [place] [address], [address], [place] [facility] 04/05/2024 13:35:01 03/29/20 24 Allergy Immunotherapy Injections completed DENICE MARIA [address] [facility] [place] [address], [address], [place] [facility] 03/29/2024 16:18:09 02/29/20 24 functional endoscopic sinus surgery completed KYMBERLY GARCIA MD [address] [place] [address], [address], [place] [facility] 04/05/2024 14:33:51 02/29/20 24 Repair of nasal septum completed KYMBERLY GARCIA MD [address], [place], [address], [place] [facility] 04/05/2024 14:34:03 cholecystectomy completed Shyanne Escalante [place] - [facility] 11/15/2024 13:38:47 section completed Shyanne Escalante [place] - [facility] 11/15/2024 13:38:52 Imaging Results None recorded. Procedure Notes None recorded. Medical Equipment None Reported. Allergies Allergen ID Allergen Name Allergen Category Reaction Reaction Severity Criticality Documentation Date Start Date Code Code System Note Provider Name and Address Organization Details Recorded Time 967408 PO[facility] [employer] environme nt,medica tion Not available Not available low 10/18/20252024 58965 6 RxNorm Runny nose unrec ogniz ed react ion (text : Itchy eyes, code: 49451 002), mild (from exter nal sourc e) [...] by mouth 09/06 completed Medicati on ID: [id number] D uration Value: 10 Brand Name: doxycycl [...] ICD10 Code Diagnosis IMO Codes Diagnosis Note [id number] ROSA ALDANA A [facility] [address] [facility],[address] [place] [address] 08/10/2025 09:49:11 08/10/2025 10:22:58 Perennial allergic rhinitis 805109285 J30.89 [id number] ROSA ALDANA [facility] Allergy [address] [facility],[address] [place] [address] 08/15/2025 11:30:58 08/15/2025 11:51:34 Perennial allergic rhinitis 439589097 J30.89 [id number] [address] Allergy [address] [facility],[address] [place] [address] 08/22/2025 10:53:59 08/22/2025 11:08:03 Perennial allergic rhinitis 490847774 J30.89 [id number] Clay Vasquezos [facility] [address] [place] [address],[address] [place] [address] 08/29/2025 09:58:17 08/29/2025 10:22:53 Perennial allergic rhinitis 160192301 J30.89 [id number] TOYIN GURROLA [facility] [address] [facility],[address] [place] [address] 09/05/2025 10:05:36 09/05/2025 11:11:02 Perennial allergic rhinitis [id number] J30.89 Health Concerns Section Related Observation LastModified by Organization Detai ls LastModified Time None Recorded Concern Status LastModified by Organization Details LastModified Time None Recorded Payers Encounter Date Sequence Insurance Name Policy Number Policy Maya Covered Member ID Maya Member ID Guarantor Name 09/05/2025 1 [facility]MEDICAID HMO) YESENIA Hoffmann [id number] Naina Hoffmann OBGyn Episode No OBEpisode recorded.
--- OUTSIDE RECORDS SUMMARY | 2025-10-25 17:48 | XMS_ITS | Continuity of Care Document ---
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 Name Role Phone HILARIO CAI Primary Care Provider CAMPOS JONES Primary Care Provider Assessment Encounter Date Assessment Date Assessment LastModified by Organization Details LastModified Time 10/17/2025 10/17/2025 Visit With: Clay Umanzor [place] Use of Antihistamine s: Yes If yes: Vial Test Change in medications: No If yes Increase in asthma symptoms If yes, inhaler use: Reaction to last injections: No If yes: Allergy Symptoms: Other: Missed: Dose Aware of Vial Test Aware: Notes: [email or web address] Not available 10/17/2025 10:57:55 Plan of Treatment Reminders Order Date Submit Date Provider Last Modified By Organization Details Last Modified Time Details Appointments [facility]- Allergy f-up 6mon 2025 10:00A M NATY [...] Time Hypertrop hy of nasal turbinate s [id number] Active 2023 Hypertroph y of nasal turbinates ; Note: Date Diagnosed: 01/03/2016 8:40 AM (J34.3) Not Available [facility] 4 02:13:50 Chronic rhinitis 27556029 Active 2023 Chronic rhinitis; Note: Date Diagnosed: 11/22/2023 2:34 PM (J31.0) Not Available [facility] 4 02:13:06 Deviated nasal septum 733462428 Active 2023 Deviated nasal septum; Note: Date Diagnosed: 01/03/2016 8:40 AM (J34.2) Not Available [facility] 4 02:13:23 Disorder of smell 793616449 Active 2023 Other disturbanc es of smell and taste; Note: Date Diagnosed: 11/22/2023 2:34 PM (R43.8) Not Available [facility] 4 02:14:24 Disorder of taste 914162740 Active 2023 Other disturbanc es of smell and taste; Note: Date Diagnosed: 11/22/2023 2:34 PM (R43.8) Not Available [facility] 4 02:14:24 Follow-up visit Active 2023 Encounter for follow-up examinatio n after completed treatment for conditions other than malignant neoplasm; Note: Date Diagnosed: 03/03/2024 11:19 AM (Z09) Not Available [facility] 4 02:14:15 Headache 83959484 Active 2023 Headache, unspecifie d; Note: Date Diagnosed: 03/20/2024 11:48 AM (R51.9) Not Available [facility] 4 02:14:40 Perennial allergic rhinitis 651774652 Active 2023 Clay Umanzor 100 [facility],[place] [address], [place], [address] , [place] [facility] 5 11:07:14 Allergic rhinitis 44225482 Active 2023 KYMBERLY MCKEON MD [address] [place] [address],[place] [address], [place], [address] , [place] [facility] 4 14:34:26 Chronic sinusitis 42911214 Active 2023 KYMBERLY MCKEON MD [address] [place] [address],[place] [address], [place], [address] , [place] [facility] 4 14:35:04 Mild intermitt ent asthma 163881796 Active 2023 KYMBERLY MCKEON MD [address] [facility],[address], [place], [address] , [place] [facility] 4 14:13:34 Posterior rhinorrhe a 33491379 Active 2024 KYMBERLY MCKEON MD [address] [facility],[address], [place], [address] , [place] [facility] 5 14:40:01 Paresthes ia 79366555 Active 2024 MEAGHAN PHILIPPE PA-C 100 [facility],[place] [facility], [place], [address] , [place] [facility] 5 14:12:02 Postconcu ssion syndrome 14889765 Active 2024 KYMBERLY MCKEON MD [address] [facility],[place] [facility], [place], [address] , [place] [facility] 5 14:40:07 Migraine without aura, not refractor y 086683908 Active 2024 KYMBERLY MCKEON MD [address] [facility] [address],[place] [facility], [place], [address] , [place] [facility] 5 09:32:09 Problem Notes None recorded. Procedures Surgical History Date Name Laterality Status Provider Name and Address Organization Details Recorded Time 10/23/20 25 Allergy Immunotherapy Injections completed ROSA ALDANA Reji [address] [facility] [facility], [place], [address], [place] [facility] 10/23/2025 13:43:37 10/17/20 25 Allergy Immunotherapy Injections completed DENICE RIVERA [address] [facility] [address],[place] [facility], [place], [address], [place] [facility] 10/17/2025 10:57:33 10/10/20 25 Allergy Immunotherapy Injections completed MAKAYLA GALILEO, RMA [address], [place], [address], [place] [facility] 10/10/2025 10:51:36 10/03/20 25 Allergy Immunotherapy Injections completed RUBINA RIVERAA [address], [place], [address], [place] [facility] 10/03/2025 11:26:10 09/27/20 25 Allergy Immunotherapy Injections completed ROSA DOUGLASSC, RMA [address], [place], [address], [place] [facility] 09/27/2025 11:30:14 09/17/20 25 Allergy Immunotherapy Injections completed ROSA DOUGLASSC, RMA [address] [address], [address], [place] [facility] 09/17/2025 10:43:44 09/12/20 25 Allergy Immunotherapy Injections completed ROSA ALDANA, RMA [address], [place], [address], [place] [facility] 09/12/2025 11:16:56 09/05/20 25 Allergy Immunotherapy Injections completed MAKAYLA GURROLA RMA [address],[place] [address], [address], [place] [facility] 09/05/2025 10:32:29 08/29/20 25 Allergy Immunotherapy Injections completed Clay Umanzor [address], [place], [address], [place] [facility] 08/29/2025 10:21:54 08/22/20 25 Allergy Immunotherapy Injections completed Clay Noé [address], [place], [address], [place] [facility] 08/22/2025 11:07:33 08/15/20 25 Allergy Immunotherapy Injections completed ROSA DOUGLASSC, RMA [address], [place], [address], [place] [facility] 08/15/2025 11:51:06 08/10/20 25 Allergy Immunotherapy Injections completed ROSA DOUGLASSC, RMA [address], [place], [address], [place] [facility] 08/10/2025 10:21:59 07/25/20 25 Allergy Immunotherapy Injections completed DENICE RIVERA [address] [facility] [place] [address], [address], [place] [facility] 07/25/2025 13:58:02 07/18/20 25 Allergy Immunotherapy Injections completed DENICE MARIA [address] [facility],[place] [address], [address], [place] [facility] 07/18/2025 12:15:30 07/11/20 25 Allergy Immunotherapy Injections completed MAVERICK TERRAZAS RN [address] [facility],[place] [address] [place] [address], [address], [place] [facility] 07/11/2025 15:58:33 07/04/20 25 Allergy Immunotherapy Injections completed DENICE MARIA [address] [facility],[place] [address] [place] [address], [address], [place] [facility] 07/04/2025 15:57:33 06/21/20 25 Allergy Immunotherapy Injections completed DENICE RIVERA [address] [facility],[place] [address] [place] [address], [address], [place] [facility] 06/21/2025 11:57:52 06/13/20 25 Allergy Immunotherapy Injections completed DENICE RIVERA [address] [facility],[place] [address] [place] [address], [address], [place] [facility] 06/13/2025 13:15:25 06/06/20 25 Allergy Immunotherapy Injections completed MAVERICK TERRAZAS RN [address] [facility] [address] [place] [address], [address], [place] [facility] 06/06/2025 13:16:32 05/28/20 25 surgical procedure on cervical spine completed KYMBERLY GARCIA MD [address],[place] [address], [address], [place] [facility] 09/17/2025 09:31:38 05/24/20 25 Allergy Immunotherapy Injections completed ROSA KORZEC, RMA [address], [place], [address], [place] [facility] 05/24/2025 11:28:37 05/17/20 25 Allergy Immunotherapy Injections completed MAKAYLA GURROLA RMA [address], [place], [address], [place] [facility] 05/17/2025 10:52:46 05/09/20 25 Allergy Immunotherapy Injections completed ROSA DOUGLASSC, RMA [address], [place], [address], [place] [facility] 05/09/2025 13:47:27 05/01/20 25 Allergy Immunotherapy Injections completed MAKAYLA GURROLA RMA [address], [place], [address], [place] [facility] 05/01/2025 11:48:55 04/25/20 25 Allergy Immunotherapy Injections completed MAKAYLA GURROLA RMA [address] [address], [address], [place] [facility] 04/25/2025 12:09:48 04/19/20 25 Allergy Immunotherapy Injections completed ROSA ALDANA RMA [address],[place] [address], [address], [facility] - [facility] 04/19/2025 13:45:42 04/11/20 25 Allergy Immunotherapy Injections completed ROSA ALDANA RMA [address], [place], [address], [facility] - [facility] 04/11/2025 09:53:57 04/04/20 25 Allergy Immunotherapy Injections completed ROSA DOUGLASSC, RMA [address], [place], [address], [place] [facility] 04/04/2025 14:14:25 03/21/20 25 Allergy Immunotherapy Injections completed MAVERICK TERRAZAS RN [address], [place], [address], [place] [facility] 03/21/2025 14:32:25 03/15/20 25 Allergy Immunotherapy Injections completed ROSA ALDANA, RMA [address], [place], [address], [place] [facility] 03/15/2025 13:24:02 03/07/20 25 Allergy Immunotherapy Injections completed MAKAYLA GURROLA RMA [address], [place], [address], [place] [facility] 03/07/2025 14:17:42 03/02/20 25 Allergy Immunotherapy Injections completed MAKAYLA GURROLA RMA [address], [place], [address], [place] [facility] 03/02/2025 09:22:17 02/24/20 25 Allergy Immunotherapy Injections completed MAKAYLA GURROLA RMA [address],[place] [address], [address], [place] [facility] 02/23/2025 10:37:57 02/15/20 25 Allergy Immunotherapy Injections completed MAVERICK TERRAZAS RN [address],[place] [address], [address], [place] [facility] 02/14/2025 13:47:08 02/08/20 25 Allergy Immunotherapy Injections completed ROSA ALDANA, RMA [address],[place] [address], [address], [place] [facility] 02/07/2025 15:34:14 02/01/20 25 Allergy Immunotherapy Injections completed MAKAYLA GURROLA RMA [address],[place] [address], [address], [place] [facility] 01/31/2025 14:14:19 01/25/20 25 Allergy Immunotherapy Injections completed MAKAYLA GURROLA RMA [address], [place], [address], [place] [facility] 01/24/2025 10:31:45 01/18/20 25 Allergy Immunotherapy Injections completed MAKAYLA GURROLA RMA [address] [address], [address], [place] [facility] 01/17/2025 11:50:20 01/12/20 25 Allergy Immunotherapy Injections completed MAVERICK TERRAZAS RN [address], [place], [address], [place] [facility] 01/11/2025 10:38:17 01/03/20 25 Allergy Immunotherapy Injections completed MAVERICK TERRAZAS RN [address], [place], [address], [place] [facility] 01/03/2025 13:48:45 12/29/19 25 Allergy Immunotherapy Injections completed MAVERICK TERRAZAS RN [address], [place], [address], [place] [facility] 12/29/2024 10:36:58 12/20/19 25 Allergy Immunotherapy Injections completed MAVERICK TERRAZAS RN [address] [facility], [place], [address], [place] [facility] 12/20/2024 15:44:53 12/12/19 25 Allergy Immunotherapy Injections completed DENICE RIVERA [address] [facility], [place], [address], [place] [facility] 12/12/2024 13:28:07 11/30/19 25 Allergy Immunotherapy Injections completed ROSA ALDANA RMReji [address],[place] [address], [address], [place] [facility] 11/30/2024 14:28:33 11/22/19 25 Allergy Immunotherapy Injections completed ROSA ALDANA RMReji [address], [place], [address], [place] [facility] 11/22/2024 13:40:26 11/15/19 25 Allergy Immunotherapy Injections completed ROSA ALDANA RMReji [address], [place], [address], [place] [facility] 11/15/2024 13:45:46 11/10/19 25 Allergy Immunotherapy Injections completed DENICE RIVERA [address], [place], [address], [place] [facility] 11/10/2024 15:15:34 11/02/20 24 Allergy Immunotherapy Injections completed MAVERICK TERRAZAS RN [address], [place], [address], [place] [facility] 11/02/2024 10:42:32 10/25/20 24 Allergy Immunotherapy Injections completed MAVERICK TERRAZAS RN [address] [facility] [address],[place] [address], [address], [place] [facility] 10/25/2024 14:09:21 10/17/20 24 Allergy Immunotherapy Injections completed ROSA ALDANA RMReji [address] [facility] [address],[place] [address], [address], [place] [facility] 10/17/2024 13:44:09 10/03/20 24 Allergy Immunotherapy Injections completed DENICE RIVERA [address] [facility] [place] [address], [address], [place] [facility] 10/03/2024 13:20:05 09/21/20 24 Allergy Immunotherapy Injections completed MAVERICK TERRAZAS RN [address] [facility] [facility], [place], [address], [place] [facility] 09/21/2024 12:01:33 09/12/20 24 Allergy Immunotherapy Injections completed ROSA ALDANA Reji [address] [facility] [address] [place] [address], [address], [place] [facility] 09/12/2024 14:05:49 09/06/20 24 Allergy Immunotherapy Injections completed DENICE RIVERA [address] [facility],[place] [address] [place] [address], [address], [place] [facility] 09/06/2024 14:48:49 09/06/20 24 JMSNasal/Sinus Endoscopy-PRIOR surgical cavities completed KYMBERLY GARCIA MD [address] [facility] [address] [place] [address], [address], [place] [facility] 09/06/2024 15:05:59 08/29/20 24 Allergy Immunotherapy Injections completed DENICE RIVERA [address] [facility],[place] [address] [place] [address], [address], [place] [facility] 08/29/2024 14:50:02 08/23/20 24 Allergy Immunotherapy Injections completed MAVERICK TERRAZAS RN [address], [place], [address], [place] [facility] 08/23/2024 15:21:09 08/15/20 24 Allergy Immunotherapy Injections completed MAVERICK TERRAZAS RN [address] [facility], [place], [address], [place] [facility] 08/15/2024 14:14:05 08/10/20 24 Allergy Immunotherapy Injections completed DENICE RIVERA [address] [facility], [place], [address], [place] [facility] 08/10/2024 14:00:51 08/04/20 24 Allergy Immunotherapy Injections completed DENICE RIVERA [address] [facility] [address] [place] [address], [address], [place] [facility] 08/04/2024 15:31:25 07/25/20 24 Allergy Immunotherapy Injections completed DENICE MARIA [address] [address] [place] [address], [address], [place] [facility] 07/25/2024 14:33:52 07/19/20 24 Allergy Immunotherapy Injections completed MAVERICK TERRAZAS RN [address] [facility] [address] [place] [address], [address], [place] [facility] 07/19/2024 16:18:04 07/11/20 24 Allergy Immunotherapy Injections completed DENICE MARIA [address], [place], [address], [place] [facility] 07/11/2024 14:32:17 07/04/20 24 Allergy Immunotherapy Injections completed DENICE RIVERA [address] [facility],[place] [address], [address], [place] [facility] 07/04/2024 14:03:37 06/28/20 24 Allergy Immunotherapy Injections completed MAVERICK TERRAZAS RN [address],[place] [address], [address], [place] [facility] 06/28/2024 14:26:26 06/20/20 24 Allergy Immunotherapy Injections completed DENICE MARIA [address] [address] [place] [address], [address], [place] [facility] 06/20/2024 13:05:25 06/13/20 24 Allergy Immunotherapy Injections completed DENICE RIVERA [address],[place] [address], [address], [place] [facility] 06/13/2024 15:52:47 06/06/20 24 Allergy Immunotherapy Injections completed MAVERICK TERRAZAS RN [address] [facility] [address] [facility], [place], [address], [place] [facility] 06/06/2024 15:10:37 06/06/20 24 JMSNasal/Sinus Endoscopy-PRIOR surgical cavities completed KYMBERLY GARCIA MD [address] [facility],[place] [address] [place] [address], [address], [place] [facility] 06/06/2024 14:10:04 06/01/20 24 Allergy Immunotherapy Injections completed MAVERICK TERRAZAS RN [address] [facility],[place] [address] [place] [address], [address], [place] [facility] 06/01/2024 15:38:20 05/23/20 24 Allergy Immunotherapy Injections completed DENICE RIVERA [address] [facility] [address] [address] [place] [address], [address], [place] [facility] 05/23/2024 14:44:44 05/17/20 24 Allergy Immunotherapy Injections completed ROSA ALADNA RMA [address] [facility] [address],[place] [address], [address], [place] [facility] 05/17/2024 16:10:00 05/09/20 24 Allergy Immunotherapy Injections completed MAVERICK TERRAZAS RN [address] [facility] [address] [place] [address], [address], [place] [facility] 05/09/2024 15:06:52 05/02/20 24 Allergy Immunotherapy Injections completed DENICE RIVERA [address] [facility] [address],[place] [address], [address], [place] [facility] 05/02/2024 13:34:36 04/25/20 24 Allergy Immunotherapy Injections completed DENICE RIVERA [address],[place] [address], [address], [place] [facility] 04/25/2024 14:45:44 04/21/20 24 Allergy Immunotherapy Injections completed DENICE RIVERA [address] [facility] [address],[place] [address], [address], [place] [facility] 04/21/2024 14:00:37 04/12/20 24 Allergy Immunotherapy Injections completed DENICE MARIA [address] [facility] [address],[place] [address] [place] [address], [address], [place] [facility] 04/12/2024 16:04:03 04/05/20 24 JMSNasal/Sinus Endoscopy-PRIOR surgical cavities completed KYMBERLY GARCIA MD [address] [facility],[place] [address] [place] [address], [address], [place] [facility] 04/05/2024 14:34:46 04/05/20 24 Allergy Immunotherapy Injections completed DENICE RIVERA [address] [facility] [address] [address] [place] [address], [address], [place] [facility] 04/05/2024 13:35:01 03/29/20 24 Allergy Immunotherapy Injections completed DENICE MARIA [address] [facility] [address] [address] [place] [address], [address], [place] [facility] 03/29/2024 16:18:09 02/29/20 24 functional endoscopic sinus surgery completed KYMBERLY GARCIA MD [address] [place] [address], [address], [place] [facility] 04/05/2024 14:33:51 02/29/20 24 Repair of nasal septum completed KYMBERLY GARCIA MD [address] [address] [place] [address], [address], [place] [facility] 04/05/2024 14:34:03 cholecystectomy completed Shyanne Escalante [place] - [facility] 11/15/2024 13:38:47 section completed Shyanne Escalante [place] - [facility] 11/15/2024 13:38:52 Imaging Results None recorded. Procedure Notes None recorded. Medical Equipment None Reported. Allergies Allergen ID Allergen Name Allergen Category Reaction Reaction Severity Criticality Documentation Date Start Date Code Code System Note Provider Name and Address Organization Details Recorded Time 591650 [employer] environme nt,medica tion Not available Not available low 10/18/20252024 41688 6 RxNorm Runny nose unrec ogniz ed react ion (text : Itchy eyes, code: 69578 002), mild (from exter nal sourc e) [...] by mouth 09/06 completed Medicati on ID: [id number] D uration Value: 10 Brand Name: doxycycl [...] ICD10 Code Diagnosis IMO Codes Diagnosis Note [id number] KYMBERLY MCKEON MD [facility] [address] [address] 09/17/2025 09:14:46 09/17/2025 09:33:54 Perennial allergic rhinitis 398590792 J30.89 151204 Migraine w ithout aura, not refractory 438234656 G43.009 354301 History of surgical procedure on cervical spine [id number] Z98.661 [id number] MAKAYLA GURROLA [facility] Allergy [address] [place] [address] 09/17/2025 09:15:39 09/17/2025 10:44:11 Perennial allergic rhinitis 852030033 J30.89 [id number] ROSA RAFAT [facility] Allergy [address] [place] [address] 09/27/2025 11:01:58 09/27/2025 11:30:53 Perennial allergic rhinitis 792358758 J30.89 [id number] MAKAYLA GURROLA [facility] Allergy [address] [place] [address] 10/03/2025 10:53:10 10/03/2025 11:26:37 Perennial allergic rhinitis [id number] J30.89 [id number] MAKAYLA GURROLA [facility] Allergy [address] [place] [address] 10/10/2025 10:31:47 10/10/2025 11:36:39 Perennial allergic rhinitis 027294357 J30.89 [id number] Clay Umanzor Allergy [address] [place] [address] 10/17/2025 10:01:26 10/17/2025 10:58:09 Perennial allergic rhinitis 435258368 J30.89 Health Concerns Section Related Observation LastModified by Organization Detai ls LastModified Time None Recorded Concern Status LastModified by Organization Details LastModified Time None Recorded Payers Encounter Date Sequence Insurance Name Policy Number Policy Maya Covered Member ID Maya Member ID Guarantor Name 10/17/2025 1 [facility] - HEALTH NET PLAN (MEDICAID HMO) YESENIA Hoffmann [id number] Naina Hoffmann OBGyn Episode No OBEpisode recorded.
--- OUTSIDE RECORDS SUMMARY | 2025-10-25 17:48 | XMS_ITS | Continuity of Care Document ---
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 Role Phone HILARIO CAI Primary Care Provider CAMPOS JONES Primary Care Provider Assessment Encounter Date Assessment Date Assessment LastModified by Organization Details LastModified Time 08/29/2025 08/29/2025 Visit With: Clay Umanzor [place] Use of Antihistamine s: No If yes: Vial Test Yes Change in medications: No If yes Increase in asthma symptoms No If yes, inhaler use: Reaction to last injections: No If yes: Allergy Symptoms: Other: Missed: Dose Aware of Vial Test Aware: Notes:held injections due to large reactions from Vial Test [email or web address] Not available 08/29/2025 10:22:29 Plan of Treatment Reminders Order Date Submit [...] Time Hypertrop hy of nasal turbinate s 09637192 Active 2023 Hypertroph y of nasal turbinates ; Note: Date Diagnosed: 01/03/2016 8:40 AM (J34.3) Not Available [facility] 4 02:13:50 Chronic rhinitis 80100609 Active 2023 Chronic rhinitis; Note: Date Diagnosed: 11/22/2023 2:34 PM (J31.0) Not Available [facility] 4 02:13:06 Deviated nasal septum 690576216 Active 2023 Deviated nasal septum; Note: Date Diagnosed: 01/03/2016 8:40 AM (J34.2) Not Available [facility], [facility] 4 02:13:23 Disorder of smell 885549457 Active 2023 Other disturbanc es of smell and taste; Note: Date Diagnosed: 11/22/2023 2:34 PM (R43.8) Not Available [facility], [facility] 4 02:14:24 Disorder of taste 763808157 Active 2023 Other disturbanc es of smell and taste; Note: Date Diagnosed: 11/22/2023 2:34 PM (R43.8) Not Available [facility], [facility] 4 02:14:24 Follow-up visit Active 2023 Encounter for follow-up examinaamira childress after completed treatment for conditions other than malignant neoplasm; Note: Date Diagnosed: 03/03/2024 11:19 AM (Z09) Not Available [facility], [facility] 4 02:14:15 Headache 28686769 Active 2023 Headache, unspecifie d; Note: Date Diagnosed: 03/20/2024 11:48 AM (R51.9) Not Available [facility], [facility] 4 02:14:40 Perennial allergic rhinitis 518535132 Active 2023 Clay Umanzor [address] [facility],[place] [address], [place], [address] , [place] - [facility] 5 11:07:14 Allergic rhinitis 50559846 Active 2023 KYMBERLY MCKEON MD [address] [place] [address],[place] [address], [place], [address] , [place] - [facility] 4 14:34:26 Chronic sinusitis 85793577 Active 2023 KYMBERLY MCKEON MD [address] [place] [address],[place] [address], [place], [address] , [place] [facility] 4 14:35:04 Mild intermitt ent asthma 141087075 Active 2023 KYMBERLY MCKEON MD [address], [place], [address] , [place] [facility] 4 14:13:34 Posterior rhinorrhe a 23878328 Active 2024 KYMBERLY MCKEON MD [address], [place], [address] , [place] [facility] 5 14:40:01 Paresthes ia 60806988 Active 2024 MEAGHAN PHILIPPE PA-C [address], [place], [address] , [place] [facility] 5 14:12:02 Postconcu ssion syndrome 55896820 Active 2024 KYMBERLY MCKEON MD [address] [facility] [address] [facility], [place], [address] , [place] [facility] 5 14:40:07 Migraine without aura, not refractor y 181434311 Active 2024 KYMBERLY MCKEON MD [address] [facility] [address], [place], [address] , [place] [facility] 5 09:32:09 Problem Notes None recorded. Procedures Surgical History Date Name Laterality Status Provider Name and Address Organization Details Recorded Time 10/23/20 25 Allergy Immunotherapy Injections completed ROSA ALDANA [facility] [address] [facility] [address] [facility], [place], [address], [place] [facility] 10/23/2025 13:43:37 10/17/20 25 Allergy Immunotherapy Injections completed DENICE RIVERA [address], [place], [address], [place] [facility] 10/17/2025 10:57:33 10/10/20 25 Allergy Immunotherapy Injections completed RUBINA RIVERAA [address], [place], [address], [place] [facility] 10/10/2025 10:51:36 10/03/20 25 Allergy Immunotherapy Injections completed RUBINA RIVERAA [address], [place], [address], [place] [facility] 10/03/2025 11:26:10 09/27/20 25 Allergy Immunotherapy Injections completed ROSA DOUGLASSC, RMA [address], [place], [address], [place] [facility] 09/27/2025 11:30:14 09/17/20 25 Allergy Immunotherapy Injections completed ROSA DOUGLASSC, RMA [address], [place], [address], [place] [facility] 09/17/2025 10:43:44 09/12/20 25 Allergy Immunotherapy Injections completed ROSA ALDANA, RMA [address], [place], [address], [place] [facility] 09/12/2025 11:16:56 09/05/20 25 Allergy Immunotherapy Injections completed MAKAYLA GURROLA RMA [address], [place], [address], [place] [facility] 09/05/2025 10:32:29 08/29/20 25 Allergy Immunotherapy Injections completed Clay Umanzor [address], [place], [address], [place] [facility] 08/29/2025 10:21:54 08/22/20 25 Allergy Immunotherapy Injections completed Clay Noé [address], [place], [address], [place] [facility] 08/22/2025 11:07:33 08/15/20 25 Allergy Immunotherapy Injections completed ROSA DOUGLASSC, RMA [address], [place], [address], [place] [facility] 08/15/2025 11:51:06 08/10/20 25 Allergy Immunotherapy Injections completed ROSA DOUGLASSC, RMA [address], [place], [address], [place] [facility] 08/10/2025 10:21:59 07/25/20 25 Allergy Immunotherapy Injections completed RUBINA RIVERAA [address], [place], [address], [place] [facility] 07/25/2025 13:58:02 07/18/20 25 Allergy Immunotherapy Injections completed ROSA ALDANA, RMA [address], [place], [address], [place] [facility] 07/18/2025 12:15:30 07/11/20 25 Allergy Immunotherapy Injections completed MAVERICK TERRAZAS RN [address] [place] [address], [address], [place] [facility] 07/11/2025 15:58:33 07/04/20 25 Allergy Immunotherapy Injections completed ROSA ALDANA, RMA [address] [facility], [place], [address], [place] [facility] 07/04/2025 15:57:33 06/21/20 25 Allergy Immunotherapy Injections completed DENICE RIVERA [address] [place] [address], [address], [place] [facility] 06/21/2025 11:57:52 06/13/20 25 Allergy Immunotherapy Injections completed DENICE RIVERA [address] [facility],[address] [place] [address], [address], [place] [facility] 06/13/2025 13:15:25 06/06/20 25 Allergy Immunotherapy Injections completed MAVERICK TERRAZAS RN [address] [facility], [place], [address], [place] [facility] 06/06/2025 13:16:32 05/28/20 25 surgical procedure on cervical spine completed KYMBERLY GARCIA MD [address], [place], [address], [place] [facility] 09/17/2025 09:31:38 05/24/20 25 Allergy Immunotherapy Injections completed ROSA DOUGLASSC, RMA [address], [place], [address], [place] [facility] 05/24/2025 11:28:37 05/17/20 25 Allergy Immunotherapy Injections completed MAKAYLA GURROLA, RMA [address], [place], [address], [place] [facility] 05/17/2025 10:52:46 05/09/20 25 Allergy Immunotherapy Injections completed ROSA DOUGLASSC, RMA [address], [place], [address], [place] [facility] 05/09/2025 13:47:27 05/01/20 25 Allergy Immunotherapy Injections completed MAKAYLA GURROLA, RMA [address], [place], [address], [place] [facility] 05/01/2025 11:48:55 04/25/20 25 Allergy Immunotherapy Injections completed MAKAYLA GURROLA RMA [address], [place], [address], [place] [facility] 04/25/2025 12:09:48 04/19/20 25 Allergy Immunotherapy Injections completed ROSA DOUGLASSC, RMA [address], [place], [address], [place] [facility] 04/19/2025 13:45:42 04/11/20 25 Allergy Immunotherapy Injections completed ROSA DOUGLASSC, RMA [address], [place], [address], [place] [facility] 04/11/2025 09:53:57 04/04/20 25 Allergy Immunotherapy Injections completed ROSA RAFATC, RMA [address], [place], [address], [place] [facility] 04/04/2025 14:14:25 03/21/20 25 Allergy Immunotherapy Injections completed MAVERICK TERRAZAS RN [address], [place], [address], [place] [facility] 03/21/2025 14:32:25 03/15/20 25 Allergy Immunotherapy Injections completed ROSA ALDANA, RMA [address], [place], [address], [place] [facility] 03/15/2025 13:24:02 03/07/20 25 Allergy Immunotherapy Injections completed MAKAYLA GURROLA, RMA [address], [place], [address], [place] [facility] 03/07/2025 14:17:42 03/02/20 25 Allergy Immunotherapy Injections completed MAKAYLA GURROLA RMA [address], [place], [address], [place] [facility] 03/02/2025 09:22:17 02/24/20 25 Allergy Immunotherapy Injections completed MAKAYLA GURROLA RMA [address], [place], [address], [place] [facility] 02/23/2025 10:37:57 02/15/20 25 Allergy Immunotherapy Injections completed MAVERICK TERRAZAS RN [address], [place], [address], [place] [facility] 02/14/2025 13:47:08 02/08/20 25 Allergy Immunotherapy Injections completed ROSA ALDANA, RMA [address], [place], [address], [place] [facility] 02/07/2025 15:34:14 02/01/20 25 Allergy Immunotherapy Injections completed MAKAYLA GURROLA RMA [address], [place], [address], [place] [facility] 01/31/2025 14:14:19 01/25/20 25 Allergy Immunotherapy Injections completed MAKAYLA GURROLA RMA [address], [place], [address], [place] [facility] 01/24/2025 10:31:45 01/18/20 25 Allergy Immunotherapy Injections completed MAKAYLA GURROLA RMA [address], [place], [address], [place] [facility] 01/17/2025 11:50:20 01/12/20 25 Allergy Immunotherapy Injections completed MAVERICK TERRAZAS RN [address], [place], [address], [place] [facility] 01/11/2025 10:38:17 01/03/20 25 Allergy Immunotherapy Injections completed MAVERICK TERRAZAS RN [address], [place], [address], [place] [facility] 01/03/2025 13:48:45 12/29/19 25 Allergy Immunotherapy Injections completed MAVERICK TERRAZAS RN [address], [place], [address], [place] [facility] 12/29/2024 10:36:58 12/20/19 25 Allergy Immunotherapy Injections completed MAVERICK TERRAZAS RN [address] [place] [address], [address], [place] [facility] 12/20/2024 15:44:53 12/12/19 25 Allergy Immunotherapy Injections completed DENICE RIVERA [address] [place] [address], [address], [place] [facility] 12/12/2024 13:28:07 11/30/19 25 Allergy Immunotherapy Injections completed ROSA ALDANA RMReji [address], [place], [address], [place] [facility] 11/30/2024 14:28:33 11/22/19 25 Allergy Immunotherapy Injections completed ROSA ALDANA RMA [address], [place], [address], [place] [facility] 11/22/2024 13:40:26 11/15/19 25 Allergy Immunotherapy Injections completed ROSA ALDANA RMA [address], [place], [address], [place] [facility] 11/15/2024 13:45:46 11/10/19 25 Allergy Immunotherapy Injections completed DENICE RIVERA [address], [place], [address], [place] [facility] 11/10/2024 15:15:34 11/02/20 24 Allergy Immunotherapy Injections completed MAVERICK TERRAZAS RN [address] [facility], [place], [address], [place] [facility] 11/02/2024 10:42:32 10/25/20 24 Allergy Immunotherapy Injections completed MAVERICK TERRAZAS RN [address] [facility], [place], [address], [place] [facility] 10/25/2024 14:09:21 10/17/20 24 Allergy Immunotherapy Injections completed ROSA ALDANA RMA [address], [place], [address], [place] [facility] 10/17/2024 13:44:09 10/03/20 24 Allergy Immunotherapy Injections completed DENICE RIVERA [address],[place] [facility], [place], [address], [place] [facility] 10/03/2024 13:20:05 09/21/20 24 Allergy Immunotherapy Injections completed MAVERICK TERRAZAS RN [address] [facility],[address] [place] [address], [address], [place] [facility] 09/21/2024 12:01:33 09/12/20 24 Allergy Immunotherapy Injections completed ROSA ALDANA RMA [address] [place] [address], [address], [place] [facility] 09/12/2024 14:05:49 09/06/20 24 Allergy Immunotherapy Injections completed DENICE RIVERA [address] [place] [address], [address], [place] [facility] 09/06/2024 14:48:49 09/06/20 24 JMSNasal/Sinus Endoscopy-PRIOR surgical cavities completed KYMBERLY GARCIA MD [address] [place] [address], [address], [place] [facility] 09/06/2024 15:05:59 08/29/20 24 Allergy Immunotherapy Injections completed DENICE RIVERA [address], [place], [address], [place] [facility] 08/29/2024 14:50:02 08/23/20 24 Allergy Immunotherapy Injections completed MAVERICK TERRAZAS RN [address], [place], [address], [place] [facility] 08/23/2024 15:21:09 08/15/20 24 Allergy Immunotherapy Injections completed MAVERICK TERRAZAS RN [address], [place], [address], [place] [facility] 08/15/2024 14:14:05 08/10/20 24 Allergy Immunotherapy Injections completed DENICE RIVERA [address] [place] [address], [address], [place] [facility] 08/10/2024 14:00:51 08/04/20 24 Allergy Immunotherapy Injections completed DENICE RIVERA [address] [place] [address], [address], [place] [facility] 08/04/2024 15:31:25 07/25/20 24 Allergy Immunotherapy Injections completed DENICE MARIA [address] [place] [address], [address], [place] [facility] 07/25/2024 14:33:52 07/19/20 24 Allergy Immunotherapy Injections completed MAVERICK TERRAZAS RN [address] [place] [address], [address], [place] [facility] 07/19/2024 16:18:04 07/11/20 24 Allergy Immunotherapy Injections completed DENICE MARIA [address], [place], [address], [place] [facility] 07/11/2024 14:32:17 07/04/20 24 Allergy Immunotherapy Injections completed DENICE RIVERA [address], [place], [address], [place] [facility] 07/04/2024 14:03:37 06/28/20 24 Allergy Immunotherapy Injections completed MAVERICK TERRAZAS RN [address], [place], [address], [place] [facility] 06/28/2024 14:26:26 06/20/20 24 Allergy Immunotherapy Injections completed DENICE MARIA [address] [place] [address], [address], [place] [facility] 06/20/2024 13:05:25 06/13/20 24 Allergy Immunotherapy Injections completed DENICE RIVERA [address] [place] [address], [address], [place] [facility] 06/13/2024 15:52:47 06/06/20 24 Allergy Immunotherapy Injections completed MAVERICK TERRAZAS RN [address] [facility],[address] [place] [address], [address], [place] [facility] 06/06/2024 15:10:37 06/06/20 24 JMSNasal/Sinus Endoscopy-PRIOR surgical cavities completed KYMBERLY GARCIA MD [address] [facility],[address], [address], [place] [facility] 06/06/2024 14:10:04 06/01/20 24 Allergy Immunotherapy Injections completed MAVERICK TERRAZAS RN [address] [facility],[address] [place] [address], [address], [place] [facility] 06/01/2024 15:38:20 05/23/20 24 Allergy Immunotherapy Injections completed DENICE RIVERA [address] [place] [address], [address], [place] [facility] 05/23/2024 14:44:44 05/17/20 24 Allergy Immunotherapy Injections completed ROSA ALDANA RMReij [address] [place] [address], [address], [place] [facility] 05/17/2024 16:10:00 05/09/20 24 Allergy Immunotherapy Injections completed MAVERICK TERRAZAS RN [address] [place] [address], [address], [place] [facility] 05/09/2024 15:06:52 05/02/20 24 Allergy Immunotherapy Injections completed MAKAYLA GALILEO, RMA [address] [address], [place], [address], [place] [facility] 05/02/2024 13:34:36 04/25/20 24 Allergy Immunotherapy Injections completed DENICE RIVERA [address] [address] [place] [address], [address], [place] [facility] 04/25/2024 14:45:44 04/21/20 24 Allergy Immunotherapy Injections completed DENICE RIVERA [address] [address] [place] [address], [address], [place] [facility] 04/21/2024 14:00:37 04/12/20 24 Allergy Immunotherapy Injections completed ROSA ALDANA Reji [address] [place] [address], [address], [place] [facility] 04/12/2024 16:04:03 04/05/20 24 JMSNasal/Sinus Endoscopy-PRIOR surgical cavities completed KYMBERLY GARCIA MD [address] [facility],[address] [address] [place] [address], [address], [place] [facility] 04/05/2024 14:34:46 04/05/20 24 Allergy Immunotherapy Injections completed DENICE RIVERA [address] [place] [address], [address], [place] [facility] 04/05/2024 13:35:01 03/29/20 24 Allergy Immunotherapy Injections completed DENICE MARIA [address] [facility],[address] [place] [address], [address], [facility] - [facility] 03/29/2024 16:18:09 02/29/20 24 functional endoscopic sinus surgery completed KYMBERLY GARCIA MD [address] [place] [address], [address], [facility] - [facility] 04/05/2024 14:33:51 02/29/20 24 Repair of nasal septum completed KYMBERLY GARCIA MD [address], [place], [address], [facility] - [facility] 04/05/2024 14:34:03 cholecystectomy completed Shyanne Escalante [place] - [facility] 11/15/2024 13:38:47 section completed Shyanne Escalante MA [facility] 11/15/2024 13:38:52 Imaging Results None recorded. Procedure Notes None recorded. Medical Equipment None Reported. Allergies Allergen ID Allergen Name Allergen Category Reaction Reaction Severity Criticality Documentation Date Start Date Code Code System Note Provider Name and Address Organization Details Recorded Time 495074 [employer] environme nt,medica tion Not available Not available low 10/18/20252024 20282 6 RxNorm Runny nose unrec ogniz ed react ion (text : Itchy eyes, code: 01592 002), mild (from exter nal sourc e) [...] by mouth 09/06 completed Medicati on ID: [id number] D uration Value: 10 Brand Name: doxycycl [...] ICD10 Code Diagnosis IMO Codes Diagnosis Note [id number] ROSA ALDANA, RMA Allergy [address] [facility] [address] [facility] [address] 08/10/2025 09:49:11 08/10/2025 10:22:58 Perennial allergic rhinitis [id number] J30.89 [id number] ROSA ALDANA, RMA Allergy [address] [facility],[place] [address] [place] [address] 08/15/2025 11:30:58 08/15/2025 11:51:34 Perennial allergic rhinitis [id number] J30.89 [id number] Clay Noé Allergy [address] [facility],[place] [address] [facility] [address] 08/22/2025 10:53:59 08/22/2025 11:08:03 Perennial allergic rhinitis [id number] J30.89 [id number] Clay Vasquezos Allergy [address] [facility],[place] [facility] [address] 08/29/2025 09:58:17 08/29/2025 10:22:53 Perennial allergic rhinitis [id number] J30.89 Health Concerns Section Related Observation LastModified by Organization Detai ls LastModified Time None Recorded Concern Status LastModified by Organization Details LastModified Time None Recorded Payers Encounter Date Sequence Insurance Name Policy Number Policy Maya Covered Member ID Maya Member ID Guarantor Name 08/29/2025 1 [facility] PLAN (MEDICAID HMO) YESENIA Hoffmann [id number] Naina Hoffmann OBGyn Episode No OBEpisode recorded.
== END 2025-10-25 14:35 | disposition home or self-care (01) ==
LOC: HO.HGI 13:35
PROVIDERS: PCP Nurse Practitioner Family; Visit Provider Nurse Practitioner Family
DX: D50.0 Iron deficiency anemia secondary to blood loss (chronic) (principal); K59.00 Constipation, unspecified
CPT/HCPCS: 99203

== ENCOUNTER → 2025-10-25 13:34 | Outpatient (BNVA) | payer OTHER, SELFPAY | PROVIDERS: PCP Nurse Practitioner Family; Visit Provider Nurse Practitioner Family | DX: D50.0 Iron deficiency anemia secondary to blood loss (chronic) (principal); K59.00 Constipation, unspecified | CPT/HCPCS: 99202 ==